=== PATIENT | female | born 1980 | race Caucasian/White ===

== ENCOUNTER 2016-09-08 21:13 | Inpatient (IN) | payer BC ==
--- NOTE | 2016-09-08 22:03 | ED ---
Psych HPI - General Source: patient, RN notes reviewed Mode of arrival: ambulatory <Keiko Hua - Last Filed: 09/09/16 02:16> <Navid Hernandes - Last Filed: 10/03/16 09:08> - General Chief Complaint: Psychiatric Symptoms Stated Complaint: mental health Time Seen by Provider: 09/08/16 21:33 - History of Present Illness Initial Comments: Patient is a 36-year-old female since emergency room for psychiatric evaluation. Patient states been having depression for the past few months. Patient states the depression has been increasing. Patient states been having thoughts of wanting to hurt herself or end her life but denies actually going through with it. Patient states that she has 2 kids and her and she cares too much about them to enter life, but cannot get thoughts on wanting to harm her self out of her head. Patient states she used to be on depression medication but is not taking anything in years. Patient states that she is to follow up with the counselor/psychiatrist back in 2009. Patient states she smokes marijuana occasionally. Patient denies any other illicit drug use. Patient states she smokes about half pack per day. Patient denies alcohol use. Patient denies chest pain, shortness of breath, headache, dizziness, nausea, vomiting, abdominal pain, fevers, chills. Patient denies homicidal ideations. Patient denies visual or auditory hallucinations. (Keiko Hua) - Related Data Home Medications Medication Instructions Recorded Confirmed Biotin 5 mg PO BID 09/08/16 09/09/16 Cyanocobalamin [Vitamin B-12 1,000 mcg SQ QMONTH 09/08/16 09/09/16 Injection] HYDROcodone/APAP 7.5-325MG [[place] 1 tab PO Q4H PRN 09/08/16 09/09/16 7.5-325] Ondansetron Odt [Zofran ODT] 4 mg PO Q6H PRN 09/08/16 09/09/16 Pantoprazole [Protonix] 40 mg PO BID 09/08/16 09/09/16 Ranitidine HCl [Zantac] 150 mg PO BID 09/08/16 09/09/16 Previous Rx's Medication Instructions Recorded ARIPiprazole [Abilify] 5 mg PO Q24H #30 tab 09/19/16 Docusate [Colace] 100 mg PO BID PRN #60 cap 09/19/16 Escitalopram [Lexapro] 20 mg PO 0700 #30 tab 09/19/16 Gabapentin [Neurontin] 400 mg PO TID #45 cap 09/19/16 Nicotine 21Mg/24Hr Patch [Habitrol] 1 patch TRANSDERM DAILY #12 patch 09/19/16 clonazePAM [KlonoPIN] 0.5 mg PO BID PRN #20 tab 09/19/16 traZODone HCL 150 mg PO HS #30 tablet 09/19/16 Allergies Allergy/AdvReac Type Severity Reaction Status Date / Time Iodinated Contrast Media - Allergy Anaphylaxis Verified 09/09/16 02:14 Oral and Penicillins Allergy Anaphylaxis Verified 09/09/16 02:14 Review of Systems ROS Other: All systems not noted in ROS Statement are negative. <Keiko Hua - Last Filed: 09/09/16 02:16> ROS Other: All systems not noted in ROS Statement are negative. <Navid Hernandes - Last Filed: 10/03/16 09:08> ROS Statement: Those systems with pertinent positive or pertinent negative responses have been documented in the HPI. Past Medical History Past Medical History: No Reported History History of Any Multi-Drug Resistant Organisms: None Reported Past Surgical History: Bariatric Surgery, Tubal Ligation Additional Past Surgical History / Comment(s): breast reduction Past Psychological History: Depression Smoking Status: Former smoker Past Alcohol Use History: None Reported Past Drug Use History: Marijuana <Keiko Hua - Last Filed: 09/09/16 02:16> General Exam Limitations: no limitations General appearance: alert, in no apparent distress Head exam: Present: atraumatic, normocephalic, normal inspection Eye exam: Present: normal appearance ENT exam: Present: normal exam Neck exam: Present: normal inspection Respiratory exam: Present: normal lung sounds bilaterally. Absent: respiratory distress Cardiovascular Exam: Present: regular rate, normal rhythm, normal heart sounds GI/Abdominal exam: Present: soft, normal bowel sounds. Absent: distended, tenderness, guarding, rebound, rigid Extremities exam: Present: normal inspection Back exam: Present: normal inspection Neurological exam: Present: alert, oriented X3, CN II-XII intact, normal gait Psychiatric exam: Present: normal affect, normal mood Skin exam: Present: warm, dry, intact, normal color. Absent: rash <Keiko Hua - Last Filed: 09/09/16 02:16> <Navid Hernandes - Last Filed: 10/03/16 09:08> - General Exam Comments Initial Comments: Sitting in exam room in no acute distress. (Keiko Hua) Medical Decision Making <Keiko Hua - Last Filed: 09/09/16 02:16> - Lab Data Result diagrams: 09/09/16 09:40 09/09/16 09:40 <Navid Hernandes - Last Filed: 10/03/16 09:08> - Medical Decision Making Patient is a 36-year-old female since emergency room for psych evaluation. Patient is medically cleared to be evaluated by psych. Patient evaluated by psych and will be admitted. (Keiko Hua) I saw this patient in conjunction with the physician program support assistant. I performed independent history and physical exam. Agree with case management. (Navid Hernandes) - Lab Data Lab Results 09/08/16 Range/Units 21:30 Urine Opiates Screen Not Detected (NotDetected) Ur Oxycodone Screen Not Detected (NotDetected) Urine Methadone Screen Not Detected (NotDetected) Ur Propoxyphene Screen Not Detected (NotDetected) Ur Barbiturates Screen Not Detected (NotDetected) U Tricyclic Antidepress Not Detected (NotDetected) Ur Phencyclidine Scrn Not Detected (NotDetected) Ur Amphetamines Screen Not Detected (NotDetected) U Methamphetamines Scrn Not Detected (NotDetected) U Benzodiazepines Scrn Detected H (NotDetected) Urine Cocaine Screen Not Detected (NotDetected) U Marijuana (THC) Screen Detected H (NotDetected) Disposition Decision Date: 09/09/16 <Keiko Hua - Last Filed: 09/09/16 02:16> <Navid Hernandes - Last Filed: 10/03/16 09:08> Clinical Impression: Depression Disposition: ADMITTED IP TO THIS HOSP Condition: Stable
[2016-09-09] MEDS ORDERED: MAG HYDROX/AL HYDROX/SIMETH 30 ML CUP PO PRN (03:40)
[2016-09-09] MEDS ORDERED: ZIPRASIDONE 20 MG VIAL IM PRN (03:40)
[2016-09-09] MEDS: ACETAMINOPHEN TAB 325 MG TAB PO PRN (07:14)
[2016-09-09] MEDS: LORazepam 1 MG TAB PO PRN ×3 (07:14→22:49)
[2016-09-09] MEDS: NICOTINE 14MG/24HR PATCH TRANSDERM SCH (09:15)
[2016-09-09 10:08] LABS: Anisocytosis Moderate; Basophils # (A) 0.1 k/uL (0-0.2); Basophils % (A) 1 %; CH 26.3; CHCM 31.1; Eosinophils # (A) 0.2 k/uL (0-0.7); Eosinophils % (A) 3 %; HCT 39.9 % (34.0-46.0); HGB 12.2 gm/dL (11.4-16.0); Hypochromasia Moderate; Luc # (Auto) 0.14; Luc % (Auto) 2; Lymphocytes # (A) 2.3 k/uL (1.0-4.8); Lymphocytes % (A) 30 %; MCH 25.9 pg (25.0-35.0); MCHC 30.6 g/dL (31.0-37.0); MCV 84.7 fL (80.0-100.0); Mean Platelet Volume 7.4; Monocytes # (A) 0.3 k/uL (0-1.0); Monocytes % (A) 4 %; Neutrophils # (A) 4.7 k/uL (1.3-7.7); Neutrophils % (A) 60 %; RBC 4.72 m/uL (3.80-5.40); RDW 20.2 % (11.5-15.5); WBC 7.8 k/uL (3.8-10.6); WBC (Perox) 8.33
[2016-09-09 10:36] LABS: ALT 29 U/L (9-52); AST 24 U/L (14-36); Alkaline Phosphatase 48 U/L (38-126); Anion Gap 14 mmol/L; Blood Urea Nitrogen 12 mg/dL (7-17); Calcium 9.8 mg/dL (8.4-10.2); Carbon Dioxide 27 mmol/L (22-30); Chloride 105 mmol/L (98-107); Glucose 89 mg/dL (74-99); Non-African American GFR(MDRD) >60 (>60 ml/min/1.73 sqM); Potassium 4.3 mmol/L (3.5-5.1); Sodium 146 mmol/L (137-145); Total Bilirubin 0.7 mg/dL (0.2-1.3); Total Protein 7.7 g/dL (6.3-8.2)
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
[2016-09-09] MEDS: FAMOTIDINE 20 MG TAB PO SCH ×2 (11:41→21:40)
[2016-09-09] MEDS: PANTOPRAZOLE 40 MG TABLET PO SCH ×2 (11:41→16:51)
[2016-09-09] MEDS: ESCITALOPRAM 10 MG TAB PO SCH (11:41)
[2016-09-09] MEDS ORDERED: ONDANSETRON ODT 4 MG TAB PO PRN (15:01)
--- NOTE | 2016-09-09 15:12 | P.CONS ---
History of Present Illness - Reason for Consult Consult date: 09/09/16 Medical management Requesting physician: Guicho Deng - Chief Complaint Depression - History of Present Illness This is a 36-year-old female with a known past medical history of depression, vitamin B-12 deficiency and stomach ulcer. Patient presents to the emergency room with complaints of depression and thoughts of wanting to hurt herself. But she denies any suicide attempt. Plus she has 2 kids at home that she cares much about and does not want to harm herself for their sake. Patient denies any homicidal ideation. She denies any chest pain, shortness of breath, nausea or vomiting. Denies any bowel movement changes or urinary symptoms. Denies any fevers chills or sweats. Been consulted for medical management. Review of Systems Please refer to HPI otherwise unremarkable Past Medical History Past Medical History: No Reported History Additional Past Medical History / Comment(s): Asthma, gastric ulcer, heart murmur History of Any Multi-Drug Resistant Organisms: None Reported Past Surgical History: Bariatric Surgery, Tubal Ligation Additional Past Surgical History / Comment(s): breast reduction Past Psychological History: Depression Smoking Status: Current every day smoker Past Alcohol Use History: None Reported Past Drug Use History: Marijuana Medications and Allergies Home Medications Medication Instructions Recorded Confirmed Type Biotin 5 mg PO BID 09/08/16 09/09/16 History Cyanocobalamin [Vitamin B-12 1,000 mcg SQ QMONTH 09/08/16 09/09/16 History Injection] HYDROcodone/APAP 7.5-325MG [[place] 1 tab PO Q4H PRN 09/08/16 09/09/16 History 7.5-325] LORazepam [Ativan] 1 mg PO DAILY PRN 09/08/16 09/09/16 History Ondansetron Odt [Zofran Odt] 4 mg PO Q6H PRN 09/08/16 09/09/16 History Pantoprazole [Protonix] 40 mg PO BID 09/08/16 09/09/16 History Ranitidine HCl [Zantac] 150 mg PO BID 09/08/16 09/09/16 History Zolpidem Tartrate [Ambien] 5 mg PO HS 09/08/16 09/09/16 History Allergies Allergy/AdvReac Type Severity Reaction Status Date / Time Iodinated Contrast Media - Allergy Anaphylaxis Verified 09/09/16 02:14 Oral and Penicillins Allergy Anaphylaxis Verified 09/09/16 02:14 Physical Exam Vitals: Vital Signs Temp Pulse Resp BP Pulse Ox 09/09/16 01:47 98.3 F 70 16 114/73 97 Intake and Output 09/09/16 09/09/16 09/09/16 06:59 14:59 22:59 Other: Weight 51.398 kg Head normocephalic Neck supple Lungs crackles at bases Heart regular rate and rhythm S1-S2, murmur 2/6 systolic border Abdomen is soft nontender nondistended positive bowel sounds no hepatosplenomegaly Extremities no edema Neuro alert and orientated to 3 Results CBC & Chem 7: 09/09/16 09:40 09/09/16 09:40 Labs: Abnormal Lab Results - Last 24 Hours (Table) 09/09/16 09/09/16 Range/Units 09:40 09:40 MCHC 30.6 L (31.0-37.0) g/dL RDW 20.2 H (11.5-15.5) % Sodium 146 H (137-145) mmol/L Assessment and Plan Plan: 1. Depression: Patient is been admitted to the psychiatric unit. Psychiatry's following his added Lexapro 10 mg daily 2. Generalized anxiety disorder 3. Gastric ulcer: Resume Zantac and Protonix. 4. History of asthma: Stable no evidence of exacerbation 5. Nicotine dependence: Continue nicotine patch Thank you for this consultation. We will follow along as needed. Time with Patient: Greater than 30 (Greater than 50% of the total time spent in counseling and coordination of care.I performed an examination of the patient and discussed their management with the physician Healthcare Administrator. I have reviewed the Physician Healthcare Administrator's notes and agree with the documented findings and plan of care)
[2016-09-09] MEDS: HYDROcodone/APAP 7.5-325MG 1 EACH TAB PO PRN ×2 (15:16→20:26)
[2016-09-09] MEDS ORDERED: NON-FORMULARY DRUG (Ranitidine Hcl [Zantac] 150 MG) PO SCH (21:00)
[2016-09-09] MEDS ORDERED: NON-FORMULARY DRUG (Biotin [Biotin] 5 MG) PO SCH (21:00)
[2016-09-10] MEDS: ESCITALOPRAM 10 MG TAB PO SCH (07:57)
[2016-09-10] MEDS: PANTOPRAZOLE 40 MG TABLET PO SCH ×2 (07:57→18:09)
[2016-09-10] MEDS: FAMOTIDINE 20 MG TAB PO SCH (07:57)
[2016-09-10] MEDS: NICOTINE 14MG/24HR PATCH TRANSDERM SCH (07:59)
[2016-09-10] MEDS: HYDROcodone/APAP 7.5-325MG 1 EACH TAB PO PRN ×4 (08:00→20:39)
[2016-09-10] MEDS: LORazepam 1 MG TAB PO PRN (08:01)
--- NOTE | 2016-09-10 14:26 | P.PN ---
Progress Note - Text SUBJECTIVE: I reviewed the medical record, interviewed the patient She complained of continued feelings of depression, fatigue, hopelessness and helplessness.She endorses poor sleep ,nightmares ,high anxiety ,passive suicidal ideation ,she reports that her depression getting worse since her gastric bypass due to complication ,reports chronic pain since surgery "NORCO IS NOT HELPING ENOUGH",patient has been requesting PRN Ativan three times a day ,despite this she is still having anxiety and crying episodes OBJECTIVE: She presented as a casually dressed female ,tearful during interview . She reports, GI upset,and increased anxiety. She maintained eye contact and attended to interview. had a sad facial expression. She showed psychomotor retardation but no abnormal involuntary movements. Her speech was spontaneous ,circumstatial but easy to redirect. Her affect was depressed She is somatic preoccupied She denied homicidal ideation. She expressed depressive cognitions including hopelessness, helplessness and worthlessness. She ruminated about her multiple psychosocial problems. She denies psychotic features ,insight is fair ASSESSMENT: She is experiencing depression , anxiety and PTSD symptoms , PLAN: Continue Lexapro ,add Trazodone for sleep ,change Ativan to Klonopin , monitor her mood and suicidal ideation ,encourage groups participation
[2016-09-10] MEDS: clonazePAM 1 MG TAB PO PRN (15:00)
[2016-09-10] MEDS ORDERED: traZODone HCL 100 MG TAB PO SCH (21:00)
[2016-09-11] MEDS: clonazePAM 1 MG TAB PO PRN ×3 (00:42→23:01)
[2016-09-11] MEDS: PANTOPRAZOLE 40 MG TABLET PO SCH ×2 (08:28→17:14)
[2016-09-11] MEDS: NICOTINE 14MG/24HR PATCH TRANSDERM SCH (08:28)
[2016-09-11] MEDS: ESCITALOPRAM 10 MG TAB PO SCH (08:28)
[2016-09-11] MEDS: HYDROcodone/APAP 7.5-325MG 1 EACH TAB PO PRN ×4 (08:30→21:23)
--- NOTE | 2016-09-11 14:08 | P.PN ---
Progress Note - Text SUBJECTIVE: I reviewed the medical record, interviewed the patient She complained of continued feelings of depression, fatigue, hopelessness and helplessness.She slept better with Trazodone but up after 2 hours and requested PRN Klonopin , ,she reports that her depression getting worse since her gastric bypass due to complication ,reports chronic pain since surgery and has been on opium medications since then Patient had family meeting with at 11 AM and she does feel that it was positive ,was concerned about her 11 years old daughter who DX with [employer] and patient asked if daughter can visit OBJECTIVE: She presented as a casually dressed female ,not tearful as yesterday. She maintained eye contact and attended to interview. had a sad facial expression. She showed psychomotor retardation but no abnormal involuntary movements. Her speech was spontaneous and linear Her affect was depressed She is somatic preoccupied She denied suicidal and homicidal ideation. She expressed depressive cognitions including hopelessness, helplessness and worthlessness. She ruminated about her multiple psychosocial problems. She denies psychotic features ,insight is fair , PLAN: Increase Trazodone to 150 mg for sleep ,continue rest of medications regime ,daughter can visit today at 4 PM ,encourage groups participation
[2016-09-12] MEDS: traZODone HCL 50 MG TAB PO SCH ×2 (00:04→23:18)
[2016-09-12] MEDS: NICOTINE 21MG/24HR PATCH TRANSDERM SCH (09:17)
[2016-09-12] MEDS: ESCITALOPRAM 10 MG TAB PO SCH (09:18)
[2016-09-12] MEDS: PANTOPRAZOLE 40 MG TABLET PO SCH ×2 (09:18→16:34)
[2016-09-12] MEDS: clonazePAM 1 MG TAB PO PRN ×3 (09:18→21:56)
[2016-09-12] MEDS: HYDROcodone/APAP 7.5-325MG 1 EACH TAB PO PRN ×4 (09:18→21:03)
--- NOTE | 2016-09-12 09:39 | P.PN ---
Progress Note - Text Interval history: The patient is found in the hallway she follows me to an interview room. She reports that she continues to feel depressed she is having episodes of tearfulness causing her to leave group at times. Her Ativan was changed to Klonopin 1 mg 3 times daily she is using that throughout the day and she feels that does calm her. We discussed try to utilize some cognitive strategies to address her symptoms as well. She spoke at length regarding her home circumstances. 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 We reviewed her medications her questions were answered. Mental status exam: The patient is a shorter statured thin female. She has visible tattoos on her upper extremities her hair is purple. Eye contact is appropriate speech is fluent spontaneous nonpressured. Thought process is circumstantial at times there is no tangential thinking loose associations or flight of ideas. She continues to have suicidal thoughts that are very uncomfortable and frightening to her. No auditory or visual hallucinations no specific delusions. She demonstrates no verbal or physical aggressiveness. She maintains a constricted to bland affect. Insight and judgment limited. No homicidal ideation. She remains oriented to person place and date. Plan: The patient will continue on her current medications she is encouraged to continue participating in group. Suggestions were offered for cognitive reframing. We will continue to monitor for safety. Vital signs reviewed. She requires continued psychiatric hospitalization because of suicidal thoughts.
[2016-09-12] MEDS: NICOTINE 14MG/24HR PATCH TRANSDERM SCH (10:09)
[2016-09-13] MEDS: ESCITALOPRAM 10 MG TAB PO SCH (06:08)
[2016-09-13] MEDS: PANTOPRAZOLE 40 MG TABLET PO SCH ×2 (06:08→16:07)
[2016-09-13] MEDS: clonazePAM 1 MG TAB PO PRN ×3 (06:15→19:27)
[2016-09-13] MEDS: HYDROcodone/APAP 7.5-325MG 1 EACH TAB PO PRN ×5 (06:15→23:03)
[2016-09-13] MEDS: MAGNESIUM HYDROXIDE 2,400 MG/10 ML CUP PO PRN (06:22)
[2016-09-13] MEDS: NICOTINE 21MG/24HR PATCH TRANSDERM SCH (09:02)
--- NOTE | 2016-09-13 09:38 | P.PN ---
Progress Note - Text Interval history: The patient is found in her room she follows me to an interview room. She reports that her mood is distraught she feels sad she feels hopeless. She reports yesterday having crying episodes. She states she continues to have suicidal thoughts with consideration of plans. She has tried to attend groups and socializes on the unit. We talked about augmentation strategies including Abilify. She initially stated she had been on that medication today states that she was wrong and she was thinking of Lamictal. We discussed the potential benefits of adding Abilify. Nursing informs me that she is experiencing symptoms of constipation and would usually take Colace to alleviate it. Mental status exam: The patient is alert she seated calmly eye contact is appropriate she endorses a depressed mood with hopelessness thinking and suicidal thoughts. She maintains a bland or blunted affect. Speech is spontaneous fluent nonpressured. Thought process is circumstantial at times no tangential thinking loose associations or flight of ideas. She is endorsing no auditory or visual hallucinations no evidence of psychosis. She demonstrates no verbal or physical aggressiveness. She remains oriented to person place and date. Plan: The patient will continue on the Lexapro 10 mg daily we will augment with Abilify 2 mg daily. She finds the trazodone helpful for sleep. Vital signs reviewed. She is encouraged to fully participate in the milieu. She requires continued hospitalization for ongoing suicidal thoughts and hopelessness thinking.
[2016-09-13] MEDS: DOCUSATE 100 MG CAP PO PRN ×2 (09:52→21:23)
[2016-09-13] MEDS: ARIPiprazole 2 MG TAB PO SCH (09:52)
[2016-09-13] MEDS: ACETAMINOPHEN TAB 325 MG TAB PO PRN (19:56)
[2016-09-13] MEDS: traZODone HCL 50 MG TAB PO SCH (22:54)
[2016-09-14] MEDS: PANTOPRAZOLE 40 MG TABLET PO SCH ×2 (06:40→18:00)
[2016-09-14] MEDS: ESCITALOPRAM 10 MG TAB PO SCH (06:40)
[2016-09-14] MEDS: HYDROcodone/APAP 7.5-325MG 1 EACH TAB PO PRN ×4 (07:20→23:06)
[2016-09-14] MEDS: clonazePAM 1 MG TAB PO PRN ×3 (07:26→22:06)
[2016-09-14] MEDS: ARIPiprazole 2 MG TAB PO SCH (08:47)
[2016-09-14] MEDS: NICOTINE 21MG/24HR PATCH TRANSDERM SCH (08:47)
--- NOTE | 2016-09-14 09:18 | P.PN ---
Progress Note - Text Interval history: The patient's is found in the dining room she follows me to an interview room. She reports that she continues to struggle with episodes where she feels overwhelmed and resorts to having suicidal thoughts. She continues to report episodes where she will have to go to her room and she will be tearful for an extended period. She asked that the Klonopin be increased but we discussed that is not in her best interest. We reviewed coping skills that she is using suggestions for cognitive reframing were offered. She does feel that the Abilify may be providing some benefit. Mental status exam: The patient is a thin female she has purple hair she has visible tattoos on her upper extremities. Eye contact is appropriate she reports her mood is depressed and anxious she reports hopelessness thinking with continued suicidal thoughts. She states that she has thoughts that she wished the suicide attempt when she was 14 years old was successful. She maintains a constricted affect. Speech is spontaneous fluent there is an increased content of speech but it is not pressured. She does not appear hypomanic or manic. There is no report or evidence of psychosis. She remains oriented to person place and date. Insight and judgment limited. Plan: The patient will continue on her current medications she is encouraged to continue developing coping skills. Vital signs are reviewed. She requires continued psychiatric hospitalization.
[2016-09-14] MEDS: DOCUSATE 100 MG CAP PO PRN ×2 (09:31→22:06)
[2016-09-14] MEDS: ACETAMINOPHEN TAB 325 MG TAB PO PRN ×2 (10:20→20:27)
[2016-09-14] MEDS: traZODone HCL 50 MG TAB PO SCH (23:07)
[2016-09-15] MEDS: PANTOPRAZOLE 40 MG TABLET PO SCH ×2 (06:40→16:39)
[2016-09-15] MEDS: ESCITALOPRAM 10 MG TAB PO SCH (06:40)
[2016-09-15] MEDS ORDERED: ARIPiprazole 2 MG TAB PO SCH (07:00)
[2016-09-15] MEDS: clonazePAM 1 MG TAB PO PRN ×2 (08:27→16:39)
[2016-09-15] MEDS: NICOTINE 21MG/24HR PATCH TRANSDERM SCH (08:27)
[2016-09-15] MEDS: HYDROcodone/APAP 7.5-325MG 1 EACH TAB PO PRN ×2 (08:28→16:39)
[2016-09-15] MEDS: DOCUSATE 100 MG CAP PO PRN ×2 (12:42→22:21)
--- NOTE | 2016-09-15 13:56 | P.PN ---
Progress Note - Text SUBJECTIVE: I reviewed the medical record, interviewed Ms. Covington and discussed her treatment and treatment plan with team meeting. She was admitted to the psychiatric unit on 09/09/2015 with the diagnoses of major depressive disorder recurrent severe without psychosis, generalized anxiety disorder and post manic stress disorder. Dr. Deng has been treating her with a combination of clonazepam 1 mg by mouth 3 times a day when necessary for anxiety, Lexapro 10 mg daily, Desyrel 150 mg at bedtime and Abilify 2 mg daily. She complained of continued feelings depression. She talked for a considerable period of time about her past experiences including the difficulty she encountered as a child, the suicide of her stepfather and her relationship with her mother and sister. She alleged that she has felt depressed since she was a child. She felt a period of improvement depression just before she developed a bleeding gastric ulcer required hospitalization, hydration and blood transfusions. She alleged that since that hospitalization she has been severely depressed. She also talked about chronic anxiety requiring treatment with high doses of benzodiazepines and chronic pain also requiring high doses of opiate pain medicines. She is distressed that we are limiting her dose of benzodiazepine and opiate pain medicines. She specifically inquired why her dose of Narco had been decreased from every 4 hours to every 8 hours yesterday. She described passive thoughts of suicide where she wishes that she were if she were to continues to "suffer" from depression, pain and anxiety. She denied plan or intent. OBJECTIVE: She presented as a casually groomed short and thin 36-year-old female with her hair dyed a purple hue. She maintained eye contact and attended to the interview. She had no prominent physical abnormalities. She had a depressed facial expression. She was alert and oriented to person, place and time. She showed slight psychomotor retardation but no abnormal movements. Her speech was spontaneous with normal rate, rhythm and volume. She had no articulation difficulties. Her affect was depressed. She complained of subjective subjective anxiety but did not appear anxious, restless. She described wishes but denied intent or plan. She denied homicidal ideation. She expressed depressive cognitions such as hopelessness, helplessness and worthlessness. She ruminated about her feelings of depression and anxiety, her chronic pain, her experiences as a child and her belief that her mother preferred her sister over her. She didn't express phobias, ideas reference or paranoid ideation. Her thinking was concrete but her associations were coherent and logical. She denied hallucinations and did not appear to be responding to internal stimuli. ASSESSMENT: She presented as a chronically depressed middle-aged woman who is preoccupied with anxiety symptoms and chronic pain complaints. Overall she is moderately mentally ill and showed a moderate response to treatment. She has passive suicidal ideation but no active intent or plan. PLAN: Continue Lexapro 10 mg by mouth daily (Dr. Deng started the Lexapro on ), increase Abilify to 5 mg daily, continue current dose of clonazepam ( 1 mg by mouth 3 times a day). Discussed alternatives to increasing the dosing frequency of Narco 7.5-325. Consider transfer to a partial hospital program. Encouraged continued participation in therapeutic groups and activities. Evaluate clinical status response to treatment daily basis.
[2016-09-15] MEDS: MAGNESIUM HYDROXIDE 2,400 MG/10 ML CUP PO PRN (18:44)
[2016-09-15] MEDS ORDERED: PNEUMOCOCCAL VACC-PNEUMOVAX 23 25 MCG/0.5 ML VIAL IM ONE (18:52)
[2016-09-15] MEDS: traZODone HCL 50 MG TAB PO SCH (22:25)
[2016-09-16] MEDS: HYDROcodone/APAP 7.5-325MG 1 EACH TAB PO PRN ×3 (01:01→17:29)
[2016-09-16] MEDS: clonazePAM 1 MG TAB PO PRN ×3 (01:01→21:05)
[2016-09-16] MEDS: ESCITALOPRAM 10 MG TAB PO SCH (06:02)
[2016-09-16] MEDS: ARIPiprazole 5 MG TAB PO SCH (06:02)
[2016-09-16] MEDS: PANTOPRAZOLE 40 MG TABLET PO SCH ×2 (06:03→17:26)
[2016-09-16] MEDS: NICOTINE 21MG/24HR PATCH TRANSDERM SCH ×2 (08:16→08:17)
--- NOTE | 2016-09-16 13:37 | P.PN ---
Progress Note - Text SUBJECTIVE: I reviewed the medical record, interviewed Ms. Covington and discussed her treatment and and treatment plan during team meeting. She complains of continued feelings depression and alleged that she has not improved since admission. We talked about her reason for declined or recommendation for partial hospitalization. She could not adequately explain herself and alleged that she does not want to go to [facility]. When we talked about discharge she became increasingly distraught. She began to cry and alleged that if she were to go home she would become preoccupied by suicide implying but not directly stating that she would attempt suicide by overdose of medications. I explain the reason for not increasing her dose of Narco. She complained of continued as "severe" pain. We discussed options and she agreed to a trial of gabapentin. OBJECTIVE: She presented as a thin, frail-appearing, short woman who did not make direct eye contact. She attended to the interview. She had a distressed facial expression. She showed psychomotor retardation but no abnormal movements. Her gait was slow but steady. Her speech was spontaneous with decreased rate and rhythm. Her affect was depressed and labile. She describes suicidal ideation and wishes. She expressed depressive cognitions including hopelessness, helplessness and worthlessness. She ruminated on her chronic pain, chronic depression and her inability to care for herself and her family. She did not express ideas reference or paranoid ideation. Her thinking was concrete but her associations were coherent. She denied hallucinations and did not appear to be responding to internal stimuli. ASSESSMENT: She complains of continued feelings depression, suicidal ideation and pain. She is distressed that I will not increased dose of either clonazepam or Narco. Overall she appears moderately mentally ill with little improvement since admission. PLAN: Continue inpatient hospitalization due to continued suicidal ideation. Continue aripiprazole 5 mg daily and escitalopram 10 mg daily. Begin gabapentin 300 mg and titrated according to clinical effect and side effect. Continue clonazepam 1 mg by mouth 3 times a day and Narco's 7.5-500 tablet every 8 hours when necessary for pain. Encourage participation in therapeutic groups and activities. Evaluate clinical status response to treatment on a daily basis.
[2016-09-16] MEDS: GABAPENTIN 300 MG CAP PO SCH (21:01)
[2016-09-16] MEDS: traZODone HCL 50 MG TAB PO SCH (21:59)
[2016-09-17] MEDS: HYDROcodone/APAP 7.5-325MG 1 EACH TAB PO PRN ×3 (01:50→17:23)
[2016-09-17] MEDS: ESCITALOPRAM 10 MG TAB PO SCH (06:51)
[2016-09-17] MEDS: PANTOPRAZOLE 40 MG TABLET PO SCH ×2 (06:51→18:40)
[2016-09-17] MEDS: ARIPiprazole 5 MG TAB PO SCH (06:51)
[2016-09-17] MEDS: clonazePAM 1 MG TAB PO PRN ×2 (09:24→21:02)
[2016-09-17] MEDS: NICOTINE 21MG/24HR PATCH TRANSDERM SCH (09:27)
[2016-09-17] MEDS ORDERED: CYANOCOBALAMIN 1,000 MCG/ML 1 ML VIAL IM ONE (14:29)
[2016-09-17] MEDS: ACETAMINOPHEN TAB 325 MG TAB PO PRN (15:01)
--- NOTE | 2016-09-17 16:53 | P.PN ---
Progress Note - Text SUBJECTIVE: I reviewed the medical record and interviewed Ms. Covington. She was acutely distressed earlier this morning when talking a telephone. I inquired about conversation . She obtained her mother's telephone number from her brother. She called and spoke to her mother for the first time in 2 years. Her intention was to repair their relationship and tell her mother that that she forgives. mother became angry and refused to take responsibility for her past behaviors. She also spoke with her . They apparently have ongoing difficulties about her friends and acquaintances. She is distressed because every time she has a male friend he becomes jealous and reminds her of her past infidelity. She complained of continued depression and thoughts of suicide. She apologized for her lack of emotional control yesterday when we talking about alternatives to inpatient hospitalization. She remains opposed to partial hospital because. She'll alleges that [facility] has a bad reputation and she will not receive the emotional support she required if she is to return home. The latter relates to issues in her relationship with her . She completed the [place] Depression Inventory her total score was 47 consistent with extremely severe depression. Her response to the suicide question was "I would kill myself if I had the chance." She denied side effects to the initial dose of gabapentin and believes that her pain in her lower back has lessened "somewhat". OBJECTIVE: She presented as a slightly disheveled appearing thin and pale 36- year-old female who looked and behaved much younger than her stated age. At time she spoke with an almost adolescent voice. She maintained eye contact and attended to interview. She had a labile facial expression. She showed psychomotor retardation but no abnormal movements. Her speech was spontaneous with variable rate, volume and rhythm. Her affect was depressed but reactive. She described continued suicidal ideation and wishes. She denied specific intent or plan however. She denied homicidal ideation. She expressed depressive cognitions including hopelessness, helplessness and worthlessness. She ruminated about her relationship with her and mother , her lack of emotional support at home and the need for friendships outside of her home. She did not express ideas reference or paranoid ideation. She denied hallucinations and didn't appear to be responding to internal stimuli. Her thinking was abstract. Associations were coherent and logical. ASSESSMENT: She describes severe symptoms of depression was continued suicidal ideation. She is severely mentally ill showed a moderate response to treatment so far. PLAN: Increase Lexapro to 20 mg daily, continue Abilify 5 mg daily, continue gabapentin 3 mg at bedtime and titrated according to clinical response and side effects. Continue narco 7.5-500 every 8 when necessary for pain and clonazepam 1 mg 3 times a day when necessary for anxiety. Encourage participation in therapeutic groups and activities. Evaluate clinical status response to treatment daily basis. She will need referral for outpatient individual psychotherapy and may benefit from referral for DBT due to difficulty with emotional control.
[2016-09-17] MEDS: GABAPENTIN 300 MG CAP PO SCH (21:00)
[2016-09-17] MEDS: traZODone HCL 50 MG TAB PO SCH (22:40)
[2016-09-18] MEDS: ESCITALOPRAM 20 MG TAB PO SCH (05:52)
[2016-09-18] MEDS: ARIPiprazole 5 MG TAB PO SCH (05:52)
[2016-09-18] MEDS: PANTOPRAZOLE 40 MG TABLET PO SCH ×2 (05:52→17:08)
[2016-09-18] MEDS: HYDROcodone/APAP 7.5-325MG 1 EACH TAB PO PRN ×3 (06:02→20:50)
[2016-09-18] MEDS: clonazePAM 1 MG TAB PO PRN ×2 (07:59→15:22)
[2016-09-18] MEDS: NICOTINE 21MG/24HR PATCH TRANSDERM SCH (08:46)
[2016-09-18] MEDS: ACETAMINOPHEN TAB 325 MG TAB PO PRN (10:26)
[2016-09-18] MEDS: GABAPENTIN 300 MG CAP PO SCH ×2 (15:22→20:50)
--- NOTE | 2016-09-18 15:49 | P.PN ---
Progress Note - Text SUBJECTIVE: I reviewed the medical record and interviewed Ms. Covington. She plays of continued feelings depression, helplessness, hopelessness and worthlessness. She is angry that her did not visit yesterday and his concerns that he may not visit today. She denied side effects to the initial dose of gabapentin and believes that her pain in her lower back has lessened "somewhat".he complained of continued pain partial relief with the current dose of narco. She became acutely distressed on the telephone as she was talking to her . OBJECTIVE: She presented as a casually dressed thin and pale 36-year-old female who looked and behaved much younger than her stated age. At times she spoke with an almost adolescent voice. She maintained eye contact and attended to interview. She had a depressed facial expression. She showed psychomotor retardation but no abnormal movements. Her speech was spontaneous with variable rate, volume and rhythm. Her affect was depressed but reactive. She described continued suicidal ideation and wishes. She denied intent or plan however. She denied homicidal ideation. She expressed depressive cognitions including hopelessness, helplessness and worthlessness. She did not express ideas reference or paranoid ideation. She denied hallucinations and didn't appear to be responding to internal stimuli. Her thinking was abstract. Associations were coherent and logical. ASSESSMENT: She continues to complain of depression and continued suicidal ideation. I suspect that her presentation is in part related to marital difficulties. She is severely mentally ill showed a moderate response to treatment so far. PLAN: Continue Lexapro to 20 mg daily, continue Abilify 5 mg daily, increase gabapentin 300 mg a 3 times a day and titrated according to clinical response and side effects. Continue narco 7.5-500 every 8 when necessary for pain and clonazepam 1 mg 3 times a day when necessary for anxiety. Encourage participation in therapeutic groups and activities. Evaluate clinical status response to treatment daily basis. She will need a referral for outpatient individual psychotherapy and would benefit DBT due to difficulty with emotional control.
[2016-09-18] MEDS: DOCUSATE 100 MG CAP PO PRN (16:01)
[2016-09-18] MEDS: traZODone HCL 50 MG TAB PO SCH (23:18)
[2016-09-19 00:24] VITALS: TEMP 98.2
[2016-09-19] MEDS: MAGNESIUM HYDROXIDE 2,400 MG/10 ML CUP PO PRN ×2 (00:24→11:11)
[2016-09-19] MEDS: clonazePAM 1 MG TAB PO PRN (00:39)
[2016-09-19] MEDS: PANTOPRAZOLE 40 MG TABLET PO SCH (06:57)
[2016-09-19] MEDS: ESCITALOPRAM 20 MG TAB PO SCH (06:57)
[2016-09-19] MEDS: ARIPiprazole 5 MG TAB PO SCH (06:57)
[2016-09-19] MEDS: GABAPENTIN 300 MG CAP PO SCH (07:58)
[2016-09-19] MEDS: HYDROcodone/APAP 7.5-325MG 1 EACH TAB PO PRN (07:58)
[2016-09-19] MEDS: NICOTINE 21MG/24HR PATCH TRANSDERM SCH (07:58)
[2016-09-19 08:05] VITALS: BP 120/73; PULSE 86; RESP 18
[2016-09-19] MEDS ORDERED: clonazePAM 0.5 MG TAB PO PRN (09:55)
--- NOTE | 2016-09-19 10:10 | P.DS ---
Providers Date of admission: 09/09/16 00:44 Expected date of discharge: 09/19/16 Attending physician: Guicho Deng Consults: 09/09/16 03:40 Consult Physician Routine Consulting Provider: Hai Saenz Consult Reason/Comments: MEDICAL MANAGEMENT Do you want consulting provider notified?: Yes, Notify in am Primary care physician: Patti Lang - Discharge Diagnosis(es) (1) Major depressive disorder, recurrent severe without psychotic features Current Visit: Yes Status: Acute Priority: High (2) Generalized anxiety disorder Current Visit: Yes Status: Acute Priority: High (3) Posttraumatic stress disorder Current Visit: Yes Status: Acute Priority: Medium Hospital Course: Brief summary of admission note: This patient is a 36-year-old female who was admitted to the mental health unit through the emergency room for suicidal ideation. The patient presented with worsening symptoms of depression including frequent tearfulness, poor energy, poor initiative for activities, declining work function. She also described symptoms of generalized anxiety. This occurs in the context of her having a chronic diagnosis of PTSD. For full details please refer to my psychiatric evaluation dated 09/09/2016. Summary of hospital course: The patient was admitted to the mental health unit voluntarily. We reviewed her presenting symptoms and medication options. We initiated Lexapro 10 mg daily and this was titrated to 20 mg daily during the course of the hospitalization. We decided to augment with Abilify for severe refractory symptoms of depression and that medication was titrated to 5 mg daily. She was initially on Ativan as needed this was changed to Klonopin hoping that the increased duration of action would be more beneficial for the generalized anxiety disorder symptoms. She did utilize trazodone at bedtime for sleep. Dr. Hunt provided coverage in my absence and also initiated Neurontin. The patient's demonstrated progressive improvement of symptoms while on the mental health unit she notes significant improvement over the last several days. She did undergo a routine medical consultation. She is reporting no acute suicidal ideation intent or plan. She demonstrates future oriented thinking. She states that she had a breakthrough with her mother in that her mother apologized for many of the things that happened during her childhood. Mental status exam: The patient is a thin female she is dressed in her own clothing. Her hair is purple. She has several expose tattoos on her upper extremities. Eye contact is appropriate. Speech is spontaneous fluent nonpressured. She is verbose but easily directable. She describes a mood that is "better" her affect is brighter and she demonstrates appropriate smiling. She demonstrates no tearfulness. She denies having any acute suicidal ideation intent or plan. She denies having any homicidal ideation intent or plan. There is no report of auditory or visual hallucinations or specific delusions. There is no evidence of psychosis. There is no psychomotor agitation or slowing. No involuntary body movements observed. Insight and judgment improving. She remains alert and oriented to person place and date. She demonstrates no verbal or physical aggressiveness. Impressions 1. Major depressive disorder recurrent severe without psychosis, generalized anxiety disorder, posttraumatic stress disorder, rule out cannabis use disorder 2. Asthma, gastric ulcer, arthritis, history of gastric bypass 3. Psychosocial dysfunction due to worsening symptoms of depression Plan: The patient will be discharged from the mental health unit to return home today. Social work will arrange for outpatient mental health services. The patient will continue on Lexapro 20 mg daily, Abilify 5 mg daily, trazodone 150 mg at bedtime, Neurontin 400 mg 3 times daily, Klonopin we'll be available 0.5 mg up to daily as needed.. She will follow up with a primary care physician as needed. She is encouraged to abstain from any use of alcohol or cannabis. She does not wish to pursue any inpatient treatment for cannabis use. There is no imminent safety risk the patient is appropriate for transition to outpatient services. She is instructed to return to the hospital with any acute safety concerns. Patient Condition at Discharge: Stable Plan - Discharge Summary New Discharge Prescriptions: ARIPiprazole [Abilify] 5 mg PO Q24H #30 tab Docusate [Colace] 100 mg PO BID PRN #60 cap PRN Reason: constipation Escitalopram [Lexapro] 20 mg PO 0700 #30 tab Gabapentin [Neurontin] 400 mg PO TID #45 cap Nicotine 21Mg/24Hr Patch [Habitrol] 1 patch TRANSDERM DAILY #12 patch clonazePAM [KlonoPIN] 0.5 mg PO BID PRN #20 tab PRN Reason: Anxiety traZODone HCL 150 mg PO HS #30 tablet Discharge Medication List Biotin 5 mg PO BID 09/08/16 [History] Cyanocobalamin [Vitamin B-12 Injection] 1,000 mcg SQ QMONTH 09/08/16 [History] HYDROcodone/APAP 7.5-325MG [[place] 7.5-325] 1 tab PO Q4H PRN 09/08/16 [History] Ondansetron Odt [Zofran ODT] 4 mg PO Q6H PRN 09/08/16 [History] Pantoprazole [Protonix] 40 mg PO BID 09/08/16 [History] Ranitidine HCl [Zantac] 150 mg PO BID 09/08/16 [History] ARIPiprazole [Abilify] 5 mg PO Q24H #30 tab 09/19/16 [Rx] Docusate [Colace] 100 mg PO BID PRN #60 cap 09/19/16 [Rx] Escitalopram [Lexapro] 20 mg PO 0700 #30 tab 09/19/16 [Rx] Gabapentin [Neurontin] 400 mg PO TID #45 cap 09/19/16 [Rx] Nicotine 21Mg/24Hr Patch [Habitrol] 1 patch TRANSDERM DAILY #12 patch 09/19/16 [ Rx] clonazePAM [KlonoPIN] 0.5 mg PO BID PRN #20 tab 09/19/16 [Rx] traZODone HCL 150 mg PO HS #30 tablet 09/19/16 [Rx] Follow up Appointment(s)/Referral(s): Patti Lang MD [Primary Care Provider] - 1 Week
[2016-09-19] MEDS ORDERED: GABAPENTIN 400 MG CAP PO SCH (16:00)
== END 2016-09-19 14:10 | disposition home or self-care (01) | DRG 885 ==
LOC: EC 21:13 → 3MHU 09-09 00:44
PROVIDERS: ADMIT Psychiatry & Neurology Psychiatry; ATTEND Psychiatry & Neurology Psychiatry
DX: F33.2 Major depressive disorder, recurrent severe without psychotic features (principal); K25.4 Chronic or unspecified gastric ulcer with hemorrhage; R45.851 Suicidal ideations; F41.1 Generalized anxiety disorder; F17.210 Nicotine dependence, cigarettes, uncomplicated; F12.90 Cannabis use, unspecified, uncomplicated; F43.10 Post-traumatic stress disorder, unspecified; G89.29 Other chronic pain; J45.909 Unspecified asthma, uncomplicated; M19.90 Unspecified osteoarthritis, unspecified site; E53.8 Deficiency of other specified B group vitamins; R01.1 Cardiac murmur, unspecified; Z98.84 Bariatric surgery status; F51.5 Nightmare disorder; G47.9 Sleep disorder, unspecified; Z91.5 Personal history of self-harm; Z88.0 Allergy status to penicillin; Z91.041 Radiographic dye allergy status; Z79.899 Other long term (current) drug therapy
CPT/HCPCS: 80053; 80306; 82075; 84443; 85025; 90732; 99285

== ENCOUNTER 2016-10-03 22:00 | Inpatient (IN) | payer BC ==
[2016-10-03] MEDS ORDERED: SODIUM CHLORIDE 0.9% 1,000 ML IV ONE (23:17)
[2016-10-03] MEDS ORDERED: METOCLOPRAMIDE 5 MG/ML 2 ML VIAL IVP STA (23:17)
[2016-10-03] MEDS ORDERED: diphenhydrAMINE 50 MG/ML 1 ML VIAL IVP STA (23:17)
--- NOTE | 2016-10-03 23:56 | CT ---
EXAMINATION TYPE: CT brain wo con DATE OF EXAM: 10/03/2016 11:49 PM COMPARISON: NONE HISTORY: Dizziness CT DLP: mGycm Automated exposure control for dose reduction was used. FINDINGS: Ventricles and sulci appear normal. There is no mass effect nor midline shift. There is no sign of in tracranial hemorrhage. The calvarium is intact. IMPRESSION: Normal unenhanced head CT scan.
[2016-10-04 00:19] LABS: Anisocytosis Moderate; Basophils # (A) 0.1 k/uL (0-0.2); Basophils % (A) 1 %; CH 27.7; CHCM 31.2; Eosinophils # (A) 0.3 k/uL (0-0.7); Eosinophils % (A) 4 %; HCT 35.6 % (34.0-46.0); HDW 2.84; HGB 11.3 gm/dL (11.4-16.0); Hypochromasia Moderate; Luc # (Auto) 0.16; Luc % (Auto) 2; Lymphocytes # (A) 2.5 k/uL (1.0-4.8); Lymphocytes % (A) 35 %; MCH 28.2 pg (25.0-35.0); MCHC 31.8 g/dL (31.0-37.0); MCV 88.7 fL (80.0-100.0); Mean Platelet Volume 6.8; Monocytes # (A) 0.4 k/uL (0-1.0); Monocytes % (A) 6 %; Neutrophils # (A) 3.7 k/uL (1.3-7.7); Neutrophils % (A) 52 %; RBC 4.01 m/uL (3.80-5.40); RDW 21.2 % (11.5-15.5); WBC 7.1 k/uL (3.8-10.6); WBC (Perox) 7.54
[2016-10-04 00:20] LABS: ALT 38 U/L (9-52); AST 35 U/L (14-36); Alkaline Phosphatase 48 U/L (38-126); Anion Gap 5 mmol/L; Blood Urea Nitrogen 13 mg/dL (7-17); Calcium 8.7 mg/dL (8.4-10.2); Carbon Dioxide 29 mmol/L (22-30); Chloride 106 mmol/L (98-107); Glucose 66 mg/dL (74-99); Non-African American GFR(MDRD) >60 (>60 ml/min/1.73 sqM); Potassium 4.4 mmol/L (3.5-5.1); Sodium 140 mmol/L (137-145); Total Bilirubin 0.3 mg/dL (0.2-1.3); Total Protein 5.8 g/dL (6.3-8.2)
[2016-10-04 04:51] LABS: Glucose,Whole Blood 78 mg/dL (75-99)
[2016-10-04] MEDS ORDERED: ACETAMINOPHEN TAB 325 MG TAB PO PRN (05:33)
[2016-10-04] MEDS ORDERED: MAGNESIUM HYDROXIDE 2,400 MG/10 ML CUP PO PRN (05:33)
[2016-10-04] MEDS ORDERED: MAG HYDROX/AL HYDROX/SIMETH 30 ML CUP PO PRN (05:33)
[2016-10-04] MEDS ORDERED: DOCUSATE 100 MG CAP PO PRN (07:15)
[2016-10-04] MEDS: ESCITALOPRAM 20 MG TAB PO SCH (08:33)
[2016-10-04] MEDS ORDERED: NICOTINE 14MG/24HR PATCH TRANSDERM SCH (09:00)
[2016-10-04] MEDS ORDERED: GABAPENTIN 400 MG CAP PO SCH (09:00)
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
[2016-10-04] MEDS: FAMOTIDINE 20 MG TAB PO SCH ×2 (09:56→20:48)
[2016-10-04] MEDS: NICOTINE 21MG/24HR PATCH TRANSDERM SCH (10:33)
--- NOTE | 2016-10-04 13:44 | P.CONS ---
History of Present Illness - Reason for Consult Consult date: 10/04/16 Medical management Requesting physician: Guicho Deng - Chief Complaint Suicidal ideation - History of Present Illness This is a 36-year-old female with past medical history noted below significant for major depressive disorder who presented to the emergency room with worsening depression and suicidal ideation. Patient is currently admitted to the psych unit for further evaluation. She appears calm and cooperative. She said that she is feeling better since her admission to the hospital. She denies any suicidal thoughts at this time. She said that yesterday she had many thoughts about ending her life but did not have a particular plan. She denies having any weapons at home. She was recently hospitalized in the psych unit for similar issues. She denies any illicit drug use. She said that she use [place] at home for chronic low back pain that is prescribed by her primary care physician. Lab work in the emergency room was unremarkable. Review of Systems Review of system: 14 points review of systems were obtained and were negative except to what were mentioned in the HPI. Past Medical History Past Medical History: No Reported History Additional Past Medical History / Comment(s): Asthma, gastric ulcer, heart murmur History of Any Multi-Drug Resistant Organisms: None Reported Past Surgical History: Bariatric Surgery, Tubal Ligation Additional Past Surgical History / Comment(s): breast reduction Past Psychological History: Depression Smoking Status: Current every day smoker Past Alcohol Use History: None Reported Past Drug Use History: Marijuana Medications and Allergies Home Medications Medication Instructions Recorded Confirmed Type Biotin 5 mg PO BID 09/08/16 10/03/16 History Cyanocobalamin [Vitamin B-12 1,000 mcg SQ QMONTH 09/08/16 10/03/16 History Injection] HYDROcodone/APAP 7.5-325MG [[place] 1 tab PO Q4H PRN 09/08/16 10/03/16 History 7.5-325] Ondansetron Odt [Zofran ODT] 4 mg PO Q6H PRN 09/08/16 10/03/16 History Pantoprazole [Protonix] 40 mg PO BID 09/08/16 10/03/16 History Ranitidine HCl [Zantac] 150 mg PO BID 09/08/16 10/03/16 History ARIPiprazole [Abilify] 5 mg PO HS 10/03/16 10/03/16 History Escitalopram [Lexapro] 20 mg PO DAILY 10/03/16 10/03/16 History Allergies Allergy/AdvReac Type Severity Reaction Status Date / Time Iodinated Contrast Media - Allergy Anaphylaxis Verified 10/03/16 23:31 Oral and Penicillins Allergy Anaphylaxis Verified 10/03/16 23:31 Physical Exam Vitals: Vital Signs Temp Pulse Pulse Resp BP BP Pulse Ox 10/04/16 05:44 99.3 F 71 16 89/62 10/04/16 05:17 98.7 F 61 16 101/52 93 L Intake and Output 10/03/16 10/04/16 10/04/16 22:59 06:59 14:59 Other: Weight 58.423 kg General: The patient is awake and alert, in no distress, and does not appear acutely ill. Eye: extra-ocular movements are intact; there is normal conjunctiva bilaterally. . Neck: The neck is supple, there is no tenderness or JVD. Cardiovascular: Normal S1-S2, no S3-S4, no murmurs. Respiratory: Lungs clear to auscultation bilaterally with no wheezes rhonchi or rales. Gastrointestinal: Abdomen is soft, nontender, nondistended, with no organomegaly. . Musculoskeletal: Normal ROM, no tenderness, There is no pedal edema. Neurological: There are no obvious motor or sensory deficits. Speech is normal. Skin: Skin is warm and dry and no rashes or lesions are noted. Results CBC & Chem 7: 10/03/16 23:20 10/03/16 23:20 Assessment and Plan Plan: 1. Depression: Patient is been admitted to the psychiatric unit. Psychiatry's following and adjusting her regimen 2. Generalized anxiety disorder 3. History of gastric ulcer: Currently maintained on Pepcid twice daily. May resume Protonix 40 mg once daily when discharged home 4. History of mild intermittent asthma: Stable no evidence of exacerbation 5. Nicotine dependence: Continue nicotine patch 6. Chronic low back pain/degenerative joint disease: Maintained on [place] as needed Today, I reviewed her medication list and lab work results. Continue current regimen. Thank you very much for the consultation. I will continue to follow up on the patient closely.
[2016-10-04] MEDS: HYDROcodone/APAP 7.5-325MG 1 EACH TAB PO PRN ×2 (13:50→21:28)
[2016-10-04] MEDS: GABAPENTIN 300 MG CAP PO SCH ×2 (16:13→21:27)
[2016-10-04] MEDS: PANTOPRAZOLE 40 MG TABLET PO SCH (16:13)
[2016-10-04] MEDS ORDERED: traZODone HCL 50 MG TAB PO SCH (21:00)
[2016-10-04] MEDS ORDERED: ARIPiprazole 5 MG TAB PO SCH (21:00)
[2016-10-05 06:21] VITALS: TEMP 98.1
[2016-10-05] MEDS: PANTOPRAZOLE 40 MG TABLET PO SCH (08:40)
[2016-10-05] MEDS: ESCITALOPRAM 20 MG TAB PO SCH (08:41)
[2016-10-05] MEDS: GABAPENTIN 300 MG CAP PO SCH (08:41)
[2016-10-05] MEDS: FAMOTIDINE 20 MG TAB PO SCH (08:41)
[2016-10-05] MEDS: NICOTINE 21MG/24HR PATCH TRANSDERM SCH (08:41)
[2016-10-05] MEDS: HYDROcodone/APAP 7.5-325MG 1 EACH TAB PO PRN (08:42)
[2016-10-05 08:45] VITALS: BP 114/66; PULSE 83; RESP 18
--- NOTE | 2016-10-05 09:28 | P.DS ---
Providers Date of admission: 10/04/16 05:09 Expected date of discharge: 10/05/16 Attending physician: Guicho Deng Consults: 10/04/16 05:33 Consult Physician Routine Consulting Provider: Hai Saenz Consult Reason/Comments: H and P with medical follow up Do you want consulting provider notified?: Yes, Notify in am Primary care physician: Patti Lang - Discharge Diagnosis(es) (1) Major depressive disorder, recurrent Current Visit: Yes Status: Acute (2) Generalized anxiety disorder Current Visit: Yes Status: Acute (3) Posttraumatic stress disorder Current Visit: Yes Status: Acute (4) Cannabis use disorder, mild, abuse Current Visit: Yes Status: Acute Hospital Course: This patient is a 36-year-old female who re-presented to the mental health unit through the emergency room reporting suicidal ideation. It turns out she was concerned about a possible medication side effect and she felt that he could not wait until she saw her outpatient psychiatrist in 2 weeks. She reported feeling dizzy and having blurred vision especially in the morning after taking her medication. She feels that her anxiety was worsened she felt overwhelmed and hopeless. She stated that she felt that her than when she was here last time and just needed the medications reviewed again. For full details please refer to my psychiatric evaluation dated 10/04/2016. Summary of hospital course: The patient was admitted to the mental health unit voluntarily. We reviewed her presenting symptoms and medications. We move the Abilify dose to bedtime and reduce the Neurontin to 300 mg 3 times daily. Today she states that was effective she is not experiencing any blurred vision or dizziness and feels more confident that those changes will help. We did not utilize Klonopin during this admission we discussed instituting BuSpar to prevent anxiety symptoms. We discussed the risks of serotonin symptoms adding it to Lexapro and Abilify. We discussed that she is on several psychotropic medications but she may be able to reduce some of these and the outpatient setting. At this point we are simply trying to address current symptoms for her to feel clinically stable. She demonstrated no agitated behavior. She demonstrated a willingness to participate in groups. She states her suicidal thoughts have completely resolved. She has an appointment scheduled with her therapist tomorrow and will see her new outpatient psychiatrist in approximately 2 weeks. Mental status exam: The patient is alert she seated calmly she has purple here she has several visible tattoos. Eye contact is good speech is fluent spontaneous she is verbose but not pressured. She is directable in the session. She reports her mood is better she reports no hopelessness thinking and no suicidal ideation intent or plan. She reports no homicidal ideation intent or plan. There is no report of auditory or visual hallucinations she is reporting no specific delusions there is no objective evidence of psychosis. She does not appear to be hypomanic or manic. Insight and judgment have improved. She remains oriented to person place and date. Affect is appropriately expressive she is able to demonstrate a range of expression including smiling. No abnormal involuntary movements observed. Impressions 1. Major depressive disorder recurrent, generalized anxiety disorder, posttraumatic stress disorder, cannabis use disorder 2. Asthma, gastric ulcer, arthritic pain, history of gastric bypass 3. Psychosocial dysfunction due to mood and anxiety symptoms Plan: The patient will be discharged back home from the mental health unit today. She has an appointment scheduled with [facility] with her therapist Brenna tomorrow and is scheduled to see Dr. Joshua stone within 2 weeks. She will continue on Lexapro 20 mg daily, Abilify 5 mg at bedtime, Neurontin 300 mg 3 times daily, trazodone 150 mg at bedtime and we will initiate BuSpar 5 mg twice daily for generalized anxiety disorder symptoms. Again we discussed serotonin side effects and she is instructed to stop the BuSpar she suspects any of those symptoms. There is no imminent safety risk she is appropriate for transition back to outpatient mental health services. She is encouraged to discontinue use of marijuana she does not wish to participate in any inpatient chemical dependency treatment for that substance use. This can be addressed further with her outpatient counseling. She is instructed to return to the hospital with any acute safety concerns. Patient Condition at Discharge: Stable Plan - Discharge Summary New Discharge Prescriptions: ARIPiprazole [Abilify] 5 mg PO HS #30 tab Escitalopram [Lexapro] 20 mg PO DAILY #30 tab Gabapentin [Neurontin] 300 mg PO TID #45 cap Nicotine 21Mg/24Hr Patch [Habitrol] 1 patch TRANSDERM DAILY #14 patch busPIRone HCL 5 mg PO BID #60 tab traZODone HCL 150 mg PO HS #30 tablet Discharge Medication List Biotin 5 mg PO BID 09/08/16 [History] Cyanocobalamin [Vitamin B-12 Injection] 1,000 mcg SQ QMONTH 09/08/16 [History] HYDROcodone/APAP 7.5-325MG [[place] 7.5-325] 1 tab PO Q4H PRN 09/08/16 [History] Ondansetron Odt [Zofran ODT] 4 mg PO Q6H PRN 09/08/16 [History] Pantoprazole [Protonix] 40 mg PO BID 09/08/16 [History] Ranitidine HCl [Zantac] 150 mg PO BID 09/08/16 [History] Docusate [Colace] 100 mg PO BID PRN #60 cap 09/19/16 [Rx] ARIPiprazole [Abilify] 5 mg PO HS #30 tab 10/05/16 [Rx] Escitalopram [Lexapro] 20 mg PO DAILY #30 tab 10/05/16 [Rx] Gabapentin [Neurontin] 300 mg PO TID #45 cap 10/05/16 [Rx] Nicotine 21Mg/24Hr Patch [Habitrol] 1 patch TRANSDERM DAILY #14 patch 10/05/16 [ Rx] busPIRone HCL 5 mg PO BID #60 tab 10/05/16 [Rx] traZODone HCL 150 mg PO HS #30 tablet 10/05/16 [Rx] Follow up Appointment(s)/Referral(s): Patti Lang MD [Primary Care Provider] - 1 Week
== END 2016-10-05 14:25 | disposition home or self-care (01) | DRG 885 ==
LOC: EC 22:00 → 3MHU 10-04 05:09
PROVIDERS: ADMIT Psychiatry & Neurology Psychiatry; ATTEND Psychiatry & Neurology Psychiatry
DX: F33.9 Major depressive disorder, recurrent, unspecified (principal); R45.851 Suicidal ideations; I95.9 Hypotension, unspecified; R00.1 Bradycardia, unspecified; F41.1 Generalized anxiety disorder; F12.10 Cannabis abuse, uncomplicated; F43.10 Post-traumatic stress disorder, unspecified; J45.909 Unspecified asthma, uncomplicated; Z87.11 Personal history of peptic ulcer disease; Z79.899 Other long term (current) drug therapy; Z81.8 Family history of other mental and behavioral disorders; Z91.5 Personal history of self-harm; Z98.84 Bariatric surgery status; Z62.810 Personal history of physical and sexual abuse in childhood; Z88.0 Allergy status to penicillin; Z88.8 Allergy status to other drugs, medicaments and biological substances
CPT/HCPCS: 36415; 70450; 80053; 80306; 81025; 82075; 84443; 85025; 96361; 96374; 96375; 99285

== ENCOUNTER 2016-11-03 18:22 | Inpatient (IN) | payer BC ==
--- NOTE | 2016-11-03 19:33 | ED ---
General Adult HPI - General Source: patient, RN notes reviewed Mode of arrival: ambulatory Limitations: no limitations <Nacho Cavazos - Last Filed: 11/03/16 19:46> <Jose Ayala - Last Filed: 11/04/16 01:22> - General Chief complaint: Psychiatric Symptoms Stated complaint: suicidal Time Seen by Provider: 11/03/16 19:30 - History of Present Illness Initial comments: Patient 36-year-old female who presents emergency room today with a chief complaint of suicidal ideation. She states she's had thoughts of taking her medications at overdosing. Patient does admit that she uses Ativan at home. She states she did take some Ativan earlier today. She states she just a few pills. Patient denies any other complaints or symptoms at this time. She states she is here because she wants help. Patient denies any recent fever, chills, shortness of breath, chest pain, back pain, abdominal pain, nausea or vomiting, numbness or tingling, dysuria or hematuria, constipation or diarrhea, headaches or visual changes, or any other complaints. (Nacho Cavazos) - Related Data Home Medications Medication Instructions Recorded Confirmed Biotin 5 mg PO BID 09/08/16 11/03/16 Cyanocobalamin [Vitamin B-12 1,000 mcg SQ QMONTH 09/08/16 11/03/16 Injection] HYDROcodone/APAP 7.5-325MG [[place] 1 tab PO Q4H PRN 09/08/16 11/03/16 7.5-325] Ondansetron Odt [Zofran ODT] 4 mg PO Q6H PRN 09/08/16 11/03/16 Pantoprazole [Protonix] 40 mg PO BID 09/08/16 11/03/16 Ranitidine HCl [Zantac] 150 mg PO BID 09/08/16 11/03/16 ARIPiprazole [Abilify] 2 mg PO DAILY 11/03/16 11/03/16 Previous Rx's Medication Instructions Recorded Docusate [Colace] 100 mg PO BID PRN #60 cap 09/19/16 ARIPiprazole [Abilify] 5 mg PO HS #30 tab 10/05/16 Escitalopram [Lexapro] 20 mg PO DAILY #30 tab 10/05/16 Gabapentin [Neurontin] 300 mg PO TID #45 cap 10/05/16 busPIRone HCL 5 mg PO BID #60 tab 10/05/16 traZODone HCL 150 mg PO HS #30 tablet 10/05/16 Allergies Allergy/AdvReac Type Severity Reaction Status Date / Time Iodinated Contrast Media - Allergy Anaphylaxis Verified 11/03/16 18:51 Oral and Penicillins Allergy Anaphylaxis Verified 11/03/16 18:51 Review of Systems ROS Other: All systems not noted in ROS Statement are negative. <Nacho Cavazos - Last Filed: 11/03/16 19:46> ROS Other: All systems not noted in ROS Statement are negative. <Jose Ayala - Last Filed: 11/04/16 01:22> ROS Statement: Those systems with pertinent positive or pertinent negative responses have been documented in the HPI. Past Medical History Past Medical History: Asthma, GERD/Reflux, Musculoskeletal Disorder Additional Past Medical History / Comment(s): Pt. reports she has a history of a heart murmur. Patient also relays she has a duodenal ulcer. History of Any Multi-Drug Resistant Organisms: None Reported Past Surgical History: Bariatric Surgery, Tubal Ligation Additional Past Surgical History / Comment(s): breast reduction, gastric bypass. Past Anesthesia/Blood Transfusion Reactions: No Reported Reaction Past Psychological History: Depression Smoking Status: Current every day smoker Past Alcohol Use History: None Reported Past Drug Use History: Marijuana Additional Drug Use History / Comment(s): Pt. admits to daily marijuana use. <Nacho Cavazos - Last Filed: 11/03/16 19:46> General Exam Limitations: no limitations <Nacho Cavazos - Last Filed: 11/03/16 19:46> <Jose Ayala - Last Filed: 11/04/16 01:22> - General Exam Comments Initial Comments: General: The patient is awake and alert, in no distress. Patient drowsy but arousable to voice. Eye: Pupils are equal, round and reactive to light, extra-ocular movements are intact. No nystagmus. There is normal conjunctiva bilaterally. No signs of icterus. Ears, nose, mouth and throat: There are moist mucous membranes and no oral lesions. Neck: The neck is supple, there is no tenderness or JVD. Cardiovascular: There is a regular rate and rhythm. No murmur, rub or gallop is appreciated. Respiratory: Lungs are clear to auscultation, respirations are non-labored, breath sounds are equal. No wheezes, stridor, rales, or rhonchi. Gastrointestinal: Soft, non-distended, non-tender abdomen without masses or organomegaly noted. There is no rebound or guarding present. No CVA tenderness. Bowel sounds are unremarkable. Musculoskeletal: Normal ROM, no tenderness. Strength 5/5. Sensation intact. Pulses equal bilaterally 2+. Neurological: A&O x 3. CN II-XII intact, There are no obvious motor or sensory deficits. Coordination appears grossly intact. Speech is normal. Skin: Skin is warm and dry and no rashes or lesions are noted. Psychiatric: Cooperative, appropriate mood & affect, normal judgment. (Nacho Cavazos) Course <Nacho Cavazos - Last Filed: 11/03/16 19:46> <Jose Ayala - Last Filed: 11/04/16 01:22> Vital Signs 11/03/16 18:25 Temperature 98.4 F Pulse Rate 79 Respiratory 18 Rate Blood Pressure 112/74 O2 Sat by Pulse 97 Oximetry - Reevaluation(s) Reevaluation #1: 11/03/16 19:46 Patient labs currently pending. Case discussed signed out to attending physician Dr. Ayala (Nacho Cavazos) Medical Decision Making <Nacho Cavazos - Last Filed: 11/03/16 19:46> - Lab Data Result diagrams: 11/03/16 19:55 11/03/16 19:55 <Jose Ayala - Last Filed: 11/04/16 01:22> - Medical Decision Making The patient was evaluated by the psychiatric service. Will be admitted for inpatient treatment. She's been resting comfortably since initial evaluation. I do agree with the assessment and plan. I did do a [id number] evaluation. ( Jose Ayala) - Lab Data Lab Results 11/03/16 11/03/16 Range/Units 19:55 19:55 WBC 10.1 (3.8-10.6) k/uL RBC 4.24 (3.80-5.40) m/uL Hgb 12.9 (11.4-16.0) gm/dL Hct 37.9 (34.0-46.0) % MCV 89.4 (80.0-100.0) fL MCH 30.4 (25.0-35.0) pg MCHC 34.0 (31.0-37.0) g/dL RDW 21.3 H (11.5-15.5) % Plt Count 285 (150-450) k/uL Neutrophils % 58 % Lymphocytes % 31 % Monocytes % 6 % Eosinophils % 3 % Basophils % 1 % Neutrophils # 5.8 (1.3-7.7) k/uL Lymphocytes # 3.1 (1.0-4.8) k/uL Monocytes # 0.6 (0-1.0) k/uL Eosinophils # 0.3 (0-0.7) k/uL Basophils # 0.1 (0-0.2) k/uL Anisocytosis Moderate Microcytosis Slight Sodium 142 (137-145) mmol/L Potassium 3.6 (3.5-5.1) mmol/L Chloride 110 H (98-107) mmol/L Carbon Dioxide 24 (22-30) mmol/L Anion Gap 8 mmol/L BUN 10 (7-17) mg/dL Creatinine 0.49 L (0.52-1.04) mg/dL Est GFR (MDRD) Af Amer >60 (>60 ml/min/1.73 sqM) Est GFR (MDRD) Non-Af >60 (>60 ml/min/1.73 sqM) Glucose 80 (74-99) mg/dL Calcium 9.0 (8.4-10.2) mg/dL Salicylates <1.0 mg/dL Acetaminophen <10.0 ug/mL Disposition <Nacho Cavazos - Last Filed: 11/03/16 19:46> <Jose Ayala - Last Filed: 11/04/16 01:22> Clinical Impression: Depression, Suicidal ideation Disposition: TRANSFER TO PSYCH HOSP/UNIT Condition: Stable
[2016-11-03 20:09] LABS: Anisocytosis Moderate; Basophils # (A) 0.1 k/uL (0-0.2); Basophils % (A) 1 %; CH 30.2; CHCM 33.8; Eosinophils # (A) 0.3 k/uL (0-0.7); Eosinophils % (A) 3 %; HCT 37.9 % (34.0-46.0); HDW 2.89; HGB 12.9 gm/dL (11.4-16.0); Luc % (Auto) 2; Lymphocytes # (A) 3.1 k/uL (1.0-4.8); Lymphocytes % (A) 31 %; MCH 30.4 pg (25.0-35.0); MCV 89.4 fL (80.0-100.0); Mean Platelet Volume 6.7; Microcytosis Slight; Monocytes # (A) 0.6 k/uL (0-1.0); Monocytes % (A) 6 %; Neutrophils # (A) 5.8 k/uL (1.3-7.7); Neutrophils % (A) 58 %; RBC 4.24 m/uL (3.80-5.40); RDW 21.3 % (11.5-15.5); WBC 10.1 k/uL (3.8-10.6); WBC (Perox) 10.37
[2016-11-03 20:24] LABS: Acetaminophen <10.0 ug/mL; Anion Gap 8 mmol/L; Blood Urea Nitrogen 10 mg/dL (7-17); Carbon Dioxide 24 mmol/L (22-30); Chloride 110 mmol/L (98-107); Glucose 80 mg/dL (74-99); Non-African American GFR(MDRD) >60 (>60 ml/min/1.73 sqM); Potassium 3.6 mmol/L (3.5-5.1); Salicylate <1.0 mg/dL; Sodium 142 mmol/L (137-145)
[2016-11-04] MEDS ORDERED: ZIPRASIDONE 20 MG VIAL IM PRN (03:37)
[2016-11-04] MEDS ORDERED: LORazepam 1 MG TAB PO PRN (03:37)
[2016-11-04] MEDS ORDERED: MAG HYDROX/AL HYDROX/SIMETH 30 ML CUP PO PRN (03:37)
[2016-11-04] MEDS ORDERED: MAGNESIUM HYDROXIDE 2,400 MG/10 ML CUP PO PRN (03:37)
[2016-11-04] MEDS ORDERED: ACETAMINOPHEN TAB 325 MG TAB PO PRN (03:37)
[2016-11-04] MEDS ORDERED: busPIRone HCl 5 MG TAB PO SCH (09:00)
[2016-11-04] MEDS ORDERED: ESCITALOPRAM 20 MG TAB PO SCH (09:00)
[2016-11-04] MEDS ORDERED: NON-FORMULARY DRUG (Biotin [Biotin] 5 MG) PO SCH (09:00)
[2016-11-04] MEDS ORDERED: NICOTINE 14MG/24HR PATCH TRANSDERM SCH (09:00)
[2016-11-04] MEDS: PANTOPRAZOLE 40 MG TABLET PO SCH ×2 (09:31→17:25)
[2016-11-04] MEDS: GABAPENTIN 400 MG CAP PO SCH ×3 (09:32→20:46)
[2016-11-04] MEDS: HYDROcodone/APAP 7.5-325MG 1 EACH TAB PO PRN ×4 (09:33→22:27)
[2016-11-04 09:59] LABS: Anisocytosis Moderate; Basophils # (A) 0.1 k/uL (0-0.2); Basophils % (A) 1 %; CH 30.1; CHCM 32.7; Eosinophils # (A) 0.2 k/uL (0-0.7); Eosinophils % (A) 2 %; HCT 44.4 % (34.0-46.0); HDW 2.78; HGB 14.4 gm/dL (11.4-16.0); Luc # (Auto) 0.14; Luc % (Auto) 2; Lymphocytes # (A) 2.5 k/uL (1.0-4.8); Lymphocytes % (A) 30 %; MCH 29.8 pg (25.0-35.0); MCHC 32.4 g/dL (31.0-37.0); MCV 92.1 fL (80.0-100.0); Mean Platelet Volume 6.6; Monocytes # (A) 0.4 k/uL (0-1.0); Monocytes % (A) 5 %; Neutrophils # (A) 5.2 k/uL (1.3-7.7); Neutrophils % (A) 61 %; RBC 4.82 m/uL (3.80-5.40); RDW 21.2 % (11.5-15.5); WBC 8.5 k/uL (3.8-10.6); WBC (Perox) 8.44
[2016-11-04 10:26] LABS: ALT 45 U/L (9-52); AST 29 U/L (14-36); Alkaline Phosphatase 43 U/L (38-126); Anion Gap 10 mmol/L; Blood Urea Nitrogen 10 mg/dL (7-17); Calcium 9.9 mg/dL (8.4-10.2); Carbon Dioxide 25 mmol/L (22-30); Chloride 107 mmol/L (98-107); Glucose 106 mg/dL (74-99); Non-African American GFR(MDRD) >60 (>60 ml/min/1.73 sqM); Potassium 4.4 mmol/L (3.5-5.1); Sodium 142 mmol/L (137-145); Total Bilirubin 0.7 mg/dL (0.2-1.3); Total Protein 7.4 g/dL (6.3-8.2)
[2016-11-04] MEDS ORDERED: ESCITALOPRAM 20 MG TAB PO STA (14:55)
[2016-11-04] MEDS ORDERED: ALBUTEROL INHALER 60 PUFF/8 GM INHALER INHALATION PRN (15:18)
--- NOTE | 2016-11-04 15:26 | P.CONS ---
History of Present Illness - Reason for Consult Consult date: 11/04/16 Medical management Requesting physician: Herminio Duncan - Chief Complaint Depression - History of Present Illness This is a 36-year-old female, patient of Dr. Soliz. She has a known past medical history of depression, anxiety, intermittent asthma, chronic back pain and nicotine dependence. Patient presents to the emergency room with severe depression and suicidal ideation. Per ER report she had thought of overdosing on medication. She has Ativan at home. And she took a few pills of Ativan prior to coming in. Patient was evaluated by psychiatry. She was admitted to the inpatient psychiatric unit. Psychiatry has restarted psychiatric meds for patient. Patient is complaining of a runny nose for the last couple a days. She usually takes Benadryl for the symptoms. We will add Claritin and Flonase to help with her symptoms. She also misses some postnasal drip. She denies any headaches and earache or sore throat. Denies any cough. Denies any chest pain or shortness of breath. Denies any fevers chills or sweats. Denies any nausea or vomiting. Denies any bowel movement changes or urinary symptoms. She is requesting Nicorette gum instead of the nicotine patch. Review of Systems Please refer to HPI otherwise unremarkable Past Medical History Past Medical History: Asthma, GERD/Reflux, Musculoskeletal Disorder Additional Past Medical History / Comment(s): Pt. reports she has a history of a heart murmur. Patient also relays she has a duodenal ulcer. History of Any Multi-Drug Resistant Organisms: None Reported Past Surgical History: Bariatric Surgery, Tubal Ligation Additional Past Surgical History / Comment(s): breast reduction, gastric bypass. Past Anesthesia/Blood Transfusion Reactions: No Reported Reaction Past Psychological History: Depression Smoking Status: Current every day smoker Past Alcohol Use History: None Reported Past Drug Use History: Marijuana Additional Drug Use History / Comment(s): Pt. admits to daily marijuana use. Medications and Allergies Home Medications Medication Instructions Recorded Confirmed Type Biotin 5 mg PO BID 09/08/16 11/03/16 History Cyanocobalamin [Vitamin B-12 1,000 mcg SQ QMONTH 09/08/16 11/03/16 History Injection] HYDROcodone/APAP 7.5-325MG [[place] 1 tab PO Q4H PRN 09/08/16 11/03/16 History 7.5-325] Ondansetron Odt [Zofran ODT] 4 mg PO Q6H PRN 09/08/16 11/03/16 History Pantoprazole [Protonix] 40 mg PO BID 09/08/16 11/03/16 History Ranitidine HCl [Zantac] 150 mg PO BID 09/08/16 11/03/16 History ARIPiprazole [Abilify] 2 mg PO DAILY 11/03/16 11/03/16 History Allergies Allergy/AdvReac Type Severity Reaction Status Date / Time Iodinated Contrast Media - Allergy Anaphylaxis Verified 11/03/16 18:51 Oral and Penicillins Allergy Anaphylaxis Verified 11/03/16 18:51 Physical Exam Vitals: Vital Signs Temp Pulse Pulse Resp BP BP Pulse Ox 11/04/16 04:45 98.2 F 74 16 116/70 11/04/16 01:54 74 16 103/58 97 Head normocephalic Neck supple Lungs clear to auscultation bilaterally no wheezing or crackles Heart regular rate and rhythm S1-S2, no rub or gallop Abdomen is soft nontender nondistended positive bowel sounds no hepatosplenomegaly Extremities no edema Neuro alert and orientated to 3 Results CBC & Chem 7: 11/04/16 09:19 11/04/16 09:19 Labs: Abnormal Lab Results - Last 24 Hours (Table) 11/04/16 11/04/16 11/04/16 Range/Units 01:34 09:19 09:19 RDW 21.2 H (11.5-15.5) % Glucose 106 H (74-99) mg/dL Urine Opiates Screen Detected H (NotDetected) U Methamphetamines Scrn Detected H (NotDetected) U Benzodiazepines Scrn Detected H (NotDetected) U Marijuana (THC) Screen Detected H (NotDetected) Assessment and Plan Plan: 1. Depression: Patient has been admitted to the psychiatric unit. Psychiatry is following and continue with their medication recommendations. TSH level within normal range 2. Generalized anxiety disorder 3. History of gastric ulcer continue her Protonix 4. History of gastric bypass 5. History of mild intermittent asthma: No evidence of exacerbation. We'll resume her albuterol inhaler as needed 6. Nicotine dependence: We'll discontinue nicotine patch and add Nicorette gum per patient's request 7. Chronic lower back pain and degenerative joint disease: Stable. Continue Tylenol as needed 8. Seasonal ALLERGY symptoms with rhinorrhea and postnasal drip: Start Claritin and Flonase. 9. Drug screen positive for opiates methamphetamines benzodiazepine and marijuana Thank you for this consultation. We will follow along as needed. Time with Patient: Greater than 30 (Greater than 50% of the total time spent in counseling and coordination of care.I performed an examination of the patient and discussed their management with the physician Sales Operations. I have reviewed the Physician Sales Operations's notes and agree with the documented findings and plan of care)
[2016-11-04] MEDS: ARIPiprazole 10 MG TAB PO SCH ×2 (15:32→20:46)
[2016-11-04] MEDS: LORATADINE 10 MG TAB PO SCH (15:36)
[2016-11-04] MEDS: FLUTICASONE 50MCG/SPRAY NASAL 16GM EA NOSTRIL SCH (15:36)
[2016-11-04] MEDS: NICOTINE POLACRILEX 2 MG GUM BUCCAL PRN ×2 (18:56→20:48)
[2016-11-04] MEDS ORDERED: ARIPiprazole 5 MG TAB PO SCH (21:00)
[2016-11-04] MEDS: OLANZapine 5 MG TAB PO PRN (21:29)
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
[2016-11-04] MEDS: traZODone HCL 50 MG TAB PO SCH (23:46)
[2016-11-05] MEDS: PANTOPRAZOLE 40 MG TABLET PO SCH ×2 (08:47→16:30)
[2016-11-05] MEDS: ARIPiprazole 10 MG TAB PO SCH ×2 (08:47→21:13)
[2016-11-05] MEDS: FLUTICASONE 50MCG/SPRAY NASAL 16GM EA NOSTRIL SCH (08:48)
[2016-11-05] MEDS: LORATADINE 10 MG TAB PO SCH (08:48)
[2016-11-05] MEDS: HYDROcodone/APAP 7.5-325MG 1 EACH TAB PO PRN ×3 (08:48→18:52)
[2016-11-05] MEDS: GABAPENTIN 400 MG CAP PO SCH ×3 (08:48→21:13)
[2016-11-05] MEDS: NICOTINE POLACRILEX 2 MG GUM BUCCAL PRN ×4 (08:48→21:14)
[2016-11-05] MEDS ORDERED: ESCITALOPRAM 20 MG TAB PO SCH (09:00)
[2016-11-05] MEDS: OLANZapine 5 MG TAB PO PRN ×2 (09:24→21:15)
[2016-11-05 15:02] VITALS: BMI 20.3
--- NOTE | 2016-11-05 21:48 | PN ---
DATE OF SERVICE: 11/05/2016 CHIEF COMPLAINT: The patient was readmitted after 2 recent psychiatric hospitalizations at this facility. She presented with suicidal thinking with thoughts of overdosing on medications. She has had increasing problems with depression over the last 2 years. She does not believe that her two recent psychiatric hospitalizations provided much benefit for her. INTERVAL HISTORY: Patient has been doing fair. She had a quiet evening last night. She did take one p.r.n. Zyprexa later in the day and took another earlier today. She slept fair last night. She says overall she thinks she has been doing better. She feels as Zyprexa has been helpful in that it seems to slow her thoughts down and calm her better than Ativan and other medications. She feels her mood is a little improved. She has not had any problem with the increase in her medications, namely the Abilify and Lexapro. She attends groups. She comes out in the day area. She interacts with others. She has not had change in her general health. She tolerates psychotropic medications. MENTAL STATUS: Patient gave good eye contact. Psychomotor activity was a little slow. Speech was somewhat monotone. She answered questions with direct responses. Her thoughts were clear. She was spontaneous and interactive. Her affect was somewhat blunted, though improved from yesterday. Her mood was quiet. She did appear to be significantly distressed. ASSESSMENT: I will continue the current diagnosis and treatment plan. We will continue to engage the patient in individual and group therapeutic activities. I will continue psychotropic medications the same. A Lexapro level was drawn though it is a send out and will take some days to get the results back. The aim of getting a Lexapro level was just to have one assessment related to medication absorption, which is a problem the patient has been concerned with. We will continue to focus on stabilization and discharge planning.
[2016-11-05] MEDS: traZODone HCL 50 MG TAB PO SCH (22:52)
[2016-11-05] MEDS: DOCUSATE 100 MG CAP PO PRN (22:52)
[2016-11-06] MEDS: ESCITALOPRAM 20 MG TAB PO SCH (07:17)
[2016-11-06] MEDS: GABAPENTIN 400 MG CAP PO SCH ×3 (07:17→21:21)
[2016-11-06] MEDS: ARIPiprazole 10 MG TAB PO SCH ×2 (07:17→21:21)
[2016-11-06] MEDS: LORATADINE 10 MG TAB PO SCH (07:18)
[2016-11-06] MEDS: FLUTICASONE 50MCG/SPRAY NASAL 16GM EA NOSTRIL SCH (08:37)
[2016-11-06] MEDS: PANTOPRAZOLE 40 MG TABLET PO SCH ×2 (08:37→17:11)
[2016-11-06] MEDS: NICOTINE POLACRILEX 2 MG GUM BUCCAL PRN ×4 (08:39→21:23)
[2016-11-06] MEDS: HYDROcodone/APAP 7.5-325MG 1 EACH TAB PO PRN ×4 (08:39→21:23)
[2016-11-06] MEDS: OLANZapine 5 MG TAB PO PRN ×2 (10:41→21:25)
[2016-11-06 17:33] LABS: Appearance,Urine Clear (Clear); Bilirubin,Urine Negative (Negative); Glucose,Urine (UA) Negative (Negative); Ketones,Urine Negative (Negative); Leukocyte Esterase,Urine Negative (Negative); Nitrite,Urine Negative (Negative); Protein,Urine Negative (Negative); Specific Gravity,Urine 1.007 (1.001-1.035); UA Billing (MACRO vs. MICRO) CHEM; Urobilinogen,Urine <2.0 mg/dL (<2.0)
[2016-11-06] MEDS: traZODone HCL 50 MG TAB PO SCH (22:02)
--- NOTE | 2016-11-06 22:58 | PN ---
DATE OF SERVICE: 11/06/2016 CHIEF COMPLAINT: The patient was admitted after 2 recent psychiatric hospitalizations at this facility. She presented with suicidal thinking with thoughts of overdosing on medications. She has had increasing problems with depression over the last 2 years. She does not believe that her 2 recent hospitalizations provided much benefit for her. INTERVAL HISTORY: Patient has been doing fairly well. She had a quiet evening last night. She slept 7 hours. She has been up and about. She attends groups. She is appropriate. She comes out in the day area. She will interact some with others. She is a little reserved in her manner. She says today that her mood is much improved and she is ready to go home. She feels that when she takes her Zyprexa as a p.r.n., that it seems to help a quiet a lot of her anxiety. She had a number of questions about medications and followup. She says that she has a better outlook. She saw her outpatient therapist today on the unit, she will be continuing with the therapist, who she sees weekly and has seen her only for the last month. She does have an appointment with Dr. Lewis later in November, though she says there a plan to try to move up the appointment. She also wondered about if she was to stay on Abilify, could she be switched to a long-acting injectable for easier management of her medications. She has not had change in her general health. She tolerates her psychotropic medications. MENTAL STATUS: Patient gave good eye contact. Psychomotor activity was normal. Her thoughts were clear. She was spontaneous and interactive. Her affect was a little constricted, though not significantly so. Her mood seemed even. She did not appear to be distressed. ASSESSMENT: I will continue the current diagnosis and treatment plan. I will continue psychotropic medications the same. Patient has been taking the Zyprexa regularly. I will switched her from p.r.n. to regular dosing of 5 mg twice a day. She will continue Abilify 10 mg twice a day and Lexapro 40 mg a day. I had an extensive discussion with the patient regarding medication options, that she may choose to review with Dr. Lewis. Given that she had previously been on Abilify, it was reasonable to continue working with that medication. The dose has been significantly increased compared to the 7.5 mg dose she was on. It is noted that she has felt some anxiety relief with the addition of Zyprexa. She will need to talk to Dr. Lewis as to whether she would continue with Abilify and look to taper off of Zyprexa or vice versa. I did talk about the option of long-acting injectable for Abilify. Patient appears to be making progress. I would look to discharge patient early in the week.
[2016-11-07 06:24] VITALS: RESP 15; TEMP 98.6
[2016-11-07] MEDS: OLANZapine 5 MG TAB PO PRN (06:59)
[2016-11-07] MEDS: HYDROcodone/APAP 7.5-325MG 1 EACH TAB PO PRN ×2 (06:59→11:20)
[2016-11-07] MEDS: ARIPiprazole 10 MG TAB PO SCH (06:59)
[2016-11-07] MEDS: ESCITALOPRAM 20 MG TAB PO SCH (06:59)
[2016-11-07] MEDS: LORATADINE 10 MG TAB PO SCH (06:59)
[2016-11-07] MEDS: GABAPENTIN 400 MG CAP PO SCH (06:59)
[2016-11-07] MEDS: NICOTINE POLACRILEX 2 MG GUM BUCCAL PRN ×2 (07:02→11:21)
[2016-11-07 07:03] VITALS: BP 143/68; PULSE 86
[2016-11-07] MEDS: FLUTICASONE 50MCG/SPRAY NASAL 16GM EA NOSTRIL SCH (09:10)
[2016-11-07] MEDS: PANTOPRAZOLE 40 MG TABLET PO SCH (09:11)
[2016-11-07] MEDS: DOCUSATE 100 MG CAP PO PRN (09:12)
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
[2016-11-14 14:46] LABS: Mis test requested (Blood) Lexapro Level
== END 2016-11-07 13:51 | disposition home or self-care (01) | DRG 885 ==
LOC: EC 18:22 → 3MHU 11-04 01:22
PROVIDERS: ADMIT Psychiatry & Neurology Psychiatry; ATTEND Psychiatry & Neurology Psychiatry
DX: F33.8 Other recurrent depressive disorders (principal); R45.851 Suicidal ideations; F41.0 Panic disorder [episodic paroxysmal anxiety]; F17.200 Nicotine dependence, unspecified, uncomplicated; F43.10 Post-traumatic stress disorder, unspecified; J45.20 Mild intermittent asthma, uncomplicated; K21.9 Gastro-esophageal reflux disease without esophagitis; Z91.5 Personal history of self-harm; Z79.899 Other long term (current) drug therapy; Z87.11 Personal history of peptic ulcer disease; Z91.410 Personal history of adult physical and sexual abuse; Z98.84 Bariatric surgery status
CPT/HCPCS: 36415; 80048; 80053; 80306; 80332; 80361; 81003; 81025; 82075; 83520; 84443; 85025

== ENCOUNTER → 2017-04-15 | Outpatient (CLI) | payer BC ==
[2017-04-15 12:39] LABS: Blood Urea Nitrogen 13 mg/dL (7-17); Lithium 0.6 mmol/L; Non-African American GFR(MDRD) >60 (>60 ml/min/1.73 sqM)
== END | disposition home or self-care (01) ==
LOC: LABWHC1 10:55
PROVIDERS: ATTEND Psychiatry & Neurology Psychiatry
DX: F33.2 Major depressive disorder, recurrent severe without psychotic features (principal)
CPT/HCPCS: 36415; 80178; 82565; 84439; 84443; 84520

== ENCOUNTER 2018-01-24 10:50 | Day surgery (SDC) | payer BC ==
[2018-01-19 11:31] VITALS: BMI 23.0
[~2018-01-24 10:50] MED LIST: LACTATED RINGERS 1,000 ML IV SCH
[2018-01-24 11:19] VITALS: TEMP 98.2
[2018-01-24] MEDS ORDERED: LIDOCAINE 1% 20 ML VIAL (10MG/ML) FOR IV START INTRADERMA ONE (11:26)
[2018-01-24] MEDS ORDERED: LACTATED RINGERS 1,000 ML IV ONE ×2 (11:50→12:09)
[2018-01-24] MEDS ORDERED: LIDOCAINE 1% INJ 10MG/ML (20 ML MDV) ONE (11:56)
[2018-01-24] MEDS ORDERED: PROPOFOL 10 MG/ML 20 ML VIAL IV ONE (11:56)
--- NOTE | 2018-01-24 12:02 | P.GSHP ---
History of Present Illness H&P Date: 01/24/18 Chief Complaint: Peptic ulcer disease Some 37-year-old female history of peptic ulcer disease. Patient presents today for EGD. She's had epigastric pain. Past Medical History Past Medical History: Asthma, GERD/Reflux, Musculoskeletal Disorder, Thyroid Disorder Additional Past Medical History / Comment(s): Pt. reports she has a history of a heart murmur. duodenal ulcer, n/v, abdominal pain, hx hypothyroidism History of Any Multi-Drug Resistant Organisms: None Reported Past Surgical History: Bariatric Surgery, Tubal Ligation Additional Past Surgical History / Comment(s): breast reduction, gastric bypass. Past Anesthesia/Blood Transfusion Reactions: No Reported Reaction Smoking Status: Current every day smoker - Past Family History Daughter(s) Family Medical History: Blood Disorder Medications and Allergies Home Medications Medication Instructions Recorded Confirmed Type Cyanocobalamin [Vitamin B-12 1,000 mcg SQ QMONTH 09/08/16 01/24/18 History Injection] Ondansetron Odt [Zofran ODT] 4 mg PO Q6H PRN 09/08/16 01/24/18 History Pantoprazole [Protonix] 40 mg PO BID 09/08/16 01/24/18 History Ranitidine HCl [Zantac] 150 mg PO BID 09/08/16 01/24/18 History Docusate [Colace] 100 mg PO BID PRN #60 cap 09/19/16 01/24/18 Rx [place] Carbonate 300 mg PO BID 03/10/17 01/24/18 History clonazePAM [KlonoPIN] 0.5 mg PO TID 03/10/17 01/24/18 History Albuterol Inhaler [Ventolin Hfa 1 - 2 puff INHALATION RT-Q6H PRN 01/19/18 History Inhaler] Albuterol Nebulized (Conc) 2.5 mg INHALATION DAILY PRN 01/19/18 01/24/18 History [Ventolin Nebulized (Conc)] DULoxetine HCL [Cymbalta] 30 mg PO DAILY 01/19/18 01/24/18 History Sucralfate [Carafate] 1 gm PO QID 01/19/18 01/24/18 History traZODone HCL [Desyrel] 150 mg PO HS 01/19/18 01/24/18 History Allergies Allergy/AdvReac Type Severity Reaction Status Date / Time Iodinated Contrast- Oral and Allergy Anaphylaxis Verified 01/24/18 11:12 IV Dye [Iodinated Contrast Media - Oral and] Penicillins Allergy Anaphylaxis Verified 01/24/18 11:12 Surgical - Exam Vital Signs Temp Resp BP Pulse Ox 98.2 F 16 94/55 98 01/24/18 11:17 01/24/18 11:17 01/24/18 11:17 01/24/18 11:17 - General well developed, no distress - Eyes PERRL - ENT normal pinna - Neck no masses - Respiratory normal expansion - Cardiovascular Rhythm: regular - Abdomen Abdomen: soft, non tender Assessment and Plan Assessment: History of peptic ulcer disease. We'll perform EGD.
--- NOTE | 2018-01-24 12:07 | P.OP ---
Date of Procedure: 01/24/18 Preoperative Diagnosis: Peptic ulcer disease Postoperative Diagnosis: Marginal ulcer at gastroenterostomy Procedure(s) Performed: EGD Anesthesia: MAC Surgeon: Lexx Doyle Pathology: other (Marginal ulcer of gastrojejunostomy) Condition: stable Disposition: PACU Description of Procedure: The patient's placed on the endoscopy table in the lateral position. She received IV sedation. The gastroscope was placed oropharynx passed in the esophagus and into the stomach. The patient a previous gastric bypass. The gastrojejunostomy was visualized. The scope was then placed in the jejunum and there is no obstruction of the duodenum. Scope was brought back and at the level of the gastrojejunostomy of the jejunal side there is evidence of a ulcer. This was biopsied. The possible gastric pouch appeared quite large. The GE junction was at 40 cm. There is some mild esophagitis. Scope was withdrawn for patient.
[2018-01-24 12:38] VITALS: BP 98/50; PULSE 59; RESP 18
== END 2018-01-24 12:50 | disposition home or self-care (01) ==
LOC: ORWHC2ENDO 10:50
PROVIDERS: ATTEND Surgery
DX: K27.9 Peptic ulcer, site unspecified, unspecified as acute or chronic, without hemorrhage or perforation (principal); Z98.84 Bariatric surgery status; K21.0 Gastro-esophageal reflux disease with esophagitis; F17.210 Nicotine dependence, cigarettes, uncomplicated; F32.9 Major depressive disorder, single episode, unspecified; Z79.899 Other long term (current) drug therapy; Z88.0 Allergy status to penicillin; Z91.048 Other nonmedicinal substance allergy status
CPT/HCPCS: 81025; 88305; 43239; J2001; J2704

== ENCOUNTER → 2018-04-13 | Outpatient (CLI) | payer BC ==
[2018-04-13 13:31] LABS: Blood Urea Nitrogen 9 mg/dL (7-17); Lithium 0.3 mmol/L
[2018-04-13 13:44] LABS: T4, Free (Free Thyroxine) 0.76 ng/dL (0.78-2.19)
== END ==
LOC: LABWHC1 11:33
PROVIDERS: ATTEND Psychiatry & Neurology Psychiatry
DX: F33.2 Major depressive disorder, recurrent severe without psychotic features (principal)
CPT/HCPCS: 36415; 80178; 82565; 84439; 84443; 84520

== ENCOUNTER → 2018-08-27 | Outpatient (CLI) | payer OTHER ==
[2018-08-27 17:23] LABS: Lithium 0.6 mmol/L (1.0-1.2)
== END | disposition home or self-care (01) ==
LOC: LABWHC1 09:55
PROVIDERS: ATTEND Psychiatry & Neurology Psychiatry
DX: F33.2 Major depressive disorder, recurrent severe without psychotic features (principal)
CPT/HCPCS: 36415; 80178; 82565; 84439; 84443; 84520

== ENCOUNTER 2018-12-31 22:00 | Emergency (ER) | payer OTHER ==
[2018-12-31] MEDS ORDERED: SODIUM CHLORIDE 0.9% 1,000 ML IV ONE (22:46)
--- NOTE | 2018-12-31 22:52 | ED ---
Overdose HPI - General Source: EMS Mode of arrival: EMS Limitations: no limitations - History of Present Illness MD Complaint: accidental overdose -: hour(s) Intent: want to go to sleep How Overdose Was Discovered: family/friend present at time Treatments Prior to Arrival: IV fluids <AdanrikkiNavid - Last Filed: 12/31/18 22:48> <Jose Ayala - Last Filed: 01/01/19 08:22> - General Chief Complaint: Psychiatric Symptoms Stated Complaint: ETOH Time Seen by Provider: 12/31/18 22:10 - History of Present Illness Initial Comments: This patient is a 38-year-old woman who presents to be evaluated for accidental overdose of Klonopin. The patient states she had been feeling stressed and she had wanted to calm down so she ended up taking extra doses of her Klonopin tonight. The patient became concerned because she had been drinking alcohol then became way to somnolent. The patient denies any suicidal intent, stating she was just feeling very stressed. This was in contrast to the patient's reported triage statements in which she had denied taking extra doses of her med icines and stated that she was feeling some suicidal thoughts. (Navid Hernandes) - Related Data Home Medications Medication Instructions Recorded Confirmed [place] Carbonate 300 mg PO BID 03/10/17 12/31/18 Venlafaxine HCl [Effexor XR] 75 mg PO DAILY 12/31/18 12/31/18 clonazePAM [KlonoPIN] 0.5 mg PO BID 12/31/18 12/31/18 Allergies Allergy/AdvReac Type Severity Reaction Status Date / Time Iodinated Contrast- Oral and Allergy Anaphylaxis Verified 12/31/18 22:27 IV Dye [Iodinated Contrast Media - Oral and] Penicillins Allergy Anaphylaxis Verified 12/31/18 22:27 Review of Systems ROS Other: All systems not noted in ROS Statement are negative. Constitutional: Denies: weakness Eyes: Denies: vision change Respiratory: Denies: cough, dyspnea Cardiovascular: Denies: chest pain, syncope Gastrointestinal: Reports: abdominal pain (Chronic). Denies: vomiting Skin: Denies: rash Neurological: Denies: headache, weakness, numbness Psychiatric: Reports: anxiety, depression. Denies: auditory hallucinations, visual hallucinations, homicidal thoughts <Navid Hernandes - Last Filed: 12/31/18 22:48> ROS Other: All systems not noted in ROS Statement are negative. <Jose Ayala - Last Filed: 01/01/19 08:22> ROS Statement: Those systems with pertinent positive or pertinent negative responses have been documented in the HPI. Past Medical History Past Medical History: Asthma, GERD/Reflux, Musculoskeletal Disorder, Thyroid Dis order Additional Past Medical History / Comment(s): Pt. reports she has a history of a heart murmur. duodenal ulcer, n/v, abdominal pain, hx hypothyroidism History of Any Multi-Drug Resistant Organisms: None Reported Past Surgical History: Bariatric Surgery, Tubal Ligation Additional Past Surgical History / Comment(s): breast reduction, gastric bypass. Past Anesthesia/Blood Transfusion Reactions: No Reported Reaction Past Psychological History: Depression Smoking Status: Current every day smoker Past Alcohol Use History: Abuse, Daily, Heavy Past Drug Use History: Marijuana - Past Family History Daughter(s) Family Medical History: Blood Disorder <Navid Hernandes - Last Filed: 12/31/18 22:48> General Exam Limitations: no limitations General appearance: alert, appears intoxicated Head exam: Present: atraumatic, normocephalic Eye exam: Present: normal appearance, PERRL, EOMI, nystagmus. Absent: scleral icterus, conjunctival injection Respiratory exam: Present: normal lung sounds bilaterally. Absent: respiratory distress, wheezes, rales, rhonchi, stridor Cardiovascular Exam: Present: regular rate, normal rhythm, normal heart sounds. Absent: systolic murmur, diastolic murmur, rubs, gallop GI/Abdominal exam: Present: soft. Absent: distended, tenderness, guarding, rebound, rigid, mass Extremities exam: Present: normal inspection, normal capillary refill. Absent: pedal edema, calf tenderness Neurological exam: Present: alert Psychiatric exam: Present: depressed. Absent: agitated, anxious, flat affect, manic, homicidal ideation, suicidal ideation Skin exam: Present: warm, dry, intact, normal color. Absent: rash <Navid Hernandes - Last Filed: 12/31/18 22:48> Course Vital Signs 12/31/18 01/01/19 01/01/19 22:04 04:34 07:30 Temperature 98.2 F 98.6 F Pulse Rate 74 69 84 Respiratory 16 18 18 Rate Blood Pressure 106/73 110/62 102/60 O2 Sat by Pulse 100 96 97 Oximetry Medical Decision Making - Lab Data Result diagrams: 12/31/18 23:16 12/31/18 23:16 <Jose Ayala - Last Filed: 01/01/19 08:22> - Medical Decision Making The patient was evaluated by the EPS service and found not to be wrist herself or anyone else he'll be discharged home with her family. She currently is not a risk to herself or anyone else. (Jose Ayala) - Lab Data Lab Results 12/31/18 12/31/18 Range/Units 23:16 23:16 WBC 11.3 H (3.8-10.6) k/uL RBC 4.51 (3.80-5.40) m/uL Hgb 13.0 (11.4-16.0) gm/dL Hct 40.8 (34.0-46.0) % MCV 90.5 (80.0-100.0) fL MCH 28.8 (25.0-35.0) pg MCHC 31.8 (31.0-37.0) g/dL RDW 15.1 (11.5-15.5) % Plt Count 389 (150-450) k/uL Neutrophils % 58 % Lymphocytes % 31 % Monocytes % 5 % Eosinophils % 4 % Basophils % 1 % Neutrophils # 6.5 (1.3-7.7) k/uL Lymphocytes # 3.5 (1.0-4.8) k/uL Monocytes # 0.5 (0-1.0) k/uL Eosinophils # 0.4 (0-0.7) k/uL Basophils # 0.1 (0-0.2) k/uL Sodium 144 (137-145) mmol/L Potassium 3.8 (3.5-5.1) mmol/L Chloride 112 H (98-107) mmol/L Carbon Dioxide 21 L (22-30) mmol/L Anion Gap 11 mmol/L BUN 8 (7-17) mg/dL Creatinine 0.66 (0.52-1.04) mg/dL Est GFR (CKD-EPI)AfAm >90 (>60 ml/min/1.73 sqM) Est GFR (CKD-EPI)NonAf >90 (>60 ml/min/1.73 sqM) Glucose 85 (74-99) mg/dL Calcium 9.1 (8.4-10.2) mg/dL Total Bilirubin 0.4 (0.2-1.3) mg/dL AST 21 (14-36) U/L ALT 13 (9-52) U/L Alkaline Phosphatase 46 (38-126) U/L Total Protein 7.5 (6.3-8.2) g/dL Albumin 4.7 (3.5-5.0) g/dL [place] <0.2 mmol/L Serum Alcohol 217 H* mg/dL Disposition <Navid Hernandes - Last Filed: 12/31/18 22:48> Is patient prescribed a controlled substance at d/c from ED?: No <Jose Ayala - Last Filed: 01/01/19 08:22> Clinical Impression: Acute anxiety, Anxiety Disposition: HOME SELF-CARE Condition: Good Instructions (If sedation given, give patient instructions): Anxiety (ED), Alcohol Intoxication (ED) Referrals: Patti Lang MD [Primary Care Provider] - 1-2 days
[2018-12-31 23:25] LABS: Basophils # (A) 0.1 k/uL (0-0.2); Basophils % (A) 1 %; Eosinophils # (A) 0.4 k/uL (0-0.7); Eosinophils % (A) 4 %; HCT 40.8 % (34.0-46.0); Lymphocytes # (A) 3.5 k/uL (1.0-4.8); Lymphocytes % (A) 31 %; MCH 28.8 pg (25.0-35.0); MCHC 31.8 g/dL (31.0-37.0); MCV 90.5 fL (80.0-100.0); Mean Platelet Volume 6.8; Monocytes # (A) 0.5 k/uL (0-1.0); Monocytes % (A) 5 %; Neutrophils # (A) 6.5 k/uL (1.3-7.7); Neutrophils % (A) 58 %; Platelet Count 389 k/uL (150-450); RBC 4.51 m/uL (3.80-5.40); RDW 15.1 % (11.5-15.5); WBC 11.3 k/uL (3.8-10.6)
[2018-12-31 23:36] LABS: ALT 13 U/L (9-52); AST 21 U/L (14-36); African American GFR (CKD) >90 (>60 ml/min/1.73 sqM); Albumin 4.7 g/dL (3.5-5.0); Alkaline Phosphatase 46 U/L (38-126); Anion Gap 11 mmol/L; Blood Urea Nitrogen 8 mg/dL (7-17); Calcium 9.1 mg/dL (8.4-10.2); Carbon Dioxide 21 mmol/L (22-30); Chloride 112 mmol/L (98-107); Glucose 85 mg/dL (74-99); Lithium <0.2 mmol/L; Potassium 3.8 mmol/L (3.5-5.1); Sodium 144 mmol/L (137-145); Total Bilirubin 0.4 mg/dL (0.2-1.3); Total Protein 7.5 g/dL (6.3-8.2)
[2018-12-31 23:40] LABS: Alcohol 217 mg/dL
[2019-01-01 06:33] VITALS: RESP 18
[2019-01-01 08:43] VITALS: BP 108/62; PULSE 78; TEMP 98.3
== END 2019-01-01 08:43 | disposition home or self-care (01) ==
LOC: EC 22:00
DX: F41.9 Anxiety disorder, unspecified (principal); F32.9 Major depressive disorder, single episode, unspecified; F17.200 Nicotine dependence, unspecified, uncomplicated; Z79.899 Other long term (current) drug therapy; Z88.0 Allergy status to penicillin; Z91.041 Radiographic dye allergy status
CPT/HCPCS: 36415; 80053; 80178; 80320; 82075; 85025; 96360; 96361; 99285

== ENCOUNTER 2019-05-29 14:57 | Emergency (ER) | payer OTHER ==
[2019-05-29 15:16] VITALS: BP 101/66; PULSE 55; RESP 18; TEMP 97.8
[2019-05-29] MEDS ORDERED: IOPAMIDOL CONTRAST (ORAL USE) VIAL PO PRN (15:51)
[2019-05-29] MEDS ORDERED: MORPHINE SULFATE 4 MG/ML SYRINGE IV STA (15:51)
[2019-05-29] MEDS ORDERED: ONDANSETRON 4 MG/2 ML VIAL IVP STA (15:51)
[2019-05-29] MEDS ORDERED: PANTOPRAZOLE 40 MG/10 ML VIAL IVP STA (15:51)
[2019-05-29] MEDS ORDERED: SODIUM CHLORIDE 0.9% 1,000 ML IV STA ×2 (15:51)
[2019-05-29] MEDS ORDERED: diphenhydrAMINE 50 MG/ML 1 ML VIAL IVP STA (15:52)
[2019-05-29] MEDS ORDERED: FAMOTIDINE 20 MG/2 ML VIAL IV STA (15:53)
[2019-05-29] MEDS ORDERED: methylPREDNISolone SOD SUCCI 125 MG/2 ML VIAL IV STA (15:53)
--- NOTE | 2019-05-29 16:13 | ED ---
Abdominal Pain HPI - General Source: patient, RN notes reviewed, old records reviewed Mode of arrival: wheelchair Limitations: no limitations <Mahi Hayden - Last Filed: 05/29/19 17:32> <Jose Gu - Last Filed: 05/29/19 18:34> - General Chief Complaint: Abdominal Pain Stated Complaint: Abd Pain Time Seen by Provider: 05/29/19 15:25 - History of Present Illness Initial Comments: Patient is a 38-year-old female, with a history of gastric bypass surgery, she presents today with 1 week of left-sided abdominal pain with radiation towards her back. Patient reports that she has had no nausea or vomiting or changes in stools. She reports that she had history of a bleeding ulcer in the past. She states that her pain feels different than her previous ulcer pain or previous pancreatitis. Patient states that she has had no torey bloody urine, and denies black or tarry or bloody stools. She denies any fever at this time. reports that she's had this pain for the past week and has tried multiple changes in her diet to help. She does report that her symptoms seem to start initially with taking any medication, Pristiq however she symptoms discontinue the medication but continues to have this abdominal pain. (Mahi Hayden) - Related Data Home Medications Medication Instructions Recorded Confirmed [place] Carbonate 300 mg PO BID 03/10/17 12/31/18 Venlafaxine HCl [Effexor XR] 75 mg PO DAILY 12/31/18 12/31/18 clonazePAM [KlonoPIN] 0.5 mg PO BID 12/31/18 12/31/18 Previous Rx's Medication Instructions Recorded HYDROcodone/APAP 5-325MG [[place] 1 tab PO Q6HR PRN #12 tab 05/29/19 5-325] Allergies Allergy/AdvReac Type Severity Reaction Status Date / Time Iodinated Contrast Media Allergy Anaphylaxis Verified 05/29/19 15:16 [Iodinated Contrast Media - Oral and] Penicillins Allergy Anaphylaxis Verified 05/29/19 15:16 Review of Systems ROS Other: All systems not noted in ROS Statement are negative. <Mahi Hayden - Last Filed: 05/29/19 17:32> ROS Other: All systems not noted in ROS Statement are negative. <Jose Gu - Last Filed: 05/29/19 18:34> ROS Statement: Those systems with pertinent positive or pertinent negative responses have been documented in the HPI. Past Medical History Past Medical History: Asthma, GERD/Reflux, Musculoskeletal Disorder, Thyroid Disorder Additional Past Medical History / Comment(s): Pt. reports she has a history of a heart murmur. duodenal ulcer, n/v, abdominal pain, hx hypothyroidism History of Any Multi-Drug Resistant Organisms: None Reported Past Surgical History: Bariatric Surgery, Tubal Ligation Additional Past Surgical History / Comment(s): breast reduction, gastric bypass. Past Anesthesia/Blood Transfusion Reactions: No Reported Reaction Past Psychological History: Depression Smoking Status: Current every day smoker Past Alcohol Use History: None Reported Past Drug Use History: Marijuana - Past Family History Daughter(s) Family Medical History: Blood Disorder <Mahi Hayden - Last Filed: 05/29/19 17:32> General Exam Limitations: no limitations General appearance: alert, in no apparent distress Head exam: Present: atraumatic, normocephalic, normal inspection Eye exam: Present: normal appearance ENT exam: Present: normal exam, mucous membranes moist Neck exam: Present: normal inspection. Absent: tenderness, meningismus, lymphad enopathy Respiratory exam: Present: normal lung sounds bilaterally. Absent: respiratory distress, wheezes, rales, rhonchi, stridor Cardiovascular Exam: Present: regular rate, normal rhythm, normal heart sounds. Absent: systolic murmur, diastolic murmur, rubs, gallop, clicks GI/Abdominal exam: Present: soft, tenderness (Left upper quadrant pain tenderness, lower abdominal tenderness), normal bowel sounds. Absent: disten ded, guarding, rebound, rigid Extremities exam: Present: normal inspection, full ROM, normal capillary refill. Absent: tenderness, pedal edema, joint swelling, calf tenderness Back exam: Present: normal inspection Neurological exam: Present: alert, oriented X3, CN II-XII intact Psychiatric exam: Present: normal affect, normal mood Skin exam: Present: warm, dry, intact, normal color. Absent: rash <Mahi Hayden - Last Filed: 05/29/19 17:32> - General Exam Comments Initial Comments: 38-year-old female. Alert and oriented 3. She appears in moderate discomfort. (Mahi Hayden) Course Vital Signs 05/29/19 15:14 Temperature 97.8 F Pulse Rate 55 L Respiratory 18 Rate Blood Pressure 101/66 O2 Sat by Pulse 99 Oximetry Medical Decision Making - Lab Data Result diagrams: 05/29/19 16:15 05/29/19 16:15 - Radiology Data Radiology results: report reviewed <Mahi Hayden - Last Filed: 05/29/19 17:32> - Lab Data Result diagrams: 05/29/19 16:15 05/29/19 16:15 <Jose Gu - Last Filed: 05/29/19 18:34> - Medical Decision Making 38-year-old female presents today with 1 week of left-sided abdominal pain with radiation towards her back. She is given IV fluids pain medicine lab workup reviewed. Patient continues to complain of 10 out of 10 pain upon reevaluation after dose of pain medication. Patient has had history of gastric sleeve surgery and this [place] [facility] [place] At this time patient's labwork was reviewed relatively stable. Normal white blood cell. Normal hemoglobin. Liver and pancreas enzymes are normal. Due to persistent pain I discussed them do some further imaging today she's a computed tomography scan. She does have a history of ALLERGY to IV contrast. Patient was given a CT head and pelvis with oral contrast with Ray Prep. Patient's case was discussed with Dr. Gu who will take the patient's care by 5:30 p.m. (Mahi Hayden) Patient with approximately 1 week of abdominal pain predominantly left-sided. She's had decreased appetite per she has had intermittent abdominal pain since her bariatric surgery in 2011. Patient denies fever or chills. Denies right upper quadrant abdominal pain. She is currently on her menstrual cycle but states this pain is abnormal for her normal crampy menstrual cycle pain. Patient's receives full laboratory evaluation and computed tomography scan of the abdomen. CT negative for any acute intra-abdominal processes. There is some irregularity his stomach consistent with previous bariatric surgery. Laboratory studies include a CBC and CMP are unremarkable. Patient offered observation versus home with return parameters. She prefers to be discharged. She will be prescribed several [place] tablets and will return with any worsening or changing symptoms. (Jose Gu) - Lab Data Lab Results 05/29/19 05/29/19 05/29/19 Range/Units 16:15 16:15 16:15 WBC 8.8 (3.8-10.6) k/uL RBC 4.24 (3.80-5.40) m/uL Hgb 12.3 (11.4-16.0) gm/dL Hct 37.8 (34.0-46.0) % MCV 89.1 (80.0-100.0) fL MCH 29.1 (25.0-35.0) pg MCHC 32.6 (31.0-37.0) g/dL RDW 14.4 (11.5-15.5) % Plt Count 335 (150-450) k/uL Neutrophils % 50 % Lymphocytes % 37 % Monocytes % 5 % Eosinophils % 5 % Basophils % 1 % Neutrophils # 4.4 (1.3-7.7) k/uL Lymphocytes # 3.3 (1.0-4.8) k/uL Monocytes # 0.4 (0-1.0) k/uL Eosinophils # 0.4 (0-0.7) k/uL Basophils # 0.1 (0-0.2) k/uL PT (9.0-12.0) sec INR (<1.2) APTT (22.0-30.0) sec Sodium 141 (137-145) mmol/L Potassium 4.3 (3.5-5.1) mmol/L Chloride 108 H (98-107) mmol/L Carbon Dioxide 25 (22-30) mmol/L Anion Gap 8 mmol/L BUN 13 (7-17) mg/dL Creatinine 0.62 (0.52-1.04) mg/dL Est GFR (CKD-EPI)AfAm >90 (>60 ml/min/1.73 sqM) Est GFR (CKD-EPI)NonAf >90 (>60 ml/min/1.73 sqM) Glucose 77 (74-99) mg/dL Plasma Lactic Acid Todd 0.8 (0.7-2.0) mmol/L Calcium 9.6 (8.4-10.2) mg/dL Total Bilirubin 0.4 (0.2-1.3) mg/dL AST 29 (14-36) U/L ALT 27 (9-52) U/L Alkaline Phosphatase 47 (38-126) U/L Total Protein 7.1 (6.3-8.2) g/dL Albumin 4.2 (3.5-5.0) g/dL Amylase 96 (30-110) U/L Lipase 118 (23-300) U/L Urine Color Urine Appearance (Clear) Urine pH (5.0-8.0) Ur Specific [place] (1.001-1.035) Urine Protein (Negative) Urine Glucose (UA) (Negative) Urine Ketones (Negative) Urine Blood (Negative) Urine Nitrite (Negative) Urine Bilirubin (Negative) Urine Urobilinogen (<2.0) mg/dL Ur Leukocyte Esterase (Negative) Urine RBC (0-5) /hpf Ur Squamous Epith Cells (0-4) /hpf Urine Mucus (None) /hpf 05/29/19 05/29/19 Range/Units 16:15 16:15 WBC (3.8-10.6) k/uL RBC (3.80-5.40) m/uL Hgb (11.4-16.0) gm/dL Hct (34.0-46.0) % MCV (80.0-100.0) fL MCH (25.0-35.0) pg MCHC (31.0-37.0) g/dL RDW (11.5-15.5) % Plt Count (150-450) k/uL Neutrophils % % Lymphocytes % % Monocytes % % Eosinophils % % Basophils % % Neutrophils # (1.3-7.7) k/uL Lymphocytes # (1.0-4.8) k/uL Monocytes # (0-1.0) k/uL Eosinophils # (0-0.7) k/uL Basophils # (0-0.2) k/uL PT 13.1 H (9.0-12.0) sec INR 1.3 H (<1.2) APTT 22.9 (22.0-30.0) sec Sodium (137-145) mmol/L Potassium (3.5-5.1) mmol/L Chloride (98-107) mmol/L Carbon Dioxide (22-30) mmol/L Anion Gap mmol/L BUN (7-17) mg/dL Creatinine (0.52-1.04) mg/dL Est GFR (CKD-EPI)AfAm (>60 ml/min/1.73 sqM) Est GFR (CKD-EPI)NonAf (>60 ml/min/1.73 sqM) Glucose (74-99) mg/dL Plasma Lactic Acid Todd (0.7-2.0) mmol/L Calcium (8.4-10.2) mg/dL Total Bilirubin (0.2-1.3) mg/dL AST (14-36) U/L ALT (9-52) U/L Alkaline Phosphatase (38-126) U/L Total Protein (6.3-8.2) g/dL Albumin (3.5-5.0) g/dL Amylase (30-110) U/L Lipase (23-300) U/L Urine Color Yellow Urine Appearance Clear (Clear) Urine pH 6.5 (5.0-8.0) Ur Specific [place] 1.012 (1.001-1.035) Urine Protein Negative (Negative) Urine Glucose (UA) Negative (Negative) Urine Ketones Negative (Negative) Urine Blood Trace H (Negative) Urine Nitrite Negative (Negative) Urine Bilirubin Negative (Negative) Urine Urobilinogen <2.0 (<2.0) mg/dL Ur Leukocyte Esterase Negative (Negative) Urine RBC 4 (0-5) /hpf Ur Squamous Epith Cells 1 (0-4) /hpf Urine Mucus Rare H (None) /hpf - Radiology Data KUB shows normal bowel gas pattern. No intestinal obstruction or pneumoperitoneum. Fecal pattern is normal. No evidence of mass. Clips over the left upper quadrant. No pass pathologic calcifications over the kidneys. (Mahi Hayden) Disposition <Mahi Hayden - Last Filed: 05/29/19 17:32> Is patient prescribed a controlled substance at d/c from ED?: No Time of Disposition: 18:34 <Jose Gu - Last Filed: 05/29/19 18:34> Clinical Impression: Abdominal pain Disposition: HOME SELF-CARE Condition: Fair Instructions (If sedation given, give patient instructions): Abdominal Pain (ED) Prescriptions: HYDROcodone/APAP 5-325MG [[place] 5-325] 1 tab PO Q6HR PRN #12 tab PRN Reason: Pain Referrals: Patti Lang MD [Primary Care Provider] - 1-2 days
[2019-05-29 16:29] LABS: Basophils # (A) 0.1 k/uL (0-0.2); Basophils % (A) 1 %; Eosinophils # (A) 0.4 k/uL (0-0.7); Eosinophils % (A) 5 %; HCT 37.8 % (34.0-46.0); HGB 12.3 gm/dL (11.4-16.0); Lymphocytes # (A) 3.3 k/uL (1.0-4.8); Lymphocytes % (A) 37 %; MCH 29.1 pg (25.0-35.0); MCHC 32.6 g/dL (31.0-37.0); MCV 89.1 fL (80.0-100.0); Mean Platelet Volume 6.8; Monocytes # (A) 0.4 k/uL (0-1.0); Monocytes % (A) 5 %; Neutrophils # (A) 4.4 k/uL (1.3-7.7); Neutrophils % (A) 50 %; Platelet Count 335 k/uL (150-450); RBC 4.24 m/uL (3.80-5.40); RDW 14.4 % (11.5-15.5); WBC 8.8 k/uL (3.8-10.6)
[2019-05-29 16:30] LABS: Appearance,Urine Clear (Clear); Bilirubin,Urine Negative (Negative); Blood,Urine Trace (Negative); Color,Urine Yellow; Glucose,Urine (UA) Negative (Negative); Ketones,Urine Negative (Negative); Leukocyte Esterase,Urine Negative (Negative); Mucus,Urine Rare /hpf; Nitrite,Urine Negative (Negative); PH, Urine 6.5 (5.0-8.0); Protein,Urine Negative (Negative); RBC,Urine 4 /hpf (0-5); Specific Gravity,Urine 1.012 (1.001-1.035); Squamous Epithelial Cell,Urine 1 /hpf (0-4); Urobilinogen,Urine <2.0 mg/dL (<2.0)
[2019-05-29 16:33] LABS: INR 1.3 (<1.2); Partial Thromboplastin Time 22.9 sec (22.0-30.0); Prothrombin Time 13.1 sec (9.0-12.0)
[2019-05-29 16:51] LABS: ALT 27 U/L (9-52); AST 29 U/L (14-36); African American GFR (CKD) >90 (>60 ml/min/1.73 sqM); Albumin 4.2 g/dL (3.5-5.0); Alkaline Phosphatase 47 U/L (38-126); Amylase 96 U/L (30-110); Anion Gap 8 mmol/L; Blood Urea Nitrogen 13 mg/dL (7-17); Calcium 9.6 mg/dL (8.4-10.2); Carbon Dioxide 25 mmol/L (22-30); Chloride 108 mmol/L (98-107); Glucose 77 mg/dL (74-99); Potassium 4.3 mmol/L (3.5-5.1); Sodium 141 mmol/L (137-145); Total Bilirubin 0.4 mg/dL (0.2-1.3); Total Protein 7.1 g/dL (6.3-8.2)
--- NOTE | 2019-05-29 17:04 | XR ---
EXAMINATION TYPE: XR KUB DATE OF EXAM: 05/29/2019 COMPARISON: 02/05/2013 HISTORY: Right-sided pain TECHNIQUE: Single view FINDINGS: Bowel gas pattern is normal. There is no sign of intestinal obstruction or pneumoperitoneum . Fecal pattern is normal. There is no evidence of a mass. There are clips over the left upper quadra nt. I see no pathologic calcifications over the kidneys. IMPRESSION: Nonacute abdomen.
[2019-05-29] MEDS ORDERED: BARIUM SULFATE 450 ML ORAL.SUSP BOTTLE PO PRN (17:25)
[2019-05-29] MEDS ORDERED: MORPHINE SULFATE 4 MG/ML SYRINGE IVP STA (17:26)
--- NOTE | 2019-05-29 18:21 | CT ---
EXAMINATION TYPE: CT abdomen pelvis wo con DATE OF EXAM: 05/29/2019 COMPARISON: 02/05/2013 HISTORY: epigastric pain CT DLP: 405.6 mGycm Automated exposure control for dose reduction was used. TECHNIQUE: Helical acquisition of images was performed from the lung bases through the pelvis. FINDINGS: There is minimal subsegmental atelectasis at the posterior lung bases. There is no pleural effusion. Heart size is normal. Liver spleen pancreas gallbladder appear normal. Bile ducts are not dilated. There is no adrenal mass . There is minimal left adrenal calcification. There is no hydronephrosis. Kidneys have normal size. There is no retroperitoneal adenopathy. Bladder distends smoothly. Uterus is anteverted. There is no free fluid in the pelvis. There is no inguinal hernia. There is no mesenteric edema. There are multip le intestinal surgical clips in the left abdomen. There is distortion of the stomach consistent with bariatric surgery. There is no mesenteric edema. There is no ascites or free air. There is no sign of a bowel obstructio n. Lumbar spine is intact. Bony pelvis is intact. There is tiny amount of free fluid in the cul-de-sa c. Appendix is not definitely seen. There is no sign of thickened appendix. IMPRESSION: PREVIOUS BARIATRIC SURGERY. NO SIGN OF ACUTE ABDOMEN AND PELVIS. TINY AMOUNT OF FREE FLUID IN THE CUL -DE-SAC THAT COULD BE PHYSIOLOGIC. FLUID SIGNIFICANTLY DECREASED COMPARED TO OLD EXAM.
== END 2019-05-29 18:46 | disposition home or self-care (01) ==
LOC: EC 14:57
DX: R10.9 Unspecified abdominal pain (principal); R63.8 Other symptoms and signs concerning food and fluid intake; M54.9 Dorsalgia, unspecified; F32.9 Major depressive disorder, single episode, unspecified; F17.200 Nicotine dependence, unspecified, uncomplicated; Z88.0 Allergy status to penicillin; Z91.041 Radiographic dye allergy status; Z79.899 Other long term (current) drug therapy; Z98.84 Bariatric surgery status; Z87.19 Personal history of other diseases of the digestive system; Z53.8 Procedure and treatment not carried out for other reasons
CPT/HCPCS: 36415; 80053; 82150; 83605; 83690; 85025; 85610; 85730; 81001; 74018; 74176; 99285; 96374; 96375 ×2; 96376; 96361 ×3; J2270; J2405; C9113

== ENCOUNTER 2021-01-17 10:49 | Inpatient (IN) | payer OTHER ==
[2021-01-17] MEDS ORDERED: SODIUM CHLORIDE 0.9% 1,000 ML IV STA (11:37)
[2021-01-17] MEDS ORDERED: HYDROmorphone 1 MG/ML 1 ML SYRINGE IVP STA (11:51)
[2021-01-17] MEDS ORDERED: BARIUM SULFATE 450 ML ORAL.SUSP BOTTLE PO PRN (11:52)
--- NOTE | 2021-01-17 11:59 | ED ---
Abdominal Pain HPI - General Chief Complaint: Abdominal Pain Stated Complaint: Victorino Pain, Vomiting Time Seen by Provider: 01/17/21 11:17 Source: patient, EMS, RN notes reviewed Mode of arrival: EMS Limitations: no limitations - History of Present Illness Initial Comments: This a 40-year-old female presents emergency Department chief complaint abdominal pain. Patient states pain is nonoperative is unbearable today. Patient states it's in her upper abdomen and is spreading throughout. Patient denies any fevers chills states that she's been dry heaving. Patient had prior bariatric surgery. Patient states 2012 by nonlocal physician. Patient states that she's had some loose stools no dysuria no hematuria no chest pain or shortness breath no headache or dizziness. MD Complaint: abdominal pain - Related Data Home Medications Medication Instructions Recorded Confirmed [place] Carbonate 300 mg PO BID 03/10/17 12/31/18 Venlafaxine HCl [Effexor XR] 75 mg PO DAILY 12/31/18 12/31/18 clonazePAM [KlonoPIN] 0.5 mg PO BID 12/31/18 12/31/18 Previous Rx's Medication Instructions Recorded HYDROcodone/APAP 5-325MG [[place] 1 tab PO Q6HR PRN #12 tab 05/29/19 5-325] Allergies Allergy/AdvReac Type Severity Reaction Status Date / Time Iodinated Contrast Media Allergy Anaphylaxis Verified 01/17/21 11:08 [Iodinated Contrast Media - Oral and] Penicillins Allergy Anaphylaxis Verified 01/17/21 11:08 Review of Systems ROS Statement: Those systems with pertinent positive or pertinent negative responses have been documented in the HPI. ROS Other: All systems not noted in ROS Statement are negative. Past Medical History Past Medical History: Asthma, GERD/Reflux, Musculoskeletal Disorder, Thyroid Disorder Additional Past Medical History / Comment(s): Pt. reports she has a history of a heart murmur. duodenal ulcer, n/v, abdominal pain, hx hypothyroidism History of Any Multi-Drug Resistant Organisms: None Reported Past Surgical History: Bariatric Surgery, Tubal Ligation Additional Past Surgical History / Comment(s): breast reduction, gastric bypass. Past Anesthesia/Blood Transfusion Reactions: No Reported Reaction Past Psychological History: Depression Smoking Status: Current every day smoker Past Alcohol Use History: None Reported Past Drug Use History: Marijuana - Past Family History Daughter(s) Family Medical History: Blood Disorder General Exam Limitations: no limitations General appearance: alert, in no apparent distress Head exam: Present: atraumatic, normocephalic, normal inspection Eye exam: Present: normal appearance, PERRL, EOMI. Absent: scleral icterus, conjunctival injection, periorbital swelling Respiratory exam: Present: normal lung sounds bilaterally. Absent: respiratory distress, wheezes, rales, rhonchi, stridor Cardiovascular Exam: Present: normal rhythm, tachycardia, normal heart sounds. Absent: systolic murmur, diastolic murmur, rubs, gallop, clicks GI/Abdominal exam: Present: soft, tenderness (Moderate diffuse), normal bowel sounds. Absent: distended, guarding, rebound, rigid Back exam: Absent: CVA tenderness (R), CVA tenderness (L) Neurological exam: Present: alert Course Vital Signs 01/17/21 11:04 Temperature 97.6 F Pulse Rate 118 H Respiratory 18 Rate Blood Pressure 145/102 O2 Sat by Pulse 99 Oximetry Medical Decision Making - Medical Decision Making 40-year-old presented for abdominal pain. Labs, CT her coronary CT shows evidence of acute pancreatitis, possibility of underlying abdominal hernia. [place] less likely. Patient's lab reveal evidence of acute changes with a lipase of 3819, amylase 307 patient does have a lactic acid 2.6 was given fluid bolus, started on maintenance fluids. Patient has have moderate leukocytosis. Ultrasound will be ordered to rule out gallbladder, biliary cause for pancreatitis. Patient states that she has not drank in 3 days with states that she's not a daily drinker. Patient will be admitted to - Lab Data Result diagrams: 01/17/21 11:50 01/17/21 11:50 Lab Results 01/17/21 01/17/21 01/17/21 Range/Units 11:50 11:50 11:50 WBC 17.2 H (3.8-10.6) k/uL RBC 4.71 (3.80-5.40) m/uL Hgb 11.7 (11.4-16.0) gm/dL Hct 35.1 (34.0-46.0) % MCV 74.6 L (80.0-100.0) fL MCH 25.0 (25.0-35.0) pg MCHC 33.5 (31.0-37.0) g/dL RDW 17.1 H (11.5-15.5) % Plt Count 453 H (150-450) k/uL MPV 6.6 Neutrophils % 80 % Lymphocytes % 11 % Monocytes % 6 % Eosinophils % 2 % Basophils % 1 % Neutrophils # 13.7 H (1.3-7.7) k/uL Lymphocytes # 1.9 (1.0-4.8) k/uL Monocytes # 1.1 H (0-1.0) k/uL Eosinophils # 0.3 (0-0.7) k/uL Basophils # 0.1 (0-0.2) k/uL Hypochromasia Slight Anisocytosis Slight Microcytosis Moderate Sodium 137 (137-145) mmol/L Potassium 3.7 (3.5-5.1) mmol/L Chloride 105 (98-107) mmol/L Carbon Dioxide 20 L (22-30) mmol/L Anion Gap 12 mmol/L BUN 12 (7-17) mg/dL Creatinine 0.60 (0.52-1.04) mg/dL Est GFR (CKD-EPI)AfAm >90 (>60 ml/min/1.73 sqM) Est GFR (CKD-EPI)NonAf >90 (>60 ml/min/1.73 sqM) Glucose 137 H (74-99) mg/dL Plasma Lactic Acid Tdod 2.6 H* (0.7-2.0) mmol/L Calcium 9.5 (8.4-10.2) mg/dL Total Bilirubin 0.6 (0.2-1.3) mg/dL AST 87 H (14-36) U/L ALT 48 H (4-34) U/L Alkaline Phosphatase 82 (38-126) U/L Total Protein 6.9 (6.3-8.2) g/dL Albumin 4.1 (3.5-5.0) g/dL Amylase 307 H* (30-110) U/L Lipase 3819 H (23-300) U/L Disposition Clinical Impression: Acute pancreatitis, Abdominal pain, Nausea & vomiting Disposition: ADMITTED IP TO THIS [facility] Condition: Fair Referrals: Patti Lang MD [Primary Care Provider] - 1-2 days
[2021-01-17 12:04] LABS: Anisocytosis Slight; Basophils # (A) 0.1 k/uL (0-0.2); Basophils % (A) 1 %; Eosinophils # (A) 0.3 k/uL (0-0.7); Eosinophils % (A) 2 %; HCT 35.1 % (34.0-46.0); HGB 11.7 gm/dL (11.4-16.0); Hypochromasia Slight; Lymphocytes # (A) 1.9 k/uL (1.0-4.8); Lymphocytes % (A) 11 %; MCHC 33.5 g/dL (31.0-37.0); MCV 74.6 fL (80.0-100.0); Mean Platelet Volume 6.6; Microcytosis Moderate; Monocytes # (A) 1.1 k/uL (0-1.0); Monocytes % (A) 6 %; Neutrophils # (A) 13.7 k/uL (1.3-7.7); Neutrophils % (A) 80 %; Platelet Count 453 k/uL (150-450); RBC 4.71 m/uL (3.80-5.40); RDW 17.1 % (11.5-15.5); WBC 17.2 k/uL (3.8-10.6)
[2021-01-17 12:13] LABS: African American GFR (CKD) >90 (>60 ml/min/1.73 sqM); Albumin 4.1 g/dL (3.5-5.0); Anion Gap 12 mmol/L; Blood Urea Nitrogen 12 mg/dL (7-17); Calcium 9.5 mg/dL (8.4-10.2); Carbon Dioxide 20 mmol/L (22-30); Chloride 105 mmol/L (98-107); Glucose 137 mg/dL (74-99); Non-African American GFR(CKD) >90 (>60 ml/min/1.73 sqM); Potassium 3.7 mmol/L (3.5-5.1); Sodium 137 mmol/L (137-145); Total Bilirubin 0.6 mg/dL (0.2-1.3); Total Protein 6.9 g/dL (6.3-8.2)
[2021-01-17 12:14] LABS: ALT 48 U/L (4-34); AST 87 U/L (14-36); Alkaline Phosphatase 82 U/L (38-126)
[2021-01-17 12:19] LABS: Amylase 307 U/L (30-110)
[2021-01-17 12:22] LABS: Lipase 3819 U/L (23-300)
[2021-01-17] MEDS ORDERED: SODIUM CHLORIDE 0.9% 1,000 ML IV ONE (12:25)
[2021-01-17] MEDS: SODIUM CHLORIDE 0.9% 1,000 ML IV SCH ×2 (12:39→21:10)
--- NOTE | 2021-01-17 12:46 | CT ---
EXAMINATION TYPE: CT abdomen pelvis wo con DATE OF EXAM: 01/17/2021 COMPARISON: 05/29/2019 HISTORY: 40-year-old female Abd pain CT DLP: 361.9 mGycm. Automated exposure control for dose reduction was used. TECHNIQUE: Contiguous axial scanning of the abdomen and pelvis without IV contrast. Coronal and sagit juan reconstructions performed. FINDINGS: Heart normal size of pericardial effusion. Lung bases clear without pleural effusion. Status post Daniele-en-Y gastric bypass. Small bowel dilatation at 3.3 cm at the lower anastomosis proba bautista postsurgical. The lower anastomosis is slightly more medial in location at the midline mid abdome n and there is some swirling noted in this region, axial image 45. Liver mildly enlarged 18.5 cm. Some focal fat along the anterior falciform ligament. Gallbladder distended to the upper limits of normal. Some adjacent inflammatory edema suspected to be arising from the pancreas. There is poor definition to the head and proximal body of the pancreas wi th some inflammatory edema extending into the right hepatorenal recess and fat stranding tracking nghia n the mesentery to the mid abdomen. Right adrenal gland, kidneys, and spleen appear within normal limits. Mild thickening and some associ ated calcification left adrenal gland without discrete nodularity is unchanged from 2019. No other dilated small bowel or free air. Normal appendix. No significant stool wording. Bladder not distended. Uterus anteverted. Both ovaries are visualized. Trace cul-de-sac free fluid ma y be secondary to the above pancreatic inflammation. Bones: No osseous destructive process. Moderate degenerative disc disease L2-L3 and L5-S1. IMPRESSION: 1. Acute pancreatitis involving the head and distal body. Moderate surrounding inflammatory edema an d fat stranding tracking down into the mid abdominal mesentery. Trace cul-de-sac free fluid may be ph ysiologic or could be from this inflammation. Note limited noncontrast assessment for the vasculature . No obvious well-defined pancreatic fluid collection at this time. 2. Status post Daniele-en-Y gastric bypass. The lower anastomosis has shifted now located in the mid ab domen and there is some swirling noted. Attention on follow-up to exclude developing internal hernia. A short segment of mildly dilated small bowel measuring 3.3 cm is also located near the anastomosis and may be postsurgical. Again, attention on follow-up.
[2021-01-17] MEDS ORDERED: KETOROLAC 15 MG/ML 1 ML VIAL IVP STA (13:18)
[2021-01-17] MEDS ORDERED: HYDROmorphone 0.5 MG/0.5 ML SYRINGE IVP PRN (13:41)
[2021-01-17] MEDS ORDERED: ONDANSETRON 4 MG/2 ML VIAL IVP PRN (13:41)
[2021-01-17] MEDS ORDERED: NALOXONE 0.4 MG/ML 1 ML VIAL IV PRN ×2 (13:41→14:18)
[2021-01-17] MEDS ORDERED: ACETAMINOPHEN TAB 325 MG TAB PO PRN (14:18)
[2021-01-17] MEDS: HYDROmorphone 1 MG/ML 1 ML SYRINGE IVP PRN ×3 (14:41→21:42)
--- NOTE | 2021-01-17 14:42 | US ---
EXAMINATION TYPE: US gallbladder DATE OF EXAM: 01/17/2021 COMPARISON: CT 01/17/2021 CLINICAL HISTORY: pain, pancreatitis. Difficult exam as patient is in pain. EXAM MEASUREMENTS: Liver Length: 18.0 cm Gallbladder Wall: 0.2 cm CBD: 0.5 cm Right Kidney: 11.9 x 3.7 x 4.6 cm Pancreas: Obscured by bowel gas, duct visualized measuring 0.4 cm Liver: Measuring upper limits of normal. Gallbladder: Appears hydropic. No stones or sludge visualized. Evidence for sonographic Singer's sign: Patient was in pain no matter where I touched her CBD: wnl Right Kidney: No hydronephrosis or masses seen IMPRESSION: No gallstones or dilated ducts. No focal liver defect.
--- NOTE | 2021-01-17 14:50 | P.HPIM ---
<Petey Reeves - Last Filed: 01/17/21 14:31> History of Present Illness H&P Date: 01/17/21 History of Presenting Illness: Patient is a 40-year-old female with a past medical history of gastric bypass surgery in 2012, GERD, and gastric ulcers. Patient presented to the emergency d [facility] with a chief complaint of abdominal pain. In the ED patient had a full workup resulting in admission under our services with consultation to general surgery for continued medical management. Labs reviewed WBC count elevated at 17.2 with left shift with neutrophils of 13.7 and monocytes of 1.1. Lactate elevated at 2.6. Mild elevation of liver enzymes also with AST of 87 and a ALT of 48. Amylase 307 and lipase of 3819. CT abdomen and pelvis showing acute pancreatitis involving the head and distal body of the pancreas with moderate surrounding inflammatory edema and fat stranding tracking down into the mid abdominal mesentery. Also reporting enlarged gallbladder and status post ga stric bypass in 2011, the lower anastomosis shifted and now located in the mid abdomen accompanied by noted swirling difficult to exclude a developing internal hernia. Patient was seen and fully evaluated at the bedside and reports she initially started developing some abdominal discomfort about a week ago in which she said was generalized abdominal pain that waxed and waned and then just went away. She states that this pain returned last night and became significantly severe and has been accompanied by nausea, dry heaves, chills, and diaphoresis. Patient states this pain is 10 out of 10 and described as sharp and constant. Patient states pain radiates to her right shoulder and into her back. She denies any recently known fevers, headache, lightheadedness, dizziness, chest pain or palpitations, shortness of breath, or experiencing any changes or difficulties with urinary or bowel function. patient denies having a history of pancreatitis but does report being told that one of her pancreatic enzymes were slightly elevated when she had a bleeding gastric ulcer. Patient reports alc ohol use 2-3 times per week and only drinking 2-3 drinks each day. Review of systems: Pertinent positives and negatives as discussed in HPI, a complete review of systems was performed and all other systems are negative. Physical exam: General: non toxic, no distress, appears at stated age Derm: warm, dry Head: atraumatic, normocephalic, symmetric Eyes: EOMI, no lid lag, anicteric sclera Mouth: no lip lesion, mucus membranes dry. Missing teeth. Cardiovascular: S1-S2 normal with regular rate and rhythm. No murmurs, gallops, or rubs noted. Posterior tibial pulses palpated bilaterally. Cap refill less than 2 seconds. Lungs: Respirations even, regular, and unlabored on room air. Lungs clear to auscultation bilaterally with no wheezes, rhonchi, or rales noted. No accessory muscle usage. Abdominal: soft and nondistended. Diffuse tenderness upon palpation worse in bilateral upper quadrants and epigastric region. No guarding, no appreciable organomegaly Ext: no gross muscle atrophy, no edema, no contractures Neuro: GCS 15. Speech clear. CN II-XI grossly intact, no focal neuro deficits Psych: Alert, oriented, appropriate affect Assessment and Plan of Care: Abdominal pain likely secondary to acute pancreatitis -CT abdomen and pelvis showing acute pancreatitis involving the head and distal body of the pancreas with moderate surrounding inflammatory edema and fat stranding tracking down into the mid abdominal mesentery. Also reporting enlarged gallbladder and status post gastric bypass in 2011, the lower anastomosis shifted and now located in the mid abdomen accompanied by noted swirling difficult to exclude a developing internal hernia. - Labs reviewed WBC count elevated at 17.2 with left shift with neutrophils of 13.7 and monocytes of 1.1. Lactate elevated at 2.6. Mild elevation of liver enzymes also with AST of 87 and a ALT of 48. Amylase 307 and lipase of 3819. -Gallbladder ultrasound to be completed -Consult placed to general surgery to rule out cholecystitis as well as review CT findings of possible developing internal hernia. -Nothing by mouth -Aggressive fluid hydration -Symptomatic care and pain management with Zofran for nausea and Dilaudid for pain. -Continue close monitoring with repeat a.m. labs. Lactic acidosis -Lactate 2.6 -Patient received fluid bolus and we will continue with aggressive IV hydration. -Repeat lactate and continued close monitoring. GERD -GI prophylaxis with Protonix 40 mg daily. The patient is admitted with an anticipated greater than 2 midnight stay for evaluation of abdominal pain and findings of acute pancreatitis. CODE STATUS: Full code DVT prophylaxis: Lovenox Discussed with: patient and RN Anticipated discharge date: clinical course to determine Anticipated discharge place: home A total of 45 minutes was spent on the care of this complex patient more than 50% of the time was spent in counseling and care coordination. Past Medical History Past Medical History: Asthma, GERD/Reflux, Musculoskeletal Disorder, Thyroid Disorder Additional Past Medical History / Comment(s): Pt. reports she has a history of a heart murmur. duodenal ulcer, n/v, abdominal pain, hx hypothyroidism History of Any Multi-Drug Resistant Organisms: None Reported Past Surgical History: Bariatric Surgery, Tubal Ligation Additional Past Surgical History / Comment(s): breast reduction, gastric bypass. Past Anesthesia/Blood Transfusion Reactions: No Reported Reaction Past Psychological History: Depression Smoking Status: Current every day smoker Past Alcohol Use History: None Reported Past Drug Use History: Marijuana - Past Family History Daughter(s) Family Medical History: Blood Disorder Medications and Allergies Home Medications Medication Instructions Recorded Confirmed Type Protonix(Unknown Dose) 40 mg PO BID 01/17/21 01/17/21 History Allergies Allergy/AdvReac Type Severity Reaction Status Date / Time Penicillins Allergy Anaphylaxis Verified 01/17/21 13:52 Iodinated Contrast Media AdvReac seizure Verified 01/17/21 13:52 [Iodinated Contrast Media - Oral and] Physical Exam Vitals: Vital Signs Temp Pulse Resp BP Pulse Ox 01/17/21 14:15 69 18 155/81 98 01/17/21 11:04 97.6 F 118 H 18 145/102 99 Intake and Output 01/16/21 01/17/21 01/17/21 22:59 06:59 14:59 Other: Weight 56.699 kg Results CBC & Chem 7: 01/17/21 11:50 01/17/21 11:50 Labs: Abnormal Lab Results - Last 24 Hours (Table) 01/17/21 01/17/21 01/17/21 Range/Units 11:50 11:50 11:50 WBC 17.2 H (3.8-10.6) k/uL MCV 74.6 L (80.0-100.0) fL RDW 17.1 H (11.5-15.5) % Plt Count 453 H (150-450) k/uL Neutrophils # 13.7 H (1.3-7.7) k/uL Monocytes # 1.1 H (0-1.0) k/uL Carbon Dioxide 20 L (22-30) mmol/L Glucose 137 H (74-99) mg/dL Plasma Lactic Acid Todd 2.6 H* (0.7-2.0) mmol/L AST 87 H (14-36) U/L ALT 48 H (4-34) U/L Amylase 307 H* (30-110) U/L Lipase 3819 H (23-300) U/L <ElIva Donal - Last Filed: 01/17/21 16:48> Physical Exam Osteopathic Statement: *. No significant issues noted on an osteopathic structural exam other than those noted in the History and Physical/Consult. Vitals: Vital Signs Temp Pulse Pulse Resp BP BP Pulse Ox 01/17/21 16:25 98.2 F 76 16 138/88 98 01/17/21 14:15 69 18 155/81 98 01/17/21 11:04 97.6 F 118 H 18 145/102 99 Intake and Output 01/17/21 01/17/21 01/17/21 06:59 14:59 22:59 Other: Weight 56.699 kg 56.699 kg Results CBC & Chem 7: 01/17/21 11:50 01/17/21 11:50 Labs: Abnormal Lab Results - Last 24 Hours (Table) 01/17/21 01/17/21 01/17/21 Range/Units 11:50 11:50 11:50 WBC 17.2 H (3.8-10.6) k/uL MCV 74.6 L (80.0-100.0) fL RDW 17.1 H (11.5-15.5) % Plt Count 453 H (150-450) k/uL Neutrophils # 13.7 H (1.3-7.7) k/uL Monocytes # 1.1 H (0-1.0) k/uL Carbon Dioxide 20 L (22-30) mmol/L Glucose 137 H (74-99) mg/dL Plasma Lactic Acid Todd 2.6 H* (0.7-2.0) mmol/L AST 87 H (14-36) U/L ALT 48 H (4-34) U/L Amylase 307 H* (30-110) U/L Lipase 3819 H (23-300) U/L Assessment and Plan Assessment: Patient seen and examined independently. Patient was also seen by Petey Reeves NP and case was discussed. I am in agreement with subjective, physical exam, assessment and plan as written above and amended below. Patient reports that last week she was having intermittent right upper quadrant pain. She cooled her symptoms but that it was her gallbladder, it then resolved spontaneously but restarted in the last couple of days. She believes she has had pancreatitis in the past years ago. General: Ill appearing, mild distress, grimacing, diaphoretic, appears at stated age Derm: warm, dry, multiple tattoos Head: atraumatic, normocephalic, symmetric Eyes: EOMI, no lid lag, anicteric sclera Mouth: no lip lesion, mucus membranes moist Cardiovascular: S1S2 tachycardic, no murmur, positive posterior tibial pulse bilateral, Lungs: CTA bilateral, no rhonchi, no rales , no accessory muscle use Abdominal: soft, tender to palpation diffusely, no guarding, no appreciable organomegaly
[2021-01-17] MEDS: ONDANSETRON 4 MG/2 ML VIAL IVP PRN (19:38)
[2021-01-17] MEDS: NICOTINE 21MG/24HR PATCH TRANSDERM SCH (19:38)
[2021-01-17] MEDS: PANTOPRAZOLE 40 MG/10 ML VIAL IV SCH (21:10)
[2021-01-17] MEDS ORDERED: diphenhydrAMINE 50 MG CAP PO STA (21:41)
[2021-01-18] MEDS: HYDROmorphone 1 MG/ML 1 ML SYRINGE IVP PRN ×7 (00:44→23:36)
[2021-01-18] MEDS: ONDANSETRON 4 MG/2 ML VIAL IVP PRN ×4 (01:13→23:36)
[2021-01-18] MEDS: SODIUM CHLORIDE 0.9% 1,000 ML IV SCH ×3 (04:09→18:50)
[2021-01-18 06:07] LABS: Anisocytosis Slight; Basophils # (A) 0.1 k/uL (0-0.2); Basophils % (A) 1 %; Eosinophils # (A) 0.4 k/uL (0-0.7); Eosinophils % (A) 4 %; HCT 30.9 % (34.0-46.0); Hypochromasia Slight; Lymphocytes # (A) 1.3 k/uL (1.0-4.8); Lymphocytes % (A) 13 %; MCH 24.7 pg (25.0-35.0); MCHC 31.9 g/dL (31.0-37.0); MCV 77.3 fL (80.0-100.0); Mean Platelet Volume 6.8; Microcytosis Slight; Monocytes # (A) 0.4 k/uL (0-1.0); Monocytes % (A) 4 %; Neutrophils # (A) 8.2 k/uL (1.3-7.7); Neutrophils % (A) 78 %; Platelet Count 316 k/uL (150-450); RDW 17.1 % (11.5-15.5); WBC 10.5 k/uL (3.8-10.6)
[2021-01-18 06:10] LABS: HGB 9.9 gm/dL (11.4-16.0)
[2021-01-18] MEDS: ENOXAPARIN 40 MG/0.4 ML SYRINGE SQ SCH (07:24)
[2021-01-18] MEDS: PANTOPRAZOLE 40 MG/10 ML VIAL IV SCH ×2 (07:24→20:00)
[2021-01-18] MEDS: NICOTINE 21MG/24HR PATCH TRANSDERM SCH (07:25)
[2021-01-18 08:41] LABS: Appearance,Urine Clear (Clear); Bilirubin,Urine Negative (Negative); Blood,Urine Moderate (Negative); Color,Urine Yellow; Glucose,Urine (UA) Negative (Negative); Hyaline Casts,Urine 1 /lpf (0-2); Ketones,Urine 1+ (Negative); Leukocyte Esterase,Urine Negative (Negative); Mucus,Urine Few /hpf; Nitrite,Urine Negative (Negative); PH, Urine 5.5 (5.0-8.0); Protein,Urine Negative (Negative); RBC,Urine 4 /hpf (0-5); Specific Gravity,Urine 1.016 (1.001-1.035); Squamous Epithelial Cell,Urine 3 /hpf (0-4); Urobilinogen,Urine <2.0 mg/dL (<2.0); WBC,Urine 1 /hpf (0-5)
[2021-01-18] MEDS ORDERED: PANTOPRAZOLE 40 MG/10 ML VIAL IV SCH (09:00)
[2021-01-18 09:58] LABS: African American GFR (CKD) 130.3 (60.0-200.0); Albumin 3.6 g/dL (3.80-4.90); Albumin/Globulin Ratio 1.71 (1.60-3.17); Anion Gap 8.7 mmol/L (4.00-12.00); BUN/Creat Ratio 13.33 Ratio (12.00-20.00); Calcium 7.9 mg/dL (8.7-10.3); Carbon Dioxide 20.3 mmol/L (21.6-31.8); Globulin 2.1 g/dL (1.6-3.3); Non-African American GFR(CKD) 112.4 (60.0-200.0); Potassium 3.2 mmol/L (3.5-5.5); Total Protein 5.7 g/dL (6.2-8.2)
[2021-01-18] MEDS ORDERED: PROCHLORPERAZINE INJ 10 MG/2 ML VIAL IVP PRN (10:09)
[2021-01-18] MEDS ORDERED: POTASSIUM CHLORIDE ER 20 MEQ TAB.ER PO STA (10:10)
--- NOTE | 2021-01-18 12:37 | P.GSCN ---
History of Present Illness Consult date: 01/18/21 Reason for Consult: Abdominal pain, pancreatitis History of present illness: This a 40-year-old female who has complaints of severe abdominal pain. She is workup through the emergency room found evidence of hepatitis. Patient had a previous history of Daniele-en-Y gastric bypass performed [address] Kowalski. She had a revision of her jejunostomy after this. Patient states that she's had previous history of ulcers. She states her pain is mainly in her epigastric area rates to her back she denies any nausea or vomiting Past Medical History Past Medical History: Asthma, GERD/Reflux, Musculoskeletal Disorder, Thyroid Disorder Additional Past Medical History / Comment(s): Pt. reports she has a history of a heart murmur. duodenal ulcer, n/v, abdominal pain, hx hypothyroidism History of Any Multi-Drug Resistant Organisms: None Reported Past Surgical History: Bariatric Surgery, Tubal Ligation Additional Past Surgical History / Comment(s): breast reduction, gastric bypass. Past Anesthesia/Blood Transfusion Reactions: No Reported Reaction Past Psychological History: Anxiety, Depression Additional Psychological History / Comment(s): major depressive disorder Smoking Status: Current every day smoker Past Alcohol Use History: None Reported Additional Past Alcohol Use History / Comment(s): smoker for 24 years 1 ppd Past Drug Use History: Marijuana Additional Drug Use History / Comment(s): Pt. admits to daily marijuana use. - Past Family History Daughter(s) Family Medical History: Blood Disorder Medications and Allergies Home Medications Medication Instructions Recorded Confirmed Type Pantoprazole [Protonix] 40 mg PO BID 01/18/21 01/18/21 History Allergies Allergy/AdvReac Type Severity Reaction Status Date / Time Penicillins Allergy Anaphylaxis Verified 01/17/21 13:52 Iodinated Contrast Media AdvReac seizure Verified 01/17/21 13:52 [Iodinated Contrast Media - Oral and] Surgical - Exam Vital Signs Temp Pulse Resp BP Pulse Ox 97.6 F 118 H 18 145/102 99 01/17/21 11:04 01/17/21 11:04 01/17/21 11:04 01/17/21 11:04 01/17/21 11:04 - General well developed, well nourished, no distress - Eyes PERRL - ENT normal pinna - Neck no masses - Respiratory normal expansion - Cardiovascular Rhythm: regular - Abdomen Mild diffuse tenderness. There is no rebound or guarding Abdomen: soft Results - Labs 01/18/21 05:10 01/18/21 05:10 Abnormal Lab Results - Last 24 Hours (Table) 12/19/20 01/17/21 01/18/21 Range/Units 08:25 16:30 05:10 Hgb 9.9 L D (11.4-16.0) gm/dL Hct 30.9 L (34.0-46.0) % MCV 77.3 L (80.0-100.0) fL MCH 24.7 L (25.0-35.0) pg RDW 17.1 H (11.5-15.5) % Neutrophils # 8.2 H (1.3-7.7) k/uL Potassium (3.5-5.5) mmol/L Chloride (96-109) mmol/L Carbon Dioxide (21.6-31.8) mmol/L BUN (9.0-27.0) mg/dL Glucose (70-110) mg/dL Plasma Lactic Acid Todd 0.5 L (0.7-2.0) mmol/L Calcium (8.7-10.3) mg/dL AST (13-35) U/L Total Protein (6.2-8.2) g/dL Albumin (3.80-4.90) g/dL Urine Ketones 1+ H (Negative) Urine Blood Moderate H (Negative) Urine Mucus Few H (None) /hpf 01/18/21 Range/Units 05:10 Hgb (11.4-16.0) gm/dL Hct (34.0-46.0) % MCV (80.0-100.0) fL MCH (25.0-35.0) pg RDW (11.5-15.5) % Neutrophils # (1.3-7.7) k/uL Potassium 3.2 L (3.5-5.5) mmol/L Chloride 110 H (96-109) mmol/L Carbon Dioxide 20.3 L (21.6-31.8) mmol/L BUN 8.0 L (9.0-27.0) mg/dL Glucose 139 H (70-110) mg/dL Plasma Lactic Acid Todd (0.7-2.0) mmol/L Calcium 7.9 L (8.7-10.3) mg/dL AST 40 H (13-35) U/L Total Protein 5.7 L (6.2-8.2) g/dL Albumin 3.60 L (3.80-4.90) g/dL Urine Ketones (Negative) Urine Blood (Negative) Urine Mucus (None) /hpf Diabetes panel 01/18/21 Range/Units 05:10 Sodium 139 (135-145) mmol/L Potassium 3.2 L (3.5-5.5) mmol/L Chloride 110 H (96-109) mmol/L Carbon Dioxide 20.3 L (21.6-31.8) mmol/L BUN 8.0 L (9.0-27.0) mg/dL Creatinine 0.6 (0.6-1.5) mg/dL Glucose 139 H (70-110) mg/dL Calcium 7.9 L (8.7-10.3) mg/dL AST 40 H (13-35) U/L ALT 35 (8-44) U/L Alkaline Phosphatase 65 (41-126) U/L Total Protein 5.7 L (6.2-8.2) g/dL Albumin 3.60 L (3.80-4.90) g/dL Calcium panel 01/18/21 Range/Units 05:10 Calcium 7.9 L (8.7-10.3) mg/dL Albumin 3.60 L (3.80-4.90) g/dL Pituitary panel 01/18/21 Range/Units 05:10 Sodium 139 (135-145) mmol/L Potassium 3.2 L (3.5-5.5) mmol/L Chloride 110 H (96-109) mmol/L Carbon Dioxide 20.3 L (21.6-31.8) mmol/L BUN 8.0 L (9.0-27.0) mg/dL Creatinine 0.6 (0.6-1.5) mg/dL Glucose 139 H (70-110) mg/dL Calcium 7.9 L (8.7-10.3) mg/dL Adrenal panel 01/18/21 Range/Units 05:10 Sodium 139 (135-145) mmol/L Potassium 3.2 L (3.5-5.5) mmol/L Chloride 110 H (96-109) mmol/L Carbon Dioxide 20.3 L (21.6-31.8) mmol/L BUN 8.0 L (9.0-27.0) mg/dL Creatinine 0.6 (0.6-1.5) mg/dL Glucose 139 H (70-110) mg/dL Calcium 7.9 L (8.7-10.3) mg/dL Total Bilirubin 1.0 (0.3-1.2) mg/dL AST 40 H (13-35) U/L ALT 35 (8-44) U/L Alkaline Phosphatase 65 (41-126) U/L Total Protein 5.7 L (6.2-8.2) g/dL Albumin 3.60 L (3.80-4.90) g/dL - Imaging CT scan - chest: report reviewed (Pancreatitis without evidence of cholelithiasis.) Assessment and Plan Assessment: Carin Sosa. Patient will receive fluid resuscitation and observation.
--- NOTE | 2021-01-18 13:01 | P.PN ---
Subjective Progress Note Date: 01/18/21 Hospital course: Patient is a 40-year-old female with a past medical history of gastric bypass surgery in 2012, GERD, and gastric ulcers. Patient presented to the emergency department with a chief complaint of abdominal pain. In the ED patient had a full workup completed. Labs reviewed WBC count elevated at 17.2 with left shift with neutrophils of 13.7 and monocytes of 1.1. Lactate elevated at 2.6. Mild elevation of liver enzymes also with AST of 87 and a ALT of 48. Amylase 307 and lipase of 3819. CT abdomen and pelvis showing acute pancreatitis involving the head and distal body of the pancreas with moderate surrounding inflammatory edema and fat stranding tracking down into the mid abdominal mesentery. Also reporting enlarged gallbladder and status post gastric bypass in 2011, the lower anastomosis shifted and now located in the mid abdomen accompanied by noted swirling difficult to exclude a developing internal hernia. Patient was seen and fully evaluated at the bedside and reports she initially started developing some abdominal discomfort about a week ago in which she said was generalized abdominal pain that waxed and waned and then just went away. She stated that this pain returned last night and became significantly severe and had been accompanied by nausea, dry heaves, chills, and diaphoresis. Patient stated this pain is 10 out of 10 and described as sharp and constant. Patient states pain radiates to her right shoulder and into her back. She denied any recently known fevers, headache, lightheadedness, dizziness, chest pain or palpitations, shortness of breath, or experiencing any changes or difficulties with urinary or bowel function. patient denies having a history of pancreatitis but does report being told that one of her pancreatic enzymes were slightly elevated when she had a bleeding gastric ulcer. Patient reported alcohol use drinking 2-3 alcoholic beverages 2-3 times per week. Patient was admitted under our services with consult to Gen. surgery. Gallbladder ultrasound completed negative for acute cholecystitis. Physical exam: Patient was seen and fully evaluated at the bedside this morning. She reports persistent nausea despite use of antiemetic Zofran, additional antiemetic with Compazine ordered at this time. Patient reports persistent pain mainly in epigastric region. We will continue with maintaining nothing by mouth status and providing aggressive fluid hydration with Dilaudid for pain and Zofran and/or Compazine as needed for nausea. Leukocytosis improving from previous of ABC count of 17.2 down to 10.5 this morning. Awaiting results of repeat lipase. General: non toxic, no distress, appears at stated age Derm: warm, dry Head: atraumatic, normocephalic, symmetric Eyes: EOMI, no lid lag, anicteric sclera Mouth: no lip lesion, mucus membranes dry. Missing teeth. Cardiovascular: S1-S2 normal with regular rate and rhythm. No murmurs, gallops, or rubs noted. Posterior tibial pulses palpated bilaterally. Cap refill less than 2 seconds. Lungs: Respirations even, regular, and unlabored on room air. Lungs clear to auscultation bilaterally with no wheezes, rhonchi, or rales noted. No accessory muscle usage. Abdominal: soft and nondistended. Diffuse tenderness upon palpation worse in bilateral upper quadrants and epigastric region. No guarding, no appreciable organomegaly Ext: no gross muscle atrophy, no edema, no contractures Neuro: GCS 15. Speech clear. CN II-XI grossly intact, no focal neuro deficits Psych: Alert, oriented, appropriate affect Assessment and Plan of Care: Abdominal pain secondary to Acute Pancreatitis -CT abdomen and pelvis showing acute pancreatitis involving the head and distal body of the pancreas with moderate surrounding inflammatory edema and fat stranding tracking down into the mid abdominal mesentery. Also reporting enlarged gallbladder and status post gastric bypass in 2011, the lower anastomo sis shifted and now located in the mid abdomen accompanied by noted swirling difficult to exclude a developing internal hernia. - Labs reviewed WBC count elevated at 17.2 with left shift with neutrophils of 13.7 and monocytes of 1.1. Lactate elevated at 2.6. Mild elevation of liver enzymes also with AST of 87 and a ALT of 48. Amylase 307 and lipase of 3819. -Gallbladder ultrasound negative for acute cholecystitis. -Consult placed to general surgery for further evaluation of CT findings reveali ng possible developing internal hernia. -Nothing by mouth -Continue aggressive fluid hydration -Symptomatic care and pain management with Zofran for nausea and Dilaudid for pain. Patient reports nausea was not controlled with use of Zofran, additional antiemetic Compazine added at this time. -Continue close monitoring with repeat a.m. labs. Lactic acidosis, resolved GERD -GI prophylaxis with Protonix 40 mg daily. CODE STATUS: Full code DVT prophylaxis: Lovenox Discussed with: patient and RN Anticipated discharge date: clinical course to determine Anticipated discharge place: home A total of 45 minutes was spent on the care of this complex patient more than 50% of the time was spent in counseling and care coordination. Objective - Vital Signs Vital signs: Vital Signs Temp 98.7 F 01/18/21 04:13 Pulse 70 01/18/21 04:13 Resp 18 01/18/21 04:13 BP 125/72 01/18/21 04:13 Pulse Ox 99 01/18/21 04:13 Intake & Output 01/17/21 01/18/21 01/18/21 18:59 06:59 18:59 Intake Total 260 1040 Balance 260 1040 Weight 56.699 kg Intake: Intake, IV Titration 260 1040 Amount Sodium Chloride 0.9% 1, 260 1040 000 ml @ 130 mls/hr IV . [id number] [facility] Rx#:[id number] Other: Voiding Method Toilet # Voids 2 - Labs CBC & Chem 7: 01/18/21 05:10 01/18/21 05:10 Labs: Abnormal Lab Results - Last 24 Hours (Table) 12/19/20 01/17/21 01/17/21 Range/Units 08:25 11:50 11:50 WBC 17.2 H (3.8-10.6) k/uL Hgb (11.4-16.0) gm/dL Hct (34.0-46.0) % MCV 74.6 L (80.0-100.0) fL MCH (25.0-35.0) pg RDW 17.1 H (11.5-15.5) % Plt Count 453 H (150-450) k/uL Neutrophils # 13.7 H (1.3-7.7) k/uL Monocytes # 1.1 H (0-1.0) k/uL Potassium (3.5-5.5) mmol/L Chloride (96-109) mmol/L Carbon Dioxide 20 L (22-30) mmol/L BUN (9.0-27.0) mg/dL Glucose 137 H (74-99) mg/dL Plasma Lactic Acid Todd (0.7-2.0) mmol/L Calcium (8.7-10.3) mg/dL AST 87 H (14-36) U/L ALT 48 H (4-34) U/L Total Protein (6.2-8.2) g/dL Albumin (3.80-4.90) g/dL Amylase 307 H* (30-110) U/L Lipase 3819 H (23-300) U/L Urine Ketones 1+ H (Negative) Urine Blood Moderate H (Negative) Urine Mucus Few H (None) /hpf 01/17/21 01/17/21 01/18/21 Range/Units 11:50 16:30 05:10 WBC (3.8-10.6) k/uL Hgb 9.9 L D (11.4-16.0) gm/dL Hct 30.9 L (34.0-46.0) % MCV 77.3 L (80.0-100.0) fL MCH 24.7 L (25.0-35.0) pg RDW 17.1 H (11.5-15.5) % Plt Count (150-450) k/uL Neutrophils # 8.2 H (1.3-7.7) k/uL Monocytes # (0-1.0) k/uL Potassium (3.5-5.5) mmol/L Chloride (96-109) mmol/L Carbon Dioxide (22-30) mmol/L BUN (9.0-27.0) mg/dL Glucose (74-99) mg/dL Plasma Lactic Acid Todd 2.6 H* 0.5 L (0.7-2.0) mmol/L Calcium (8.7-10.3) mg/dL AST (14-36) U/L ALT (4-34) U/L Total Protein (6.2-8.2) g/dL Albumin (3.80-4.90) g/dL Amylase (30-110) U/L Lipase (23-300) U/L Urine Ketones (Negative) Urine Blood (Negative) Urine Mucus (None) /hpf 01/18/21 Range/Units 05:10 WBC (3.8-10.6) k/uL Hgb (11.4-16.0) gm/dL Hct (34.0-46.0) % MCV (80.0-100.0) fL MCH (25.0-35.0) pg RDW (11.5-15.5) % Plt Count (150-450) k/uL Neutrophils # (1.3-7.7) k/uL Monocytes # (0-1.0) k/uL Potassium 3.2 L (3.5-5.5) mmol/L Chloride 110 H (96-109) mmol/L Carbon Dioxide 20.3 L (22-30) mmol/L BUN 8.0 L (9.0-27.0) mg/dL Glucose 139 H (74-99) mg/dL Plasma Lactic Acid Todd (0.7-2.0) mmol/L Calcium 7.9 L (8.7-10.3) mg/dL AST 40 H (14-36) U/L ALT (4-34) U/L Total Protein 5.7 L (6.2-8.2) g/dL Albumin 3.60 L (3.80-4.90) g/dL Amylase (30-110) U/L Lipase (23-300) U/L Urine Ketones (Negative) Urine Blood (Negative) Urine Mucus (None) /hpf
[2021-01-19] MEDS: HYDROmorphone 1 MG/ML 1 ML SYRINGE IVP PRN ×7 (03:08→23:41)
[2021-01-19] MEDS: SODIUM CHLORIDE 0.9% 1,000 ML IV SCH ×3 (03:08→19:09)
[2021-01-19 04:50] LABS: Anisocytosis Slight; HCT 30.2 % (34.0-46.0); HGB 9.8 gm/dL (11.4-16.0); Hypochromasia Moderate; MCHC 32.4 g/dL (31.0-37.0); MCV 77.2 fL (80.0-100.0); Mean Platelet Volume 6.8; Microcytosis Slight; Platelet Count 339 k/uL (150-450); RBC 3.91 m/uL (3.80-5.40); RDW 17.1 % (11.5-15.5); WBC 10.8 k/uL (3.8-10.6)
[2021-01-19] MEDS: ONDANSETRON 4 MG/2 ML VIAL IVP PRN ×2 (06:08→19:09)
[2021-01-19] MEDS: PANTOPRAZOLE 40 MG/10 ML VIAL IV SCH ×2 (08:32→19:56)
[2021-01-19] MEDS: NICOTINE 21MG/24HR PATCH TRANSDERM SCH (08:32)
[2021-01-19] MEDS: ENOXAPARIN 40 MG/0.4 ML SYRINGE SQ SCH (08:33)
[2021-01-19 09:44] LABS: ALT 29 U/L (8-44); AST 28 U/L (13-35); African American GFR (CKD) 138.4 (60.0-200.0); Albumin/Globulin Ratio 1.59 (1.60-3.17); Alkaline Phosphatase 68 U/L (41-126); Blood Urea Nitrogen <5.0 mg/dL (9.0-27.0); Carbon Dioxide 21.3 mmol/L (21.6-31.8); Chloride 107 mmol/L (96-109); Globulin 2.2 g/dL (1.6-3.3); Glucose 62 mg/dL (70-110); Lipase 177 U/L (14-63); Non-African American GFR(CKD) 119.4 (60.0-200.0); Potassium 3.8 mmol/L (3.5-5.5); Sodium 137 mmol/L (135-145); Total Bilirubin 0.6 mg/dL (0.2-1.2); Total Protein 5.7 g/dL (6.2-8.2)
--- NOTE | 2021-01-19 11:07 | P.PN ---
Subjective Progress Note Date: 01/19/21 Hospital course: Patient is a 40-year-old female with a past medical history of gastric bypass surgery in 2012, GERD, and gastric ulcers. Patient presented to the emergency department with a chief complaint of abdominal pain. In the ED patient had a full workup completed. Labs reviewed WBC count elevated at 17.2 with left shift with neutrophils of 13.7 and monocytes of 1.1. Lactate elevated at 2.6. Mild elevation of liver enzymes also with AST of 87 and a ALT of 48. Amylase 307 [place] lipase of [address]19. CT abdomen and pelvis showing acute pancreatitis involving the head and distal body of the pancreas with moderate surrounding inflammatory edema and fat stranding tracking down into the mid abdominal mesentery. Also reporting enlarged gallbladder and status post gastric bypass in 2011, the lower anastomosis shifted and now located in the mid abdomen accompanied by noted swirling difficult to exclude a developing internal hernia. Patient was seen and fully evaluated at the bedside and reports she initially started developing some abdominal discomfort about a week ago in which she said was generalized abdominal pain that waxed and waned and then just went away. She stated that this pain returned last night and became significantly severe and had been accompanied by nausea, dry heaves, chills, and diaphoresis. Patient stated this pain is 10 out of 10 and described as sharp and constant. Patient states pain radiates to her right shoulder and into her back. She denied any recently known fevers, headache, lightheadedness, dizziness, chest pain or palpitations, shortness of breath, or experiencing any changes or difficulties with urinary or bowel function. patient denies having a history of pancreatitis but does report being told that one of her pancreatic enzymes were slightly elevated when she had a bleeding gastric ulcer. Patient reported alcohol use drinking 2-3 alcoholic beverages 2-3 times per week. Patient was admitted under our services with consult to Gen. surgery. Gallbladder ultrasound completed negative for acute cholecystitis. Physical exam: Patient was seen and fully evaluated at the bedside this morning. She reports nausea has subsided since Compazine was added on to antiemetic regimen. She continues to have mild discomfort to left upper quadrant and midepigastric region. Lipase significantly decreasing from 3819 upon admission and now down to 177. We will start patient on clear liquid diet at this time and monitor if and how she tolerates. Patient denies any other complaints at this time including headache, lightheadedness, dizziness, chest pain, palpitations, or shortness of breath. General: non toxic, no distress, appears at stated age Derm: warm, dry Head: atraumatic, normocephalic, symmetric Eyes: EOMI, no lid lag, anicteric sclera Mouth: no lip lesion, mucus membranes dry. Missing teeth. Cardiovascular: S1-S2 normal with regular rate and rhythm. No murmurs, gallops, or rubs noted. Posterior tibial pulses palpated bilaterally. Cap refill less than 2 seconds. Lungs: Respirations even, regular, and unlabored on room air. Lungs clear to auscultation bilaterally with no wheezes, rhonchi, or rales noted. No accessory muscle usage. Abdominal: soft and nondistended. Tenderness upon palpation to left upper quadrant and midepigastric region.. No guarding, no appreciable organomegaly Ext: no gross muscle atrophy, no edema, no contractures Neuro: GCS 15. Speech clear. CN II-XI grossly intact, no focal neuro deficits Psych: Alert, oriented, appropriate affect Assessment and Plan of Care: Acute Pancreatitis -CT abdomen and pelvis showing acute pancreatitis involving the head and distal body of the pancreas with moderate surrounding inflammatory edema and fat stranding tracking down into the mid abdominal mesentery. Also reporting enlarged gallbladder and status post gastric bypass in 2011, the lower anastomosis shifted and now located in the mid abdomen accompanied by noted swirling difficult to exclude a developing internal hernia. -Lipase significantly decreasing from 3819 upon admission and now down to 177. -Consult placed to general surgery for further evaluation of CT findings revealing possible developing internal hernia. -We will start patient on clear liquid diet at this time and monitor if and how she tolerates. -Symptomatic care and pain management with Zofran and/or Compazine for nausea and Dilaudid for pain. Lactic acidosis, resolved Elevated liver enzymes, resolved GERD -GI prophylaxis with Protonix 40 mg daily. CODE STATUS: Full code DVT prophylaxis: Lovenox Discussed with: patient and RN Anticipated discharge date: clinical course to determine, possibly tomorrow pending how patient tolerates advancement of diet. Anticipated discharge place: home A total of 45 minutes was spent on the care of this complex patient more than 50% of the time was spent in counseling and care coordination. Objective - Vital Signs Vital signs: Vital Signs Temp 98.4 F 01/19/21 04:57 Pulse 73 01/19/21 08:45 Resp 16 01/19/21 08:45 BP 124/73 01/19/21 04:57 Pulse Ox 97 01/19/21 04:57 Intake & Output 01/18/21 01/19/21 01/19/21 18:59 06:59 18:59 Intake Total 360 1200 Balance 360 1200 Intake: Intake, IV Titration 1200 Amount Sodium Chloride 0.9% 1, 1200 000 ml @ 130 mls/hr IV . Q7H42M [facility] Rx#:[id number] Oral 360 Other: Voiding Method Toilet Toilet Toilet # Voids 1 2 - Labs CBC & Chem 7: 01/19/21 04:19 01/19/21 04:19 Labs: Abnormal Lab Results - Last 24 Hours (Table) 01/18/21 01/19/21 01/19/21 Range/Units 05:10 04:19 04:19 WBC 10.8 H (3.8-10.6) k/uL Hgb 9.8 L (11.4-16.0) gm/dL Hct 30.2 L (34.0-46.0) % MCV 77.2 L (80.0-100.0) fL RDW 17.1 H (11.5-15.5) % Carbon Dioxide 21.3 L (21.6-31.8) mmol/L BUN <5.0 L (9.0-27.0) mg/dL Creatinine 0.5 L (0.6-1.5) mg/dL Glucose 62 L (70-110) mg/dL Calcium 8.0 L (8.7-10.3) mg/dL Total Protein 5.7 L (6.2-8.2) g/dL Albumin 3.50 L (3.80-4.90) g/dL Albumin/Globulin Ratio 1.59 L (1.60-3.17) g/dL Lipase 643 H 177 H (14-63) U/L
--- NOTE | 2021-01-19 13:14 | P.PN ---
Subjective Progress Note Date: 01/19/21 CHIEF COMPLAINT: Pancreatitis HISTORY OF PRESENT ILLNESS: Surgical service following regards to patient's severe abdominal pain and pancreatitis. Patient is still complaining of epigastric abdominal pain as well as left-sided abdominal pain at prior incision site from her Daniele-en-Y surgery. Her Daniele-en-Y surgery [place] [address] Kowalski. She also had revision of a jejunostomy and has history of ulcers. She has been having nausea. Also reports bowel movement. Afebrile. WBC 10.8 hemoglobin 9.8 potassium 3.8 lipase 177 LFTs normalized Ultrasound of the abdomen shows no gallstones or dilated ducts. No focal liver defect. PHYSICAL EXAM: VITAL SIGNS: Reviewed. GENERAL: Well-developed in no acute distress. HEENT: No sclera icterus. Extraocular movements grossly intact. Moist buccal mucosa. Head is atraumatic, normocephalic. ABDOMEN: Soft. Nondistended. Tenderness with palpation of the epigastric area and left side of the abdomen at old incision site. Old incision site is healed and clean, dry and intact. NEUROLOGIC: Alert and oriented. Cranial nerves II through XII grossly intact. ASSESSMENT: 1. Acute pancreatitis 2. Possible internal hernia PLAN: -Recommend patient to be transferred down to [place] where patient has had her prior surgeries Physician Benzene Still Utility Operator note has been reviewed by physician. Signing provider agrees with the documented findings, assessment, and plan of care. Objective - Vital Signs Vital signs: Vital Signs Temp 98.1 F 01/19/21 12:24 Pulse 65 01/19/21 12:24 Resp 17 01/19/21 12:24 BP 117/73 01/19/21 12:24 Pulse Ox 97 01/19/21 12:24 Intake & Output 01/18/21 01/19/21 01/19/21 18:59 06:59 18:59 Intake Total 360 1200 Balance 360 1200 Intake: Intake, IV Titration 1200 Amount Sodium Chloride 0.9% 1, 1200 000 ml @ 130 mls/hr IV . Q7H42M [facility] Rx#:[id number] Oral 360 Other: Voiding Method Toilet Toilet Toilet # Voids 1 2 - Labs CBC & Chem 7: 01/19/21 04:19 01/19/21 04:19 Labs: Abnormal Lab Results - Last 24 Hours (Table) 01/18/21 01/19/21 01/19/21 Range/Units 05:10 04:19 04:19 WBC 10.8 H (3.8-10.6) k/uL Hgb 9.8 L (11.4-16.0) gm/dL Hct 30.2 L (34.0-46.0) % MCV 77.2 L (80.0-100.0) fL RDW 17.1 H (11.5-15.5) % Carbon Dioxide 21.3 L (21.6-31.8) mmol/L BUN <5.0 L (9.0-27.0) mg/dL Creatinine 0.5 L (0.6-1.5) mg/dL Glucose 62 L (70-110) mg/dL Calcium 8.0 L (8.7-10.3) mg/dL Total Protein 5.7 L (6.2-8.2) g/dL Albumin 3.50 L (3.80-4.90) g/dL Albumin/Globulin Ratio 1.59 L (1.60-3.17) g/dL Lipase 643 H 177 H (14-63) U/L
[2021-01-20] MEDS: HYDROmorphone 1 MG/ML 1 ML SYRINGE IVP PRN ×3 (03:08→09:07)
[2021-01-20] MEDS: SODIUM CHLORIDE 0.9% 1,000 ML IV SCH ×2 (03:09→09:17)
[2021-01-20 05:54] VITALS: PULSE 72; RESP 18
[2021-01-20] MEDS: ONDANSETRON 4 MG/2 ML VIAL IVP PRN (05:54)
[2021-01-20] MEDS: ENOXAPARIN 40 MG/0.4 ML SYRINGE SQ SCH (08:59)
[2021-01-20] MEDS: NICOTINE 21MG/24HR PATCH TRANSDERM SCH (09:00)
[2021-01-20] MEDS: PANTOPRAZOLE 40 MG/10 ML VIAL IV SCH (09:00)
[2021-01-20] MEDS ORDERED: HYDROcodone/APAP 5-325MG 1 EACH TAB PO PRN (12:35)
--- NOTE | 2021-01-20 13:39 | P.PN ---
Subjective Progress Note Date: 01/20/21 CHIEF COMPLAINT: Pancreatitis HISTORY OF PRESENT ILLNESS: Surgical service following regards to patient's severe abdominal pain and pancreatitis. Patient reports that her pain is better than when she presented to the hospital. She still has some mild discomfort in the epigastric area and some pain in the left abdomen at her prior incision site from her Daniele-en-Y. She did tolerate a clear liquid diet. She is asking for her diet to be advanced. She is receiving full liquids for lunch. Afebrile. WBC 10.8 hemoglobin 9.8 lipase down to 177 Ultrasound of the abdomen shows no gallstones or dilated ducts. No focal liver defect. PHYSICAL EXAM: VITAL SIGNS: Reviewed. GENERAL: Well-developed in no acute distress. HEENT: No sclera icterus. Extraocular movements grossly intact. Moist buccal mucosa. Head is atraumatic, normocephalic. ABDOMEN: Soft. Nondistended. Tenderness with palpation of the epigastric area and left side of the abdomen at old incision site. Old incision site is healed and clean, dry and intact. NEUROLOGIC: Alert and oriented. Cranial nerves II through XII grossly intact. ASSESSMENT: 1. Acute pancreatitis improving 2. Possible internal hernia 3. Abdominal pain PLAN: -Advance diet to full liquid diet -If patient is tolerating diet, she can be discharged from surgical standpoint -We'll have patient follow-up with Dr. Doyle in the office Physician Loom Stop Checker note has been reviewed by physician. Signing provider agrees with the documented findings, assessment, and plan of care. Objective - Vital Signs Vital signs: Vital Signs Temp 98.1 F 01/20/21 05:00 Pulse 72 01/20/21 05:00 Resp 18 01/20/21 05:00 BP 128/78 01/20/21 05:00 Pulse Ox 97 01/20/21 05:00 Intake & Output 01/19/21 01/20/21 01/20/21 18:59 06:59 18:59 Intake Total 1860 1500 Balance 1860 1500 Intake: Intake, IV Titration 1200 Amount Sodium Chloride 0.9% 1, 1200 000 ml @ 130 mls/hr IV . Q7H42M [facility] Rx#:[id number] Oral 1860 300 Other: Voiding Method Toilet Toilet Toilet # Voids 3 3 - Labs CBC & Chem 7: 01/19/21 04:19 01/19/21 04:19
[2021-01-20 13:53] VITALS: BP 127/83; TEMP 98.7
--- NOTE | 2021-01-20 13:59 | P.DS ---
Providers Date of admission: 01/17/21 13:36 Expected date of discharge: 01/20/21 Attending physician: Iva Gallegos DO Consults: 01/17/21 14:20 Consult Physician Routine Consulting Provider: Lexx Doyle Consult Reason/Comments: rule out cholecystitis and possible developing internal hernia Do you want consulting provider notified?: Yes Primary care physician: [facility] Course: Acute Pancreatitis S/P Daniele-en-Y Gastric Bypass c/b possible internal hernia Hx of Gastric Ulcers GERD without esophagitis Patient is a 40-year-old female with a past medical history of gastric bypass surgery in 2011, GERD, and gastric ulcers. Patient presented to the emergency department with a chief complaint of abdominal pain. In the ED patient had a full workup completed. Labs reviewed WBC count elevated at 17.2 with left shift with neutrophils of 13.7 and monocytes of 1.1. Lactate elevated at 2.6. Mild elevation of liver enzymes also with AST of 87 and a ALT of 48. Amylase 307 and lipase [place] [address]19. CT abdomen and pelvis showing acute pancreatitis involving the head and distal body of the pancreas with moderate surrounding inflammatory edema and fat stranding tracking down into the mid abdominal mesentery. Also reporting enlarged gallbladder and status post gastric bypass in 2011, the lower anastomosis shifted and now located in the mid abdomen accompanied by noted swirling difficult to exclude a developing internal hernia. Patient was admitted under our services with consult to Gen. surgery for possible internal hernia. Gallbladder ultrasound completed negative for acute cholecystitis. Patient did improve with conservative therapy for pancreatitis, and by day of discharge was tolerating PO and oral pain medications. She expressed desire to have follow up with local surgeon for ongoing surveillance of possible internal hernia, and was provided follow up with Dr. Doyle. She was discharged home with instructions to slowly advance diet, and utilize PO pain meds as needed. I spent 45 minutes coordinating this complex discharge. Assessment: Gen: awake, alert HEENT: normocephalic, atraumatic, good hearing acuity, moist mucous membranes Resp: good air exchange, breathing comfortably with no accessory muscle use CVS: good distal perfusion x 4, GI: ttp in LLQ, epigastrum; soft, ND : no SPT, no CVAT, stroud catheter not present MSK: no pitting edema, no clubbing Neuro: non-focal, moving all extremities Psych: cooperative, euthymic mood Patient Condition at Discharge: Good Plan - Discharge Summary Discharge Rx Participant: Yes New Discharge Prescriptions: New Acetaminophen Tab [Tylenol] 650 mg PO Q6HR PRN tab PRN Reason: Mild Pain Or Fever > 100.5 HYDROcodone/APAP 5-325MG [[place] 5-325] 1 tab PO Q4HR PRN 3 Days #18 tab PRN Reason: Pain Continue Pantoprazole [Protonix] 40 mg PO BID Discharge Medication List Pantoprazole [Protonix] 40 mg PO BID 01/18/21 [History] Acetaminophen Tab [Tylenol] 650 mg PO Q6HR PRN tab 01/20/21 [Rx] HYDROcodone/APAP 5-325MG [[place] 5-325] 1 tab PO Q4HR PRN 3 Days #18 tab 01/20/21 [Rx] Follow up Appointment(s)/Referral(s): Patti Lang MD [Primary Care Provider] - 1-2 days (Patient prefers to make own follow-up appt. ) Lexx Doyle MD [STAFF PHYSICIAN] - 1 Week (Patient prefers to make own appt. ) Patient Instructions/Handouts: Hydrocodone/Acetaminophen (By mouth), Pancreatitis (DC), Pain Management (DC), Full Liquid Diet (DC) Activity/Diet/Wound Care/Special Instructions: Activity as tolerated. Full liquid diet, increase as tolerated. Discharge Disposition: HOME SELF-CARE
== END 2021-01-20 14:10 | disposition home or self-care (01) | DRG 440 ==
LOC: EC 10:49 → 5NMEDONC 13:36
PROVIDERS: ADMIT Internal Medicine; ATTEND Internal Medicine
DX: K85.90 Acute pancreatitis without necrosis or infection, unspecified (principal); E03.9 Hypothyroidism, unspecified; F17.200 Nicotine dependence, unspecified, uncomplicated; F32.9 Major depressive disorder, single episode, unspecified; J45.909 Unspecified asthma, uncomplicated; K21.9 Gastro-esophageal reflux disease without esophagitis; K75.9 Inflammatory liver disease, unspecified; K82.8 Other specified diseases of gallbladder; Z79.899 Other long term (current) drug therapy; Z87.11 Personal history of peptic ulcer disease; Z98.84 Bariatric surgery status; F12.90 Cannabis use, unspecified, uncomplicated; F41.9 Anxiety disorder, unspecified
CPT/HCPCS: 36415; 74176; 76705; 80053; 81001; 82150; 83605; 83690; 85025; 85027; 96361; 96374; 96375; 99285

== ENCOUNTER 2021-02-08 17:14 | Inpatient (IN) | payer OTHER ==
[2021-02-08] MEDS ORDERED: HYDROmorphone 0.5 MG/0.5 ML SYRINGE IVP STA (17:48)
[2021-02-08] MEDS ORDERED: FAMOTIDINE 20 MG/2 ML VIAL IV STA (17:53)
[2021-02-08] MEDS ORDERED: ONDANSETRON 4 MG/2 ML VIAL IVP STA ×2 (17:53→22:01)
--- NOTE | 2021-02-08 17:59 | ED ---
Abdominal Pain HPI - General Source: patient, EMS, RN notes reviewed Mode of arrival: EMS Limitations: no limitations - History of Present Illness MD Complaint: abdominal pain -: days(s) (1) Location: diffuse Radiation: none Severity scale (1-10): 10 Quality: cramping, sharp Consistency: constant Improves With: nothing Worsens With: vomiting Context: other (History of pancreatitis) Associated Symptoms: diarrhea <Maximilian Cardenas - Last Filed: 02/08/21 19:34> <Katia Ram P - Last Filed: 02/08/21 20:25> - General Chief Complaint: Abdominal Pain Stated Complaint: Pancreatitis - History of Present Illness Initial Comments: 40-year-old white female, alert and oriented 4, presents to the emergency room with complaints of multiple episodes of vomiting today. Patient states that she has a history of pancreatitis and was hospitalized on January 17. She states that her cat in her arms yesterday and she had some alcohol which exacerbated her condition. Patient denies any fevers. She is at this time just dry heaving. She states she is having yellow diarrhea that just started upon arrival here to the emergency room. Patient denies any chest pain. States that this is all diffuse abdominal pain only to her symptoms of pancreatitis in the past. (Maximilian Cardenas) - Related Data Home Medications Medication Instructions Recorded Confirmed Pantoprazole [Protonix] 40 mg PO BID 01/18/21 01/18/21 Previous Rx's Medication Instructions Recorded Acetaminophen Tab [Tylenol] 650 mg PO Q6HR PRN tab 01/20/21 HYDROcodone/APAP 5-325MG [[place] 1 tab PO Q4HR PRN 3 Days #18 tab 01/20/21 5-325] Allergies Allergy/AdvReac Type Severity Reaction Status Date / Time Penicillins Allergy Anaphylaxis Verified 01/17/21 13:52 Iodinated Contrast Media AdvReac seizure Verified 01/17/21 13:52 [Iodinated Contrast Media - Oral and] Review of Systems ROS Other: All systems not noted in ROS Statement are negative. <Maximilian Cardenas - Last Filed: 02/08/21 19:34> ROS Other: All systems not noted in ROS Statement are negative. <Katia Ram P - Last Filed: 02/08/21 20:25> ROS Statement: Those systems with pertinent positive or pertinent negative responses have been documented in the HPI. Past Medical History Past Medical History: Asthma, GERD/Reflux, Musculoskeletal Disorder, Thyroid Disorder Additional Past Medical History / Comment(s): Pt. reports she has a history of a heart murmur. duodenal ulcer, n/v, abdominal pain, hx hypothyroidism History of Any Multi-Drug Resistant Organisms: None Reported Past Surgical History: Bariatric Surgery, Tubal Ligation Additional Past Surgical History / Comment(s): breast reduction, gastric bypass. Past Anesthesia/Blood Transfusion Reactions: No Reported Reaction Past Psychological History: Anxiety, Depression Additional Psychological History / Comment(s): major depressive disorder Smoking Status: Current every day smoker Past Alcohol Use History: None Reported Additional Past Alcohol Use History / Comment(s): smoker for 24 years 1 ppd Past Drug Use History: Marijuana Additional Drug Use History / Comment(s): Pt. admits to daily marijuana use. - Past Family History Daughter(s) Family Medical History: Blood Disorder <Speedy deleoni - Last Filed: 02/08/21 19:34> General Exam Limitations: no limitations General appearance: alert, in no apparent distress Head exam: Present: atraumatic, normocephalic, normal inspection Eye exam: Present: normal appearance, PERRL, EOMI. Absent: scleral icterus, conjunctival injection, periorbital swelling ENT exam: Present: normal exam, normal oropharynx, mucous membranes moist Neck exam: Present: normal inspection, full ROM. Absent: tenderness, meningismus, lymphadenopathy, thyromegaly Respiratory exam: Present: normal lung sounds bilaterally. Absent: respiratory distress, wheezes, rales, rhonchi, stridor, chest wall tenderness, accessory muscle use, decreased breath sounds, prolonged expiratory Cardiovascular Exam: Present: regular rate, normal rhythm, normal heart sounds. Absent: systolic murmur, diastolic murmur, rubs, gallop, clicks GI/Abdominal exam: Present: soft, tenderness (Right upper and left upper quadrant). Absent: rigid, mass, pulsatile mass Extremities exam: Present: normal inspection, full ROM, normal capillary refill. Absent: tenderness, pedal edema, joint swelling, calf tenderness Back exam: Present: full ROM. Absent: tenderness, CVA tenderness (R), CVA tenderness (L), muscle spasm, paraspinal tenderness, vertebral tenderness Neurological exam: Present: alert, oriented X3, CN II-XII intact, normal gait Psychiatric exam: Present: normal affect, normal mood Skin exam: Present: warm, dry, intact, normal color. Absent: rash, cyanosis, diaphoretic, erythema, petechiae, pallor, mottled <Maximilian Cardenas - Last Filed: 02/08/21 19:34> Course Vital Signs 02/08/21 17:20 Temperature 98.1 F Pulse Rate 97 Respiratory 24 Rate Blood Pressure 141/93 O2 Sat by Pulse 99 Oximetry Medical Decision Making - Lab Data Result diagrams: 02/08/21 18:02 02/08/21 18:02 <Maximilian Cardenas - Last Filed: 02/08/21 19:34> - Lab Data Result diagrams: 02/08/21 18:02 02/08/21 18:02 <Katia Ram - Last Filed: 02/08/21 20:25> - Medical Decision Making CBC comes 14.4 with a neutrophil count of 10.6. Lipase is 3098, amylase is 216, lactic acid is 5.2, AST 128 PLT 75 this is consistent with pancreatitis. Pat ient was given 2 L of normal saline. (Maximilian Cardenas) care was signed out to me by Pelon Cardenas NP patient with likely recurrent pancreatitis based on labs, computed tomography scan was pending. Computed tomography scan confirms an uncomplicated pancreatitis possible colitis this could be reactive. Patient care was discussed with Dr. Ram from some physician group who accepts the admission for alcoholic pancreatitis. (Katia Ram) - Lab Data Lab Results 02/08/21 02/08/21 02/08/21 Range/Units 18:02 18:02 18:02 WBC 14.4 H (3.8-10.6) k/uL RBC 4.93 (3.80-5.40) m/uL Hgb 12.3 (11.4-16.0) gm/dL Hct 39.0 (34.0-46.0) % MCV 79.2 L (80.0-100.0) fL MCH 24.9 L (25.0-35.0) pg MCHC 31.4 (31.0-37.0) g/dL RDW 18.2 H (11.5-15.5) % Plt Count 460 H (150-450) k/uL MPV 7.3 Neutrophils % 74 % Lymphocytes % 18 % Monocytes % 7 % Eosinophils % 1 % Basophils % 1 % Neutrophils # 10.6 H (1.3-7.7) k/uL Lymphocytes # 2.5 (1.0-4.8) k/uL Monocytes # 1.0 (0-1.0) k/uL Eosinophils # 0.1 (0-0.7) k/uL Basophils # 0.1 (0-0.2) k/uL Anisocytosis Slight Microcytosis Slight Sodium 139 (137-145) mmol/L Potassium 3.8 (3.5-5.1) mmol/L Chloride 105 (98-107) mmol/L Carbon Dioxide 17 L (22-30) mmol/L Anion Gap 17 mmol/L BUN 12 (7-17) mg/dL Creatinine 0.67 (0.52-1.04) mg/dL Est GFR (CKD-EPI)AfAm >90 (>60 ml/min/1.73 sqM) Est GFR (CKD-EPI)NonAf >90 (>60 ml/min/1.73 sqM) Glucose 147 H (74-99) mg/dL Plasma Lactic Acid Todd 5.2 H* (0.7-2.0) mmol/L Calcium 9.3 (8.4-10.2) mg/dL Total Bilirubin 0.9 (0.2-1.3) mg/dL AST 128 H (14-36) U/L ALT 75 H (4-34) U/L Alkaline Phosphatase 95 (38-126) U/L Total Protein 7.1 (6.3-8.2) g/dL Albumin 4.2 (3.5-5.0) g/dL Amylase 216 H (30-110) U/L Lipase 3098 H (23-300) U/L Disposition <Maximilian Cardenas - Last Filed: 02/08/21 19:34> <Katia Ram - Last Filed: 02/08/21 20:25> Clinical Impression: Acute pancreatitis Disposition: ADMITTED IP TO THIS [facility] Condition: Fair Referrals: Patti Lang MD [Primary Care Provider] - 1-2 days
[2021-02-08] MEDS: SODIUM CHLORIDE 0.9% 1,000 ML IV STA ×2 (18:00→18:48)
[2021-02-08 18:13] LABS: Anisocytosis Slight; Basophils # (A) 0.1 k/uL (0-0.2); Basophils % (A) 1 %; Eosinophils # (A) 0.1 k/uL (0-0.7); Eosinophils % (A) 1 %; HGB 12.3 gm/dL (11.4-16.0); Lymphocytes # (A) 2.5 k/uL (1.0-4.8); Lymphocytes % (A) 18 %; MCH 24.9 pg (25.0-35.0); MCHC 31.4 g/dL (31.0-37.0); MCV 79.2 fL (80.0-100.0); Mean Platelet Volume 7.3; Microcytosis Slight; Monocytes % (A) 7 %; Neutrophils # (A) 10.6 k/uL (1.3-7.7); Neutrophils % (A) 74 %; Platelet Count 460 k/uL (150-450); RBC 4.93 m/uL (3.80-5.40); RDW 18.2 % (11.5-15.5); WBC 14.4 k/uL (3.8-10.6)
[2021-02-08 18:24] LABS: AST 128 U/L (14-36); African American GFR (CKD) >90 (>60 ml/min/1.73 sqM); Albumin 4.2 g/dL (3.5-5.0); Alkaline Phosphatase 95 U/L (38-126); Amylase 216 U/L (30-110); Anion Gap 17 mmol/L; Blood Urea Nitrogen 12 mg/dL (7-17); Calcium 9.3 mg/dL (8.4-10.2); Carbon Dioxide 17 mmol/L (22-30); Chloride 105 mmol/L (98-107); Glucose 147 mg/dL (74-99); Non-African American GFR(CKD) >90 (>60 ml/min/1.73 sqM); Potassium 3.8 mmol/L (3.5-5.1); Sodium 139 mmol/L (137-145); Total Bilirubin 0.9 mg/dL (0.2-1.3); Total Protein 7.1 g/dL (6.3-8.2)
[2021-02-08 18:31] LABS: ALT 75 U/L (4-34)
[2021-02-08 18:33] LABS: Lipase 3098 U/L (23-300)
[2021-02-08] MEDS ORDERED: SODIUM CHLORIDE 0.9% 1,000 ML IV ONE (18:33)
[2021-02-08] MEDS ORDERED: diphenhydrAMINE 50 MG/ML 1 ML VIAL IVP STA (18:36)
[2021-02-08] MEDS ORDERED: HYDROmorphone 1 MG/ML 1 ML SYRINGE IVP STA (18:36)
[2021-02-08] MEDS ORDERED: methylPREDNISolone SOD SUCCI 125 MG/2 ML VIAL IV STA (18:40)
--- NOTE | 2021-02-08 19:40 | CT ---
EXAMINATION TYPE: CT abdomen pelvis w con DATE OF EXAM: 02/08/2021 COMPARISON: 01/17/2021 HISTORY: Abdominal pain, N/V. Hx pancreatitis. CT DLP: 579.2 mGycm Automated exposure control for dose reduction was used. CONTRAST: Performed with IV Contrast, patient injected with 100 mL of Isovue 300. Images obtained from the diaphragm to the floor the pelvis with IV contrast. Lung bases are clear. There is no pleural effusion. Heart size is normal. There is no pericardial eff usion. Liver and spleen are intact. The bile ducts are not dilated. Gallbladder is large and measures 3.5 cm in diameter. The bile ducts are not dilated. I see no evidence of a pancreatic mass. There is some m ild retroperitoneal fat stranding. This is seen posterior to the pancreas. There is minimal fat stran ding in the right anterior pararenal space. There are multiple gastric surgical clips. There is no adrenal mass. There are multiple surgical clips on the stomach. Kidneys show satisfactory contrast opacification. There is no hydronephrosis. There is normal excretion on the delayed images. There is no retroperitoneal adenopathy. Bladder distends smoothly. There is no inguinal hernia. Ther e is no free fluid in the pelvis. Uterus is anteverted. There is no evidence of a pelvic mass. There is no small bowel mesenteric edema. There is no ascites or free air. There is no bowel obstruct ion. There is some mild large bowel wall thickening involving the descending colon and rectosigmoid c olon. The appendix appears normal. The lumbar vertebra have normal alignment. There is vacuum disc at L5-S1 and also at L2-3. The bony p shaila is intact. The hip joints are intact. There is no hip dysplasia. IMPRESSION: There is some retroperitoneal edema around the posterior pancreas consistent with pancreatitis that i s improved compared to recent exam. Mildly dilated gallbladder unchanged. No dilated ducts. There is some wall thickening involving the descending colon and rectosigmoid colon suggestive of montse e nonspecific colitis.
[2021-02-08] MEDS ORDERED: NALOXONE 0.4 MG/ML 1 ML VIAL IV PRN (20:23)
[2021-02-08 20:42] LABS: Appearance,Urine Clear (Clear); Bilirubin,Urine Negative (Negative); Blood,Urine Negative (Negative); Color,Urine Light Yellow; Glucose,Urine (UA) Negative (Negative); Ketones,Urine Negative (Negative); Leukocyte Esterase,Urine Negative (Negative); Nitrite,Urine Negative (Negative); Protein,Urine Negative (Negative); Specific Gravity,Urine 1.035 (1.001-1.035); Urobilinogen,Urine <2.0 mg/dL (<2.0)
[2021-02-08] MEDS ORDERED: MORPHINE SULFATE 4 MG/ML SYRINGE IVP STA (22:00)
[2021-02-08 22:11] LABS: INR 1.3 (<1.2); Prothrombin Time 13.1 sec (9.0-12.0)
--- NOTE | 2021-02-09 | P.HPIM ---
History of Present Illness H&P Date: 02/08/21 The patient is a 40-year-old female with a PMH of gastric bypass 2012, gastric ulcers, and history of pancreatitis with recent admission on 01/17 who presented to the emergency room with complaints of abdominal pain, nausea, and vomiting. Patient reports that she had been trying to stay sober and has only been drinking once or twice a month. She reports that her cat last night which prompted her to drink 3 mixed drinks at around 11 PM. The patient reports that she went to sleep and then woke up at around 6 AM with severe epigastric abdominal pain. The patient reports that the pain was initially 5 out of 10, aching in nature, and radiating throughout the abdomen with associated nausea, with no clear alleviating or exacerbating features. The patient attempted to stay home and avoid any solid foods and drink more liquids but notes that the pain gradually increased. She reports that the pain had worsened to 9 out of 10 at the time she activated EMS. She reports having 2-3 episodes of vomiting shortly before EMS arrival. The patient reports that this feels very similar nature to her previous episode of pancreatitis. At time of interview, the patient reports that her pain had improved to a 3 out of 10. She denied fever, chills, chest pain, shortness of breath. Also denied headache, weakness, numbness, tingling, or diarrhea. In the emergency room, CT abdomen and pelvis with contrast revealed findings consistent with pancreatitis along with a mildly dilated gallbladder with no dilated ducts. There was also findings suggestive of nonspecific colitis. Telemetry evaluation was remarkable for lipase of 3098, AST 128, ALT 75, lactic acid 5.2, glucose 147, CO2 17, platelet count 460, and WBC count 14.4. Patient was given IV fluids, antiemetics, and pain control and was admitted to the hospital for further management. Review of systems: Pertinent positives and negatives as discussed in HPI, a complete review of systems was performed and all other systems are negative. Physical examination: General: non toxic, no distress, appears at stated age, normal weight Derm: no unusual rashes/lesions no unusual ecchymoses, warm, dry Head: atraumatic, normocephalic, symmetric Eyes: EOMI, no lid lag, anicteric sclera, pupils equal round reactive to light ENT: Nose and ears atraumatic, no thrush, no pharyngeal erythema Neck: No thyromegaly, no cervical lymphadenopathy, trachea midline, supple Mouth: no lip lesion, mucus membranes moist Cardiovascular: S1S2 reg, no murmur, positive posterior tibial pulse bilateral, no edema, capillary refill less than 2 seconds Lungs: CTA bilateral, no rhonchi, no rales , no accessory muscle use Abdominal: soft, mild diffuse tenderness, no guarding, no appreciable organomegaly Ext: no gross muscle atrophy, muscle strength 5 out of 5 in all 4 extremities grossly, no contractures, Neuro: CN II-XI grossly intact, light touch intact all 4 extremities, finger to nose within normal limits, Psych: Alert, oriented, appropriate affect Assessment/plan Alcoholic pancreatitis -Nothing by mouth for now -Continue IV fluids -Pain control -Antiemetics -Monitor lipase levels Leukocytosis -Likely reactive -Monitor for now Lactic acidosis -Monitor to resolution Chronic conditions: GERD, history of gastric ulcer -Continue with Protonix home med DVT prophylaxis -Heparin subq The patient is admitted with an anticipated greater than 2 midnight stay for evaluation of alcoholic pancreatitis CODE STATUS: Full Code Discussed with: Patient Anticipated discharge date: 2-[address]: Home Past Medical History Past Medical History: Asthma, GERD/Reflux, Musculoskeletal Disorder, Thyroid Disorder Additional Past Medical History / Comment(s): Pt. reports she has a history of a heart murmur. duodenal ulcer, n/v, abdominal pain, hx hypothyroidism History of Any Multi-Drug Resistant Organisms: None Reported Past Surgical History: Bariatric Surgery, Tubal Ligation Additional Past Surgical History / Comment(s): breast reduction, gastric bypass. Past Anesthesia/Blood Transfusion Reactions: No Reported Reaction Past Psychological History: Anxiety, Depression Additional Psychological History / Comment(s): major depressive disorder Smoking Status: Current every day smoker Past Alcohol Use History: None Reported Additional Past Alcohol Use History / Comment(s): smoker for 24 years 1 ppd Past Drug Use History: Marijuana Additional Drug Use History / Comment(s): Pt. admits to daily marijuana use. - Past Family History Daughter(s) Family Medical History: Blood Disorder Medications and Allergies Home Medications Medication Instructions Recorded Confirmed Type Pantoprazole [Protonix] 40 mg PO BID 01/18/21 02/08/21 History Allergies Allergy/AdvReac Type Severity Reaction Status Date / Time Penicillins Allergy Anaphylaxis Verified 02/08/21 20:34 Iodinated Contrast Media AdvReac seizure Verified 02/08/21 20:34 [Iodinated Contrast Media - Oral and] Physical Exam Vitals: Vital Signs Temp Pulse Resp BP Pulse Ox 02/08/21 21:00 68 18 147/87 99 02/08/21 17:20 98.1 F 97 24 141/93 99 Intake and Output 02/08/21 02/08/21 02/08/21 06:59 14:59 22:59 Other: Weight 63.503 kg Results CBC & Chem 7: 02/08/21 18:02 02/08/21 18:02 Labs: Abnormal Lab Results - Last 24 Hours (Table) 02/08/21 02/08/21 02/08/21 Range/Units 18:02 18:02 18:02 WBC 14.4 H (3.8-10.6) k/uL MCV 79.2 L (80.0-100.0) fL MCH 24.9 L (25.0-35.0) pg RDW 18.2 H (11.5-15.5) % Plt Count 460 H (150-450) k/uL Neutrophils # 10.6 H (1.3-7.7) k/uL PT (9.0-12.0) sec INR (<1.2) Carbon Dioxide 17 L (22-30) mmol/L Glucose 147 H (74-99) mg/dL Plasma Lactic Acid Todd 5.2 H* (0.7-2.0) mmol/L AST 128 H (14-36) U/L ALT 75 H (4-34) U/L Amylase 216 H (30-110) U/L Lipase 3098 H (23-300) U/L 02/08/21 Range/Units 21:40 WBC (3.8-10.6) k/uL MCV (80.0-100.0) fL MCH (25.0-35.0) pg RDW (11.5-15.5) % Plt Count (150-450) k/uL Neutrophils # (1.3-7.7) k/uL PT 13.1 H (9.0-12.0) sec INR 1.3 H (<1.2) Carbon Dioxide (22-30) mmol/L Glucose (74-99) mg/dL Plasma Lactic Acid Todd (0.7-2.0) mmol/L AST (14-36) U/L ALT (4-34) U/L Amylase (30-110) U/L Lipase (23-300) U/L
[2021-02-09] MEDS: MORPHINE SULFATE 4 MG/ML SYRINGE IVP PRN ×3 (01:08→15:40)
[2021-02-09] MEDS ORDERED: HYDROmorphone 1 MG/ML 1 ML SYRINGE IVP STA (02:09)
[2021-02-09] MEDS ORDERED: diphenhydrAMINE 50 MG/ML 1 ML VIAL IVP STA (02:09)
[2021-02-09] MEDS ORDERED: PANTOPRAZOLE 40 MG/10 ML VIAL IVP STA (02:09)
[2021-02-09] MEDS ORDERED: LORazepam 2 MG/ML INJ IV PRN (02:09)
[2021-02-09] MEDS: HEPARIN SODIUM,PORCINE/PF 5,000 UNIT/0.5 ML SYRINGE SQ SCH ×3 (02:20→08:56)
[2021-02-09] MEDS: ONDANSETRON 4 MG/2 ML VIAL IVP PRN ×2 (04:59→19:46)
[2021-02-09 05:30] LABS: Anisocytosis Slight; HCT 35.3 % (34.0-46.0); HGB 10.8 gm/dL (11.4-16.0); Hypochromasia Slight; MCH 24.9 pg (25.0-35.0); MCHC 30.6 g/dL (31.0-37.0); MCV 81.6 fL (80.0-100.0); Mean Platelet Volume 7.4; Platelet Count 308 k/uL (150-450); RBC 4.33 m/uL (3.80-5.40); RDW 18.5 % (11.5-15.5); WBC 8.8 k/uL (3.8-10.6)
[2021-02-09] MEDS: HYDROmorphone 1 MG/ML 1 ML SYRINGE IVP PRN ×4 (06:14→21:18)
--- NOTE | 2021-02-09 08:37 | P.PN ---
Subjective Progress Note Date: 02/09/21 Hospital course: Patient is a 40-year-old female with a past medical history of gastric bypass in 2012, gastric ulcers, recurrent pancreatitis, and alcohol use/abuse. She presented to the emergency department with a chief complaint of abdominal pain, nausea, and vomiting. Patient was found to have a lipase of [address] evidence showing retroperitoneal edema around the posterior pancreas consistent with pancreatitis. Initial lactic acid 5.2, fluid bolus administered with repeat lactate of 1.0. Bicytopenia with elevated AST of 128 and ALT of 75. Patient was admitted under our services for continued medical management. Physical exam: Patient seen and fully evaluated at the bedside. She reports persistent nausea despite administration of Zofran and additional anti-emetic Compazine added at this time. Patient reports currently pain is controlled but she remains tender upon palpation and reports that this pain wraps around into her left flank. Patient denies any episodes of vomiting states nausea with dry heaving only. Patient denies having any headache, lightheadedness, dizziness, chest pain, palpitations, or shortness of breath. Vital signs reviewed and stable. General: Nontoxic, no distress and appears stated age. Derm: Skin warm and dry, normal coloration for ethnicity. Head: Atraumatic, normocephalic and symmetric. Eyes: EOMs intact, no lid lag, and anicteric sclera Mouth: no lip lesions, mucus membranes moist Cardiovascular: regular rate and rhythm with normal S1S2, no murmur, positive posterior tibial pulses bilaterally, and cap refill < 2 seconds. Lungs: Respirations even, regular, and unlabored on room air. Lungs CTA bilaterally, no rhonchi, no rales, no wheezing, and no accessory muscle usage. Abdominal: soft abdomen with tenderness upon palpation to left upper and epigastric region, patient reports pain wraps around into the left flank. Ext: ROM intact. No gross muscle atrophy, no edema, no contractures Neuro: Speech clear, face symmetrical and CN II-XII grossly intact with no noted focal neuro deficits Psych: Alert and oriented to person, place, time, and situation. Appropriate and pleasant affect. Assessment and Plan of Care: Acute alcoholic pancreatitis -Lipase 3098 -CT abdomen and pelvis revealing retroperitoneal edema around the posterior pancreas consistent with pancreatitis. -Continued hydration with IV fluids -NPO -Symptomatic care and pain management -Continue close monitoring with repeat labs. Lactic acidosis, resolved after fluid resuscitation Leukocytosis, resolved Nicotine dependence -Continued encouragement and education on the importance of smoking cessation and the risks of continued use. -Nicotine patch GERD with history of gastric ulcer -Continue daily home medication regimen with Protonix twice a day. CODE STATUS: Full Code DVT prophylaxis: Heparin Discussed with: Patient and RN Anticipated discharge date: Clinical course to determine Anticipated discharge place: Home A total of 45 minutes was spent on the care of this complex patient more than 50% of the time was spent in counseling and care coordination. Objective - Vital Signs Vital signs: Vital Signs Temp 98.8 F 02/09/21 08:00 Pulse 84 02/09/21 08:00 Resp 19 02/09/21 08:00 BP 137/95 02/09/21 08:00 Pulse Ox 98 02/09/21 08:00 Intake & Output 02/08/21 02/09/21 02/09/21 18:59 06:59 18:59 Weight 63.503 kg - Labs CBC & Chem 7: 02/09/21 04:37 02/09/21 04:37 Labs: Abnormal Lab Results - Last 24 Hours (Table) 02/08/21 02/08/21 02/08/21 Range/Units 18:02 18:02 18:02 WBC 14.4 H (3.8-10.6) k/uL Hgb (11.4-16.0) gm/dL MCV 79.2 L (80.0-100.0) fL MCH 24.9 L (25.0-35.0) pg MCHC (31.0-37.0) g/dL RDW 18.2 H (11.5-15.5) % Plt Count 460 H (150-450) k/uL Neutrophils # 10.6 H (1.3-7.7) k/uL PT (9.0-12.0) sec INR (<1.2) Carbon Dioxide 17 L (22-30) mmol/L Glucose 147 H (74-99) mg/dL Plasma Lactic Acid Todd 5.2 H* (0.7-2.0) mmol/L AST 128 H (14-36) U/L ALT 75 H (4-34) U/L Amylase 216 H (30-110) U/L Lipase 3098 H (23-300) U/L 02/08/21 02/09/21 Range/Units 21:40 04:37 WBC (3.8-10.6) k/uL Hgb 10.8 L (11.4-16.0) gm/dL MCV (80.0-100.0) fL MCH 24.9 L (25.0-35.0) pg MCHC 30.6 L (31.0-37.0) g/dL RDW 18.5 H (11.5-15.5) % Plt Count (150-450) k/uL Neutrophils # (1.3-7.7) k/uL PT 13.1 H (9.0-12.0) sec INR 1.3 H (<1.2) Carbon Dioxide (22-30) mmol/L Glucose (74-99) mg/dL Plasma Lactic Acid Todd (0.7-2.0) mmol/L AST (14-36) U/L ALT (4-34) U/L Amylase (30-110) U/L Lipase (23-300) U/L
[2021-02-09] MEDS ORDERED: PROCHLORPERAZINE INJ 10 MG/2 ML VIAL IVP PRN (08:41)
[2021-02-09] MEDS: SODIUM CHLORIDE 0.9% 1,000 ML IV SCH ×3 (08:47→21:26)
[2021-02-09] MEDS: PANTOPRAZOLE 40 MG/10 ML VIAL IVP SCH (08:56)
[2021-02-09 11:50] LABS: African American GFR (CKD) 123.9 (60.0-200.0); Albumin 3.9 g/dL (3.80-4.90); Albumin/Globulin Ratio 1.34 (1.60-3.17); Anion Gap 12.7 mmol/L (4.00-12.00); BUN/Creat Ratio 11.43 Ratio (12.00-20.00); Calcium 8.3 mg/dL (8.7-10.3); Carbon Dioxide 21.3 mmol/L (21.6-31.8); Globulin 2.9 g/dL (1.6-3.3); Non-African American GFR(CKD) 106.9 (60.0-200.0); Potassium 3.7 mmol/L (3.5-5.5); Total Bilirubin 1.1 mg/dL (0.2-1.2); Total Protein 6.8 g/dL (6.2-8.2)
[2021-02-09] MEDS: NICOTINE 21MG/24HR PATCH TRANSDERM SCH (12:34)
[2021-02-09] MEDS: diphenhydrAMINE 50 MG/ML 1 ML VIAL IVP PRN (21:17)
[2021-02-10] MEDS: NICOTINE 21MG/24HR PATCH TRANSDERM SCH (07:06)
[2021-02-10] MEDS: HYDROmorphone 1 MG/ML 1 ML SYRINGE IVP PRN ×5 (07:06→23:19)
[2021-02-10] MEDS: PANTOPRAZOLE 40 MG/10 ML VIAL IVP SCH (07:06)
[2021-02-10] MEDS: HEPARIN SODIUM,PORCINE/PF 5,000 UNIT/0.5 ML SYRINGE SQ SCH ×4 (08:17→23:30)
[2021-02-10] MEDS: SODIUM CHLORIDE 0.9% 1,000 ML IV SCH ×4 (08:17→22:16)
--- NOTE | 2021-02-10 13:41 | P.PN ---
Subjective Progress Note Date: 02/10/21 Still has pain, but reports improvement in appetite. Would like to trial CLD today. Objective - Vital Signs Vital signs: Vital Signs Temp 98.8 F 02/10/21 11:35 Pulse 80 02/10/21 11:35 Resp 18 02/10/21 11:35 BP 126/89 02/10/21 11:35 Pulse Ox 95 02/10/21 11:35 Intake & Output 02/09/21 02/10/21 02/10/21 18:59 06:59 18:59 Weight 63.503 kg Other: Voiding Method Toilet Toilet # Voids 3 2 2 - Exam Gen: awake, alert HEENT: normocephalic, atraumatic, good hearing acuity, moist mucous membranes Resp: good air exchange, breathing comfortably with no accessory muscle use CVS: good distal perfusion x 4, GI: diffuse ttp, worse in RUQ : no SPT, no CVAT, stroud catheter not present MSK: no pitting edema, no clubbing Neuro: non-focal, moving all extremities Psych: cooperative, euthymic mood - Labs CBC & Chem 7: 02/09/21 04:37 02/09/21 04:37 Labs: Microbiology - Last 24 Hours (Table) 02/08/21 21:40 Blood Culture - Preliminary Blood No Growth after 24 hours 02/08/21 21:40 Blood Culture - Preliminary Blood No Growth after 24 hours Assessment and Plan Assessment: Acute alcoholic pancreatitis -Lipase 3098 --> 439 -CT abdomen and pelvis revealing retroperitoneal edema around the posterior pancreas consistent with pancreatitis. -Continued hydration with IV fluids -NPO --> CLD -Symptomatic care and pain management -Continue close monitoring with repeat labs. Nicotine dependence -Continued encouragement and education on the importance of smoking cessation and the risks of continued use. -Nicotine patch GERD with history of gastric ulcer -Continue daily home medication regimen with Protonix twice a day. CODE STATUS: Full Code DVT prophylaxis: Heparin Discussed with: Patient and RN Anticipated discharge date: Clinical course to determine Anticipated discharge place: Home
[2021-02-10] MEDS: diphenhydrAMINE 50 MG/ML 1 ML VIAL IVP PRN (20:11)
[2021-02-10 21:14] VITALS: PULSE 77
[2021-02-11] MEDS: HYDROmorphone 1 MG/ML 1 ML SYRINGE IVP PRN ×2 (03:40→08:29)
[2021-02-11] MEDS: diphenhydrAMINE 50 MG/ML 1 ML VIAL IVP PRN (03:43)
[2021-02-11 03:47] VITALS: BP 115/75; RESP 18; TEMP 98.2
[2021-02-11] MEDS: SODIUM CHLORIDE 0.9% 1,000 ML IV SCH (04:42)
[2021-02-11] MEDS: HEPARIN SODIUM,PORCINE/PF 5,000 UNIT/0.5 ML SYRINGE SQ SCH (08:29)
[2021-02-11] MEDS: PANTOPRAZOLE 40 MG/10 ML VIAL IVP SCH (08:29)
[2021-02-11] MEDS: NICOTINE 21MG/24HR PATCH TRANSDERM SCH (08:29)
--- NOTE | 2021-02-11 14:06 | P.DS ---
Providers Date of admission: 02/08/21 20:24 Expected date of discharge: 02/11/21 Attending physician: Pedro Hearn MD [facility] Hospital Course: Patient is a 40-year-old female with a past medical history of gastric bypass in 2011, gastric ulcers, recurrent pancreatitis, and alcohol use/abuse. She presented to the emergency department with a chief complaint of abdominal pain, nausea, and vomiting. Patient was found to have a lipase of [address] evidence showing retroperitoneal edema around the posterior pancreas consistent with pancreatitis. Initial lactic acid 5.2, fluid bolus administered with repeat lactate of 1.0. Bicytopenia with elevated AST of 128 and ALT of 75. Patient was admitted under our services for continued medical management. Acute alcoholic pancreatitis Patient was admitted for pancreatitis with a lipase of 3098, which improved to 439 with conservative management including NPO bowel rest, IVF, nausea/pain control. CT A/P did confirm retroperitoneal edema c/w pancreatitis. She was advanced through her diet slowly to FLD after tolerating CLD for 24 hours, and tolerated a FLD well. Discharged with instructions to f/u with PCP. Also prescribed 3 days of norco for pain control with instructions to sign pain contract with PCP if further narcotics are needed in the future. Nicotine dependence -Continued encouragement and education on the importance of smoking cessation and the risks of continued use. GERD with history of gastric ulcer -Continued home medication regimen with Protonix twice a day. I spent 33 minutes preparing this complex discharge. Assessment: Gen: awake, alert HEENT: normocephalic, atraumatic, good hearing acuity, moist mucous membranes Resp: good air exchange, breathing comfortably with no accessory muscle use CVS: good distal perfusion x 4, GI: diffuse ttp, worse in RUQ : no SPT, no CVAT, stroud catheter not present MSK: no pitting edema, no clubbing Neuro: non-focal, moving all extremities Psych: cooperative, euthymic mood Patient Condition at Discharge: Good Plan - Discharge Summary New Discharge Prescriptions: New HYDROcodone/APAP 5-325MG [Bear 5-325] 1 tab PO Q4HR PRN 3 Days #18 tab PRN Reason: Pain Continue Pantoprazole [Protonix] 40 mg PO BID #60 tab Discharge Medication List HYDROcodone/APAP 5-325MG [Bear 5-325] 1 tab PO Q4HR PRN 3 Days #18 tab 02/11/21 [Rx] Pantoprazole [Protonix] 40 mg PO BID #60 tab 02/11/21 [Rx] Follow up Appointment(s)/Referral(s): Patti Lang MD [Primary Care Provider] - 1-2 days (Patient will need to schedule appointment. Office is closed for lunch at this time.) Patient Instructions/Handouts: How to Stop Smoking (DC), Pancreatitis (IP) Discharge Disposition: HOME SELF-CARE
== END 2021-02-11 13:59 | disposition home or self-care (01) | DRG 439 ==
LOC: EC 17:14 → 5NMEDONC 20:24
PROVIDERS: ADMIT Internal Medicine; ATTEND Internal Medicine
DX: K85.20 Alcohol induced acute pancreatitis without necrosis or infection (principal); E87.2 Acidosis; F10.10 Alcohol abuse, uncomplicated; K21.9 Gastro-esophageal reflux disease without esophagitis; F17.210 Nicotine dependence, cigarettes, uncomplicated; Z79.899 Other long term (current) drug therapy; Z88.0 Allergy status to penicillin; Z91.041 Radiographic dye allergy status; Z87.11 Personal history of peptic ulcer disease; Z98.84 Bariatric surgery status; Z71.6 Tobacco abuse counseling
CPT/HCPCS: 36415; 74177; 80053; 81003; 81025; 82150; 83605; 83690; 85025; 85027; 85610; 87040; 96361; 96374; 96375; 96376; 99285

== ENCOUNTER 2021-05-10 18:46 | Inpatient (IN) | payer SELFPAY ==
[2021-05-10] MEDS ORDERED: diphenhydrAMINE 50 MG/ML 1 ML VIAL IVP STA (19:58)
[2021-05-10] MEDS ORDERED: METOCLOPRAMIDE 5 MG/ML 2 ML VIAL IVP STA (19:58)
[2021-05-10] MEDS ORDERED: FAMOTIDINE 20 MG/2 ML VIAL IV STA (19:58)
[2021-05-10] MEDS ORDERED: HYDROmorphone 1 MG/ML 1 ML SYRINGE IVP STA ×2 (19:58→22:21)
[2021-05-10] MEDS ORDERED: IOPAMIDOL CONTRAST (ORAL USE) VIAL PO PRN (19:59)
[2021-05-10] MEDS ORDERED: methylPREDNISolone SOD SUCCI 125 MG/2 ML VIAL IV STA (19:59)
--- NOTE | 2021-05-10 20:02 | ED ---
General Adult HPI - General Chief complaint: Abdominal Pain Stated complaint: Abdominal pain Time Seen by Provider: 05/10/21 19:51 Source: patient, family, RN notes reviewed Mode of arrival: wheelchair Limitations: no limitations - History of Present Illness Initial comments: Patient is a pleasant 40-year-old female presenting to the emergency Department with complaints of abdominal discomfort. Onset of symptoms was last night. Patient has had multiple episodes of nausea vomiting with dry heaves. Patient has epigastric discomfort. Patient does have history of similar symptoms previously associated with colitis or pancreatitis. A muñoz does occasionally drink alcohol, last was a couple days ago. No fevers. No constipation or diarrhea. - Related Data Previous Rx's Medication Instructions Recorded HYDROcodone/APAP 5-325MG [Bon[place] 1 tab PO Q4HR PRN 3 Days #18 tab 02/11/21 5-325] Pantoprazole [Protonix] 40 mg PO BID #60 tab 02/11/21 Allergies Allergy/AdvReac Type Severity Reaction Status Date / Time Penicillins Allergy Anaphylaxis Verified 05/10/21 18:47 Iodinated Contrast Media AdvReac seizure Verified 05/10/21 18:47 [Iodinated Contrast Media - Oral and] Review of Systems ROS Statement: Those systems with pertinent positive or pertinent negative responses have been documented in the HPI. ROS Other: All systems not noted in ROS Statement are negative. Constitutional: Denies: fever Eyes: Denies: eye pain ENT: Denies: ear pain Respiratory: Denies: cough Cardiovascular: Denies: chest pain Endocrine: Denies: fatigue Gastrointestinal: Reports: as per HPI, abdominal pain, nausea, vomiting Genitourinary: Denies: dysuria Musculoskeletal: Denies: back pain Skin: Denies: rash Neurological: Denies: weakness Past Medical History Past Medical History: Asthma, GERD/Reflux, Thyroid Disorder Additional Past Medical History / Comment(s): Pt. reports she has a history of a heart murmur. duodenal ulcer, n/v, abdominal pain, hx hypothyroidism History of Any Multi-Drug Resistant Organisms: None Reported Past Surgical History: Bariatric Surgery, Tubal Ligation Additional Past Surgical History / Comment(s): breast reduction, gastric bypass. Past Anesthesia/Blood Transfusion Reactions: No Reported Reaction Past Psychological History: Anxiety, Depression Smoking Status: Current every day smoker Past Alcohol Use History: None Reported Past Drug Use History: Marijuana - Past Family History Daughter(s) Family Medical History: Blood Disorder General Exam Limitations: no limitations General appearance: alert, in no apparent distress Head exam: Present: normocephalic Eye exam: Present: normal appearance Neck exam: Present: normal inspection Respiratory exam: Present: normal lung sounds bilaterally Cardiovascular Exam: Present: regular rate, normal rhythm Expanded Peripheral pulses: 2+: Posterior Tibialis (R), Posterior Tibialis (L) GI/Abdominal exam: Present: soft, tenderness (Moderate tenderness epigastrium), normal bowel sounds. Absent: distended, guarding, rebound, rigid, pulsatile mass Extremities exam: Present: normal inspection Neurological exam: Present: alert Psychiatric exam: Present: anxious Skin exam: Present: normal color Course Vital Signs 05/10/21 18:48 Temperature 96.9 F L Pulse Rate 108 H Respiratory 18 Rate Blood Pressure 140/98 O2 Sat by Pulse 99 Oximetry Medical Decision Making - Medical Decision Making Patient reevaluated and updated. Discomfort is starting to improved following second dose of medication and antiemetic. Case discussed with Dr. Wilson, who will admit for hospital call however would like case discussed with surgery. Case was also discussed with Dr. Doyle including CT results and he will consult. - Lab Data Result diagrams: 05/10/21 20:14 05/10/21 20:14 Lab Results 05/10/21 05/10/21 05/10/21 Range/Units 20:14 20:14 20:14 WBC 18.6 H (3.8-10.6) k/uL RBC 4.51 (3.80-5.40) m/uL Hgb 11.4 (11.4-16.0) gm/dL Hct 35.2 (34.0-46.0) % MCV 78.0 L (80.0-100.0) fL MCH 25.2 (25.0-35.0) pg MCHC 32.3 (31.0-37.0) g/dL RDW 19.3 H (11.5-15.5) % Plt Count 424 (150-450) k/uL MPV 7.3 Neutrophils % 89 % Lymphocytes % 6 % Monocytes % 4 % Eosinophils % 1 % Basophils % 0 % Neutrophils # 16.5 H (1.3-7.7) k/uL Lymphocytes # 1.1 (1.0-4.8) k/uL Monocytes # 0.7 (0-1.0) k/uL Eosinophils # 0.1 (0-0.7) k/uL Basophils # 0.1 (0-0.2) k/uL Anisocytosis Slight Microcytosis Slight PT (9.0-12.0) sec INR (<1.2) APTT (22.0-30.0) sec Sodium 138 (137-145) mmol/L Potassium 3.7 (3.5-5.1) mmol/L Chloride 104 (98-107) mmol/L Carbon Dioxide 22 (22-30) mmol/L Anion Gap 12 mmol/L BUN 13 (7-17) mg/dL Creatinine 0.50 L (0.52-1.04) mg/dL Est GFR (CKD-EPI)AfAm >90 (>60 ml/min/1.73 sqM) Est GFR (CKD-EPI)NonAf >90 (>60 ml/min/1.73 sqM) Glucose 144 H (74-99) mg/dL Calcium 9.1 (8.4-10.2) mg/dL Total Bilirubin 1.2 (0.2-1.3) mg/dL AST 57 H (14-36) U/L ALT 33 (4-34) U/L Alkaline Phosphatase 82 (38-126) U/L Total Protein 7.2 (6.3-8.2) g/dL Albumin 4.3 (3.5-5.0) g/dL Amylase 835 H* (30-110) U/L Urine Color Yellow Urine Appearance Clear (Clear) Urine pH 6.5 (5.0-8.0) Ur Specific [place] >1.050 H (1.001-1.035) Urine Protein Trace H (Negative) Urine Glucose (UA) Negative (Negative) Urine Ketones 1+ H (Negative) Urine Blood Trace H (Negative) Urine Nitrite Negative (Negative) Urine Bilirubin Negative (Negative) Urine Urobilinogen <2.0 (<2.0) mg/dL Ur Leukocyte Esterase Negative (Negative) Urine RBC 13 H (0-5) /hpf Urine WBC 4 (0-5) /hpf Ur Squamous Epith Cells 3 (0-4) /hpf Urine Mucus Rare H (None) /hpf //21 Range/Units 20:14 WBC (3.8-10.6) k/uL RBC (3.80-5.40) m/uL Hgb (11.4-16.0) gm/dL Hct (34.0-46.0) % MCV (80.0-100.0) fL MCH (25.0-35.0) pg MCHC (31.0-37.0) g/dL RDW (11.5-15.5) % Plt Count (150-450) k/uL MPV Neutrophils % % Lymphocytes % % Monocytes % % Eosinophils % % Basophils % % Neutrophils # (1.3-7.7) k/uL Lymphocytes # (1.0-4.8) k/uL Monocytes # (0-1.0) k/uL Eosinophils # (0-0.7) k/uL Basophils # (0-0.2) k/uL Anisocytosis Microcytosis PT 13.5 H (9.0-12.0) sec INR 1.3 H (<1.2) APTT 20.3 L (22.0-30.0) sec Sodium (137-145) mmol/L Potassium (3.5-5.1) mmol/L Chloride (98-107) mmol/L Carbon Dioxide (22-30) mmol/L Anion Gap mmol/L BUN (7-17) mg/dL Creatinine (0.52-1.04) mg/dL Est GFR (CKD-EPI)AfAm (>60 ml/min/1.73 sqM) Est GFR (CKD-EPI)NonAf (>60 ml/min/1.73 sqM) Glucose (74-99) mg/dL Calcium (8.4-10.2) mg/dL Total Bilirubin (0.2-1.3) mg/dL AST (14-36) U/L ALT (4-34) U/L Alkaline Phosphatase (38-126) U/L Total Protein (6.3-8.2) g/dL Albumin (3.5-5.0) g/dL Amylase (30-110) U/L Urine Color Urine Appearance (Clear) Urine pH (5.0-8.0) Ur Specific [place] (1.001-1.035) Urine Protein (Negative) Urine Glucose (UA) (Negative) Urine Ketones (Negative) Urine Blood (Negative) Urine Nitrite (Negative) Urine Bilirubin (Negative) Urine Urobilinogen (<2.0) mg/dL Ur Leukocyte Esterase (Negative) Urine RBC (0-5) /hpf Urine WBC (0-5) /hpf Ur Squamous Epith Cells (0-4) /hpf Urine Mucus (None) /hpf - Radiology Data Radiology results: report reviewed (Computed tomography scan does show some fluid in the pancreas and pararenal consistent with pancreatitis) Disposition Clinical Impression: Acute pancreatitis Disposition: ADMITTED IP TO THIS HOSP Is patient prescribed a controlled substance at d/c from ED?: No Referrals: Patti Lang MD [Primary Care Provider] - 1-2 days Decision Time: 22:46
--- NOTE | 2021-05-10 21:38 | CT ---
EXAMINATION TYPE: CT abdomen pelvis w con DATE OF EXAM: 05/10/2021 COMPARISON: 02/08/2021 HISTORY: abd pain h/o colitis and bariatric sx CT DLP: 611.1 mGycm Automated exposure control for dose reduction was used. CONTRAST: Performed with IV Contrast, patient injected with 100 mL of Isovue 300. Images obtained from the diaphragm to the floor the pelvis with IV contrast. Lung bases are clear. There is no pleural effusion. Heart size is normal. There is no pericardial eff usion. There are surgical clips from gastric bariatric surgery. Liver and spleen are intact. Gallblad chetan is intact. The bile ducts are not dilated. There is fat stranding and fluid around the pancreas. There is fluid in the left anterior pararenal space. There is no adrenal mass. Kidneys show satisfactory contrast opacification. There is no hydronephrosi s. Delayed images show normal renal excretion. Bladder distends smoothly. There is no inguinal hernia . There is small amount of fluid in the pelvis. Uterus is anteverted. There is no evidence of a pelvi c mass. There is no mesenteric edema. There is small amount of fluid in the right paracolic gutter. T here is no evidence of free air. There is no bowel obstruction. Appendix not clearly seen. No sign of thickened appendix. Lumbar vertebra have normal alignment. There is degenerative disc space narrowing at L5-S1. There is no compression fracture. The bony pelvis is intact. Hip joints are intact. IMPRESSION: There is retroperitoneal fluid around the pancreas and anterior pararenal space. This could relate to acute pancreatitis and is a change compared to old exam. There is small amount of free fluid in the right paracolic gutter which is new compared to old exam. Small amount of free fluid in the pelvis appears new compared to old exam.
[2021-05-10 21:59] LABS: Anisocytosis Slight; Basophils # (A) 0.1 k/uL (0-0.2); Basophils % (A) 0 %; Eosinophils # (A) 0.1 k/uL (0-0.7); Eosinophils % (A) 1 %; HCT 35.2 % (34.0-46.0); HGB 11.4 gm/dL (11.4-16.0); Lymphocytes # (A) 1.1 k/uL (1.0-4.8); Lymphocytes % (A) 6 %; MCH 25.2 pg (25.0-35.0); MCHC 32.3 g/dL (31.0-37.0); Mean Platelet Volume 7.3; Microcytosis Slight; Monocytes # (A) 0.7 k/uL (0-1.0); Monocytes % (A) 4 %; Neutrophils # (A) 16.5 k/uL (1.3-7.7); Neutrophils % (A) 89 %; Platelet Count 424 k/uL (150-450); RBC 4.51 m/uL (3.80-5.40); RDW 19.3 % (11.5-15.5); WBC 18.6 k/uL (3.8-10.6)
[2021-05-10 22:11] LABS: ALT 33 U/L (4-34); AST 57 U/L (14-36); African American GFR (CKD) >90 (>60 ml/min/1.73 sqM); Albumin 4.3 g/dL (3.5-5.0); Alkaline Phosphatase 82 U/L (38-126); Anion Gap 12 mmol/L; Blood Urea Nitrogen 13 mg/dL (7-17); Calcium 9.1 mg/dL (8.4-10.2); Carbon Dioxide 22 mmol/L (22-30); Chloride 104 mmol/L (98-107); Glucose 144 mg/dL (74-99); Non-African American GFR(CKD) >90 (>60 ml/min/1.73 sqM); Potassium 3.7 mmol/L (3.5-5.1); Sodium 138 mmol/L (137-145); Total Bilirubin 1.2 mg/dL (0.2-1.3); Total Protein 7.2 g/dL (6.3-8.2)
[2021-05-10 22:14] LABS: Appearance,Urine Clear (Clear); Bilirubin,Urine Negative (Negative); Blood,Urine Trace (Negative); Color,Urine Yellow; Glucose,Urine (UA) Negative (Negative); Ketones,Urine 1+ (Negative); Leukocyte Esterase,Urine Negative (Negative); Mucus,Urine Rare /hpf; Nitrite,Urine Negative (Negative); PH, Urine 6.5 (5.0-8.0); Protein,Urine Trace (Negative); RBC,Urine 13 /hpf (0-5); Specific Gravity,Urine >1.050 (1.001-1.035); Squamous Epithelial Cell,Urine 3 /hpf (0-4); Urobilinogen,Urine <2.0 mg/dL (<2.0); WBC,Urine 4 /hpf (0-5)
[2021-05-10 22:19] LABS: INR 1.3 (<1.2); Partial Thromboplastin Time 20.3 sec (22.0-30.0); Prothrombin Time 13.5 sec (9.0-12.0)
[2021-05-10] MEDS ORDERED: ONDANSETRON 4 MG/2 ML VIAL IVP STA (22:21)
[2021-05-10 22:38] LABS: Amylase 835 U/L (30-110)
[2021-05-10] MEDS ORDERED: NALOXONE 0.4 MG/ML 1 ML VIAL IV PRN (22:46)
[2021-05-10] MEDS ORDERED: HYDROmorphone 1 MG/ML 1 ML SYRINGE IVP PRN (22:46)
[2021-05-10] MEDS ORDERED: HYDROmorphone 0.5 MG/0.5 ML SYRINGE IVP PRN (22:46)
[2021-05-10 22:54] LABS: Lipase 9824 U/L (23-300)
[2021-05-10] MEDS ORDERED: SODIUM CHLORIDE 0.9% 1,000 ML IV SCH (23:00)
[2021-05-11] MEDS ORDERED: SODIUM CHLORIDE 0.9% 1,000 ML IV ONE (00:21)
[2021-05-11] MEDS ORDERED: diphenhydrAMINE 50 MG/ML 1 ML VIAL IVP PRN (01:02)
[2021-05-11] MEDS ORDERED: HYDROmorphone 0.5 MG/0.5 ML SYRINGE IVP PRN (01:08)
[2021-05-11] MEDS: HYDROmorphone 1 MG/ML 1 ML SYRINGE IVP PRN ×9 (02:53→23:58)
[2021-05-11] MEDS: LACTATED RINGERS 1,000 ML IV SCH ×3 (03:00→21:53)
--- NOTE | 2021-05-11 04:39 | P.HPIM ---
History of Present Illness H&P Date: 05/11/21 Chief Complaint: Abdominal pain 40-year-old female with recurrent pancreatitis tingling Patient presents with 24-hour history of abdominal pain worsening gradually, she denies any heavy alcohol intake denies any drug abuse. Denies any history of gallstones. She reports that pain started gradually she try to limit her by mouth intake however her pain continued to increase her last alcoholic intake was about couple days ago when she had a few cocktails however she denies drinking on daily basis. She denies any GI bleeding denies any hematemesis denies any fevers chills denies any respiratory symptoms denies any coughing shortness of breath chest pain Patient reports that this is typical of her acute pancreatitis episodes. She reports her poop has never been normal since her gastric bypass surgery years ago In the ED workup showed leukocytosis, elevated lipase and amylase. Computed tomography scan of the abdomen showed edema around the pancreas Review of Systems Pertinent positives as noted in HPI. All other systems were reviewed and are negative Past Medical History Past Medical History: Asthma, GERD/Reflux, Thyroid Disorder Additional Past Medical History / Comment(s): Pt. reports she has a history of a heart murmur. duodenal ulcer, n/v, abdominal pain, hx hypothyroidism History of Any Multi-Drug Resistant Organisms: None Reported Past Surgical History: Bariatric Surgery, Tubal Ligation Additional Past Surgical History / Comment(s): breast reduction, gastric bypass. Past Anesthesia/Blood Transfusion Reactions: No Reported Reaction Past Psychological History: Anxiety, Depression Additional Psychological History / Comment(s): major depressive disorder Smoking Status: Current every day smoker Past Alcohol Use History: None Reported Additional Past Alcohol Use History / Comment(s): smoker for 24 years 1 ppd Past Drug Use History: Marijuana Additional Drug Use History / Comment(s): Pt. admits to daily marijuana use. - Past Family History Daughter(s) Family Medical History: Blood Disorder Medications and Allergies Home Medications Medication Instructions Recorded Confirmed Type RX: Omeprazole 20 mg PO DAILY 05/10/21 05/10/21 History Allergies Allergy/AdvReac Type Severity Reaction Status Date / Time Penicillins Allergy Anaphylaxis Verified 05/10/21 23:18 Iodinated Contrast Media AdvReac seizure Verified 05/10/21 23:18 [Iodinated Contrast Media - Oral and] Physical Exam Vitals: Vital Signs Temp Pulse Pulse Resp BP BP Pulse Ox 05/11/21 02:00 98.6 F 91 18 131/96 97 05/11/21 00:00 98.3 F 78 16 149/88 96 05/10/21 22:49 98 F 74 18 132/76 97 05/10/21 18:48 96.9 F L 108 H 18 140/98 99 Intake and Output 05/10/21 05/10/21 05/11/21 14:59 22:59 06:59 Other: # Voids 1 Weight 49.895 kg 49.895 kg Constitutional: No acute distress, conversant, pleasant Eyes: Anicteric sclerae, moist conjunctiva, Pupils equal round reactive to light ENMT: NC/AT Oropharynx clear, no erythema, or exudates Neck: Supple, FROM, no masses, or JVD No carotid bruits No thyromegaly Lungs: Clear to auscultation Clear to percussion Normal respiratory effort, no accessory muscle use Cardiovascular: Heart regular in rate and rhythm, No murmurs, gallops, or rubs No peripheral edema Abdominal: Soft Epigastric tenderness to deep palpation, voluntary guarding, no rebound or rigidity Abdomen moving with respiration Normoactive bowel sounds No hepatomegaly, No splenomegaly No palpable mass No abdominal wall hernia noted Skin: Normal temperature, tone, texture, turgor No induration No subcutaneous nodules No rash, lesions No ulcers Extremities: No digital cyanosis No clubbing Pedal pulses intact and symmetrical Radial pulses intact and symmetrical No calf tenderness Psychiatric: Alert and oriented to person, place and time Appropriate affect fair judgement Neuro Muscles Strength 5/5 in all 4 extremities Sensation to light touch grossly present throughout Cranial nerves II-XII grossly intact No focal sensory deficits Lymphatics: no palpable cervical or supraclavicular , or inguinal lymph nodes Results CBC & Chem 7: 05/10/21 20:14 05/10/21 20:14 Labs: Abnormal Lab Results - Last 24 Hours (Table) 05/10/21 05/10/21 05/10/21 Range/Units 20:14 20:14 20:14 WBC 18.6 H (3.8-10.6) k/uL MCV 78.0 L (80.0-100.0) fL RDW 19.3 H (11.5-15.5) % Neutrophils # 16.5 H (1.3-7.7) k/uL PT (9.0-12.0) sec INR (<1.2) APTT (22.0-30.0) sec Creatinine 0.50 L (0.52-1.04) mg/dL Glucose 144 H (74-99) mg/dL Plasma Lactic Acid Todd (0.7-2.0) mmol/L AST 57 H (14-36) U/L Amylase 835 H* (30-110) U/L Lipase 9824 H (23-300) U/L Ur Specific [place] >1.050 H (1.001-1.035) Urine Protein Trace H (Negative) Urine Ketones 1+ H (Negative) Urine Blood Trace H (Negative) Urine RBC 13 H (0-5) /hpf Urine Mucus Rare H (None) /hpf 05/10/21 05/11/21 Range/Units 20:14 00:55 WBC (3.8-10.6) k/uL MCV (80.0-100.0) fL RDW (11.5-15.5) % Neutrophils # (1.3-7.7) k/uL PT 13.5 H (9.0-12.0) sec INR 1.3 H (<1.2) APTT 20.3 L (22.0-30.0) sec Creatinine (0.52-1.04) mg/dL Glucose (74-99) mg/dL Plasma Lactic Acid Todd 0.6 L (0.7-2.0) mmol/L AST (14-36) U/L Amylase (30-110) U/L Lipase (23-300) U/L Ur Specific [place] (1.001-1.035) Urine Protein (Negative) Urine Ketones (Negative) Urine Blood (Negative) Urine RBC (0-5) /hpf Urine Mucus (None) /hpf Thrombosis Risk Factor Assmnt - Choose All That Apply Each Factor Represents 1 point: Age 41-60 years, History of prior major surgery (<1month) Thrombosis Risk Factor Assessment Total Risk Factor Score: 2 Thrombosis Risk Factor Assessment Level: Low Risk Assessment and Plan Assessment: acute recurrent pancreatitis with history of gastric bypass (Daniele-en-Y surgery ) IVF hydration with lactated ringer s/p 2 L normal saline bolus pain control with diluadid NPO symptomatic control of N/V denies history of gall stones denies any alcohol abuse , she had no more than 3 cocktails about couple days ago , denies any daily alcohol intake , patient counseled to totally abstain from alcohol in the future follow up lipase , Ca, CBC, renal function CT abd showed edema around the pancrease no antibiotics for now history of PUD PPI DVT PPX heaprin sc tid full code anticipated length of stay > 2 midnights anticipated discharge home
[2021-05-11] MEDS: ONDANSETRON 4 MG/2 ML VIAL IVP PRN ×3 (05:28→21:57)
[2021-05-11 07:01] LABS: Anisocytosis Slight; Basophils % (A) 0 %; Eosinophils % (A) 0 %; HCT 31.8 % (34.0-46.0); Hypochromasia Slight; Lymphocytes # (A) 0.6 k/uL (1.0-4.8); Lymphocytes % (A) 3 %; MCH 24.3 pg (25.0-35.0); MCV 80.9 fL (80.0-100.0); Microcytosis Slight; Monocytes # (A) 0.6 k/uL (0-1.0); Monocytes % (A) 3 %; Neutrophils # (A) 15.9 k/uL (1.3-7.7); Neutrophils % (A) 93 %; Platelet Count 315 k/uL (150-450); RBC 3.93 m/uL (3.80-5.40); RDW 19.1 % (11.5-15.5); WBC 17.2 k/uL (3.8-10.6)
[2021-05-11 07:03] LABS: HGB 9.5 gm/dL (11.4-16.0)
[2021-05-11 07:17] LABS: ALT 27 U/L (4-34); AST 43 U/L (14-36); African American GFR (CKD) >90 (>60 ml/min/1.73 sqM); Albumin 3.6 g/dL (3.5-5.0); Alkaline Phosphatase 61 U/L (38-126); Anion Gap 8 mmol/L; Blood Urea Nitrogen 10 mg/dL (7-17); Calcium 8.2 mg/dL (8.4-10.2); Carbon Dioxide 22 mmol/L (22-30); Chloride 107 mmol/L (98-107); Glucose 139 mg/dL (74-99); Non-African American GFR(CKD) >90 (>60 ml/min/1.73 sqM); Potassium 4.2 mmol/L (3.5-5.1); Sodium 137 mmol/L (137-145); Total Bilirubin 1.1 mg/dL (0.2-1.3); Total Protein 6.4 g/dL (6.3-8.2)
[2021-05-11 08:08] LABS: Lipase 5110 U/L (23-300)
[2021-05-11] MEDS: PANTOPRAZOLE 40 MG/10 ML VIAL IV SCH (08:22)
--- NOTE | 2021-05-11 09:22 | US ---
EXAMINATION TYPE: US gallbladder DATE OF EXAM: 05/11/2021 COMPARISON: US dated 01/17/[address] dated 05/10/20212020 CLINICAL HISTORY: Cholelithiasis. RUQ pain Exam done portable EXAM MEASUREMENTS: Liver Length: 17.2 cm Gallbladder Wall: 0.2 cm CBD: 0.5 cm Right Kidney: 11.2 x 3.9 x 5.4 cm Pancreas: dilated duct seen measuring 0.4cm Liver: measures in upper limits of normal Gallbladder: wnl Evidence for sonographic Singer's sign: no CBD: Upper limit of normal Right Kidney: wnl IMPRESSION: Pancreatic duct is dilated similar to prior exam. Limited exam.
--- NOTE | 2021-05-11 13:56 | P.GSCN ---
History of Present Illness Consult date: 05/11/21 History of present illness: CHIEF COMPLAINT: Abdominal pain HISTORY OF PRESENT ILLNESS: This is a 40-year-old female with a known history of alcoholic pancreatitis. Patient presents to the emergency room with complaints of epigastric abdominal pain that started Monday night. Patient had multiple episodes of nausea, vomiting with dry heaves. Patient reports drinking alcohol 2 days ago. At that time she drank 2-3 drinks. She is currently nothing by mouth and receiving IV fluids. Surgical services consult for pancreatitis. Patient seen and examined with Dr. craig PAST MEDICAL HISTORY: Alcoholic pancreatitis, Asthma, GERD/Reflux, Thyroid Disorder, anxiety and depression PAST SURGICAL HISTORY: Gastric bypass, tubal ligation MEDICATIONS: See list. ALLERGIES: See list. SOCIAL HISTORY: No illicit drug use. REVIEW OF SYSTEMS: CONSTITUTIONAL: Denies fever or chills. HEENT: Denies blurred vision, vision changes, or eye pain. Denies hemoptysis CARDIOVASCULAR: Denies chest pain or pressure. RESPIRATORY: No shortness of breath. GASTROINTESTINAL: See HPI for pertinent findings HEMATOLOGIC: Denies bleeding disorders. GENITOURINARY: Denies any blood in urine or increased urinary frequency. SKIN: Denies pruitis. Denies rash. PHYSICAL EXAM: VITAL SIGNS: Reviewed GENERAL: Well-developed in no acute distress. HEENT: No sclera icterus. Extraocular movements grossly intact. Moist buccal mucosa. Head is atraumatic, normocephalic. No nasal drainage. ABDOMEN: Soft. Nondistended. Epigastric tenderness NEUROLOGIC: Alert and oriented. Cranial nerves II through XII grossly intact. LABORATORY DATA: WBC has come down from 18.6-17.2 hemoglobin dropped from 11.4-9.5 platelets 3:15 INR 1.3 Sodium 137 potassium 4.2 BUN 10 creatinine 0.43 Lactic acid 0.6 Lipase 9824 down to 5110 AST 43 Amylase 835 IMAGING: Computed tomography scan abdomen and pelvis showing retroperitoneal fluid around the pancreas and anterior pararenal space. This could relate to acute pancreatitis and is a change compared to old exam. There is a small amount of free fluid in the right paracolic gutter which is new compared to old exam. Small amount of free fluid in the pelvis appears new compared to old exam Abdominal ultrasound pancreatic duct is dilated similar to prior exam. Gallbladder within normal range. ASSESSMENT: 1. Acute pancreatitis likely alcohol-related PLAN: -Continue supportive care. -No surgical intervention planned -Keep patient nothing by mouth -Continue IV fluids -Continue pain medication and antiemetics as needed -Repeat amylase lipase in a.m. Thank you for this consultation Physician Chicken Hanger note has been reviewed by physician. Signing provider agrees with the documented findings, assessment, and plan of care. Past Medical History Past Medical History: Asthma, GERD/Reflux, Thyroid Disorder Additional Past Medical History / Comment(s): Pt. reports she has a history of a heart murmur. duodenal ulcer, n/v, abdominal pain, hx hypothyroidism History of Any Multi-Drug Resistant Organisms: None Reported Past Surgical History: Bariatric Surgery, Tubal Ligation Additional Past Surgical History / Comment(s): breast reduction, gastric bypass. Past Anesthesia/Blood Transfusion Reactions: No Reported Reaction Past Psychological History: Anxiety, Depression Additional Psychological History / Comment(s): major depressive disorder Smoking Status: Current every day smoker Past Alcohol Use History: None Reported Additional Past Alcohol Use History / Comment(s): smoker for 24 years 1 ppd Past Drug Use History: Marijuana Additional Drug Use History / Comment(s): Pt. admits to daily marijuana use. - Past Family History Daughter(s) Family Medical History: Blood Disorder Medications and Allergies Home Medications Medication Instructions Recorded Confirmed Type Omeprazole 20 mg PO DAILY 05/10/21 05/10/21 History Allergies Allergy/AdvReac Type Severity Reaction Status Date / Time Penicillins Allergy Anaphylaxis Verified 05/10/21 23:18 Iodinated Contrast Media AdvReac seizure Verified 05/10/21 23:18 [Iodinated Contrast Media - Oral and] Surgical - Exam Vital Signs Temp Pulse Resp BP Pulse Ox 96.9 F L 108 H 18 140/98 99 05/10/21 18:48 05/10/21 18:48 05/10/21 18:48 05/10/21 18:48 05/10/21 18:48 Results - Labs 05/11/21 06:00 05/11/21 06:00 Abnormal Lab Results - Last 24 Hours (Table) 05/10/21 05/10/21 05/10/21 Range/Units 20:14 20:14 20:14 WBC 18.6 H (3.8-10.6) k/uL Hgb (11.4-16.0) gm/dL Hct (34.0-46.0) % MCV 78.0 L (80.0-100.0) fL MCH (25.0-35.0) pg MCHC (31.0-37.0) g/dL RDW 19.3 H (11.5-15.5) % Neutrophils # 16.5 H (1.3-7.7) k/uL Lymphocytes # (1.0-4.8) k/uL PT (9.0-12.0) sec INR (<1.2) APTT (22.0-30.0) sec Creatinine 0.50 L (0.52-1.04) mg/dL Glucose 144 H (74-99) mg/dL Plasma Lactic Acid Todd (0.7-2.0) mmol/L Calcium (8.4-10.2) mg/dL AST 57 H (14-36) U/L Amylase 835 H* (30-110) U/L Lipase 9824 H (23-300) U/L Ur Specific [place] >1.050 H (1.001-1.035) Urine Protein Trace H (Negative) Urine Ketones 1+ H (Negative) Urine Blood Trace H (Negative) Urine RBC 13 H (0-5) /hpf Urine Mucus Rare H (None) /hpf 05/10/21 05/11/21 05/11/21 Range/Units 20:14 00:55 06:00 WBC 17.2 H (3.8-10.6) k/uL Hgb 9.5 L D (11.4-16.0) gm/dL Hct 31.8 L (34.0-46.0) % MCV (80.0-100.0) fL MCH 24.3 L (25.0-35.0) pg MCHC 30.0 L (31.0-37.0) g/dL RDW 19.1 H (11.5-15.5) % Neutrophils # 15.9 H (1.3-7.7) k/uL Lymphocytes # 0.6 L (1.0-4.8) k/uL PT 13.5 H (9.0-12.0) sec INR 1.3 H (<1.2) APTT 20.3 L (22.0-30.0) sec Creatinine (0.52-1.04) mg/dL Glucose (74-99) mg/dL Plasma Lactic Acid Todd 0.6 L (0.7-2.0) mmol/L Calcium (8.4-10.2) mg/dL AST (14-36) U/L Amylase (30-110) U/L Lipase (23-300) U/L Ur Specific [place] (1.001-1.035) Urine Protein (Negative) Urine Ketones (Negative) Urine Blood (Negative) Urine RBC (0-5) /hpf Urine Mucus (None) /hpf 05/11/21 Range/Units 06:00 WBC (3.8-10.6) k/uL Hgb (11.4-16.0) gm/dL Hct (34.0-46.0) % MCV (80.0-100.0) fL MCH (25.0-35.0) pg MCHC (31.0-37.0) g/dL RDW (11.5-15.5) % Neutrophils # (1.3-7.7) k/uL Lymphocytes # (1.0-4.8) k/uL PT (9.0-12.0) sec INR (<1.2) APTT (22.0-30.0) sec Creatinine 0.43 L (0.52-1.04) mg/dL Glucose 139 H (74-99) mg/dL Plasma Lactic Acid Todd (0.7-2.0) mmol/L Calcium 8.2 L (8.4-10.2) mg/dL AST 43 H (14-36) U/L Amylase (30-110) U/L Lipase 5110 H (23-300) U/L Ur Specific [place] (1.001-1.035) Urine Protein (Negative) Urine Ketones (Negative) Urine Blood (Negative) Urine RBC (0-5) /hpf Urine Mucus (None) /hpf Diabetes panel 05/10/21 05/11/21 Range/Units 20:14 06:00 Sodium 138 137 (137-145) mmol/L Potassium 3.7 4.2 (3.5-5.1) mmol/L Chloride 104 107 (98-107) mmol/L Carbon Dioxide 22 22 (22-30) mmol/L BUN 13 10 (7-17) mg/dL Creatinine 0.50 L 0.43 L (0.52-1.04) mg/dL Glucose 144 H 139 H (74-99) mg/dL Calcium 9.1 8.2 L (8.4-10.2) mg/dL AST 57 H 43 H (14-36) U/L ALT 33 27 (4-34) U/L Alkaline Phosphatase 82 61 (38-126) U/L Total Protein 7.2 6.4 (6.3-8.2) g/dL Albumin 4.3 3.6 (3.5-5.0) g/dL Calcium panel 05/10/21 05/11/21 Range/Units 20:14 06:00 Calcium 9.1 8.2 L (8.4-10.2) mg/dL Albumin 4.3 3.6 (3.5-5.0) g/dL Pituitary panel 05/10/21 05/11/21 Range/Units 20:14 06:00 Sodium 138 137 (137-145) mmol/L Potassium 3.7 4.2 (3.5-5.1) mmol/L Chloride 104 107 (98-107) mmol/L Carbon Dioxide 22 22 (22-30) mmol/L BUN 13 10 (7-17) mg/dL Creatinine 0.50 L 0.43 L (0.52-1.04) mg/dL Glucose 144 H 139 H (74-99) mg/dL Calcium 9.1 8.2 L (8.4-10.2) mg/dL Adrenal panel 05/10/21 05/11/21 Range/Units 20:14 06:00 Sodium 138 137 (137-145) mmol/L Potassium 3.7 4.2 (3.5-5.1) mmol/L Chloride 104 107 (98-107) mmol/L Carbon Dioxide 22 22 (22-30) mmol/L BUN 13 10 (7-17) mg/dL Creatinine 0.50 L 0.43 L (0.52-1.04) mg/dL Glucose 144 H 139 H (74-99) mg/dL Calcium 9.1 8.2 L (8.4-10.2) mg/dL Total Bilirubin 1.2 1.1 (0.2-1.3) mg/dL AST 57 H 43 H (14-36) U/L ALT 33 27 (4-34) U/L Alkaline Phosphatase 82 61 (38-126) U/L Total Protein 7.2 6.4 (6.3-8.2) g/dL Albumin 4.3 3.6 (3.5-5.0) g/dL
[2021-05-11] MEDS ORDERED: KETOROLAC 15 MG/ML 1 ML VIAL IVP STA (18:01)
[2021-05-11] MEDS: DICLOFENAC SODIUM GEL 100 GM TUBE TOPICAL SCH ×2 (18:28→21:58)
[2021-05-11] MEDS: NICOTINE 21MG/24HR PATCH TRANSDERM SCH (18:29)
[2021-05-11] MEDS ORDERED: ZOLPIDEM 10 MG TAB PO STA (21:12)
[2021-05-11] MEDS ORDERED: ZOLPIDEM 5 MG TAB PO ONE (22:00)
[2021-05-12] MEDS: HYDROmorphone 1 MG/ML 1 ML SYRINGE IVP PRN ×7 (02:45→23:28)
[2021-05-12] MEDS: DICLOFENAC SODIUM GEL 100 GM TUBE TOPICAL SCH ×4 (08:02→21:08)
[2021-05-12] MEDS: NICOTINE 21MG/24HR PATCH TRANSDERM SCH (08:03)
[2021-05-12] MEDS: ONDANSETRON 4 MG/2 ML VIAL IVP PRN ×2 (08:03→22:31)
[2021-05-12] MEDS: PANTOPRAZOLE 40 MG/10 ML VIAL IV SCH (08:03)
[2021-05-12 08:09] LABS: Anisocytosis Slight; HCT 31.4 % (34.0-46.0); HGB 9.4 gm/dL (11.4-16.0); Hypochromasia Moderate; MCH 24.7 pg (25.0-35.0); MCHC 30.1 g/dL (31.0-37.0); MCV 82.1 fL (80.0-100.0); Mean Platelet Volume 7.9; Microcytosis Slight; Platelet Count 263 k/uL (150-450); RBC 3.82 m/uL (3.80-5.40); RDW 19.2 % (11.5-15.5); WBC 15.4 k/uL (3.8-10.6)
[2021-05-12 08:25] LABS: ALT 18 U/L (4-34); AST 28 U/L (14-36); African American GFR (CKD) >90 (>60 ml/min/1.73 sqM); Alkaline Phosphatase 56 U/L (38-126); Anion Gap 7 mmol/L; Blood Urea Nitrogen 9 mg/dL (7-17); Calcium 8.1 mg/dL (8.4-10.2); Carbon Dioxide 24 mmol/L (22-30); Chloride 104 mmol/L (98-107); Glucose 89 mg/dL (74-99); Magnesium 1.7 mg/dL (1.6-2.3); Non-African American GFR(CKD) >90 (>60 ml/min/1.73 sqM); Potassium 3.5 mmol/L (3.5-5.1); Sodium 135 mmol/L (137-145); Total Bilirubin 0.7 mg/dL (0.2-1.3); Total Protein 5.7 g/dL (6.3-8.2)
[2021-05-12 08:30] LABS: Amylase 416 U/L (30-110)
[2021-05-12 08:53] LABS: Lipase 1950 U/L (23-300)
[2021-05-12] MEDS: LACTATED RINGERS 1,000 ML IV SCH ×2 (10:30→15:07)
--- NOTE | 2021-05-12 11:05 | P.PN ---
Subjective Progress Note Date: 05/12/21 CHIEF COMPLAINT: Pancreatitis HISTORY OF PRESENT ILLNESS: Patient reports some improvement in her epigastric abdominal pain. She is hungry. She is still requiring the IV Dilaudid. She feels that she can space that out longer in between. She has been eating ice chips and this has not increased her pain. She denies any nausea or vomiting. She does feel a little bloated and complains of gas pains. Gallbladder ultrasound shows pancreatic duct is dilated similar to prior exam. Limited exam. No evidence of gallstones. Afebrile. WBC is trended down from 17.2-15.4 hemoglobin is 9.4 platelets 263 sodium 135 potassium 3.5 BUN 9 creatinine 0.40 amylase 835 down to 416 lipase 5110 down to 1950 AST normalized. Patient is complaining of headache PHYSICAL EXAM: VITAL SIGNS: Reviewed. GENERAL: Well-developed in no acute distress. HEENT: No sclera icterus. Extraocular movements grossly intact. Moist buccal mucosa. Head is atraumatic, normocephalic. ABDOMEN: Soft. Mildly distended. Minimal tenderness epigastric area. Minimal tenderness with palpation of lower abdomen NEUROLOGIC: Alert and oriented. Cranial nerves II through XII grossly intact. ASSESSMENT: 1. Acute pancreatitis likely alcohol-related. No evidence of gallstones on ultrasound PLAN: -Start clear liquid diet -Decrease the IV Dilaudid every 3 hours as needed -Add simethicone gas drops -Encourage patient to ambulate -Repeat lipase in a.m. -Continue IV fluids Physician Product Support Sales Representative note has been reviewed by physician. Signing provider agrees with the documented findings, assessment, and plan of care. Objective - Vital Signs Vital signs: Vital Signs Temp 99.5 F 05/12/21 07:00 Pulse 100 05/12/21 07:00 Resp 18 05/12/21 07:00 BP 149/89 05/12/21 07:00 Pulse Ox 95 05/12/21 07:00 Intake & Output 05/11/21 05/12/21 05/12/21 18:59 06:59 18:59 Intake Total 800 Balance 800 Intake: Intake, IV Titration 800 Amount Lactated Ringers 1,000 ml 800 @ 100 mls/hr IV .Q10H SHIRA Rx#:[id number] Oral 0 Other: # Voids 3 3 - Labs CBC & Chem 7: 05/12/21 07:54 05/12/21 07:54 Labs: Abnormal Lab Results - Last 24 Hours (Table) 05/12/21 05/12/21 Range/Units 07:54 07:54 WBC 15.4 H (3.8-10.6) k/uL Hgb 9.4 L (11.4-16.0) gm/dL Hct 31.4 L (34.0-46.0) % MCH 24.7 L (25.0-35.0) pg MCHC 30.1 L (31.0-37.0) g/dL RDW 19.2 H (11.5-15.5) % Sodium 135 L (137-145) mmol/L Creatinine 0.40 L (0.52-1.04) mg/dL Calcium 8.1 L (8.4-10.2) mg/dL Total Protein 5.7 L (6.3-8.2) g/dL Albumin 3.0 L (3.5-5.0) g/dL Amylase 416 H* (30-110) U/L Lipase 1950 H (23-300) U/L
[2021-05-12] MEDS: SODIUM CHLORIDE 0.9% 1,000 ML IV SCH ×2 (12:35→17:40)
[2021-05-12] MEDS: SIMETHICONE 40 MG/0.6 ML DROPS 2,000 MG/30 ML BOTTLE PO SCH ×3 (14:02→21:07)
--- NOTE | 2021-05-12 14:54 | P.PN ---
Subjective Progress Note Date: 05/12/21 The patient is a 40-year-old female with a PMH of gastric bypass Daniele-en-Y, recurrent episodes of pancreatitis, mild intermittent asthma, hypothyroidism, and GERD who presented to the emergency room for abdominal pain. The patient reports that although she has quit using alcohol since her bariatric surgery, that she recently had a few drinks which she believes precipitated her current episode. She reported epigastric discomfort with nausea and vomiting. In the emergency room, she was noted to have a lipase of 9824 and was admitted for pancreatitis. She was started on IV fluids and kept nothing by mouth with pain control. She was seen at the bedside on 05/12. She reported significant improvement in her abdominal pain, currently rated at a 4 out of 10. Her diet was advanced to clear liquid which has thus far been tolerated well. She denied fever, chills, chest pain, shortness of breath. General: Non-toxic, in no acute distress, appears stated age, normal weight HEENT: NC/AT, anicteric sclerae, moist conjunctiva, no lid-lag, PERRLA Cardiovascular: S1/S2 wnl, no murmurs, rubs, or gallops Lungs: Clear to auscultation, normal respiratory effort, no accessory muscle use Abdominal: Soft, moderate epigastric tenderness, non-distended, no guarding, rebound, or rigidity Skin: Warm, dry Extremities: No edema or contractures Psychiatric: Alert and oriented to person, place and time, appropriate affect Neuro: CN II-XII grossly intact, Strength 5/5 in all 4 extremities, Speech intact, Sensation to light touch grossly intact throughout Assessment/plan Acute pancreatitis, recurrent with history of gastric bypass (Daniele-en-Y) -Continue with IV fluids -Pain control -Diet advanced to clear liquids -Continue to monitor lipase levels Chronic GERD -Continue home Prilosec dose DVT prophylaxis -Heparin subq Discussed with: Patient Anticipated discharge date: in am Anticipated discharge place: Home Objective - Vital Signs Vital signs: Vital Signs Temp 99.5 F 05/12/21 07:00 Pulse 100 05/12/21 07:00 Resp 18 05/12/21 07:00 BP 149/89 05/12/21 07:00 Pulse Ox 95 05/12/21 07:00 Intake & Output 05/11/21 05/12/21 05/12/21 18:59 06:59 18:59 Intake Total 800 125 Balance 800 125 Intake: Intake, IV Titration 800 125 Amount Lactated Ringers 1,000 ml 800 @ 100 mls/hr IV .Q10H SHIRA Rx#:[id number] Sodium Chloride 0.9% 1, 125 000 ml @ 125 mls/hr IV . Q8H SHIRA Rx#:[id number] Oral 0 Other: # Voids 3 3 - Labs CBC & Chem 7: 05/12/21 07:54 05/12/21 07:54 Labs: Abnormal Lab Results - Last 24 Hours (Table) 05/12/21 05/12/21 Range/Units 07:54 07:54 WBC 15.4 H (3.8-10.6) k/uL Hgb 9.4 L (11.4-16.0) gm/dL Hct 31.4 L (34.0-46.0) % MCH 24.7 L (25.0-35.0) pg MCHC 30.1 L (31.0-37.0) g/dL RDW 19.2 H (11.5-15.5) % Sodium 135 L (137-145) mmol/L Creatinine 0.40 L (0.52-1.04) mg/dL Calcium 8.1 L (8.4-10.2) mg/dL Total Protein 5.7 L (6.3-8.2) g/dL Albumin 3.0 L (3.5-5.0) g/dL Amylase 416 H* (30-110) U/L Lipase 1950 H (23-300) U/L
[2021-05-12] MEDS: HEPARIN SODIUM,PORCINE/PF 5,000 UNIT/0.5 ML SYRINGE SQ SCH ×2 (15:30→22:58)
[2021-05-12] MEDS ORDERED: ZOLPIDEM 10 MG TAB PO PRN (19:55)
[2021-05-12] MEDS ORDERED: KETOROLAC 15 MG/ML 1 ML VIAL IVP STA (19:56)
[2021-05-12] MEDS: MELATONIN 3 MG TABLET PO SCH (21:07)
[2021-05-13] MEDS: SODIUM CHLORIDE 0.9% 1,000 ML IV SCH ×3 (02:27→21:39)
[2021-05-13] MEDS: HYDROmorphone 1 MG/ML 1 ML SYRINGE IVP PRN ×5 (02:43→23:46)
[2021-05-13] MEDS: LACTATED RINGERS 1,000 ML IV SCH ×2 (03:45→12:46)
[2021-05-13 08:25] LABS: Anisocytosis Slight; Basophils % (A) 0 %; Eosinophils # (A) 0.4 k/uL (0-0.7); Eosinophils % (A) 3 %; HCT 31.1 % (34.0-46.0); HGB 9.5 gm/dL (11.4-16.0); Hypochromasia Moderate; Lymphocytes # (A) 1.1 k/uL (1.0-4.8); Lymphocytes % (A) 8 %; MCHC 30.4 g/dL (31.0-37.0); MCV 82.2 fL (80.0-100.0); Mean Platelet Volume 7.3; Microcytosis Slight; Monocytes # (A) 0.8 k/uL (0-1.0); Monocytes % (A) 6 %; Neutrophils # (A) 11.1 k/uL (1.3-7.7); Neutrophils % (A) 82 %; Platelet Count 282 k/uL (150-450); RBC 3.78 m/uL (3.80-5.40); RDW 19.7 % (11.5-15.5); WBC 13.6 k/uL (3.8-10.6)
[2021-05-13] MEDS: PANTOPRAZOLE 40 MG/10 ML VIAL IV SCH (08:54)
[2021-05-13] MEDS: ONDANSETRON 4 MG/2 ML VIAL IVP PRN ×2 (08:54→20:10)
[2021-05-13] MEDS: HEPARIN SODIUM,PORCINE/PF 5,000 UNIT/0.5 ML SYRINGE SQ SCH ×3 (08:55→23:24)
[2021-05-13] MEDS: NICOTINE 21MG/24HR PATCH TRANSDERM SCH (08:55)
[2021-05-13] MEDS: SIMETHICONE 40 MG/0.6 ML DROPS 2,000 MG/30 ML BOTTLE PO SCH ×4 (08:56→21:35)
[2021-05-13] MEDS: DICLOFENAC SODIUM GEL 100 GM TUBE TOPICAL SCH ×4 (10:05→20:10)
[2021-05-13] MEDS: ACETAMINOPHEN TAB 325 MG TAB PO PRN ×2 (12:45→20:09)
[2021-05-13 14:07] LABS: Appearance,Urine Clear (Clear); Bilirubin,Urine Negative (Negative); Blood,Urine Small (Negative); Color,Urine Yellow; Glucose,Urine (UA) Negative (Negative); Ketones,Urine Negative (Negative); Leukocyte Esterase,Urine Negative (Negative); Mucus,Urine Rare /hpf; Nitrite,Urine Negative (Negative); PH, Urine 6.5 (5.0-8.0); Protein,Urine Negative (Negative); RBC,Urine 3 /hpf (0-5); Specific Gravity,Urine 1.005 (1.001-1.035); WBC,Urine 1 /hpf (0-5)
--- NOTE | 2021-05-13 15:24 | P.PN ---
Subjective Progress Note Date: 05/13/21 CHIEF COMPLAINT: Pancreatitis HISTORY OF PRESENT ILLNESS: Patient reports improvement in her epigastric a bdominal pain. She is now complaining more of left flank pain. She reports that her urine is dark. Denies any burning with urination. Denies any hematuria. She is tolerating the clear liquid diet. Lipase has normalized. Afebrile. WBC is down from 15.4-13.6 hemoglobin 9.5 lipase 247 PHYSICAL EXAM: VITAL SIGNS: Reviewed. GENERAL: Well-developed in no acute distress. HEENT: No sclera icterus. Extraocular movements grossly intact. Moist buccal mucosa. Head is atraumatic, normocephalic. ABDOMEN: Soft. Nondistended. Tenderness with palpation of the left flank NEUROLOGIC: Alert and oriented. Cranial nerves II through XII grossly intact. ASSESSMENT: 1. Acute pancreatitis likely alcohol-related. No evidence of gallstones on ultrasound PLAN: -Advance diet to full liquids -Check urinalysis due to left flank pain -Further management of left flank pain per medical service -Encourage patient to ambulate Physician Compressed Gas Equipment Mechanic note has been reviewed by physician. Signing provider agrees with the documented findings, assessment, and plan of care. Objective - Vital Signs Vital signs: Vital Signs Temp 98.7 F 05/13/21 14:45 Pulse 82 05/13/21 14:45 Resp 16 05/13/21 14:45 BP 112/72 05/13/21 14:45 Pulse Ox 98 05/13/21 14:45 Intake & Output 05/12/21 05/13/21 05/13/21 18:59 06:59 18:59 Intake Total 125 Balance 125 Intake: Intake, IV Titration 125 Amount Sodium Chloride 0.9% 1, 125 000 ml @ 125 mls/hr IV . Q8H [facility] Rx#:[id number] Other: # Voids 2 2 - Labs CBC & Chem 7: 05/13/21 07:38 05/12/21 07:54 Labs: Abnormal Lab Results - Last 24 Hours (Table) 05/13/21 05/13/21 Range/Units 07:38 13:34 WBC 13.6 H (3.8-10.6) k/uL RBC 3.78 L (3.80-5.40) m/uL Hgb 9.5 L (11.4-16.0) gm/dL Hct 31.1 L (34.0-46.0) % MCHC 30.4 L (31.0-37.0) g/dL RDW 19.7 H (11.5-15.5) % Neutrophils # 11.1 H (1.3-7.7) k/uL Urine Blood Small H (Negative) Urine Mucus Rare H (None) /hpf
[2021-05-13] MEDS: HYDROmorphone 0.5 MG/0.5 ML SYRINGE IVP PRN ×2 (15:28→20:09)
--- NOTE | 2021-05-13 16:11 | XR ---
EXAMINATION TYPE: XR chest 1V portable DATE OF EXAM: 05/13/2021 COMPARISON: NONE HISTORY: Fever, pancreatitis TECHNIQUE: Single frontal view of the chest is obtained. FINDINGS: There is no focal air space opacity, pleural effusion, or pneumothorax seen. Some minimal subsegmental basilar atelectatic changes are suspected on the right The cardiac silhouette size is w ithin normal limits. The osseous structures are intact. IMPRESSION: Suspect some minimal basilar atelectatic change, consider follow-up PA and lateral chest x-ray as indicated
--- NOTE | 2021-05-13 18:55 | P.PN ---
Subjective Progress Note Date: 05/13/21 (delayed charting patient seen at 1400) Principal diagnosis: abdominal pain The patient is a 40-year-old female with Daniele-en-Y gastric bypass, recurrent episodes of pancreatitis, mild intermittent asthma, hypothyroidism, and GERD who presented to the emergency room for abdominal pain. In the ER she underwent an extensive evaluation. She was found have an elevated lipase of 9824. She underwent a CT abdomen and pelvis which demonstrated retroperitoneal fluid aroun d the pancreas and in the anterior pararenal space related to acute pancreatitis as well as free fluid in the right paracolic gutter. She was initially made nothing by mouth, started on pain management, IV fluids. Surgery was consulted. Gallbladder ultrasound was ordered which showed normal gallbladder wall and negative Singer's sign. She started to spike fevers on 05/12. Urinalysis and chest x-ray were unremarkable. Patient seen and examined at bedside. She states that her abdominal pain as well as right flank pain is getting better, however she is still having significant left leg pain that is unchanged or worsen since admission. She reports that she had this same pain when she had an infected renal cyst in the past. She also reports that she tolerated her full liquid diet. General: non toxic, no distress, appears at stated age Derm: warm, dry Head: atraumatic, normocephalic, symmetric Eyes: EOMI, no lid lag, anicteric sclera Mouth: no lip lesion, mucus membranes moist Cardiovascular: S1S2 reg, no murmur, positive posterior tibial pulse bilateral, Lungs: CTA bilateral, no rhonchi, no rales , no accessory muscle use Abdominal: soft, nontender to palpation, no guarding, no appreciable organomegaly Ext: no gross muscle atrophy, no edema, no contractures Neuro: CN II-XI grossly intact, no focal neuro deficits Psych: Alert, oriented, appropriate affect Pancreatitis -Continue a full liquid diet -Surgery recreations appreciated -IV fluids -Pain control Pyrexia -Undetermined etiology likely related to pancreatitis -Check COVID, RSV, influenza A and B -Check chest x-ray which was reviewed and was without significant pneumonia. -Continue to monitor GERD -PPI DVT prophylaxis: Patient does not want injections, she has been up and walking Discussed with: Patient Anticipated discharge date: in am Anticipated discharge place: Home Objective - Vital Signs Vital signs: Vital Signs Temp 98.7 F 05/13/21 14:45 Pulse 82 05/13/21 14:45 Resp 16 05/13/21 14:45 BP 112/72 05/13/21 14:45 Pulse Ox 98 05/13/21 14:45 Intake & Output 05/12/21 05/13/21 05/13/21 18:59 06:59 18:59 Intake Total 125 Balance 125 Intake: Intake, IV Titration 125 Amount Sodium Chloride 0.9% 1, 125 000 ml @ 125 mls/hr IV . Q8H [facility] Rx#:[id number] Other: # Voids 2 2 - Labs CBC & Chem 7: 05/13/21 07:38 05/12/21 07:54 Labs: Abnormal Lab Results - Last 24 Hours (Table) 05/13/21 05/13/21 Range/Units 07:38 13:34 WBC 13.6 H (3.8-10.6) k/uL RBC 3.78 L (3.80-5.40) m/uL Hgb 9.5 L (11.4-16.0) gm/dL Hct 31.1 L (34.0-46.0) % MCHC 30.4 L (31.0-37.0) g/dL RDW 19.7 H (11.5-15.5) % Neutrophils # 11.1 H (1.3-7.7) k/uL Urine Blood Small H (Negative) Urine Mucus Rare H (None) /hpf
[2021-05-13] MEDS: MELATONIN 3 MG TABLET PO SCH (21:35)
[2021-05-14] MEDS: HYDROmorphone 1 MG/ML 1 ML SYRINGE IVP PRN ×7 (02:26→20:50)
[2021-05-14] MEDS: SODIUM CHLORIDE 0.9% 1,000 ML IV SCH ×3 (02:29→16:51)
[2021-05-14] MEDS: NICOTINE 21MG/24HR PATCH TRANSDERM SCH (07:52)
[2021-05-14] MEDS: PANTOPRAZOLE 40 MG TABLET PO SCH (07:52)
[2021-05-14] MEDS: HEPARIN SODIUM,PORCINE/PF 5,000 UNIT/0.5 ML SYRINGE SQ SCH ×2 (07:53→16:47)
[2021-05-14] MEDS: DICLOFENAC SODIUM GEL 100 GM TUBE TOPICAL SCH ×4 (07:53→22:14)
[2021-05-14] MEDS: SIMETHICONE 40 MG/0.6 ML DROPS 2,000 MG/30 ML BOTTLE PO SCH ×4 (07:56→22:13)
--- NOTE | 2021-05-14 09:19 | US ---
EXAMINATION TYPE: US abdomen complete DATE OF EXAM: 05/14/2021 COMPARISON: US dated 05/11/2021, & CT 05/10/2021 CLINICAL HISTORY: pancreatitis, pancreatic cyst, left flank pain. EXAM MEASUREMENTS: Liver Length: 15.7 cm Gallbladder Wall: 0.2 cm CBD: 0.6 cm Spleen: 12.5 cm Right Kidney: 12.1 x 4.5 x 6.5 cm Left Kidney: 11.6 x 5.3 x 5.3 cm Small amount of fluid noted by left lobe of liver and spleen. Pancreas: visualized portions appear bulky and heterogeneous. Dilated pancreatic duct is not seen on today's exam. Liver: Stable Gallbladder: No stones seen, gallbladder appears hydropic Evidence for sonographic Singer's sign: No CBD: Mildly dilated Spleen: wnl Right Kidney: No hydronephrosis or masses seen Left Kidney: No hydronephrosis or masses seen Upper IVC: wnl Abd Aorta: wnl The liver is homogenous. The intrahepatic portion of the IVC and proximal abdominal aorta are within normal limits. There is no evidence of cholelithiasis. Common bile duct is borderline dilated. The spleen is unremarkable. Kidneys are symmetric and free of hydronephrosis. No renal lesions are see n. IMPRESSION: Minimal ascites. Hydropic gallbladder. Borderline dilated common bile duct, correlate for pancreatitis
[2021-05-14 09:26] LABS: Anisocytosis Moderate; HCT 24.9 % (34.0-46.0); Hypochromasia Slight; MCH 25.5 pg (25.0-35.0); MCHC 31.6 g/dL (31.0-37.0); MCV 80.6 fL (80.0-100.0); Mean Platelet Volume 7.3; Microcytosis Slight; Platelet Count 277 k/uL (150-450); RBC 3.09 m/uL (3.80-5.40); RDW 20.4 % (11.5-15.5); WBC 14.9 k/uL (3.8-10.6)
[2021-05-14 09:41] LABS: HGB 7.9 gm/dL (11.4-16.0)
[2021-05-14] MEDS ORDERED: IOPAMIDOL CONTRAST (ORAL USE) VIAL PO PRN (10:39)
[2021-05-14] MEDS: ONDANSETRON 4 MG/2 ML VIAL IVP PRN (11:13)
[2021-05-14] MEDS: BARIUM SULFATE 450 ML ORAL.SUSP BOTTLE PO PRN ×2 (11:14→14:05)
--- NOTE | 2021-05-14 12:37 | P.PN ---
Subjective Progress Note Date: 05/14/21 CHIEF COMPLAINT: Pancreatitis HISTORY OF PRESENT ILLNESS: Patient reports improvement in her epigastric a bdominal pain. Patient continues to complain of left flank pain. Case discussed with medicine service. They are ordering a computed tomography scan and pelvis. Abdominal ultrasound shows minimal ascites. Hydropic gallbladder. Borderline dilated common bile duct, correlate for pancreatitis. Afebrile. WBC is up at 14.9. Hemoglobin dropped from 9.5-7.9 lipase has normalized. Urinalysis shows small amount of blood and rare mucus. Patient seen and examined with Dr. Doyle PHYSICAL EXAM: VITAL SIGNS: Reviewed. GENERAL: Well-developed in no acute distress. HEENT: No sclera icterus. Extraocular movements grossly intact. Moist buccal mucosa. Head is atraumatic, normocephalic. ABDOMEN: Soft. Nondistended. Tenderness with palpation of the left flank NEUROLOGIC: Alert and oriented. Cranial nerves II through XII grossly intact. ASSESSMENT: 1. Acute pancreatitis likely alcohol-related. No evidence of gallstones on ultrasound PLAN: -Continue regular diet -follow-up on computed tomography scan of abdomen and pelvis. -Encourage patient to ambulate -Alcohol cessation Physician Hearing Therapy Teacher note has been reviewed by physician. Signing provider agrees with the documented findings, assessment, and plan of care. Objective - Vital Signs Vital signs: Vital Signs Temp 99.1 F 05/14/21 07:00 Pulse 100 05/14/21 07:00 Resp 18 05/14/21 07:00 BP 115/64 05/14/21 07:00 Pulse Ox 98 05/14/21 07:00 Intake & Output 05/13/21 05/14/21 05/14/21 18:59 06:59 18:59 Intake Total 1700 Balance 1700 Intake: Intake, IV Titration 1500 Amount Sodium Chloride 0.9% 1, 1500 000 ml @ 125 mls/hr IV . Q8H [facility] Rx#:[id number] Oral 200 Other: # Voids 2 3 - Labs CBC & Chem 7: 05/14/21 08:34 05/12/21 07:54 Labs: Abnormal Lab Results - Last 24 Hours (Table) 05/13/21 05/14/21 Range/Units 13:34 08:34 WBC 14.9 H (3.8-10.6) k/uL RBC 3.09 L (3.80-5.40) m/uL Hgb 7.9 L D (11.4-16.0) gm/dL Hct 24.9 L (34.0-46.0) % RDW 20.4 H (11.5-15.5) % Urine Blood Small H (Negative) Urine Mucus Rare H (None) /hpf
[2021-05-14 14:28] LABS: Anisocytosis Moderate; Basophils % (A) 0 %; Eosinophils # (A) 0.3 k/uL (0-0.7); Eosinophils % (A) 2 %; HCT 25.8 % (34.0-46.0); HGB 8.2 gm/dL (11.4-16.0); Hypochromasia Slight; Lymphocytes # (A) 1.2 k/uL (1.0-4.8); Lymphocytes % (A) 8 %; MCH 25.4 pg (25.0-35.0); MCHC 31.6 g/dL (31.0-37.0); MCV 80.3 fL (80.0-100.0); Mean Platelet Volume 7.2; Microcytosis Slight; Monocytes # (A) 1.2 k/uL (0-1.0); Monocytes % (A) 8 %; Neutrophils # (A) 11.5 k/uL (1.3-7.7); Neutrophils % (A) 80 %; Platelet Count 300 k/uL (150-450); RBC 3.21 m/uL (3.80-5.40); RDW 20.4 % (11.5-15.5); WBC 14.5 k/uL (3.8-10.6)
[2021-05-14 14:45] LABS: ALT 16 U/L (4-34); AST 33 U/L (14-36); African American GFR (CKD) >90 (>60 ml/min/1.73 sqM); Albumin 2.9 g/dL (3.5-5.0); Alkaline Phosphatase 121 U/L (38-126); Anion Gap 7 mmol/L; Blood Urea Nitrogen <2 mg/dL (7-17); Carbon Dioxide 22 mmol/L (22-30); Chloride 103 mmol/L (98-107); Glucose 94 mg/dL (74-99); Lipase 114 U/L (23-300); Non-African American GFR(CKD) >90 (>60 ml/min/1.73 sqM); Potassium 3.3 mmol/L (3.5-5.1); Sodium 132 mmol/L (137-145); Total Bilirubin 1.1 mg/dL (0.2-1.3); Total Protein 5.5 g/dL (6.3-8.2)
--- NOTE | 2021-05-14 16:27 | CT ---
EXAMINATION TYPE: CT abdomen pelvis wo con DATE OF EXAM: 05/14/2021 COMPARISON: 05/10/2021 HISTORY: 40-year-old female with abdominal pain CT DLP: 587 mGycm. Automated exposure control for dose reduction was used. TECHNIQUE: Contiguous axial scanning of the abdomen and pelvis without IV contrast. Coronal and sagit juan reconstructions performed. FINDINGS: Heart is normal size without pericardial effusion. Trace left effusion and mild dependent atelectasis now present. Tiny hiatal hernia. Postsurgical change of Daniele-en-Y gastric bypass. We note some oral contrast has passed into the excluded portion of the stomach. Periportal edema likely due to aggressive fluid hydration. No abnormal gallbladder distention. Limited assessment of the adrenal glands. Kidneys show no hydronephrosis. Spleen within normal limits . Redemonstrated poor delineation of the pancreas weight peripancreatic fat stranding centered at the b silvio of the pancreas. Fluid tracking up and down along the left retroperitoneum has increased now measuring up to 2.7 cm 9 mm, previously. Inferiorly along the paracolic gutter now measuring up to 3.4 cm thick versus 1.3 cm, previously. Focal hypodensity at the level of the pancreatic neck measuring 2.0 cm, axial image 23. Some mildly distended small bowel loops in the left side of the abdomen measuring up to 3.2 cm probab ly due to an ileus. Oral contrast progressed to the rectum. Uterus anteverted. Bladder nondistended. Both ovaries are visualized. Increasing, now moderate cul-de -sac ascites. Bones: No osseous destructive process. IMPRESSION: 1. Correlate for ongoing acute pancreatitis. There is a vague 2.0 cm hypodensity at the level of the pancreatic neck that could represent developing area of acute necrotic collection of fluid. 2. Worsening retroperitoneal inflammation and retroperitoneal fluid tracking down the left side of t he abdomen now with moderate pelvic ascites. 3. Status post Daniele-en-Y gastric bypass. However, we note a small amount of oral contrast to be loca sharon within the excluded portion of the stomach. Further clinical correlation recommended. 4. Mild generalized small bowel ileus.
[2021-05-14] MEDS: ACETAMINOPHEN TAB 325 MG TAB PO PRN (16:45)
[2021-05-14] MEDS: ENOXAPARIN 40 MG/0.4 ML SYRINGE SQ SCH (17:59)
--- NOTE | 2021-05-14 19:01 | P.PN ---
Subjective Progress Note Date: 05/14/21 (Delayed charting. Seen once at 9:30 AM and once at 3 PM) Principal diagnosis: abdominal pain The patient is a 40-year-old female with Daniele-en-Y gastric bypass, recurrent episodes of pancreatitis, mild intermittent asthma, hypothyroidism, and GERD who presented to the emergency room for abdominal pain. In the ER she underwent an extensive evaluation. She was found have an elevated lipase of 9824. She underwent a CT abdomen and pelvis which demonstrated retroperitoneal fluid around the pancreas and in the anterior pararenal space related to acute pancreatitis as well as free fluid in the right paracolic gutter. She was initially made nothing by mouth, started on pain management, IV fluids. Surgery was consulted. Gallbladder ultrasound was ordered which showed normal gallbladder wall and negative Singer's sign. She started to spike fevers on 05/12. Urinalysis and chest x-ray were unremarkable. Patient seen and examined at bedside. General: non toxic, mild distress due to pain, appears at stated age Derm: warm, dry Head: atraumatic, normocephalic, symmetric Eyes: EOMI, no lid lag, anicteric sclera Mouth: no lip lesion, mucus membranes moist Cardiovascular: S1S2 reg, no murmur, positive posterior tibial pulse bilateral, Lungs: CTA bilateral, no rhonchi, no rales , no accessory muscle use Abdominal: soft, tender to palpation diffusely, + guarding, no appreciable organomegaly Ext: no gross muscle atrophy, no edema, no contractures Neuro: CN II-XI grossly intact, no focal neuro deficits Psych: Alert, oriented, appropriate affect Pancreatitis, necrotizing with fluid collection Ascites, related to fluid resuscitation and low albumin state Inflammation in the left retroperitoneal space likely related to pancreatitis -Continue a full liquid diet -Surgery recreations appreciated -IV fluids -Pain control -We'll hold off the diet to ensure that her fluid collection is no longer increasing. Monitor fevers closely. Most likely sterile fluid collection and no indication for IV antibiotics. -Continue to monitor closely -Initial abdominal ultrasound that did not show any fluid collection on the pancreas, atrophic gallbladder, borderline dilated common bile duct -Patient then underwent repeat computed tomography scan which showed a 2 cm area of necrotizing fluid collection as well as increased fluid in the left retroperitoneal space with fluid tracking on the left side of the abdomen, mild generalized small bowel ileus Pyrexia -Undetermined etiology likely related to pancreatitis -C BAL RSV, influenza A and B-negative -Check chest x-ray which was reviewed and was without significant pneumonia. -Continue to monitor GERD -PPI DVT prophylaxis: Patient does not want injections, she has been up and walking Discussed with: Patient Anticipated discharge date: 3-[address]: Home Objective - Vital Signs Vital signs: Vital Signs Temp 98.3 F 05/14/21 18:22 Pulse 107 H 05/14/21 16:41 Resp 18 05/14/21 16:41 BP 134/85 05/14/21 13:00 Pulse Ox 95 05/14/21 16:41 Intake & Output 05/13/21 05/14/21 05/14/21 18:59 06:59 18:59 Intake Total 1700 Balance 1700 Intake: Intake, IV Titration 1500 Amount Sodium Chloride 0.9% 1, 1500 000 ml @ 125 mls/hr IV . Q8H [facility] Rx#:[id number] Oral 200 Other: # Voids 2 3 1 - Labs CBC & Chem 7: 05/14/21 14:10 05/14/21 14:10 Labs: Abnormal Lab Results - Last 24 Hours (Table) 05/14/21 05/14/21 05/14/21 Range/Units 08:34 14:10 14:10 WBC 14.9 H 14.5 H (3.8-10.6) k/uL RBC 3.09 L 3.21 L (3.80-5.40) m/uL Hgb 7.9 L D 8.2 L (11.4-16.0) gm/dL Hct 24.9 L 25.8 L (34.0-46.0) % RDW 20.4 H 20.4 H (11.5-15.5) % Neutrophils # 11.5 H (1.3-7.7) k/uL Monocytes # 1.2 H (0-1.0) k/uL Sodium 132 L (137-145) mmol/L Potassium 3.3 L (3.5-5.1) mmol/L BUN <2 L (7-17) mg/dL Creatinine 0.32 L (0.52-1.04) mg/dL Calcium 8.0 L (8.4-10.2) mg/dL Total Protein 5.5 L (6.3-8.2) g/dL Albumin 2.9 L (3.5-5.0) g/dL
[2021-05-14] MEDS: MELATONIN 3 MG TABLET PO SCH (20:51)
[2021-05-14] MEDS: HYDROcodone/APAP 7.5-325MG 1 EACH TAB PO PRN (20:52)
[2021-05-14] MEDS: LACTATED RINGERS 1,000 ML IV SCH (22:13)
[2021-05-14] MEDS ORDERED: diphenhydrAMINE 50 MG/ML 1 ML VIAL IVP PRN ×2 (22:22→22:25)
[2021-05-15] MEDS: HYDROmorphone 1 MG/ML 1 ML SYRINGE IVP PRN ×7 (00:51→21:25)
[2021-05-15] MEDS: LACTATED RINGERS 1,000 ML IV SCH ×3 (03:43→18:11)
[2021-05-15] MEDS: HYDROcodone/APAP 7.5-325MG 1 EACH TAB PO PRN ×4 (03:44→22:32)
[2021-05-15] MEDS: PANTOPRAZOLE 40 MG TABLET PO SCH (05:52)
[2021-05-15] MEDS: ONDANSETRON 4 MG/2 ML VIAL IVP PRN ×2 (07:19→15:09)
[2021-05-15] MEDS: ENOXAPARIN 40 MG/0.4 ML SYRINGE SQ SCH (08:17)
[2021-05-15] MEDS: SIMETHICONE 40 MG/0.6 ML DROPS 2,000 MG/30 ML BOTTLE PO SCH ×5 (08:17→20:31)
[2021-05-15] MEDS: NICOTINE 21MG/24HR PATCH TRANSDERM SCH (08:18)
[2021-05-15] MEDS: DICLOFENAC SODIUM GEL 100 GM TUBE TOPICAL SCH ×3 (08:18→18:11)
[2021-05-15] MEDS ORDERED: KETOROLAC 15 MG/ML 1 ML VIAL IVP STA (08:37)
--- NOTE | 2021-05-15 09:01 | P.PN ---
Subjective Progress Note Date: 05/15/21 Hospital Course: The patient is a 40-year-old female with a past medical history of Daniele-en-Y gastric bypass, recurrent episodes of pancreatitis, mild intermittent asthma, hypothyroidism, and GERD who presented to the emergency room for abdominal pain. In the ER she underwent an extensive evaluation. She was found have an elevated lipase of 9824. She underwent a CT abdomen and pelvis which demonstrated retroperitoneal fluid around the pancreas and in the anterior pararenal space related to acute pancreatitis as well as free fluid in the right paracolic gutter. She was initially made nothing by mouth, started on pain management, IV fluids. Surgery was consulted. Gallbladder ultrasound was ordered which showed normal gallbladder wall and negative Singer's sign. She started to spike fevers on 05/12. Urinalysis and chest x-ray were unremarkable. Physical Exam: Patient seen and fully evaluated at the bedside this morning. She reports worsening pain to left flank and left side. Lamb and [place]'s sign negative. Vital signs stable, patient continues to have pyrexia, likely secondary to worsening pancreatitis. Highest temp 100.1F over the past [address] abdomen and pelvis completed yesterday afternoon correlates for ongoing acute pancreatitis with day 2.0 cm hypodensity at the level of the pancreatic neck possibly representing developing area of acute necrotic fluid collection, worsening retroperitoneal inflammation, and retroperitoneal fluid tracking down the left side of the abdomen now with moderate pelvic ascites, and mild generalized small bowel ileus. Patient denies any headache, lightheadedness, dizziness, chest pain, palpitations, or shortness of breath. Patient does report pain in left flank upon taking a deep breath. Retroperitoneal tenderness. Patient denies any nausea or vomiting. General surgery following, appreciate further recommendations. Patient seen and examined at bedside. General: non toxic, mild distress due to pain, appears at stated age Derm: warm, dry. Negative [place]'s and [place]: atraumatic, normocephalic, symmetric Eyes: EOMI, no lid lag, anicteric sclera Mouth: no lip lesion, mucus membranes moist Cardiovascular: S1S2 reg, no murmur, positive posterior tibial pulse bilateral, Lungs: CTA bilateral, no rhonchi, no rales , no accessory muscle use Abdominal: soft, tender to palpation diffusely, + guarding, retroperitoneal tenderness. no appreciable organomegaly Ext: no gross muscle atrophy, no edema, no contractures Neuro: CN II-XI grossly intact, no focal neuro deficits Psych: Alert, oriented, appropriate affect Assessment and Plan of Care: Pancreatitis, necrotizing with fluid collection Ascites, related to fluid resuscitation and low albumin state Inflammation in the left retroperitoneal space likely related to pancreatitis -Continue a low fat full liquid diet -Surgery following, appreciate further recommendations. -IV fluids -Pain control -We will hold off on advancing the diet to ensure that her fluid collection is n o longer increasing. Monitor fevers closely. Most likely sterile fluid collection and no indication for IV antibiotics.. -Repeat CT abdomen and pelvis completed yesterday afternoon correlates for on going acute pancreatitis with a vague 2.0 cm hypodensity at the level of the pancreatic neck possibly representing developing area of acute necrotic collection of fluid, worsening retroperitoneal inflammation and retroperitoneal fluid tracking down the left side of the abdomen now with moderate pelvic ascites, and mild generalized small bowel ileus. -Continue to monitor closely -Initial abdominal ultrasound that did not show any fluid collection on the pancreas, atrophic gallbladder, borderline dilated common bile duct -Patient then underwent repeat computed tomography scan which showed a 2 cm area of necrotizing fluid collection as well as increased fluid in the left retroperitoneal space with fluid tracking on the left side of the abdomen, mild generalized small bowel ileus Pyrexia -Undetermined etiology likely related to acute pancreatitis, highest temp 100.1F over the past 24 hours -COVID, RSV, influenza A and B-negative -Check chest x-ray which was reviewed and was without significant pneumonia. -Continue to monitor GERD -PPI DVT prophylaxis: Lovenox ordered, Patient does not want injections, she has been up and walking Discussed with: Patient Anticipated discharge date: Clinical course to determine. Anticipated discharge place: Home Objective - Vital Signs Vital signs: Vital Signs Temp 98.8 F 05/15/21 01:46 Pulse 105 H 05/15/21 01:46 Resp 18 05/15/21 01:46 BP 133/82 05/15/21 01:46 Pulse Ox 100 05/15/21 01:46 Intake & Output 05/14/21 05/15/21 05/15/21 18:59 06:59 18:59 Intake Total 1375 Balance 1375 Intake: Intake, IV Titration 1375 Amount Lactated Ringers 1,000 ml 1000 @ 125 mls/hr IV .Q8H [facility] Rx#:[id number] Sodium Chloride 0.9% 1, 375 000 ml @ 125 mls/hr IV . Q8H [facility] Rx#:[id number] Other: Voiding Method Toilet # Voids 1 2 - Labs CBC & Chem 7: 05/14/21 14:10 05/14/21 14:10 Labs: Abnormal Lab Results - Last 24 Hours (Table) 05/14/21 05/14/21 05/14/21 Range/Units 08:34 14:10 14:10 WBC 14.9 H 14.5 H (3.8-10.6) k/uL RBC 3.09 L 3.21 L (3.80-5.40) m/uL Hgb 7.9 L D 8.2 L (11.4-16.0) gm/dL Hct 24.9 L 25.8 L (34.0-46.0) % RDW 20.4 H 20.4 H (11.5-15.5) % Neutrophils # 11.5 H (1.3-7.7) k/uL Monocytes # 1.2 H (0-1.0) k/uL Sodium 132 L (137-145) mmol/L Potassium 3.3 L (3.5-5.1) mmol/L BUN <2 L (7-17) mg/dL Creatinine 0.32 L (0.52-1.04) mg/dL Calcium 8.0 L (8.4-10.2) mg/dL Total Protein 5.5 L (6.3-8.2) g/dL Albumin 2.9 L (3.5-5.0) g/dL
--- NOTE | 2021-05-15 14:19 | P.PN ---
Subjective Progress Note Date: 05/15/21 CHIEF COMPLAINT: Pancreatitis HISTORY OF PRESENT ILLNESS: The patient is a 40-year-old female admitted due to recurrent pancreatitis. She's had multiple hospitalizations for similar. She reports her pain has improved with oral narcotics. She report no structured gastric bypass follow-up since 2012. She is laying comfortably. She was able to sleep last night. ROS: No fevers or chills. No new chest pain. No productive sputum. History of gastric bypass with history of ulcers. She smokes PHYSICAL EXAM: VITAL SIGNS: Reviewed CONSTITUTIONAL: Well developed and in no acute distress. EYES: Conjuctivae without sclera icterus. Extraocular movements grossly intact. HEAD, EARS, NOSE, THROAT: Moist buccal mucosa. Head is atraumatic, normocephalic. Hears conversational speech. No nasal drainage. NECK: No gross thyroidomegaly. No jugular venous distention. RESPIRATORY: Non-labored respirations and equal bilateral excursions. CARDIOVASCULAR: Palpable 2+ radial pulses. ABDOMEN: No peritonitis. MUSCULOSKELETAL: No gross deformity of the lower extremities noted. No clubbing. No cyanosis. SKIN: Good skin turgor. Well perfused. NEUROLOGIC: Cranial nerves II through XII grossly intact. No focal or lateralizing signs. PSYCH: Appropriate affect. Alert and oriented to person, place and time. CLINICAL LABS: Reviewed. White blood cell count elevated 14,000. Lipase normal. Creatinine 0.3 STUDIES: CT of the abdomen and pelvis without contrast reviewed with inflammation at the head and tail of the pancreas. This is my independent interpretation. Imaging severely limited without contrast ASSESSMENT: 1. Acute pancreatitis 2. Iodinated contrast ALLERGY 3. Tobacco disorder. PLAN: 1. Recommend decreased diet due to severe pancreatitis 2. With her gastric bypass, change diet to bariatric clears. 3. Tobacco cessation reviewed. Objective - Vital Signs Vital signs: Vital Signs Temp 98.6 F 05/15/21 08:12 Pulse 98 05/15/21 08:12 Resp 20 05/15/21 08:12 BP 128/81 05/15/21 08:12 Pulse Ox 98 05/15/21 08:12 Intake & Output 05/14/21 05/15/21 05/15/21 18:59 06:59 18:59 Intake Total 1375 Balance 1375 Intake: Intake, IV Titration 1375 Amount Lactated Ringers 1,000 ml 1000 @ 125 mls/hr IV .Q8H SHIRA Rx#:[id number] Sodium Chloride 0.9% 1, 375 000 ml @ 125 mls/hr IV . Q8H SHIRA Rx#:[id number] Other: Voiding Method Toilet # Voids 1 2 - Labs CBC & Chem 7: 05/14/21 14:10 05/14/21 14:10 Labs: Abnormal Lab Results - Last 24 Hours (Table) 05/14/21 05/14/21 Range/Units 14:10 14:10 WBC 14.5 H (3.8-10.6) k/uL RBC 3.21 L (3.80-5.40) m/uL Hgb 8.2 L (11.4-16.0) gm/dL Hct 25.8 L (34.0-46.0) % RDW 20.4 H (11.5-15.5) % Neutrophils # 11.5 H (1.3-7.7) k/uL Monocytes # 1.2 H (0-1.0) k/uL Sodium 132 L (137-145) mmol/L Potassium 3.3 L (3.5-5.1) mmol/L BUN <2 L (7-17) mg/dL Creatinine 0.32 L (0.52-1.04) mg/dL Calcium 8.0 L (8.4-10.2) mg/dL Total Protein 5.5 L (6.3-8.2) g/dL Albumin 2.9 L (3.5-5.0) g/dL Assessment and Plan (1) Gastric bypass status for obesity Current Visit: Yes Status: Acute Code(s): Z98.84 - BARIATRIC SURGERY STATUS SNOMED Code(s): 285006414 (2) Acute pancreatitis Current Visit: Yes Status: Acute Code(s): K85.90 - ACUTE PANCREATITIS WITHOUT NECROSIS OR INFECTION, UNSP SNOMED Code(s): 797061892
[2021-05-15] MEDS: ACETAMINOPHEN TAB 325 MG TAB PO PRN (20:30)
[2021-05-15] MEDS: MELATONIN 3 MG TABLET PO SCH (20:33)
[2021-05-15] MEDS ORDERED: diphenhydrAMINE 25 MG CAP PO STA (21:19)
[2021-05-16] MEDS: HYDROmorphone 1 MG/ML 1 ML SYRINGE IVP PRN ×8 (00:35→23:22)
[2021-05-16] MEDS: ACETAMINOPHEN TAB 325 MG TAB PO PRN (04:11)
[2021-05-16] MEDS: DICLOFENAC SODIUM GEL 100 GM TUBE TOPICAL SCH ×5 (04:12→20:45)
[2021-05-16] MEDS: ONDANSETRON 4 MG/2 ML VIAL IVP PRN (05:28)
[2021-05-16] MEDS: SIMETHICONE 40 MG/0.6 ML DROPS 2,000 MG/30 ML BOTTLE PO SCH ×4 (05:29→23:26)
[2021-05-16 06:53] LABS: Anisocytosis Moderate; HCT 24.2 % (34.0-46.0); HGB 7.5 gm/dL (11.4-16.0); Hypochromasia Moderate; MCH 25.4 pg (25.0-35.0); MCHC 30.9 g/dL (31.0-37.0); MCV 82.2 fL (80.0-100.0); Mean Platelet Volume 7.2; Microcytosis Slight; Platelet Count 308 k/uL (150-450); RBC 2.94 m/uL (3.80-5.40); RDW 20.3 % (11.5-15.5); WBC 11.7 k/uL (3.8-10.6)
[2021-05-16] MEDS: PANTOPRAZOLE 40 MG TABLET PO SCH (07:03)
[2021-05-16 07:05] LABS: ALT 15 U/L (4-34); AST 28 U/L (14-36); African American GFR (CKD) >90 (>60 ml/min/1.73 sqM); Albumin 2.6 g/dL (3.5-5.0); Alkaline Phosphatase 100 U/L (38-126); Anion Gap 8 mmol/L; Blood Urea Nitrogen <2 mg/dL (7-17); Calcium 8.4 mg/dL (8.4-10.2); Carbon Dioxide 24 mmol/L (22-30); Chloride 104 mmol/L (98-107); Glucose 83 mg/dL (74-99); Lipase 66 U/L (23-300); Magnesium 1.5 mg/dL (1.6-2.3); Non-African American GFR(CKD) >90 (>60 ml/min/1.73 sqM); Potassium 3.5 mmol/L (3.5-5.1); Sodium 136 mmol/L (137-145); Total Bilirubin 0.7 mg/dL (0.2-1.3); Total Protein 5.3 g/dL (6.3-8.2)
[2021-05-16] MEDS: LACTATED RINGERS 1,000 ML IV SCH ×3 (07:22→18:03)
[2021-05-16] MEDS: NICOTINE 21MG/24HR PATCH TRANSDERM SCH (08:25)
[2021-05-16] MEDS: ENOXAPARIN 40 MG/0.4 ML SYRINGE SQ SCH (08:25)
[2021-05-16] MEDS: HYDROcodone/APAP 7.5-325MG 1 EACH TAB PO PRN ×3 (08:25→20:41)
--- NOTE | 2021-05-16 11:21 | P.PN ---
Subjective Progress Note Date: 05/16/21 Hospital Course: The patient is a 40-year-old female with a past medical history of Daniele-en-Y gastric bypass, recurrent episodes of pancreatitis, mild intermittent asthma, hypothyroidism, and GERD who presented to the emergency room for abdominal pain. In the ER she underwent an extensive evaluation. She was found have an elevated lipase of 9824. She underwent a CT abdomen and pelvis which demonstrated retroperitoneal fluid around the pancreas and in the anterior pararenal space related to acute pancreatitis as well as free fluid in the right paracolic gutter. She was initially made nothing by mouth, started on pain management, IV fluids. Surgery was consulted. Gallbladder ultrasound was ordered which showed normal gallbladder wall and negative Singer's sign. She started to spike fevers on 05/12. Urinalysis and chest x-ray were unremarkable. CT abdomen and pelvis completed 05/14/21 correlates for ongoing acute pancreatitis with a vague 2.0 cm hypodensity at the level of the pancreatic neck possibly representing developing area of acute necrotic collection of fluid, worsening retroperitoneal inflammation and retroperitoneal fluid tracking down the left side of the abdomen now with moderate pelvic ascites, and mild generalized small bowel ileus. Physical Exam: Patient seen and fully evaluated at the bedside. She continues to report left- sided abdominal and flank pain. She states nausea is under control and denies any episodes of vomiting. After discussion with Dr. Diego yesterday regarding CT findings of ongoing acute pancreatitis and possible developing area of acute necrotic fluid collection with worsening retroperitoneal inflammation and moderate pelvic ascites, orders were placed to decrease diet back to clear liquid bariatric diet and continue to monitor with no futher recommendations at this time. Patient continues to deny any headache, lightheadedness, dizziness, c hest pain, palpitations, or shortness of breath. Morning labs reveal improving leukocytosis with WBC count of 11.7 and slightly worsening anemia with hemoglobin of 7.5. Magnesium resulting at 1.5, orders place for 3 g magnesium IVPB for replacement. Patient seen and examined at bedside. General: non toxic, mild distress due to pain, appears at stated age Derm: warm, dry. Negative Tio's and [place]: atraumatic, normocephalic, symmetric Eyes: EOMI, no lid lag, anicteric sclera Mouth: no lip lesion, mucus membranes moist Cardiovascular: S1S2 reg, no murmur, positive posterior tibial pulse bilateral, Lungs: CTA bilateral, no rhonchi, no rales , no accessory muscle use Abdominal: soft, tender to palpation diffusely, + guarding, retroperitoneal tenderness. no appreciable organomegaly Ext: no gross muscle atrophy, no edema, no contractures Neuro: CN II-XI grossly intact, no focal neuro deficits Psych: Alert, oriented, appropriate affect Assessment and Plan of Care: Pancreatitis, necrotizing with fluid collection Ascites, related to fluid resuscitation and low albumin state Inflammation in the left retroperitoneal space likely related to pancreatitis -Diet decreased to Bariatric clear liquid secondary to ongoing acute pancreatitis. -Surgery following, appreciate further recommendations. -Continue IV fluids -Pain control -Monitor fevers closely. Most likely sterile fluid collection and no indication for IV antibiotics.. -Repeat CT abdomen and pelvis completed 05/14/21 correlates for ongoing acute pancreatitis with a vague 2.0 cm hypodensity at the level of the pancreatic neck possibly representing developing area of acute necrotic collection of fluid, worsening retroperitoneal inflammation and retroperitoneal fluid tracking down the left side of the abdomen now with moderate pelvic ascites, and mild generalized small bowel ileus. -Continue to monitor closely -Initial abdominal ultrasound that did not show any fluid collection on the pancreas, atrophic gallbladder, borderline dilated common bile duct -Patient then underwent repeat computed tomography scan which showed a 2 cm area of necrotizing fluid collection as well as increased fluid in the left retroperitoneal space with fluid tracking on the left side of the abdomen, mild generalized small bowel ileus Pyrexia -Undetermined etiology likely related to acute pancreatitis, highest temp 100.4F over the past 24 hours -COVID, RSV, influenza A and B-negative -Chest x-ray negative for acute cardiopulmonary process -Continue to monitor -Symptomatic care and pain management with Tylenol when necessary for fever. -Leukocytosis improving Leukocytosis improving Acute Anemia of unclear etiology -Possibly multifactorial due to ongoing acute pancreatitis as well as diuresis due to persistent agressive IV fluid hydration. -Pt Denies any noted bleeding and no bruising noted. -Hgb 7.5, we will continue to monitor closely with repeat a.m. labs. -Telemetry monitoring. Hyomagnesemia -Magnesium resulting at 1.5, orders place for 3 g magnesium IVPB for replacement. -We will continue to monitor with repeat a.m. labs and replace abnormal electrolyte values as needed. GERD -PPI DVT prophylaxis: Lovenox ordered, Patient does not want injections, she has been up and walking Discussed with: Patient and RN Anticipated discharge date: Clinical course to determine. Anticipated discharge place: Home Objective - Vital Signs Vital signs: Vital Signs Temp 98.4 F 05/16/21 07:17 Pulse 90 05/16/21 07:17 Resp 18 05/16/21 07:17 BP 120/72 05/16/21 07:17 Pulse Ox 97 05/16/21 07:17 Intake & Output 05/15/21 05/16/21 05/16/21 18:59 06:59 18:59 Intake Total 2790 60 Balance 2790 60 Intake: Intake, IV Titration 1250 Amount Lactated Ringers 1,000 ml 1250 @ 125 mls/hr IV .Q8H SHIRA Rx#:[id number] Oral 1540 60 Other: # Voids 1 2 - Labs CBC & Chem 7: 05/16/21 06:30 05/16/21 06:30 Labs: Abnormal Lab Results - Last 24 Hours (Table) 05/16/21 05/16/21 Range/Units 06:30 06:30 WBC 11.7 H (3.8-10.6) k/uL RBC 2.94 L (3.80-5.40) m/uL Hgb 7.5 L (11.4-16.0) gm/dL Hct 24.2 L (34.0-46.0) % MCHC 30.9 L (31.0-37.0) g/dL RDW 20.3 H (11.5-15.5) % Sodium 136 L (137-145) mmol/L BUN <2 L (7-17) mg/dL Creatinine 0.35 L (0.52-1.04) mg/dL Magnesium 1.5 L (1.6-2.3) mg/dL Total Protein 5.3 L (6.3-8.2) g/dL Albumin 2.6 L (3.5-5.0) g/dL
[2021-05-16] MEDS: MAGNESIUM SULFATE-D5W PMX 1 GM in DEXTROSE/WATER 1 100ML.BAG IVPB SCH ×3 (12:02→14:14)
--- NOTE | 2021-05-16 15:18 | P.PN ---
Subjective Progress Note Date: 05/16/21 CHIEF COMPLAINT: Pancreatitis HISTORY OF PRESENT ILLNESS: The patient is a 40-year-old female admitted due to recurrent pancreatitis. She reports worsening abdominal pain now along the right upper right lower abdomen. She demonstrates new rash along the right side of her abdomen. She has complaints of her pain management. ROS: No fevers or chills. No new chest pain. No productive sputum. History of gastric bypass with history of ulcers. She smokes PHYSICAL EXAM: VITAL SIGNS: Reviewed CONSTITUTIONAL: Well developed and in no acute distress. EYES: Conjuctivae without sclera icterus. Extraocular movements grossly intact. HEAD, EARS, NOSE, THROAT: Moist buccal mucosa. Head is atraumatic, normocephalic. Hears conversational speech. No nasal drainage. NECK: No gross thyroidomegaly. No jugular venous distention. RESPIRATORY: Non-labored respirations and equal bilateral excursions. CARDIOVASCULAR: Palpable 2+ radial pulses. ABDOMEN: Minimal distention. No gross peritonitis. MUSCULOSKELETAL: No gross deformity of the lower extremities noted. No clubbing. No cyanosis. SKIN: Maculopapular rash along the right upper right lower abdomen. NEUROLOGIC: Cranial nerves II through XII grossly intact. No focal or lateralizing signs. PSYCH: Appropriate affect. Alert and oriented to person, place and time. CLINICAL LABS: Reviewed. White blood cell count elevated 14,000 down to over 11,000. ASSESSMENT: 1. Acute pancreatitis 2. Iodinated contrast ALLERGY 3. Tobacco disorder. PLAN: 1. Recommend nothing by mouth except ice chips and popsicles due to her incre ased abdominal pain. 2. Conservative management Objective - Vital Signs Vital signs: Vital Signs Temp 98.4 F 05/16/21 07:17 Pulse 90 05/16/21 07:17 Resp 18 05/16/21 07:17 BP 120/72 05/16/21 07:17 Pulse Ox 97 05/16/21 07:17 Intake & Output 05/15/21 05/16/21 05/16/21 18:59 06:59 18:59 Intake Total 2790 60 Balance 2790 60 Intake: Intake, IV Titration 1250 Amount Lactated Ringers 1,000 ml 1250 @ 125 mls/hr IV .Q8H SHIRA Rx#:[id number] Oral 1540 60 Other: # Voids 1 2 - Labs CBC & Chem 7: 05/16/21 06:30 05/16/21 06:30 Labs: Abnormal Lab Results - Last 24 Hours (Table) 05/16/21 05/16/21 Range/Units 06:30 06:30 WBC 11.7 H (3.8-10.6) k/uL RBC 2.94 L (3.80-5.40) m/uL Hgb 7.5 L (11.4-16.0) gm/dL Hct 24.2 L (34.0-46.0) % MCHC 30.9 L (31.0-37.0) g/dL RDW 20.3 H (11.5-15.5) % Sodium 136 L (137-145) mmol/L BUN <2 L (7-17) mg/dL Creatinine 0.35 L (0.52-1.04) mg/dL Magnesium 1.5 L (1.6-2.3) mg/dL Total Protein 5.3 L (6.3-8.2) g/dL Albumin 2.6 L (3.5-5.0) g/dL Assessment and Plan (1) Gastric bypass status for obesity Current Visit: Yes Status: Acute Code(s): Z98.84 - BARIATRIC SURGERY STATUS SNOMED Code(s): 859377664 (2) Acute pancreatitis Current Visit: Yes Status: Acute Code(s): K85.90 - ACUTE PANCREATITIS WITHOUT NECROSIS OR INFECTION, UNSP SNOMED Code(s): 804708249
[2021-05-16] MEDS ORDERED: diphenhydrAMINE 50 MG CAP PO STA (20:27)
[2021-05-16] MEDS: MELATONIN 3 MG TABLET PO SCH (20:45)
[2021-05-17] MEDS: HYDROmorphone 1 MG/ML 1 ML SYRINGE IVP PRN ×6 (03:01→21:21)
[2021-05-17] MEDS: LACTATED RINGERS 1,000 ML IV SCH ×3 (03:28→17:15)
[2021-05-17] MEDS: ONDANSETRON 4 MG/2 ML VIAL IVP PRN (04:09)
[2021-05-17] MEDS: HYDROcodone/APAP 7.5-325MG 1 EACH TAB PO PRN ×4 (04:10→23:03)
[2021-05-17] MEDS: PANTOPRAZOLE 40 MG TABLET PO SCH (07:46)
[2021-05-17] MEDS: DICLOFENAC SODIUM GEL 100 GM TUBE TOPICAL SCH ×4 (07:49→22:49)
[2021-05-17] MEDS: ENOXAPARIN 40 MG/0.4 ML SYRINGE SQ SCH (07:49)
[2021-05-17 09:11] LABS: African American GFR (CKD) 148.9 (60.0-200.0); Albumin 2.8 g/dL (3.8-4.9); Albumin/Globulin Ratio 1.33 (1.60-3.17); Anion Gap 15.7 mmol/L (4.00-12.00); BUN/Creat Ratio 5.75 Ratio (12.00-20.00); Blood Urea Nitrogen 2.3 mg/dL (9.0-27.0); Calcium 7.9 mg/dL (8.7-10.3); Carbon Dioxide 20.3 mmol/L (21.6-31.8); Globulin 2.1 g/dL (1.6-3.3); Magnesium 1.9 mg/dL (1.5-2.4); Non-African American GFR(CKD) 128.5 (60.0-200.0); Potassium 3.6 mmol/L (3.5-5.5); Total Bilirubin 0.5 mg/dL (0.30-1.20); Total Protein 4.9 g/dL (6.2-8.2)
[2021-05-17] MEDS: NICOTINE 21MG/24HR PATCH TRANSDERM SCH (09:50)
[2021-05-17] MEDS: SIMETHICONE 40 MG/0.6 ML DROPS 2,000 MG/30 ML BOTTLE PO SCH ×4 (09:51→22:49)
[2021-05-17 10:19] LABS: HCT 22.6 % (37.2-46.3); HGB 6.8 g/dL (12.0-15.0); MCH 23.9 pg (27.0-32.0); MCHC 30.1 g/dL (32.0-37.0); MCV 79.3 fL (80.0-97.0); Mean Platelet Volume 9.8 fL (9.5-12.2); Platelet Count 347 X 10*3/uL (140-440); RBC 2.85 X 10*6/uL (4.10-5.20); RDW 21.4 % (11.5-14.5); WBC 13.34 X 10*3/uL (4.50-10.00)
--- NOTE | 2021-05-17 13:37 | P.PN ---
Subjective Progress Note Date: 05/17/21 Principal diagnosis: pancreatitis Hospital Course: The patient is a 40-year-old female with a past medical history of Daniele-en-Y gastric bypass, recurrent episodes of pancreatitis, mild intermittent asthma, hypothyroidism, and GERD who presented to the emergency room for abdominal pain. In the ER she underwent an extensive evaluation. She was found have an elevated lipase of 9824. She underwent a CT abdomen and pelvis which demonstrated retroperitoneal fluid around the pancreas and in the anterior pararenal space related to acute pancreatitis as well as free fluid in the right paracolic gutter. She was initially made nothing by mouth, started on pain management, IV fluids. Surgery was consulted. Gallbladder ultrasound was ordered which showed normal gallbladder wall and negative Singer's sign. She started to spike fevers on 05/12. Urinalysis and chest x-ray were unremarkable. CT abdomen and pelvis completed 05/14/21 correlates for ongoing acute pancreatitis with a vague 2.0 cm hypodensity at the level of the pancreatic neck possibly representing developing area of acute necrotic collection of fluid, worsening retroperitoneal inflammation and retroperitoneal fluid tracking down the left side of the abdomen now with moderate pelvic ascites, and mild generalized small bowel ileus. 05/16 Developed rash on the truncal area, itchy, maculopapular with rare vesicles. She correlates that with the start on lovenox 2 days ago. No fevers or chills. Still with abdominal pain. Her hgb is going down but no signs of bleeding. No BMs as she has not been eating. Objective - Vital Signs Vital signs: Vital Signs Temp 98.4 F 05/17/21 07:00 Pulse 88 05/17/21 07:30 Resp 18 05/17/21 07:30 BP 106/72 05/17/21 07:00 Pulse Ox 95 05/17/21 07:00 Intake & Output 05/16/21 05/17/21 05/17/21 18:59 06:59 18:59 Intake Total 1050 500 Balance 1050 500 Intake: Intake, IV Titration 300 500 Amount Lactated Ringers 1,000 ml 500 @ 125 mls/hr IV .Q8H SHIRA Rx#:[id number] Magnesium Sulfate-D5w Pmx 300 1 gm In Dextrose/Water 1 100ml.bag @ 100 mls/hr IVPB Q1H SHIRA Rx#: [id number] Oral 750 Other: Voiding Method Toilet # Voids 2 1 - Exam Constitutional: No acute distress, conversant, pleasant Eyes:Anicteric sclerae, moist conjunctiva, no lid-lag, PERRLA, ENMT: Oropharynx clear, no erythema, exudates Neck: Supple, FROM, no masses, or JVD, No carotid bruits, No thyromegaly Lungs: Clear to auscultation, Clear to percussion, Normal respiratory effort, no accessory muscle use Cardiovascular: Heart regular in rate and rhythm, No murmurs, gallops, or rubs, No peripheral edema Abdominal: Soft, Nontender, no guarding, rebound or rigidity, Normoactive bowel sounds, No hepatomegaly, No splenomegaly, No palpable mass Skin: Rash on the truncal area. Normal temperature, tone, texture, turgor, no induration, No subcutaneous nodules, No rash, lesions, No ulcers Extremities: No digital cyanosis, No clubbing, Pedal pulses intact and symmetrical, Radial pulses intact and symmetrical, No calf tenderness Psychiatric: Alert and oriented to person, place and time, appropriate affect, intact judgement Neuro: Muscles Strength 5/5 in all 4 extremities, Sensation to light touch grossly present throughout, Cranial nerves II-XII grossly intact, no focal sensory deficits - Labs CBC & Chem 7: 05/17/21 03:12 05/17/21 03:12 Labs: Abnormal Lab Results - Last 24 Hours (Table) 05/17/21 05/17/21 Range/Units 03:12 03:12 WBC 13.34 H (4.50-10.00) X 10*3/uL RBC 2.85 L (4.10-5.20) X 10*6/uL Hgb 6.8 L* (12.0-15.0) g/dL Hct 22.6 L (37.2-46.3) % MCV 79.3 L (80.0-97.0) fL MCH 23.9 L (27.0-32.0) pg MCHC 30.1 L (32.0-37.0) g/dL RDW 21.4 H (11.5-14.5) % Carbon Dioxide 20.3 L (21.6-31.8) mmol/L Anion Gap 15.70 H (4.00-12.00) mmol/L BUN 2.3 L (9.0-27.0) mg/dL Creatinine 0.4 L (0.6-1.5) mg/dL BUN/Creatinine Ratio 5.75 L (12.00-20.00) Ratio Glucose 64 L (70-110) mg/dL Calcium 7.9 L (8.7-10.3) mg/dL Total Protein 4.9 L (6.2-8.2) g/dL Albumin 2.8 L (3.8-4.9) g/dL Albumin/Globulin Ratio 1.33 L (1.60-3.17) g/dL Assessment and Plan Plan: Pancreatitis, necrotizing with fluid collection Ascites, related to fluid resuscitation and low albumin state Inflammation in the left retroperitoneal space likely related to pancreatitis -Diet decreased to Bariatric clear liquid secondary to ongoing acute pancreatitis. -Surgery following, appreciate further recommendations. -Continue IV fluids -Pain control -Monitor fevers closely. Most likely sterile fluid collection and no indication for IV antibiotics.. -Repeat CT abdomen and pelvis completed 05/14/21 correlates for ongoing acute pancreatitis with a vague 2.0 cm hypodensity at the level of the pancreatic neck possibly representing developing area of acute necrotic collection of fluid, worsening retroperitoneal inflammation and retroperitoneal fluid tracking down the left side of the abdomen now with moderate pelvic ascites, and mild generalized small bowel ileus. -Continue to monitor closely -Initial abdominal ultrasound that did not show any fluid collection on the pancreas, atrophic gallbladder, borderline dilated common bile duct -Patient then underwent repeat computed tomography scan which showed a 2 cm area of necrotizing fluid collection as well as increased fluid in the left retroperitoneal space with fluid tracking on the left side of the abdomen, mild generalized small bowel ileus Acute on chronic normocytic anemia -No signs of bleeding, could be worsened by agressive IV fluid hydration -Will transfuse 1 unit, follow hgb in am. Skin rash: -Sec to lovenox, will hold -Benadryl prn Pyrexia -Undetermined etiology likely related to acute pancreatitis, highest temp 100.4F over the past 24 hours -COVID, RSV, influenza A and B-negative -Chest x-ray negative for acute cardiopulmonary process -Continue to monitor -Symptomatic care and pain management with Tylenol when necessary for fever. -Leukocytosis improving Leukocytosis improving Hyomagnesemia -Replaced GERD -PPI DVT prophylaxis: ambulatory, will d/c AC as she is low risk Discussed with: Patient and RN Anticipated discharge date: Clinical course to determine. Anticipated discharge place: Home
[2021-05-17] MEDS: diphenhydrAMINE 25 MG CAP PO PRN (13:55)
[2021-05-17 14:01] VITALS: BMI 19.5
--- NOTE | 2021-05-17 15:36 | P.PN ---
Subjective Progress Note Date: 05/17/21 CHIEF COMPLAINT: Pancreatitis HISTORY OF PRESENT ILLNESS: Patient has some minimal epigastric pain most of pain is located on the left flank and left abdomen. Patient does have a diffuse rash on the abdomen with blisters under the right breast and rash on the right side for back. She reports that the rash is pruritic. Denies any pain at the site of the rash. She is currently nothing by mouth. Patient did have a temp of 100.1 last night with some mild tachycardia of 106. WBC is up from 11.7 to 1 3.3 for hemoglobin is down at 6.8 platelets 347 sodium 137 potassium 3.6 BUN 2.3 and creatinine 0.4 Patient seen and examined with Dr. Doyle PHYSICAL EXAM: VITAL SIGNS: Reviewed. GENERAL: Well-developed in no acute distress. HEENT: No sclera icterus. Extraocular movements grossly intact. Moist buccal mucosa. Head is atraumatic, normocephalic. ABDOMEN: Soft. Nondistended. Tenderness with palpation of the left flank NEUROLOGIC: Alert and oriented. Cranial nerves II through XII grossly intact. ASSESSMENT: 1. Acute pancreatitis likely alcohol-related. No evidence of gallstones on u ltrasound 2. Necrotizing pancreatitis 3. Anemia PLAN: -No surgical intervention planned -Recommend consult with tertiary care center -Keep patient nothing by mouth except ice chips and popsicles -Encourage patient to ambulate -Alcohol cessation -Agree with transfusing 1 unit of blood for hemoglobin of 6.8 Physician Animal Keeper Head note has been reviewed by physician. Signing provider agrees with the documented findings, assessment, and plan of care. Objective - Vital Signs Vital signs: Vital Signs Temp 98.4 F 05/17/21 07:00 Pulse 88 05/17/21 07:30 Resp 18 05/17/21 07:30 BP 106/72 05/17/21 07:00 Pulse Ox 95 05/17/21 07:00 Intake & Output 05/16/21 05/17/21 05/17/21 18:59 06:59 18:59 Intake Total 1050 500 Balance 1050 500 Intake: Intake, IV Titration 300 500 Amount Lactated Ringers 1,000 ml 500 @ 125 mls/hr IV .Q8H SHIRA Rx#:[id number] Magnesium Sulfate-D5w Pmx 300 1 gm In Dextrose/Water 1 100ml.bag @ 100 mls/hr IVPB Q1H SHIRA Rx#: [id number] Oral 750 Other: Voiding Method Toilet # Voids 2 1 - Labs CBC & Chem 7: 05/17/21 03:12 05/17/21 03:12 Labs: Abnormal Lab Results - Last 24 Hours (Table) 05/17/21 05/17/21 Range/Units 03:12 03:12 WBC 13.34 H (4.50-10.00) X 10*3/uL RBC 2.85 L (4.10-5.20) X 10*6/uL Hgb 6.8 L* (12.0-15.0) g/dL Hct 22.6 L (37.2-46.3) % MCV 79.3 L (80.0-97.0) fL MCH 23.9 L (27.0-32.0) pg MCHC 30.1 L (32.0-37.0) g/dL RDW 21.4 H (11.5-14.5) % Carbon Dioxide 20.3 L (21.6-31.8) mmol/L Anion Gap 15.70 H (4.00-12.00) mmol/L BUN 2.3 L (9.0-27.0) mg/dL Creatinine 0.4 L (0.6-1.5) mg/dL BUN/Creatinine Ratio 5.75 L (12.00-20.00) Ratio Glucose 64 L (70-110) mg/dL Calcium 7.9 L (8.7-10.3) mg/dL Total Protein 4.9 L (6.2-8.2) g/dL Albumin 2.8 L (3.8-4.9) g/dL Albumin/Globulin Ratio 1.33 L (1.60-3.17) g/dL
[2021-05-17] MEDS ORDERED: KETOROLAC 15 MG/ML 1 ML VIAL IVP STA (21:11)
[2021-05-17] MEDS: MELATONIN 3 MG TABLET PO SCH (21:21)
[2021-05-18] MEDS: HYDROmorphone 1 MG/ML 1 ML SYRINGE IVP PRN ×6 (01:54→21:20)
[2021-05-18] MEDS: diphenhydrAMINE 25 MG CAP PO PRN ×2 (02:37→14:11)
[2021-05-18 03:25] LABS: Anisocytosis Moderate; Basophils # (A) 0.1 k/uL (0-0.2); Basophils % (A) 1 %; Eosinophils # (A) 0.3 k/uL (0-0.7); Eosinophils % (A) 3 %; HCT 31.8 % (34.0-46.0); Hypochromasia Marked; Lymphocytes # (A) 1.4 k/uL (1.0-4.8); Lymphocytes % (A) 12 %; MCH 26.3 pg (25.0-35.0); MCHC 30.5 g/dL (31.0-37.0); MCV 86.3 fL (80.0-100.0); Mean Platelet Volume 7.8; Monocytes # (A) 1.1 k/uL (0-1.0); Monocytes % (A) 9 %; Neutrophils # (A) 8.4 k/uL (1.3-7.7); Neutrophils % (A) 72 %; Platelet Count 456 k/uL (150-450); Poikilocytosis Slight; RBC 3.68 m/uL (3.80-5.40); WBC 11.7 k/uL (3.8-10.6)
[2021-05-18 03:26] LABS: HGB 9.7 gm/dL (11.4-16.0)
[2021-05-18] MEDS: LACTATED RINGERS 1,000 ML IV SCH ×3 (03:37→17:59)
[2021-05-18] MEDS: PANTOPRAZOLE 40 MG TABLET PO SCH (07:19)
[2021-05-18] MEDS: HYDROcodone/APAP 7.5-325MG 1 EACH TAB PO PRN ×3 (07:20→19:41)
[2021-05-18] MEDS: DICLOFENAC SODIUM GEL 100 GM TUBE TOPICAL SCH ×4 (08:25→21:19)
[2021-05-18] MEDS: SIMETHICONE 40 MG/0.6 ML DROPS 2,000 MG/30 ML BOTTLE PO SCH ×4 (08:27→21:22)
[2021-05-18] MEDS: HYDROmorphone 0.5 MG/0.5 ML SYRINGE IVP PRN (08:27)
[2021-05-18] MEDS: NICOTINE 21MG/24HR PATCH TRANSDERM SCH ×2 (08:27→13:16)
[2021-05-18 10:17] LABS: African American GFR (CKD) 138.4 (60.0-200.0); Anion Gap 18.1 mmol/L (4.00-12.00); Blood Urea Nitrogen 2.5 mg/dL (9.0-27.0); Calcium 8.2 mg/dL (8.7-10.3); Carbon Dioxide 13.9 mmol/L (21.6-31.8); Magnesium 1.9 mg/dL (1.5-2.4); Non-African American GFR(CKD) 119.4 (60.0-200.0); Potassium 4.2 mmol/L (3.5-5.5)
[2021-05-18 11:13] LABS: Glucose,Whole Blood 55 mg/dL (75-99)
[2021-05-18] MEDS ORDERED: DEXTROSE 50% SYRINGE 50 ML IVP STA ×2 (11:17→18:32)
[2021-05-18 11:44] LABS: Glucose,Whole Blood 183 mg/dL (75-99)
--- NOTE | 2021-05-18 14:26 | P.PN ---
Subjective Progress Note Date: 05/18/21 CHIEF COMPLAINT: Pancreatitis HISTORY OF PRESENT ILLNESS: Patient has some minimal epigastric pain most of pain is located on the left flank and left side of abdomen. Patient reports pain is slightly improved and is mostly on the left flank. She is still dealing with the rash in his been started on Benadryl by medicine service. She is nothing by mouth except for ice chips. Afebrile. Labs WBC down from 13.34-11.7 hemoglobin up from 6.8-9.7 after unit of blood Patient seen and examined with Dr. Doyle PHYSICAL EXAM: VITAL SIGNS: Reviewed. GENERAL: Well-developed in no acute distress. HEENT: No sclera icterus. Extraocular movements grossly intact. Moist buccal mucosa. Head is atraumatic, normocephalic. ABDOMEN: Soft. Nondistended. Tenderness with palpation of the left flank NEUROLOGIC: Alert and oriented. Cranial nerves II through XII grossly intact. ASSESSMENT: 1. Acute pancreatitis likely alcohol-related. No evidence of gallstones on ultrasound 2. Necrotizing pancreatitis 3. Anemia PLAN: -No surgical intervention planned -Recommend transfer to tertiary care center if patient's symptoms worsen -Continue to monitor -Keep patient nothing by mouth except ice chips and popsicles -Encourage patient to ambulate -Alcohol cessation Physician Corporate Giving Manager note has been reviewed by physician. Signing provider agrees with the documented findings, assessment, and plan of care. Objective - Vital Signs Vital signs: Vital Signs Temp 97.9 F 05/18/21 09:52 Pulse 95 05/18/21 08:05 Resp 16 05/18/21 08:05 BP 118/76 05/18/21 08:05 Pulse Ox 98 05/18/21 08:05 Intake & Output 05/17/21 05/18/21 05/18/21 18:59 06:59 18:59 Intake Total 1630 Balance 1630 Weight 49.895 kg Intake: Intake, IV Titration 1020 Amount Sodium Chloride 0.9% 1, 1020 000 ml @ 125 mls/hr IV . Q8H [facility] Rx#:[id number] Oral 300 Blood Product 310 Rc As-1 Unit 310 [id number] Other: Voiding Method Toilet Toilet # Voids 2 1 # Bowel Movements 0 - Labs CBC & Chem 7: 05/18/21 02:39 05/18/21 02:39 Labs: Abnormal Lab Results - Last 24 Hours (Table) 05/17/21 05/18/21 05/18/21 Range/Units 14:30 02:39 02:39 WBC 11.7 H (3.8-10.6) k/uL RBC 3.68 L (3.80-5.40) m/uL Hgb 9.7 L D (11.4-16.0) gm/dL Hct 31.8 L (34.0-46.0) % MCHC 30.5 L (31.0-37.0) g/dL RDW 20.0 H (11.5-15.5) % Plt Count 456 H (150-450) k/uL Neutrophils # 8.4 H (1.3-7.7) k/uL Monocytes # 1.1 H (0-1.0) k/uL Sodium 134 L (135-145) mmol/L Carbon Dioxide 13.9 L (21.6-31.8) mmol/L Anion Gap 18.10 H (4.00-12.00) mmol/L BUN 2.5 L (9.0-27.0) mg/dL Creatinine 0.5 L (0.6-1.5) mg/dL BUN/Creatinine Ratio 5.00 L (12.00-20.00) Ratio Glucose 52 L (70-110) mg/dL POC Glucose (mg/dL) (75-99) mg/dL Calcium 8.2 L (8.7-10.3) mg/dL Crossmatch See Detail 05/18/21 05/18/21 Range/Units 11:07 11:43 WBC (3.8-10.6) k/uL RBC (3.80-5.40) m/uL Hgb (11.4-16.0) gm/dL Hct (34.0-46.0) % MCHC (31.0-37.0) g/dL RDW (11.5-15.5) % Plt Count (150-450) k/uL Neutrophils # (1.3-7.7) k/uL Monocytes # (0-1.0) k/uL Sodium (135-145) mmol/L Carbon Dioxide (21.6-31.8) mmol/L Anion Gap (4.00-12.00) mmol/L BUN (9.0-27.0) mg/dL Creatinine (0.6-1.5) mg/dL BUN/Creatinine Ratio (12.00-20.00) Ratio Glucose (70-110) mg/dL POC Glucose (mg/dL) 55 L 183 H (75-99) mg/dL Calcium (8.7-10.3) mg/dL Crossmatch
--- NOTE | 2021-05-18 15:16 | P.PN ---
Subjective Progress Note Date: 05/18/21 Hospital Course: The patient is a 40-year-old female with a past medical history of Daniele-en-Y gastric bypass, recurrent episodes of pancreatitis, mild intermittent asthma, hypothyroidism, and GERD who presented to the emergency room for abdominal pain. In the ER she underwent an extensive evaluation. She was found have an elevated lipase of 9824. She underwent a CT abdomen and pelvis which demonstrated retroperitoneal fluid around the pancreas and in the anterior pararenal space related to acute pancreatitis as well as free fluid in the right paracolic gutter. She was initially made nothing by mouth, started on pain management, IV fluids. Surgery was consulted. Gallbladder ultrasound was ordered which showed normal gallbladder wall and negative Singer's sign. She started to spike fevers on 05/12. Urinalysis and chest x-ray were unremarkable. CT abdomen and pelvis completed 05/14/21 correlates for ongoing acute pancreatitis with a vague 2.0 cm hypodensity at the level of the pancreatic neck possibly representing developing area of acute necrotic collection of fluid, worsening retroperitoneal inflammation and retroperitoneal fluid tracking down the left side of the abdomen now with moderate pelvic ascites, and mild generalized small bowel ileus. Physical Exam: Patient seen and fully evaluated at the bedside. She reports slight improvement of left abdominal and flank pain and has had no further episodes of nausea or vomiting. Morning labs reveal stable hemoglobin of 9.7, mild leukocytosis with WBC count of 11.7 and mild thrombocytosis with platelet count of 456. Maculopapular Vesicular rash to abdomen, chest, and back improved. Patient had single isolated episode of hypoglycemia this morning requiring one amp of D5. Patient encouraged to eat popsicles as recommended by general surgery. We will continue with IV hydration. Patient seen and examined at bedside. General: non toxic, mild distress due to pain, appears at stated age Derm: warm, dry. Negative Tio's and Turners. Skin rash to trunk. Head: atraumatic, normocephalic, symmetric Eyes: EOMI, no lid lag, anicteric sclera Mouth: no lip lesion, mucus membranes moist Cardiovascular: S1S2 reg, no murmur, positive posterior tibial pulse bilateral, Lungs: CTA bilateral, no rhonchi, no rales , no accessory muscle use Abdominal: soft, nontender to palpation with no guarding, + left sided retroperitoneal tenderness upon palpation. No appreciable organomegaly Ext: No gross muscle atrophy, no edema, no contractures Neuro: CN II-XI grossly intact, no focal neuro deficits Psych: Alert, oriented, appropriate affect Assessment and Plan of Care: Pancreatitis, necrotizing with fluid collection Ascites, related to fluid resuscitation and low albumin state Inflammation in the left retroperitoneal space likely related to pancreatitis -Diet decreased to back to NPO -Surgery following, recommending no surgical interventions at this time and stated if patient's symptoms worsen they recommend transferring to tertiary care center such as [facility] for continued management. -Continue IV fluids -Pain control -Monitor fevers closely. Most likely sterile fluid collection and no indication for IV antibiotics.. -Repeat CT abdomen and pelvis completed 05/14/21 correlates for ongoing acute pancreatitis with a vague 2.0 cm hypodensity at the level of the pancreatic neck possibly representing developing area of acute necrotic collection of fluid, worsening retroperitoneal inflammation and retroperitoneal fluid tracking down the left side of the abdomen now with moderate pelvic ascites, and mild generalized small bowel ileus. -Continue to monitor closely -Initial abdominal ultrasound that did not show any fluid collection on the pancreas, atrophic gallbladder, borderline dilated common bile duct -Patient then underwent repeat computed tomography scan which showed a 2 cm area of necrotizing fluid collection as well as increased fluid in the left retroperitoneal space with fluid tracking on the left side of the abdomen, mild generalized small bowel ileus Acute on chronic normocytic anemia -No signs of bleeding, could be worsened by agressive IV fluid hydration -Will transfuse 1 unit, follow hgb in am. Skin rash, improved -Sec to lovenox, will hold -Benadryl prn Pyrexia -Undetermined etiology likely related to acute pancreatitis, highest temp 100.1F over the past 24 hours -COVID, RSV, influenza A and B-negative -Chest x-ray negative for acute cardiopulmonary process -Continue to monitor -Symptomatic care and pain management with Tylenol when necessary for fever. -Leukocytosis improving Leukocytosis improving Hyomagnesemia, resolved GERD -PPI Code status: Full code DVT prophylaxis: pt is ambulatory will d/c lovenox as she is low risk and place her on mechanical prophylaxis Discussed with: Patient and RN Anticipated discharge date: Clinical course to determine. Anticipated discharge place: Home. A total of 45 minutes was spent on the care of this complex patient more than 50% of the time was spent in counseling and care coordination. Objective - Vital Signs Vital signs: Vital Signs Temp 99.4 F 05/18/21 08:05 Pulse 95 05/18/21 08:05 Resp 16 05/18/21 08:05 BP 118/76 05/18/21 08:05 Pulse Ox 98 05/18/21 08:05 Intake & Output 05/17/21 05/18/21 05/18/21 18:59 06:59 18:59 Intake Total 1630 Balance 1630 Weight 49.895 kg Intake: Intake, IV Titration 1020 Amount Sodium Chloride 0.9% 1, 1020 000 ml @ 125 mls/hr IV . Q8H [facility] Rx#:[id number] Oral 300 Blood Product 310 Rc As-1 Unit 310 [id number] Other: Voiding Method Toilet # Voids 2 1 # Bowel Movements 0 - Labs CBC & Chem 7: 05/18/21 02:39 05/18/21 02:39 Labs: Abnormal Lab Results - Last 24 Hours (Table) 05/17/21 05/17/21 05/17/21 Range/Units 03:12 03:12 14:30 WBC 13.34 H (4.50-10.00) X 10*3/uL RBC 2.85 L (4.10-5.20) X 10*6/uL Hgb 6.8 L* (12.0-15.0) g/dL Hct 22.6 L (37.2-46.3) % MCV 79.3 L (80.0-97.0) fL MCH 23.9 L (27.0-32.0) pg MCHC 30.1 L (32.0-37.0) g/dL RDW 21.4 H (11.5-14.5) % Plt Count (150-450) k/uL Neutrophils # (1.3-7.7) k/uL Monocytes # (0-1.0) k/uL Carbon Dioxide 20.3 L (21.6-31.8) mmol/L Anion Gap 15.70 H (4.00-12.00) mmol/L BUN 2.3 L (9.0-27.0) mg/dL Creatinine 0.4 L (0.6-1.5) mg/dL BUN/Creatinine Ratio 5.75 L (12.00-20.00) Ratio Glucose 64 L (70-110) mg/dL Calcium 7.9 L (8.7-10.3) mg/dL Total Protein 4.9 L (6.2-8.2) g/dL Albumin 2.8 L (3.8-4.9) g/dL Albumin/Globulin Ratio 1.33 L (1.60-3.17) g/dL Crossmatch See Detail 05/18/21 Range/Units 02:39 WBC 11.7 H (4.50-10.00) X 10*3/uL RBC 3.68 L (4.10-5.20) X 10*6/uL Hgb 9.7 L D (12.0-15.0) g/dL Hct 31.8 L (37.2-46.3) % MCV (80.0-97.0) fL MCH (27.0-32.0) pg MCHC 30.5 L (32.0-37.0) g/dL RDW 20.0 H (11.5-14.5) % Plt Count 456 H (150-450) k/uL Neutrophils # 8.4 H (1.3-7.7) k/uL Monocytes # 1.1 H (0-1.0) k/uL Carbon Dioxide (21.6-31.8) mmol/L Anion Gap (4.00-12.00) mmol/L BUN (9.0-27.0) mg/dL Creatinine (0.6-1.5) mg/dL BUN/Creatinine Ratio (12.00-20.00) Ratio Glucose (70-110) mg/dL Calcium (8.7-10.3) mg/dL Total Protein (6.2-8.2) g/dL Albumin (3.8-4.9) g/dL Albumin/Globulin Ratio (1.60-3.17) g/dL Crossmatch
[2021-05-18 18:21] LABS: Glucose,Whole Blood 62 mg/dL (75-99)
[2021-05-18] MEDS: DEXTROSE 5%-0.9% NACL 1,000 ML IV SCH (18:28)
[2021-05-18 18:55] LABS: Glucose,Whole Blood 155 mg/dL (75-99)
[2021-05-18] MEDS ORDERED: KETOROLAC 15 MG/ML 1 ML VIAL IVP STA (19:46)
[2021-05-18] MEDS: MELATONIN 3 MG TABLET PO SCH (21:23)
[2021-05-19 00:03] LABS: Glucose,Whole Blood 94 mg/dL (75-99)
[2021-05-19] MEDS: HYDROmorphone 1 MG/ML 1 ML SYRINGE IVP PRN (03:32)
[2021-05-19] MEDS: LACTATED RINGERS 1,000 ML IV SCH ×2 (04:41→10:41)
[2021-05-19] MEDS: HYDROcodone/APAP 7.5-325MG 1 EACH TAB PO PRN ×4 (04:42→23:08)
[2021-05-19] MEDS: diphenhydrAMINE 25 MG CAP PO PRN (05:10)
[2021-05-19 06:45] LABS: Glucose,Whole Blood 124 mg/dL (75-99)
[2021-05-19] MEDS: NICOTINE 21MG/24HR PATCH TRANSDERM SCH ×2 (08:11→12:40)
[2021-05-19] MEDS: DICLOFENAC SODIUM GEL 100 GM TUBE TOPICAL SCH ×4 (08:11→21:24)
[2021-05-19] MEDS: HYDROmorphone 0.5 MG/0.5 ML SYRINGE IVP PRN ×4 (08:11→21:20)
[2021-05-19] MEDS: PANTOPRAZOLE 40 MG TABLET PO SCH (08:11)
[2021-05-19] MEDS: SIMETHICONE 40 MG/0.6 ML DROPS 2,000 MG/30 ML BOTTLE PO SCH ×4 (08:11→21:24)
[2021-05-19 10:08] LABS: ALT 13 U/L (4-34); AST 28 U/L (14-36); African American GFR (CKD) >90 (>60 ml/min/1.73 sqM); Albumin 2.6 g/dL (3.5-5.0); Albumin/Globulin Ratio 0.9; Alkaline Phosphatase 88 U/L (38-126); Anion Gap 7 mmol/L; Blood Urea Nitrogen <2 mg/dL (7-17); Carbon Dioxide 24 mmol/L (22-30); Chloride 105 mmol/L (98-107); Globulin 2.8 g/dL; Glucose 93 mg/dL (74-99); Lipase 76 U/L (23-300); Magnesium 1.6 mg/dL (1.6-2.3); Non-African American GFR(CKD) >90 (>60 ml/min/1.73 sqM); Potassium 3.7 mmol/L (3.5-5.1); Sodium 136 mmol/L (137-145); Total Bilirubin 0.5 mg/dL (0.2-1.3); Total Protein 5.4 g/dL (6.3-8.2)
[2021-05-19 10:27] LABS: Anisocytosis Moderate; Basophils # (A) 0.1 k/uL (0-0.2); Basophils % (A) 1 %; Eosinophils # (A) 0.4 k/uL (0-0.7); Eosinophils % (A) 4 %; HCT 30.7 % (34.0-46.0); HGB 9.8 gm/dL (11.4-16.0); Hypochromasia Slight; Lymphocytes # (A) 1.4 k/uL (1.0-4.8); Lymphocytes % (A) 14 %; MCH 26.7 pg (25.0-35.0); MCHC 31.9 g/dL (31.0-37.0); MCV 83.8 fL (80.0-100.0); Mean Platelet Volume 7.5; Microcytosis Slight; Monocytes # (A) 0.9 k/uL (0-1.0); Monocytes % (A) 8 %; Neutrophils # (A) 7.3 k/uL (1.3-7.7); Neutrophils % (A) 71 %; Platelet Count 507 k/uL (150-450); Poikilocytosis Slight; RBC 3.67 m/uL (3.80-5.40); RDW 20.5 % (11.5-15.5); WBC 10.3 k/uL (3.8-10.6)
[2021-05-19] MEDS: DEXTROSE 5%-0.9% NACL 1,000 ML IV SCH ×3 (10:39→21:01)
[2021-05-19 12:10] LABS: Glucose,Whole Blood 107 mg/dL (75-99)
[2021-05-19 12:51] LABS: Erythrocyte Sedimentation Rate 49 mm/hr (0-20)
[2021-05-19] MEDS ORDERED: diphenhydrAMINE 50 MG/ML 1 ML VIAL IVP ONE (13:32)
[2021-05-19] MEDS ORDERED: methylPREDNISolone SOD SUCCI 125 MG/2 ML VIAL IV ONE (13:32)
[2021-05-19] MEDS ORDERED: FAMOTIDINE 20 MG/2 ML VIAL IV ONE (13:32)
--- NOTE | 2021-05-19 14:20 | P.CONS ---
History of Present Illness - Reason for Consult Consult date: 05/19/21 Pancreatitis Requesting physician: Petey Reeves - Chief Complaint abdominal pain - History of Present Illness this is a 40-year-old white female who presented to the emergency department on 05/10/2021 with complaints of severe abdominal pain. Her labs were consistent with acute pancreatitis. The patient has a history of recurrent pancreatitis. First time diagnosed was in 2012 which she states she has had multiple recurrences since then at least 4-5 times. States she's had for recent admissions this past year. She states that she does not have alcohol dependence, however per the chart and primary medicine team patient does have a history of alcohol use. In 2019 she was noted to have a alcohol blood level of 217. Patient does admit that prior to this last admission she had 2-3 drinks which she states for liquor. She denies any previous gastroenterology follow-up or workup. Gastroenterology was consulted for further management of pancreatitis. The patient has a past medical history including asthma, GERD, thyroid disorder anxiety, depression, previous bariatric surgery with gastric bypass in 2011. On admission patient had evidence of leukocytosis with a WBC 18.6, lipase was 9824 amylase 835, LFTs have been normal. Repeat labs today WBC 10.3 hemoglobin 9.8 hematocrit 30.7 platelet count 507,000, total bilirubin 0.5 AST 28 ALT 13 alkaline phosphatase 88, [id number], patient's CRP is 20.0. She states that the pain is greatest in the left upper quadrant and radiating to her back and flank region. She rates her pain a 7 out of 10. States it is better than when she came in on admission. On admission she states she had had nausea and vomiting associated with the abdominal pain. She's had no further nausea or vomiting. She's been on a clear liquid diet. She has been afebrile. She denies any new medications. General surgery has been following patient. Initial CT of the abdomen and pelvisshows retroperitoneal fluid around the pancreas and anterior pararenal space. This could relate to acute pancreatitis and is a change compared to old exam. Small amount of free fluid in the right paracolic gutter which is new compared to old exam small amount of free fluid in pelvis appears new. the patient underwent a gallbladder ultrasound showing a dilated pancreatic duct measuring 0.4 cm. Common bile duct are not dilated and measuring 0.5 cm. Gallbladder within normal limits no gallstones. The patient had a repeat CT of the abdomen and pelvis on 05/14/2021which showed correlate for ongoing acute pancreatitis. There is a vague 2.0 cm hypodensity at the level of the pancreatic neck that could represent developing area of acute necrotic collection of fluid. Worsening retroperitoneal inflammation and retroperitoneal fluid tracking down the left side of the abdomen now with moderate pelvic ascites. Status post Daniele-en-Y gastric bypass. However noted is a small amount of oral contrast to be located within the excluded portion of the stomach. Further clinical correlation recommended. Mild generalized small bowel ileus. Review of Systems REVIEW OF SYSTEMS: CARDIOPULMONARY: No chest pain or shortness of breath. Gastrointestinal: left upper quadrant pain radiating to her back and flank, w hich she states is sharp, rated 7 out of 10. No nausea or vomiting. No hematemesis, coffee-ground emesis. No rectal bleeding, or melena. GENITOURINARY: No dysuria or hematuria. MUSCULOSKELETAL: Reports normal range of motion., Joint pain. SKIN: No rashes. No jaundice. ENDOCRINE: No chills, fevers. No excessive weight gain or loss. No polydipsia or polyuria. PSYCHIATRIC: Unremarkable. NEUROLOGY: No change in mental status. Denies dizziness, headache. ENT: Vision unremarkable. CONSTITUTIONAL: No recent weight loss. No fever, chills, night sweats. Past Medical History Past Medical History: Asthma, GERD/Reflux, Thyroid Disorder Additional Past Medical History / Comment(s): Pt. reports she has a history of a heart murmur. duodenal ulcer, n/v, abdominal pain, hx hypothyroidism History of Any Multi-Drug Resistant Organisms: None Reported Past Surgical History: Bariatric Surgery, Tubal Ligation Additional Past Surgical History / Comment(s): breast reduction, gastric bypass. Past Anesthesia/Blood Transfusion Reactions: No Reported Reaction Past Psychological History: Anxiety, Depression Additional Psychological History / Comment(s): major depressive disorder Smoking Status: Current every day smoker Past Alcohol Use History: None Reported Additional Past Alcohol Use History / Comment(s): smoker for 24 years 1 ppd Past Drug Use History: Marijuana Additional Drug Use History / Comment(s): Pt. admits to daily marijuana use. - Past Family History Daughter(s) Family Medical History: Blood Disorder Medications and Allergies Home Medications Medication Instructions Recorded Confirmed Type Omeprazole 20 mg PO DAILY 10/25/21 10/25/21 History Allergies Allergy/AdvReac Type Severity Reaction Status Date / Time Penicillins Allergy Anaphylaxis Verified 05/10/21 23:18 Iodinated Contrast Media AdvReac seizure Verified 05/10/21 23:18 [Iodinated Contrast Media - Oral and] Physical Exam Vitals: Vital Signs Temp Pulse Resp BP Pulse Ox 05/19/21 09:07 79 20 136/74 94 L 05/19/21 01:37 97.9 F 87 131/85 97 05/18/21 19:18 98.8 F 90 122/74 99 05/18/21 15:00 98.4 F 61 16 107/62 95 05/18/21 09:52 97.9 F Intake and Output 05/18/21 05/19/21 05/19/21 22:59 06:59 14:59 Other: Voiding Method Toilet Toilet # Voids 2 # Bowel Movements 0 General appearance: The patient is alert, oriented, appears in no acute distress. HET: Head is normocephalic and atraumatic. Conjunctiva pink. Sclera anicteric. Neck: Supple without lymphadenopathy. Trachea midline. Heart: S1 S2. Regular rate and rhythm. Lungs: Clear to auscultation. Abdomen: Soft, left upper quadrant tenderness, as well as diffuse tenderness but greatest in the left upper quadrant. Nondistended with bowel sounds. No guarding or rigidity. Skin: No rashes. No jaundice. Extremities: Normal skin color and turgor. No pedal edema. Neurological: No focal deficits. Alert and oriented x3. Results CBC & Chem 7: 05/19/21 08:45 05/19/21 08:45 Labs: Abnormal Lab Results - Last 24 Hours (Table) 05/18/21 05/18/21 05/18/21 Range/Units 02:39 11:07 11:43 Sodium 134 L (135-145) mmol/L Carbon Dioxide 13.9 L (21.6-31.8) mmol/L Anion Gap 18.10 H (4.00-12.00) mmol/L BUN 2.5 L (9.0-27.0) mg/dL Creatinine 0.5 L (0.6-1.5) mg/dL BUN/Creatinine Ratio 5.00 L (12.00-20.00) Ratio Glucose 52 L (70-110) mg/dL POC Glucose (mg/dL) 55 L 183 H (75-99) mg/dL Calcium 8.2 L (8.7-10.3) mg/dL 05/18/21 05/18/21 05/19/21 Range/Units 18:19 18:53 06:44 Sodium (135-145) mmol/L Carbon Dioxide (21.6-31.8) mmol/L Anion Gap (4.00-12.00) mmol/L BUN (9.0-27.0) mg/dL Creatinine (0.6-1.5) mg/dL BUN/Creatinine Ratio (12.00-20.00) Ratio Glucose (70-110) mg/dL POC Glucose (mg/dL) 62 L 155 H 124 H (75-99) mg/dL Calcium (8.7-10.3) mg/dL CT scan - abdomen: report reviewed US - abdomen: report reviewed Assessment and Plan (1) Acute pancreatitis Narrative/Plan: This is a 40-year-old female who presented to the emergency department on 05/10/2021 with complaints of severe abdominal pain. She was diagnosed with acute recurrent pancreatitis. states that she has had multiple recurrence s of pancreatitis first diagnosed in 2012. She's had no follow-up with gastroenterology and no further workup. Patient denies to any history of alcohol abuse however states that she did have 2-3 alcoholic drinks prior to this episode of pancreatitis. Also patient has had admissions to the hospital in the past in 2019 with blood alcohollevel of 219. On admission she had a lipase in the 9000s, evidence of leukocytosis with a WBC18.6. she underwent a CT of the abdomen and pelvis showing acute pancreatitis,she also underwent a ultrasound of the gallbladder that showed no gallstones, common bile duct within normal limits, pancreatic duct was slight dilation. Patient had a repeat CT of the abdomen and pelvis for continued abdominal pain on 05/14/2021which showed ongoing acute pancreatitis with a vague 2.0 cm hypodense density at the level of the pancreatic neck that could represent developing area of acute necrotic collection of fluid. There was worsening retroperitoneal inflammation and retroperitoneal fluid tracking down the left side of the abdomen now with moderate pelvic ascites. The patient is pain has improved some however still rating it a 7 out of 10. Greatest in the left upper quadrant radiating to her back. Denies any nausea or vomiting. Lipase is now normalized, LFTs have been normal. repeat labs today show WBC 10.3 hemoglobin 9.8 hematocrit 30.7 platelet count 507,000 ESR 49 total bilirubin 0.5 AST 28 ALT 13 alk phos 4680 8C reactive protein 20 lipase 76.at this time the etiology of pancreatitis is unclear. Will run further blood tests including triglycerides as well as autoimmune panel. Patient denies any new medications. Will also order repeat computed tomography scan of the abdomen and pelvis, if there is any increase in area of concern for necrotic fluid consider possible transfer to tertiary center. Current Visit: Yes Status: Acute Code(s): K85.90 - ACUTE PANCREATITIS WITHOUT NECROSIS OR INFECTION, UNSP SNOMED Code(s): 487996349 (2) Abdominal pain Current Visit: No Status: Acute Code(s): R10.9 - UNSPECIFIED ABDOMINAL PAIN SNOMED Code(s): 22471255 (3) Leukocytosis Narrative/Plan: Resolved Current Visit: Yes Status: Acute Code(s): D72.829 - ELEVATED WHITE BLOOD CELL COUNT, UNSPECIFIED SNOMED Code(s): 851606500 Plan: 1. Continue symptomatic and supportive care 2. Continue pain medications as ordered 3. CT abdomen and pelvis ordered 4. Repeat CBC daily 5. Antiemetics as needed 6. JENNY, IgG4, and triglycerides ordered 7. Further recommendations forthcoming Thank you for this consultation, we will continue to follow Dr. Swetha Salazar I agree with the dictator's note, documented as a scribe by Joy Atwood.
--- NOTE | 2021-05-19 14:46 | P.PN ---
Subjective Progress Note Date: 05/19/21 CHIEF COMPLAINT: Pancreatitis HISTORY OF PRESENT ILLNESS: Patient reports that her epigastric pain his pain much resolved. She is still complaining of the left flank pain. She reports that the pain is better than admission. However she continues to have the same pain over the last few days. Denies any nausea or vomiting. She is asking when she can eat. Patient seen and examined by GI service. They've ordered a computed tomography scan of the abdomen and pelvis Afebrile WBC is 10.3 hemoglobin 9.8 platelets of 507 lipase 76 Patient seen and examined with Dr. Doyle PHYSICAL EXAM: VITAL SIGNS: Reviewed. GENERAL: Well-developed in no acute distress. HEENT: No sclera icterus. Extraocular movements grossly intact. Moist buccal mucosa. Head is atraumatic, normocephalic. ABDOMEN: Soft. Nondistended. Tenderness with palpation of the left flank NEUROLOGIC: Alert and oriented. Cranial nerves II through XII grossly intact. ASSESSMENT: 1. Acute pancreatitis likely alcohol-related. No evidence of gallstones on ultrasound 2. Necrotizing pancreatitis 3. Anemia PLAN: -No surgical intervention planned -Await repeat computed tomography scan of abdomen and pelvis -Agree with GI consult. We'll await their further recommendations -Recommend transfer to tertiary care center if patient's symptoms worsen -Continue to monitor -Keep patient nothing by mouth except ice chips for now -Encourage patient to ambulate -Alcohol cessation Physician Firefighting Equipment Specialist note has been reviewed by physician. Signing provider agrees with the documented findings, assessment, and plan of care. Objective - Vital Signs Vital signs: Vital Signs Temp 98.6 F 05/19/21 14:33 Pulse 76 05/19/21 14:33 Resp 18 05/19/21 14:33 BP 131/83 05/19/21 14:33 Pulse Ox 97 05/19/21 14:33 Intake & Output 05/18/21 05/19/21 05/19/21 18:59 06:59 18:59 Intake Total 0 Balance 0 Weight 49.895 kg Intake: Oral 0 Other: Voiding Method Toilet Toilet Toilet # Voids 2 2 # Bowel Movements 0 - Labs CBC & Chem 7: 05/19/21 08:45 05/19/21 08:45 Labs: Abnormal Lab Results - Last 24 Hours (Table) 05/18/21 05/18/21 05/19/21 Range/Units 18:19 18:53 06:44 RBC (3.80-5.40) m/uL Hgb (11.4-16.0) gm/dL Hct (34.0-46.0) % RDW (11.5-15.5) % Plt Count (150-450) k/uL ESR (0-20) mm/hr Sodium (137-145) mmol/L BUN (7-17) mg/dL Creatinine (0.52-1.04) mg/dL POC Glucose (mg/dL) 62 L 155 H 124 H (75-99) mg/dL Calcium (8.4-10.2) mg/dL C-Reactive Protein (<1.0) mg/dL Total Protein (6.3-8.2) g/dL Albumin (3.5-5.0) g/dL 05/19/21 05/19/21 05/19/21 Range/Units 08:45 08:45 12:09 RBC 3.67 L (3.80-5.40) m/uL Hgb 9.8 L (11.4-16.0) gm/dL Hct 30.7 L (34.0-46.0) % RDW 20.5 H (11.5-15.5) % Plt Count 507 H (150-450) k/uL ESR 49 H (0-20) mm/hr Sodium 136 L (137-145) mmol/L BUN <2 L (7-17) mg/dL Creatinine 0.30 L (0.52-1.04) mg/dL POC Glucose (mg/dL) 107 H (75-99) mg/dL Calcium 8.0 L (8.4-10.2) mg/dL C-Reactive Protein 20.0 H (<1.0) mg/dL Total Protein 5.4 L (6.3-8.2) g/dL Albumin 2.6 L (3.5-5.0) g/dL
--- NOTE | 2021-05-19 15:33 | CDI ---
Documentation Clarification Form Date: 05/19/2021 02:52:54 PM From: Kaleigh Tyler RN CCDS Admit Date: 05/10/2021 10:47:00 PM Patient Name: Eve Covington Visit Number: [id number] Discharge Date: ATTENTION: The Clinical Documentation Specialists (CDI) and [facility] Coding Staff appreciate your assistance in clarifying documentation. Please respond to the clarification below the line at the bottom and electronically sign. The CDI & [facility] Coding staff will review the response and follow-up if needed. Please note: Queries are made part of the Legal Health Record. If you have any questions, please contact the author of this message via ITS. Dr. Iva Gallegos The Registered Dietitian assessment on 05/19 Indicates the patient has inadequate oral intake. Based on this information and the findings below, is there an additional diagnosis that is clinically appropriate for this patient? History/Risk Factors: 40-year-old female presents to the ED with abdominal pain, worsening after having cocktails. Medical History: Asthma, GERD, Bariatric surgery, Hypothyroidism. Patient admitted with pancreatitis. H&P, 05/11. Clinical Indicators: 05/19 RD Consult Assessment: Nutritional intake: Poor, NPO x 3 days. Nutrition related medications: Antiemetic proton pump inhibitor, D5%. GI complication: Epigastric pain. Current BMI: 19.5kg Weight estimated by patient 49.895kg Calculated [place] body weight 52.3kg Estimated Nutritional Needs in Kcals: [place] body weight used Nutritional needs 25-30 Kcals/kg; Energy Needs 1307 -1569 Kcals. Estimated Protein Needs: [place] body weight used Protein range 1gm/kg ; Estimated protein needs 52grams/day Related to: Pancreatitis, decreased appetite. Evidenced by: NPO x 3 days, no BM, side pain. Nutritional Goals: Increase PO intake from 50% to 75%. Treatment: Dietary Consult: see above PPN/TPN: Dietary recommends TPN if the patients diet cant be advanced. Lab monitoring: Chemistry Is there an additional diagnosis that is clinically appropriate for this patient? [ ] Mild Protein-Calorie Malnutrition [ ] Moderate Protein-Calorie Malnutrition [ X ] Severe Protein-Calorie Malnutrition [ ] Other condition, please specify [ ] Unable to Determine (Template Last Revised: September 2020) MTDD
[2021-05-19] MEDS: BARIUM SULFATE 450 ML ORAL.SUSP BOTTLE PO PRN ×2 (15:42→18:22)
--- NOTE | 2021-05-19 17:16 | P.PN ---
<Petey Reeves - Last Filed: 05/19/21 17:03> Subjective Progress Note Date: 05/19/21 Hospital Course: The patient is a 40-year-old female with a past medical history of Daniele-en-Y gastric bypass, recurrent episodes of pancreatitis, mild intermittent asthma, hypothyroidism, and GERD who presented to the emergency room for abdominal pain. In the ER she underwent an extensive evaluation. She was found have an elevated lipase of 9824. She underwent a CT abdomen and pelvis which demonstrated retroperitoneal fluid around the pancreas and in the anterior pararenal space related to acute pancreatitis as well as free fluid in the right paracolic gutter. She was initially made nothing by mouth, started on pain management, IV fluids. Surgery was consulted. Gallbladder ultrasound was ordered which showed normal gallbladder wall and negative Singer's sign. She started to spike fevers on 05/12. Urinalysis and chest x-ray were unremarkable. CT abdomen and pelvis completed 05/14/21 correlates for ongoing acute pancreatitis with a vague 2.0 cm hypodensity at the level of the pancreatic neck possibly representing developing area of acute necrotic collection of fluid, wor sening retroperitoneal inflammation and retroperitoneal fluid tracking down the left side of the abdomen now with moderate pelvic ascites, and mild generalized small bowel ileus. Physical Exam: Patient seen and fully evaluated at the bedside this morning. She reports mild improvement and left upper quadrant pain but continues to have reports of pain to left flank/left retroperitoneal region. She remains NPO with ice chips and popsicles. D5 0.9% running at 100mL's per hour for continued hydration. Consult was placed to GI and plans to repeat CT abdomen and pelvis and will provide further recommendations based upon these results. In addition GI recommending JENNY with reflex, IgG, and triglyceride levels to be obtained. Patient denies any further episodes of nausea or vomiting. Maculopapular rash continues to improve. Patient denies any further complaints including headache, lightheadedness, dizziness, chest pain, palpitations, shortness of breath, or experiencing any changes in her difficulties with urinary or bowel function. Vital signs stable and patient has remained afebrile for over 48 hours. Patient continues to be ambulatory unassisted without difficulties in her room. Awaiting further recommendations from general surgery and GI. Patient seen and examined at bedside. General: non toxic, mild distress due to pain, appears at stated age Derm: warm, dry. Negative [place]'s and [place]. Skin rash to trunk. Head: atraumatic, normocephalic, symmetric Eyes: EOMI, no lid lag, anicteric sclera Mouth: no lip lesion, mucus membranes moist Cardiovascular: S1S2 reg, no murmur, positive posterior tibial pulse bilateral, Lungs: CTA bilateral, no rhonchi, no rales , no accessory muscle use Abdominal: soft, nontender to palpation with no guarding, + left sided retroperitoneal/flank tenderness upon palpation. No appreciable organomegaly Ext: No gross muscle atrophy, no edema, no contractures Neuro: CN II-XI grossly intact, no focal neuro deficits Psych: Alert, oriented, appropriate affect Assessment and Plan of Care: Pancreatitis, necrotizing with fluid collection Ascites, related to fluid resuscitation and low albumin state Inflammation in the left retroperitoneal space likely related to pancreatitis -Diet: NPO with ice chips and popsicles -Surgery following, recommending no surgical interventions at this time and stated if patient's symptoms worsen they recommend transferring to tertiary care center such as [facility] for continued management. -GI following, recommending repeat CT, JENNY with reflex, IgG, and triglyceride levels to be obtained. -Continue IV fluids -Pain control -Monitor fevers closely. Most likely sterile fluid collection and no indication for IV antibiotics.. -Repeat CT abdomen and pelvis completed 05/14/21 correlates for ongoing acute pancreatitis with a vague 2.0 cm hypodensity at the level of the pancreatic neck possibly representing developing area of acute necrotic collection of fluid, worsening retroperitoneal inflammation and retroperitoneal fluid tracking down the left side of the abdomen now with moderate pelvic ascites, and mild generalized small bowel ileus. -Continue to monitor closely -Initial abdominal ultrasound that did not show any fluid collection on the pancreas, atrophic gallbladder, borderline dilated common bile duct -Patient then underwent repeat computed tomography scan which showed a 2 cm area of necrotizing fluid collection as well as increased fluid in the left retroperitoneal space with fluid tracking on the left side of the abdomen, mild generalized small bowel ileus Acute on chronic normocytic anemia, stable -No signs of bleeding, could be worsened by agressive IV fluid hydration -Status post transfusion of 1 unit PRBCs, hemoglobin currently stable Skin rash, improved -Sec to lovenox, Lovenox discontinued and patient was placed on mechanical SCDs for DVT prophylaxis. -Benadryl prn Pyrexia -Undetermined etiology likely related to acute pancreatitis, highest temp 100.1F over the past 24 hours -COVID, RSV, influenza A and B-negative -Chest x-ray negative for acute cardiopulmonary process -Continue to monitor -Symptomatic care and pain management with Tylenol when necessary for fever. -Leukocytosis improving Leukocytosis improving Hyomagnesemia, resolved GERD -PPI Code status: Full code DVT prophylaxis: pt is ambulatory will d/c lovenox as she is low risk and place her on mechanical prophylaxis Discussed with: Patient and RN Anticipated discharge date: Clinical course to determine. Anticipated discharge place: Home. A total of 45 minutes was spent on the care of this complex patient more than 50% of the time was spent in counseling and care coordination. Objective - Vital Signs Vital signs: Vital Signs Temp 97.9 F 05/19/21 01:37 Pulse 87 05/19/21 01:37 Resp 16 05/18/21 15:00 BP 131/85 05/19/21 01:37 Pulse Ox 97 05/19/21 01:37 Intake & Output 05/18/21 05/19/21 05/19/21 18:59 06:59 18:59 Intake Total 0 Balance 0 Intake: Oral 0 Other: Voiding Method Toilet Toilet # Voids 2 2 # Bowel Movements 0 - Labs CBC & Chem 7: 05/19/21 08:45 05/19/21 08:45 Labs: Abnormal Lab Results - Last 24 Hours (Table) 05/18/21 05/18/21 05/18/21 Range/Units 02:39 11:07 11:43 Sodium 134 L (135-145) mmol/L Carbon Dioxide 13.9 L (21.6-31.8) mmol/L Anion Gap 18.10 H (4.00-12.00) mmol/L BUN 2.5 L (9.0-27.0) mg/dL Creatinine 0.5 L (0.6-1.5) mg/dL BUN/Creatinine Ratio 5.00 L (12.00-20.00) Ratio Glucose 52 L (70-110) mg/dL POC Glucose (mg/dL) 55 L 183 H (75-99) mg/dL Calcium 8.2 L (8.7-10.3) mg/dL 05/18/21 05/18/21 05/19/21 Range/Units 18:19 18:53 06:44 Sodium (135-145) mmol/L Carbon Dioxide (21.6-31.8) mmol/L Anion Gap (4.00-12.00) mmol/L BUN (9.0-27.0) mg/dL Creatinine (0.6-1.5) mg/dL BUN/Creatinine Ratio (12.00-20.00) Ratio Glucose (70-110) mg/dL POC Glucose (mg/dL) 62 L 155 H 124 H (75-99) mg/dL Calcium (8.7-10.3) mg/dL <Iva Gallegos - Last Filed: 05/19/21 22:47> Subjective Petey Reeves NP rendered care for this patient independently, reviewed the findings and plan as documented in the note above. I did not physically speak with or examine the patient on this date. Objective - Vital Signs Vital signs: Vital Signs Temp 98.0 F 05/19/21 19:23 Pulse 97 05/19/21 19:23 Resp 16 05/19/21 19:23 BP 110/75 05/19/21 19:23 Pulse Ox 97 05/19/21 14:33 Intake & Output 05/19/21 05/19/21 05/20/21 06:59 18:59 06:59 Weight 49.895 kg Other: Voiding Method Toilet Toilet # Voids 2 4 4 # Bowel Movements 0 0 - Labs CBC & Chem 7: 05/19/21 08:45 05/19/21 08:45 Labs: Abnormal Lab Results - Last 24 Hours (Table) 05/19/21 05/19/21 05/19/21 Range/Units 06:44 08:45 08:45 RBC 3.67 L (3.80-5.40) m/uL Hgb 9.8 L (11.4-16.0) gm/dL Hct 30.7 L (34.0-46.0) % RDW 20.5 H (11.5-15.5) % Plt Count 507 H (150-450) k/uL ESR 49 H (0-20) mm/hr Sodium 136 L (137-145) mmol/L BUN <2 L (7-17) mg/dL Creatinine 0.30 L (0.52-1.04) mg/dL POC Glucose (mg/dL) 124 H (75-99) mg/dL Calcium 8.0 L (8.4-10.2) mg/dL C-Reactive Protein 20.0 H (<1.0) mg/dL Total Protein 5.4 L (6.3-8.2) g/dL Albumin 2.6 L (3.5-5.0) g/dL 05/19/21 05/19/21 05/19/21 Range/Units 12:09 18:26 21:15 RBC (3.80-5.40) m/uL Hgb (11.4-16.0) gm/dL Hct (34.0-46.0) % RDW (11.5-15.5) % Plt Count (150-450) k/uL ESR (0-20) mm/hr Sodium (137-145) mmol/L BUN (7-17) mg/dL Creatinine (0.52-1.04) mg/dL POC Glucose (mg/dL) 107 H 141 H 151 H (75-99) mg/dL Calcium (8.4-10.2) mg/dL C-Reactive Protein (<1.0) mg/dL Total Protein (6.3-8.2) g/dL Albumin (3.5-5.0) g/dL
[2021-05-19 18:28] LABS: Glucose,Whole Blood 141 mg/dL (75-99)
[2021-05-19 21:16] LABS: Glucose,Whole Blood 151 mg/dL (75-99)
[2021-05-19] MEDS: MELATONIN 3 MG TABLET PO SCH (21:16)
--- NOTE | 2021-05-19 22:47 | CT ---
EXAMINATION TYPE: CT abdomen pelvis w con DATE OF EXAM: 05/19/2021 COMPARISON: 05/14/2021 HISTORY: abdominal pain, pancreatitis CT DLP: 758.9 mGycm Automated exposure control for dose reduction was used. CONTRAST: Performed with IV Contrast, patient injected with 100 mL of Isovue 300. Images obtained from the diaphragm to the floor the pelvis with oral and IV contrast. There is mild s ubsegmental atelectasis left lung base. There is no pleural effusion. Heart size is normal. There is no pericardial effusion. Liver and spleen are intact. There are clips from gastric bariatric surgery. There is no evidence of pancreatic mass. Gallbladder is intact. There is mild enlargement of the common bile duct. Common vignesh e duct measures up to 14 mm. No significant dilation of the intrahepatic bile ducts. There is some fl uid accumulation in the left anterior pararenal space that measures up to 2 cm in thickness. There is no adrenal mass. Kidneys show satisfactory contrast opacification. There is no hydronephrosi s. There is one similar cortical cyst anterior left kidney. There is no retroperitoneal adenopathy. B ladder distends smoothly. There is some free fluid in the pelvis. There is a small amount of fluid in the paracolic gutters. There is normal contrast opacification of the small bowel and the large bowel. There is large bowel c ontrast down to the rectum. There is no sign of a bowel obstruction. There is no evidence of free air . Appendix is filled with contrast and appears normal. The lumbar vertebra have normal alignment. There is no compression fracture. Posterior elements are i ntact. Bony pelvis is intact. Hip joints are intact. IMPRESSION: There is some retroperitoneal fluid accumulation in the left anterior pararenal space. This probably small amount of fluid around the posterior aspect of the body and head of the pancreas as well. This could be pancreatitis and not significantly different than recent exam. There is some minimal atelect asis left posterior lung base not changed compared to recent exam. There is low-density free fluid in the pelvis slightly increased in volume compared to last exam.
[2021-05-20] MEDS: HYDROmorphone 0.5 MG/0.5 ML SYRINGE IVP PRN ×7 (02:38→21:58)
[2021-05-20 02:41] LABS: Glucose,Whole Blood 173 mg/dL (75-99)
[2021-05-20] MEDS: HYDROcodone/APAP 7.5-325MG 1 EACH TAB PO PRN ×3 (07:55→20:11)
[2021-05-20] MEDS: NICOTINE 21MG/24HR PATCH TRANSDERM SCH ×2 (09:13→14:58)
[2021-05-20] MEDS: PANTOPRAZOLE 40 MG TABLET PO SCH (09:13)
[2021-05-20] MEDS: DICLOFENAC SODIUM GEL 100 GM TUBE TOPICAL SCH ×4 (09:13→20:20)
[2021-05-20] MEDS: SIMETHICONE 40 MG/0.6 ML DROPS 2,000 MG/30 ML BOTTLE PO SCH ×4 (09:13→20:12)
[2021-05-20] MEDS: DEXTROSE 5%-0.9% NACL 1,000 ML IV SCH (09:13)
[2021-05-20 11:28] LABS: Anisocytosis Moderate; HCT 33.6 % (34.0-46.0); HGB 10.4 gm/dL (11.4-16.0); Hypochromasia Slight; MCH 26.1 pg (25.0-35.0); MCV 84.4 fL (80.0-100.0); Microcytosis Slight; Platelet Count 715 k/uL (150-450); Poikilocytosis Slight; RBC 3.99 m/uL (3.80-5.40); RDW 20.7 % (11.5-15.5); WBC 15.2 k/uL (3.8-10.6)
[2021-05-20 11:31] LABS: Glucose,Whole Blood 123 mg/dL (75-99)
[2021-05-20] MEDS: diphenhydrAMINE 25 MG CAP PO PRN (11:43)
[2021-05-20] MEDS ORDERED: HYDROCORTISONE 1% CREAM 30 GM TUBE TOPICAL PRN (11:46)
--- NOTE | 2021-05-20 12:36 | P.PN ---
<TameraandrewKarin - Last Filed: 05/20/21 12:35> Subjective Progress Note Date: 05/20/21 CHIEF COMPLAINT: Pancreatitis HISTORY OF PRESENT ILLNESS: Patient reports that her abdominal pain is finally feeling better. She has less pain in her left flank. She is requiring the pain medication. But she is able to rate the pain now about a 5 out of 10. She is requesting to eat. She denies any nausea or vomiting. She had a repeat computed tomography scan abdomen and pelvis with contrast there is some retroperitoneal fluid accumulation in the left anterior pararenal space. This is probably small amount of fluid around the posterior aspect of the body and head of the pancreas as well. This could be pancreatitis and not sniffly different than recent exam. There is some minimal atelectasis left posterior lung base not changed compared to recent exam. There is low-density free fluid in the pelvis slightly increased in volume compared to last exam. Patient is being seen by GI service. Afebrile. White count from yesterday was normal at 10.3 PHYSICAL EXAM: VITAL SIGNS: Reviewed. GENERAL: Well-developed in no acute distress. HEENT: No sclera icterus. Extraocular movements grossly intact. Moist buccal mucosa. Head is atraumatic, normocephalic. ABDOMEN: Soft. Nondistended. Decreased tenderness on palpation of the left flank NEUROLOGIC: Alert and oriented. Cranial nerves II through XII grossly intact. ASSESSMENT: 1. Acute pancreatitis likely alcohol-related. No evidence of gallstones on ultrasound 2. Necrotizing pancreatitis 3. Anemia PLAN: -No surgical intervention planned -Patient's abdominal pain has shown improvement will advance diet to bariatric clear liquids -Await further recommendations per GI service -Encourage patient to ambulate -Alcohol cessation Physician Wood Dowel Machine Operator note has been reviewed by physician. Signing provider agrees with the documented findings, assessment, and plan of care. Objective - Vital Signs Vital signs: Vital Signs Temp 97.8 F 05/20/21 07:00 Pulse 65 05/20/21 07:00 Resp 16 05/20/21 07:00 BP 96/58 05/20/21 07:00 Pulse Ox 94 L 05/20/21 07:00 Intake & Output 05/19/21 05/20/21 05/20/21 18:59 06:59 18:59 Intake Total 100 Balance 100 Weight 49.895 kg Intake: Oral 100 Other: Voiding Method Toilet # Voids 4 3 # Bowel Movements 0 - Labs CBC & Chem 7: 05/19/21 08:45 05/19/21 08:45 Labs: Abnormal Lab Results - Last 24 Hours (Table) 05/19/21 05/19/21 05/19/21 Range/Units 08:45 08:45 12:09 ESR 49 H (0-20) mm/hr POC Glucose (mg/dL) 107 H (75-99) mg/dL Triglycerides 188.00 H (0.00-149.00) mg/dL 05/19/21 05/19/21 05/20/21 Range/Units 18:26 21:15 02:39 ESR (0-20) mm/hr POC Glucose (mg/dL) 141 H 151 H 173 H (75-99) mg/dL Triglycerides (0.00-149.00) mg/dL <Nacho Martinez - Last Filed: 05/20/21 17:51> Subjective As above. Patient's pain much improved today. Tolerating full liquids thus far. Agree with plans for slowly advancing diet as tolerated. Recheck labs tomorrow morning. Objective - Vital Signs Vital signs: Vital Signs Temp 98.1 F 05/20/21 14:24 Pulse 66 05/20/21 14:24 Resp 16 05/20/21 14:24 BP 96/61 05/20/21 14:24 Pulse Ox 99 05/20/21 14:24 Intake & Output 05/19/21 05/20/21 05/20/21 18:59 06:59 18:59 Intake Total 100 Balance 100 Weight 49.895 kg Intake: Oral 100 Other: Voiding Method Toilet # Voids 4 3 2 # Bowel Movements 0 - Labs CBC & Chem 7: 05/20/21 10:51 05/19/21 08:45 Labs: Abnormal Lab Results - Last 24 Hours (Table) 05/19/21 05/19/21 05/19/21 Range/Units 08:45 18:26 21:15 WBC (3.8-10.6) k/uL Hgb (11.4-16.0) gm/dL Hct (34.0-46.0) % RDW (11.5-15.5) % Plt Count (150-450) k/uL POC Glucose (mg/dL) 141 H 151 H (75-99) mg/dL Triglycerides 188.00 H (0.00-149.00) mg/dL 05/20/21 05/20/21 05/20/21 Range/Units 02:39 10:51 11:19 WBC 15.2 H (3.8-10.6) k/uL Hgb 10.4 L (11.4-16.0) gm/dL Hct 33.6 L (34.0-46.0) % RDW 20.7 H (11.5-15.5) % Plt Count 715 H (150-450) k/uL POC Glucose (mg/dL) 173 H 123 H (75-99) mg/dL Triglycerides (0.00-149.00) mg/dL 05/20/21 Range/Units 16:30 WBC (3.8-10.6) k/uL Hgb (11.4-16.0) gm/dL Hct (34.0-46.0) % RDW (11.5-15.5) % Plt Count (150-450) k/uL POC Glucose (mg/dL) 121 H (75-99) mg/dL Triglycerides (0.00-149.00) mg/dL
--- NOTE | 2021-05-20 14:20 | P.PN ---
Subjective Progress Note Date: 05/20/21 Principal diagnosis: abdominal pain, pancreatitis 40-year-old female who was admitted to the hospital with complaints of abdominal pain found to have acute pancreatitis. Patient has a history of multiple previous occasions of pancreatitis. She denies over excessive use of alcohol. There was concern and question on a 2.0 cm hypodensity that could represent developing area of acute necrotic collection of fluid. Patient had a repeat CT of the abdomen and pelvis yesterday that does not show much change. No increase in the area of the 2.0 cm hypodensity. Patient actually is stating she's feeling much better today. Abdominal pain improved significantly. She denies any fevers or chills. WBC 15.2, she's been afebrile. Triglycerides 188. JENNY and IgG4 pending Objective - Vital Signs Vital signs: Vital Signs Temp 97.8 F 05/20/21 07:00 Pulse 65 05/20/21 07:00 Resp 16 05/20/21 07:00 BP 96/58 05/20/21 07:00 Pulse Ox 94 L 05/20/21 07:00 Intake & Output 05/19/21 05/20/21 05/20/21 18:59 06:59 18:59 Intake Total 100 Balance 100 Weight 49.895 kg Intake: Oral 100 Other: Voiding Method Toilet # Voids 4 3 # Bowel Movements 0 - Exam General appearance: The patient is alert, oriented, appears in no acute distress. HET: Head is normocephalic and atraumatic. Conjunctiva pink. Sclera anicteric. Neck: Supple without lymphadenopathy. Abdomen: Soft, mild tenderness, nondistended with bowel sounds. No guarding or rigidity. Extremities: Normal skin color and turgor. No pedal edema Skin: No rashes, no jaundice Neurological: No focal deficits. Alert and oriented x3. - Labs CBC & Chem 7: 05/20/21 10:51 05/19/21 08:45 Labs: Abnormal Lab Results - Last 24 Hours (Table) 05/19/21 05/19/21 05/19/21 Range/Units 08:45 08:45 08:45 RBC 3.67 L (3.80-5.40) m/uL Hgb 9.8 L (11.4-16.0) gm/dL Hct 30.7 L (34.0-46.0) % RDW 20.5 H (11.5-15.5) % Plt Count 507 H (150-450) k/uL ESR 49 H (0-20) mm/hr Sodium 136 L (137-145) mmol/L BUN <2 L (7-17) mg/dL Creatinine 0.30 L (0.52-1.04) mg/dL POC Glucose (mg/dL) (75-99) mg/dL Calcium 8.0 L (8.4-10.2) mg/dL C-Reactive Protein 20.0 H (<1.0) mg/dL Total Protein 5.4 L (6.3-8.2) g/dL Albumin 2.6 L (3.5-5.0) g/dL Triglycerides 188.00 H (0.00-149.00) mg/dL 05/19/21 05/19/21 05/19/21 Range/Units 12:09 18:26 21:15 RBC (3.80-5.40) m/uL Hgb (11.4-16.0) gm/dL Hct (34.0-46.0) % RDW (11.5-15.5) % Plt Count (150-450) k/uL ESR (0-20) mm/hr Sodium (137-145) mmol/L BUN (7-17) mg/dL Creatinine (0.52-1.04) mg/dL POC Glucose (mg/dL) 107 H 141 H 151 H (75-99) mg/dL Calcium (8.4-10.2) mg/dL C-Reactive Protein (<1.0) mg/dL Total Protein (6.3-8.2) g/dL Albumin (3.5-5.0) g/dL Triglycerides (0.00-149.00) mg/dL 05/20/21 Range/Units 02:39 RBC (3.80-5.40) m/uL Hgb (11.4-16.0) gm/dL Hct (34.0-46.0) % RDW (11.5-15.5) % Plt Count (150-450) k/uL ESR (0-20) mm/hr Sodium (137-145) mmol/L BUN (7-17) mg/dL Creatinine (0.52-1.04) mg/dL POC Glucose (mg/dL) 173 H (75-99) mg/dL Calcium (8.4-10.2) mg/dL C-Reactive Protein (<1.0) mg/dL Total Protein (6.3-8.2) g/dL Albumin (3.5-5.0) g/dL Triglycerides (0.00-149.00) mg/dL Assessment and Plan (1) Acute pancreatitis Narrative/Plan: This is a 40-year-old female who presented to the emergency department on 05/10/2021 with complaints of severe abdominal pain. She was diagnosed with acute recurrent pancreatitis. states that she has had multiple recurrences of pancreatitis first diagnosed in 2012. She's had no follow-up with gastroenterology and no further workup. Patient denies to any history of alcohol abuse however states that she did have 2-3 alcoholic drinks prior to this episode of pancreatitis. Also patient has had admissions to the hospital in the past in 2019 with blood alcohollevel of 219. On admission she had a lipase in the 9000s, evidence of leukocytosis with a WBC18.6. she underwent a CT of the abdomen and pelvis showing acute pancreatitis,she also underwent a ultrasound of the gallbladder that showed no gallstones, common bile duct within normal limits, pancreatic duct was slight dilation. Patient had a repeat CT of the abdomen and pelvis for continued abdominal pain on 05/14/2021which showed ongoing acute pancreatitis with a vague 2.0 cm hypodense density at the level of the pancreatic neck that could represent developing area of acute necrotic col lection of fluid. There was worsening retroperitoneal inflammation and retroperitoneal fluid tracking down the left side of the abdomen now with moderate pelvic ascites. The patient is pain has improved some however still rating it a 7 out of 10. Greatest in the left upper quadrant radiating to her back. Denies any nausea or vomiting. Lipase is now normalized, LFTs have been normal. repeat labs today show WBC 10.3 hemoglobin 9.8 hematocrit 30.7 platelet count 507,000 ESR 49 total bilirubin 0.5 AST 28 ALT 13 alk phos 4680 8C reactive protein 20 lipase 76.at this time the etiology of pancreatitis is unclear. Will run further blood tests including triglycerides as well as autoimmune panel. Patient denies any new medications. Will also order repeat computed tomography scan of the abdomen and pelvis, if there is any increase in area of concern for necrotic fluid consider possible transfer to tertiary center. Repeat CT of the abdomen showing any change or increase in hypodensity. Patient's symptoms are improving. Will advance diet. Continue to monitor. Current Visit: Yes Status: Acute Code(s): K85.90 - ACUTE PANCREATITIS WITHOUT NECROSIS OR INFECTION, UNSP SNOMED Code(s): 255169738 (2) Abdominal pain Current Visit: No Status: Acute Code(s): R10.9 - UNSPECIFIED ABDOMINAL PAIN SNOMED Code(s): 33299721 (3) Leukocytosis Current Visit: Yes Status: Acute Code(s): D72.829 - ELEVATED WHITE BLOOD CELL COUNT, UNSPECIFIED SNOMED Code(s): 672890823 Plan: 1. Continue symptomatic and supportive care 2. Continue pain medications as ordered 3. CT abdomen and pelvis reviewed with radiologist, no concern for increased area of necrotic fluid 4. Repeat CBC daily 5. Antiemetics as needed 6. JENNY, IgG4, and triglycerides ordered 7. May increase to full liquid diet Thank you for this consultation, we will continue to follow Dr. Swetha Salazar I agree with the dictator's note, documented as a scribe by Joy Atwood.
[2021-05-20 16:36] LABS: Glucose,Whole Blood 121 mg/dL (75-99)
--- NOTE | 2021-05-20 17:40 | P.PN ---
<Petey Reeves - Last Filed: 05/20/21 17:14> Subjective Progress Note Date: 05/20/21 Hospital Course: The patient is a 40-year-old female with a past medical history of Daniele-en-Y gastric bypass, recurrent episodes of pancreatitis, mild intermittent asthma, hypothyroidism, and GERD who presented to the emergency room for abdominal pain. In the ER she underwent an extensive evaluation. She was found have an elevated lipase of 9824. She underwent a CT abdomen and pelvis which demonstrated retroperitoneal fluid around the pancreas and in the anterior pararenal space related to acute pancreatitis as well as free fluid in the right paracolic gutter. She was initially made nothing by mouth, started on pain management, IV fluids. Surgery was consulted. Gallbladder ultrasound was ordered which showed normal gallbladder wall and negative Singer's sign. She started to spike fevers on 05/12. Urinalysis and chest x-ray were unremarkable. CT abdomen and pelvis completed 05/14/21 correlates for ongoing acute pancreatitis with a vague 2.0 cm hypodensity at the level of the pancreatic neck possibly representing developing area of acute necrotic collection of fluid, wor sening retroperitoneal inflammation and retroperitoneal fluid tracking down the left side of the abdomen now with moderate pelvic ascites, and mild generalized small bowel ileus. CT abdomen and pelvis completed on 05/19/21 revealing some retroperitoneal fluid accumulation in the left anterior pararenal space with small amount of fluid around the posterior aspect of the body and head of the pancreas, likely representing pancreatitis., Also reports of low density free fluid in the pelvis slightly increased in volume when compared to previous exam. Physical Exam: Patient seen and fully evaluated at the bedside this morning. She reports improvement in abdominal and left flank pain, and is requesting to eat at this time. It was discussed with GI and general surgery for diet to be increased to bariatric clear liquid diet at this time and we will monitor how patient tolerates prior to advancing further. CT abdomen and pelvis revealing some retroperitoneal fluid accumulation in the left anterior pararenal space with small amount of fluid around the posterior aspect of the body and head of the pancreas, likely representing pancreatitis., Also reports of low density free fluid in the pelvis slightly increased in volume when compared to previous exam. Patient has remained afebrile for greater than 48 hours. Vital signs stable. Triglycerides were elevated at 188.00. Lipase remains at normal findings of 76. Awaiting morning labs to result at this time. Patient denies any further complaints including headache, lightheadedness, dizziness, chest pain, palpitations, shortness of breath, or experiencing any changes in her difficulties with urinary or bowel function. Vital signs stable and patient has remained afebrile for over 48 hours. We will monitor how patient tolerates bariatric clear liquid diet and appreciate further recommendations from general surgery and GI. Patient seen and examined at bedside. General: non toxic, mild distress due to pain, appears at stated age Derm: warm, dry. Negative [place]'s and [place]. Skin rash to trunk. Head: atraumatic, normocephalic, symmetric Eyes: EOMI, no lid lag, anicteric sclera Mouth: no lip lesion, mucus membranes moist Cardiovascular: S1S2 reg, no murmur, positive posterior tibial pulse bilateral, Lungs: CTA bilateral, no rhonchi, no rales , no accessory muscle use Abdominal: soft, nontender to palpation with no guarding, + left sided retroperitoneal/flank tenderness upon palpation. No appreciable organomegaly Ext: No gross muscle atrophy, no edema, no contractures Neuro: CN II-XI grossly intact, no focal neuro deficits Psych: Alert, oriented, appropriate affect Assessment and Plan of Care: Pancreatitis, necrotizing with fluid collection Ascites, related to fluid resuscitation and low albumin state Inflammation in the left retroperitoneal space likely related to pancreatitis -Diet: Advance to bariatric clear liquid diet -Surgery following, recommending no surgical interventions at this time -GI following, appreciate further recommendations -Pain control -Repeat CT abdomen and pelvis completed 05/14/21 correlates for ongoing acute pancreatitis with a vague 2.0 cm hypodensity at the level of the pancreatic neck possibly representing developing area of acute necrotic collection of fluid, worsening retroperitoneal inflammation and retroperitoneal fluid tracking down the left side of the abdomen now with moderate pelvic ascites, and mild generalized small bowel ileus. Repeat CT abdomen and pelvis completed on 05/19/21 revealing some retroperitoneal fluid accumulation in the left anterior pararenal space with small amount of fluid around the posterior aspect of the body and head of the pancreas, likely representing pancreatitis., Also reports of low density free fluid in the pelvis slightly increased in volume when compared to previous exam. -Continue to monitor closely -Initial abdominal ultrasound that did not show any fluid collection on the pancreas, atrophic gallbladder, borderline dilated common bile duct -Patient then underwent repeat computed tomography scan which showed a 2 cm area of necrotizing fluid collection as well as increased fluid in the left retroperitoneal space with fluid tracking on the left side of the abdomen, mild generalized small bowel ileus Acute on chronic normocytic anemia, stable -No signs of bleeding, possibly diuresis from agressive IV fluid hydration -Status post transfusion of 1 unit PRBCs, hemoglobin currently stable Skin rash, improved -Sec to lovenox, Lovenox discontinued and patient was placed on mechanical SCDs for DVT prophylaxis. -Benadryl prn Pyrexia, resolved patient has been afebrile for greater than 48 hours -COVID, RSV, influenza A and B-negative -Chest x-ray negative for acute cardiopulmonary process -Continue to monitor -Symptomatic care and pain management with Tylenol when necessary for fever. -Leukocytosis improving Leukocytosis improving Hyomagnesemia, replaced GERD -PPI Code status: Full code DVT prophylaxis: pt is ambulatory will d/c lovenox as she is low risk and place her on mechanical prophylaxis Discussed with: Patient and RN Anticipated discharge date: Clinical course to determine. Anticipated discharge place: Home. A total of 45 minutes was spent on the care of this complex patient more than 50% of the time was spent in counseling and care coordination. Objective - Vital Signs Vital signs: Vital Signs Temp 97.8 F 05/20/21 07:00 Pulse 65 05/20/21 07:00 Resp 16 05/20/21 07:00 BP 96/58 05/20/21 07:00 Pulse Ox 94 L 05/20/21 07:00 Intake & Output 05/19/21 05/20/21 05/20/21 18:59 06:59 18:59 Intake Total 100 Balance 100 Weight 49.895 kg Intake: Oral 100 Other: Voiding Method Toilet # Voids 4 3 # Bowel Movements 0 - Labs CBC & Chem 7: 05/20/21 10:51 05/19/21 08:45 Labs: Abnormal Lab Results - Last 24 Hours (Table) 05/19/21 05/19/21 05/19/21 Range/Units 08:45 08:45 12:09 RBC 3.67 L (3.80-5.40) m/uL Hgb 9.8 L (11.4-16.0) gm/dL Hct 30.7 L (34.0-46.0) % RDW 20.5 H (11.5-15.5) % Plt Count 507 H (150-450) k/uL ESR 49 H (0-20) mm/hr Sodium 136 L (137-145) mmol/L BUN <2 L (7-17) mg/dL Creatinine 0.30 L (0.52-1.04) mg/dL POC Glucose (mg/dL) 107 H (75-99) mg/dL Calcium 8.0 L (8.4-10.2) mg/dL C-Reactive Protein 20.0 H (<1.0) mg/dL Total Protein 5.4 L (6.3-8.2) g/dL Albumin 2.6 L (3.5-5.0) g/dL 05/19/21 05/19/21 05/20/21 Range/Units 18:26 21:15 02:39 RBC (3.80-5.40) m/uL Hgb (11.4-16.0) gm/dL Hct (34.0-46.0) % RDW (11.5-15.5) % Plt Count (150-450) k/uL ESR (0-20) mm/hr Sodium (137-145) mmol/L BUN (7-17) mg/dL Creatinine (0.52-1.04) mg/dL POC Glucose (mg/dL) 141 H 151 H 173 H (75-99) mg/dL Calcium (8.4-10.2) mg/dL C-Reactive Protein (<1.0) mg/dL Total Protein (6.3-8.2) g/dL Albumin (3.5-5.0) g/dL <Iva Gallegos - Last Filed: 05/20/21 21:58> Subjective Petey Reeves NP rendered care for this patient independently, reviewed the findings and plan as documented in the note above. I did not physically speak with or examine the patient on this date. Objective - Vital Signs Vital signs: Vital Signs Temp 98.1 F 05/20/21 20:00 Pulse 67 05/20/21 20:00 Resp 14 05/20/21 20:00 BP 105/68 05/20/21 20:00 Pulse Ox 98 05/20/21 20:00 Intake & Output 05/20/21 05/20/21 05/21/21 06:59 18:59 06:59 Intake Total 100 Balance 100 Intake: Oral 100 Other: # Voids 3 2 # Bowel Movements 0 - Labs CBC & Chem 7: 05/20/21 10:51 05/19/21 08:45 Labs: Abnormal Lab Results - Last 24 Hours (Table) 05/19/21 05/20/21 05/20/21 Range/Units 08:45 02:39 10:51 WBC 15.2 H (3.8-10.6) k/uL Hgb 10.4 L (11.4-16.0) gm/dL Hct 33.6 L (34.0-46.0) % RDW 20.7 H (11.5-15.5) % Plt Count 715 H (150-450) k/uL POC Glucose (mg/dL) 173 H (75-99) mg/dL Triglycerides 188.00 H (0.00-149.00) mg/dL 05/20/21 05/20/21 Range/Units 11:19 16:30 WBC (3.8-10.6) k/uL Hgb (11.4-16.0) gm/dL Hct (34.0-46.0) % RDW (11.5-15.5) % Plt Count (150-450) k/uL POC Glucose (mg/dL) 123 H 121 H (75-99) mg/dL Triglycerides (0.00-149.00) mg/dL
[2021-05-20] MEDS: MELATONIN 3 MG TABLET PO SCH (20:13)
[2021-05-20 21:20] VITALS: RESP 14
[2021-05-21 00:09] LABS: Glucose,Whole Blood 90 mg/dL (75-99)
[2021-05-21] MEDS: HYDROmorphone 0.5 MG/0.5 ML SYRINGE IVP PRN (01:15)
[2021-05-21 06:07] VITALS: BP 107/69; PULSE 58; TEMP 98
[2021-05-21 06:26] LABS: Glucose,Whole Blood 78 mg/dL (75-99)
[2021-05-21] MEDS: PANTOPRAZOLE 40 MG TABLET PO SCH (07:12)
[2021-05-21] MEDS: HYDROcodone/APAP 7.5-325MG 1 EACH TAB PO PRN ×2 (07:13→13:38)
[2021-05-21] MEDS: DICLOFENAC SODIUM GEL 100 GM TUBE TOPICAL SCH ×2 (07:14→12:23)
[2021-05-21] MEDS: SIMETHICONE 40 MG/0.6 ML DROPS 2,000 MG/30 ML BOTTLE PO SCH ×2 (07:14→12:04)
[2021-05-21 09:17] LABS: HCT 30.2 % (37.2-46.3); HGB 9.3 g/dL (12.0-15.0); MCH 26.8 pg (27.0-32.0); MCHC 30.8 g/dL (32.0-37.0); Mean Platelet Volume 9.6 fL (9.5-12.2); Platelet Count 621 X 10*3/uL (140-440); RBC 3.47 X 10*6/uL (4.10-5.20); WBC 9.99 X 10*3/uL (4.50-10.00)
[2021-05-21] MEDS ORDERED: HYDROmorphone 0.5 MG/0.5 ML SYRINGE IVP PRN (10:08)
--- NOTE | 2021-05-21 10:45 | P.PN ---
<TameraandrewKarin - Last Filed: 05/21/21 10:42> Subjective Progress Note Date: 05/21/21 CHIEF COMPLAINT: Pancreatitis HISTORY OF PRESENT ILLNESS: Patient's abdominal pain is continuing to improve. She is tolerating a full liquid diet. Denies any nausea or vomiting. Denies any worsening pain after eating. Her pain is still mostly on the left flank. Afebrile. White count has normalized from 15-9.9 hemoglobin dropped from 10.4- 9.3. PHYSICAL EXAM: VITAL SIGNS: Reviewed. GENERAL: Well-developed in no acute distress. HEENT: No sclera icterus. Extraocular movements grossly intact. Moist buccal mucosa. Head is atraumatic, normocephalic. ABDOMEN: Soft. Nondistended. Decreased tenderness on palpation of the left flank NEUROLOGIC: Alert and oriented. Cranial nerves II through XII grossly intact. ASSESSMENT: 1. Acute pancreatitis likely alcohol-related. No evidence of gallstones on ultrasound 2. Necrotizing pancreatitis 3. Anemia PLAN: -No surgical intervention planned -Agree with slowly advancing diet as tolerated -Encourage patient to ambulate -Alcohol cessation Physician Drug Worker note has been reviewed by physician. Signing provider agrees with the documented findings, assessment, and plan of care. Objective - Vital Signs Vital signs: Vital Signs Temp 98.0 F 05/21/21 06:06 Pulse 58 L 05/21/21 06:06 Resp 14 05/21/21 06:06 BP 107/69 05/21/21 06:06 Pulse Ox 97 05/21/21 06:06 Intake & Output 05/20/21 05/21/21 05/21/21 18:59 06:59 18:59 Other: # Voids 2 1 - Labs CBC & Chem 7: 05/21/21 05:33 05/19/21 08:45 Labs: Abnormal Lab Results - Last 24 Hours (Table) 05/20/21 05/20/21 05/20/21 Range/Units 10:51 11: 16:30 WBC 15.2 H (3.8-10.6) k/uL RBC (4.10-5.20) X 10*6/uL Hgb 10.4 L (11.4-16.0) gm/dL Hct 33.6 L (34.0-46.0) % MCH (27.0-32.0) pg MCHC (32.0-37.0) g/dL RDW 20.7 H (11.5-15.5) % Plt Count 715 H (150-450) k/uL POC Glucose (mg/dL) 123 H 121 H (75-99) mg/dL 05/21/21 Range/Units 05:33 WBC (3.8-10.6) k/uL RBC 3.47 L (4.10-5.20) X 10*6/uL Hgb 9.3 L (11.4-16.0) gm/dL Hct 30.2 L (34.0-46.0) % MCH 26.8 L (27.0-32.0) pg MCHC 30.8 L (32.0-37.0) g/dL RDW 23.0 H (11.5-15.5) % Plt Count 621 H (150-450) k/uL POC Glucose (mg/dL) (75-99) mg/dL <Nacho Martinez - Last Filed: 05/21/21 14:57> Subjective As above. Patient feels better today. Tolerating diet. November discharge. Follow-up with GI post discharge. Objective - Vital Signs Vital signs: Vital Signs Temp 98.0 F 05/21/21 06:06 Pulse 58 L 05/21/21 06:06 Resp 14 05/21/21 06:06 BP 107/69 05/21/21 06:06 Pulse Ox 97 05/21/21 06:06 Intake & Output 05/20/21 05/21/21 05/21/21 18:59 06:59 18:59 Weight 49.895 kg Other: # Voids 2 1 - Labs CBC & Chem 7: 05/21/21 05:33 05/19/21 08:45 Labs: Abnormal Lab Results - Last 24 Hours (Table) 05/20/21 05/21/21 Range/Units 16:30 05:33 RBC 3.47 L (4.10-5.20) X 10*6/uL Hgb 9.3 L (12.0-15.0) g/dL Hct 30.2 L (37.2-46.3) % MCH 26.8 L (27.0-32.0) pg MCHC 30.8 L (32.0-37.0) g/dL RDW 23.0 H (11.5-14.5) % Plt Count 621 H (140-440) X 10*3/uL POC Glucose (mg/dL) 121 H (75-99) mg/dL
[2021-05-21] MEDS: NICOTINE 21MG/24HR PATCH TRANSDERM SCH ×2 (10:52→12:04)
[2021-05-21 12:15] LABS: Glucose,Whole Blood 91 mg/dL (75-99)
--- NOTE | 2021-05-21 13:13 | P.PN ---
Subjective Progress Note Date: 05/21/21 Principal diagnosis: abdominal pain, pancreatitis 40-year-old female who was admitted to the hospital with complaints of abdominal pain found to have acute pancreatitis. Patient has a history of multiple previous occasions of pancreatitis. She denies over excessive use of alcohol. There was concern and question on a 2.0 cm hypodensity that could represent developing area of acute necrotic collection of fluid. Patient had a repeat CT of the abdomen and pelvis yesterday that does not show much change. No increase in the area of the 2.0 cm hypodensity. Patient actually is stating she's feeling much better today. Abdominal pain improved significantly. She denies any fevers or chills. WBC 9.9. She's been tolerating full liquid diet and would like to advance. Dilaudid has been discontinued as patient is pending probable discharge. Objective - Vital Signs Vital signs: Vital Signs Temp 98.0 F 05/21/21 06:06 Pulse 58 L 05/21/21 06:06 Resp 14 05/21/21 06:06 BP 107/69 05/21/21 06:06 Pulse Ox 97 05/21/21 06:06 Intake & Output 05/20/21 05/21/21 05/21/21 18:59 06:59 18:59 Other: # Voids 2 1 - Exam General appearance: The patient is alert, oriented, appears in no acute distress. HET: Head is normocephalic and atraumatic. Conjunctiva pink. Sclera anicteric. Neck: Supple without lymphadenopathy. Abdomen: Soft, mild tenderness, nondistended with bowel sounds. No guarding or rigidity. Extremities: Normal skin color and turgor. No pedal edema Skin: No rashes, no jaundice Neurological: No focal deficits. Alert and oriented x3. - Labs CBC & Chem 7: 05/21/21 05:33 05/19/21 08:45 Labs: Abnormal Lab Results - Last 24 Hours (Table) 05/20/21 05/20/21 05/20/21 Range/Units 10:51 11: 16:30 WBC 15.2 H (3.8-10.6) k/uL RBC (4.10-5.20) X 10*6/uL Hgb 10.4 L (11.4-16.0) gm/dL Hct 33.6 L (34.0-46.0) % MCH (27.0-32.0) pg MCHC (32.0-37.0) g/dL RDW 20.7 H (11.5-15.5) % Plt Count 715 H (150-450) k/uL POC Glucose (mg/dL) 123 H 121 H (75-99) mg/dL 05/21/21 Range/Units 05:33 WBC (3.8-10.6) k/uL RBC 3.47 L (4.10-5.20) X 10*6/uL Hgb 9.3 L (11.4-16.0) gm/dL Hct 30.2 L (34.0-46.0) % MCH 26.8 L (27.0-32.0) pg MCHC 30.8 L (32.0-37.0) g/dL RDW 23.0 H (11.5-15.5) % Plt Count 621 H (150-450) k/uL POC Glucose (mg/dL) (75-99) mg/dL Assessment and Plan (1) Acute pancreatitis Narrative/Plan: This is a 40-year-old female who presented to the emergency department on 05/10/2021 with complaints of severe abdominal pain. She was diagnosed with acute recurrent pancreatitis. states that she has had multiple recurrences of pancreatitis first diagnosed in 2012. She's had no follow-up with gastroenterology and no further workup. Patient denies to any history of alcohol abuse however states that she did have 2-3 alcoholic drinks prior to this episode of pancreatitis. Also patient has had admissions to the hospital in the past in 2019 with blood alcohollevel of 219. On admission she had a lipase in the 9000s, evidence of leukocytosis with a WBC18.6. she underwent a CT of the abdomen and pelvis showing acute pancreatitis,she also underwent a ultrasound of the gallbladder that showed no gallstones, common bile duct within normal limits, pancreatic duct was slight dilation. Patient had a repeat CT of the abdomen and pelvis for continued abdominal pain on 05/14/2021which showed ongoing acute pancreatitis with a vague 2.0 cm hypodense density at the level of the pancreatic neck that could represent developing area of acute necrotic collection of fluid. There was worsening retroperitoneal inflammation and retroperitoneal fluid tracking down the left side of the abdomen now with moderate pelvic ascites. The patient is pain has improved some however still rating it a 7 out of 10. Greatest in the left upper quadrant radiating to her back. Denies any nausea or vomiting. Lipase is now normalized, LFTs have been normal. repeat labs today show WBC 10.3 hemoglobin 9.8 hematocrit 30.7 platelet count 507,000 ESR 49 total bilirubin 0.5 AST 28 ALT 13 alk phos 4680 8C reactive protein 20 lipase 76.at this time the etiology of pancreatitis is unclear. Will run further blood tests including triglycerides as well as autoimmune panel. Patient denies any new medications. Will also order repeat computed tomography scan of the abdomen and pelvis, if there is any increase in area of concern for necrotic fluid consider possible transfer to tertiary center. Repeat CT of the abdomen showing any change or increase in hypodensity. Patient's symptoms are improving. Will advance diet. Continue to monitor. Current Visit: Yes Status: Acute Code(s): K85.90 - ACUTE PANCREATITIS WITHOUT NECROSIS OR INFECTION, UNSP SNOMED Code(s): 342671571 (2) Abdominal pain Current Visit: No Status: Acute Code(s): R10.9 - UNSPECIFIED ABDOMINAL PAIN SNOMED Code(s): 98811879 (3) Leukocytosis Narrative/Plan: Resolved Current Visit: Yes Status: Acute Code(s): D72.829 - ELEVATED WHITE BLOOD CELL COUNT, UNSPECIFIED SNOMED Code(s): 341708206 Plan: 1. Continue symptomatic and supportive care 2. Continue pain medications as ordered 3. Advance to low-fat diet 4. Encourage ambulation 5. If patient is able to advance diet and pain well controlled she may be cleared for discharge from gastroenterology Thank you for allowing us to participate in the care of the patient, the GI service will sign off, gastroenterology will not be available at the hospital this weekend and through next week. If further evaluation by gastroenterology is required the patient will need transfer as per the primary team's discretion. Dr. Swetha Salazar I agree with the dictator's note, documented as a scribe by Joy Atwood.
--- NOTE | 2021-05-21 16:29 | P.DS ---
<Petey Reeves - Last Filed: 05/21/21 16:22> Providers Expected date of discharge: 05/21/21 Hospital Course: Discharge Diagnosis: Pancreatitis, necrotizing with fluid collection Ascites, related to fluid resuscitation and low albumin state Inflammation in the left retroperitoneal related to recurrent pancreatitis Acute on chronic normocytic anemia, stable Skin rash, improved Pyrexia, resolved Leukocytosis, resolved Hyomagnesemia, resolved GERD Severe protein calorie malnutrition Hospital Course: The patient is a 40-year-old female with a past medical history of Daniele-en-Y gastric bypass, recurrent episodes of pancreatitis, mild intermittent asthma, hypothyroidism, and GERD who presented to the emergency room for abdominal pain. In the ER she underwent an extensive evaluation. She was found have an elevated lipase of 9824. She underwent a CT abdomen and pelvis which demonstrated retroperitoneal fluid around the pancreas and in the anterior pararenal space related to acute pancreatitis as well as free fluid in the right paracolic gutter. She was initially made nothing by mouth, started on pain management, IV fluids. Surgery was consulted. Gallbladder ultrasound was ordered which showed normal gallbladder wall and negative Singer's sign. She started to spike fevers on 05/12. Urinalysis and chest x-ray were unremarkable. CT abdomen and pelvis completed 05/14/21 correlates for ongoing acute pancreatitis with a vague 2.0 cm hypodensity at the level of the pancreatic neck possibly representing developing area of acute necrotic collection of fluid, worsening retroperitoneal inflammation and retroperitoneal fluid tracking down the left side of the abdomen now with moderate pelvic ascites, and mild generalized small bowel ileus. Patient was also found to have acute on chronic normocytic anemia requiring 1 unit transfusion of PRBCs and has since had stabilized hemoglobin. CT abdomen and pelvis completed on 05/19/21 revealing some retroperitoneal fluid accumulation in the left anterior pararenal space with small amount of fluid around the posterior aspect of the body and head of the pancreas, likely representing pancreatitis., Also reports of low density free fluid in the pelvis slightly increased in volume when compared to previous exam. Patient's diet slowly advanced to bariatric clear, bariatric full liquid, and now low fiber bariatric diet. Patient tolerating well and reports pain is controlled. She denies having any further episodes of nausea, vomiting, or any other complaints. Left upper quadrant no longer tender upon palpation and patient reports significant improvement of left retroperitoneal tenderness, denying tenderness upon palpation. Patient requesting to be discharged at this time. Patient has been cleared by general surgery and GI. Patient to follow up outpatient in office with Dr. Salazar and to follow up with her PCP as directed. Patient encouraged to refrain from alcohol use as this may lead to further episodes of recurrent pancreatitis. Physical Exam: Patient seen and fully evaluated at the bedside this morning. She reports improvement in abdominal and left retroperitoneal pain. She states this pain is controlled and has been tolerating a full liquid bariatric diet. Diet advanced to low fiber bariatric diet and patient also tolerating well with no further reports of abdominal pain, retroperitoneal pain, nausea, vomiting, or any other complaints. Patient remains afebrile. Leukocytosis resolved. Patient is stable for discharge home at this time and instructed to refrain from EtOH use and to follow up with gastroenterology as discussed. Patient seen and examined at bedside. General: non toxic, mild distress due to pain, appears at stated age Derm: warm, dry. Negative Tio's and Turners. Skin rash to trunk. Head: atraumatic, normocephalic, symmetric Eyes: EOMI, no lid lag, anicteric sclera Mouth: no lip lesion, mucus membranes moist Cardiovascular: S1S2 reg, no murmur, positive posterior tibial pulse bilateral, Lungs: CTA bilateral, no rhonchi, no rales , no accessory muscle use Abdominal: soft, nontender to palpation with no guarding, + left sided retroperitoneal/flank tenderness upon palpation. No appreciable organomegaly Ext: No gross muscle atrophy, no edema, no contractures Neuro: CN II-XI grossly intact, no focal neuro deficits Psych: Alert, oriented, appropriate affect A total of 45 minutes of time were spent preparing this complex discharge summary. Patient Condition at Discharge: Stable Plan - Discharge Summary Discharge Rx Participant: Yes New Discharge Prescriptions: New Pantoprazole [Protonix] 40 mg PO AC-BRKFST 30 Days #30 tab Hydrocortisone Cream [Hydrocortisone 1% Cream] 1 applic TOPICAL BID PRN 5 Days #1 cream PRN Reason: Skin Irritation HYDROcodone/APAP 5-325MG [[place] 5-325] 1 tab PO Q6HR PRN 3 Days #12 tab PRN Reason: Pain Continue Omeprazole 20 mg PO DAILY Discharge Medication List Omeprazole 20 mg PO DAILY 05/10/21 [History] HYDROcodone/APAP 5-325MG [[place]ym[place] 5-325] 1 tab PO Q6HR PRN 3 Days #12 tab 05/21/21 [Rx] Hydrocortisone Cream [Hydrocortisone 1% Cream] 1 applic TOPICAL BID PRN 5 Days #1 cream 05/21/21 [Rx] Pantoprazole [Protonix] 40 mg PO AC-BRKFST 30 Days #30 tab 05/21/21 [Rx] Follow up Appointment(s)/Referral(s): Libertad Salazar MD [STAFF PHYSICIAN] - 07/22/21 4:30 pm (Please call office if you have any insurance changes. Thank you.) Patti Lang MD [Primary Care Provider] - 1-2 days (Please call and make appointments.) Patient Instructions/Handouts: Pancreatitis (DC) Activity/Diet/Wound Care/Special Instructions: Activity: As tolerated. Take breaks as needed. Diet: Heart healthy and carb consistent diet. Avoid salts, or foods with hidden salts such as canned or boxed foods and frozen dinners. Extra salt makes your heart work harder and traps the fluid in your body for longer. Special Instructions: Take all of your medications as directed and remember to keep all of your doctor's appointments and follow-up as needed. Thank you for allowing us to participate in your care, it was truly a pleasure having you for our patient!!! *If patient has new prescriptions at discharge, see pillowcase cutter for indigent funds form* Discharge Disposition: HOME SELF-CARE <Iva Gallegos - Last Filed: 05/21/21 22:30> Providers Date of admission: 05/10/21 22:47 Attending physician: Bobby Anaya MD Consults: 05/10/21 22:47 Consult Physician Urgent Consulting Provider: Lexx Doyle Consult Reason/Comments: pancreatitis Do you want consulting provider notified?: Already Contacted 05/19/21 07:38 Consult Physician Routine Consulting Provider: Libertad Salazar Consult Reason/Comments: acute ongoing pancreatitis Do you want consulting provider notified?: Yes Primary care physician: Patti Lang Hospital Course: Patient seen and independently evaluated by Petey Reeves NP and case was discussed. I am in agreement with discharge diagnosis, hospital course, and physical exam as written above and amended below.
[2021-05-22] MEDS ORDERED: NICOTINE 21MG/24HR PATCH TRANSDERM SCH (09:00)
== END 2021-05-21 16:15 | disposition home or self-care (01) | DRG 438 ==
LOC: EC 18:46 → 1SOBS 22:47 → 6PED 05-14 13:28 → 4SSUR 05-16 15:52
PROVIDERS: ADMIT Internal Medicine; ATTEND Internal Medicine
PROC: 30233N1 Transfusion of Nonautologous Red Blood Cells into Peripheral Vein, Percutaneous Approach (ICD-10-PCS; principal; 2021-05-17)
DX: K85.92 Acute pancreatitis with infected necrosis, unspecified (principal); E43 Unspecified severe protein-calorie malnutrition; R18.8 Other ascites; K56.7 Ileus, unspecified; Z68.1 Body mass index [BMI] 19.9 or less, adult; K82.1 Hydrops of gallbladder; D64.9 Anemia, unspecified; E03.9 Hypothyroidism, unspecified; Z98.84 Bariatric surgery status; E88.09 Other disorders of plasma-protein metabolism, not elsewhere classified; F17.210 Nicotine dependence, cigarettes, uncomplicated; F32.9 Major depressive disorder, single episode, unspecified; R50.9 Fever, unspecified; F41.9 Anxiety disorder, unspecified; J45.20 Mild intermittent asthma, uncomplicated; K86.1 Other chronic pancreatitis; K21.9 Gastro-esophageal reflux disease without esophagitis; K83.8 Other specified diseases of biliary tract; E83.42 Hypomagnesemia; L29.9 Pruritus, unspecified; Z20.822 Contact with and (suspected) exposure to COVID-19; Z87.11 Personal history of peptic ulcer disease; Z91.041 Radiographic dye allergy status; Z88.0 Allergy status to penicillin; Z71.3 Dietary counseling and surveillance; Z83.2 Family history of diseases of the blood and blood-forming organs and certain disorders involving the immune mechanism; Z98.51 Tubal ligation status; Z98.890 Other specified postprocedural states
CPT/HCPCS: 36415; 71045; 74176; 74177; 76700; 76705; 80048; 80053; 81001; 82150; 82787; 83605; 83690; 83735; 84478; 85025; 85027; 85610; 85652; 85730; 86038; 86140; 86850; 86870; 86880; 86900; 86901; 86902; 86920; 87502; 87634; 87635; 96374; 96375; 96376; 99285

== ENCOUNTER 2022-03-25 15:24 | Inpatient (IN) | payer BC ==
[2022-03-25] MEDS ORDERED: NALOXONE 0.4 MG/ML 1 ML VIAL IVP STA (15:30)
[2022-03-25 15:32] LABS: Glucose,Whole Blood 138 mg/dL (70-110)
--- NOTE | 2022-03-25 15:40 | ED ---
General Adult HPI - General Chief complaint: Overdose Stated complaint: overdose Time Seen by Provider: 03/25/22 15:31 Source: patient, EMS Mode of arrival: EMS Limitations: altered mental status - History of Present Illness Initial comments: Dictation was produced using smsPREP dictation software. please excuse any grammatical, word or spelling errors. Chief Complaint: 41-year-old female with known history of illicit drug use presents to the emergency department for altered mental status and concerns of suicidal overdose History of Present Illness: This is a 41-year-old female she is brought in by EMS she was last seen normal at around 7 AM. Patient according to nurse received report from EMS states that patient recently threatened to overdose on her medications. Patient takes medications of citalopram, Flexeril and Keppra. Patient was discovered at approximately 2:30 PM found to be in her current clinical state. Patient is obtunded. EMS reports the patient had normal vital signs. No Narcan was attempted by EMS. Unable to obtain ROS secondary to mental status PHYSICAL EXAM: General Impression: Obtunded, sonorous HEENT: Normocephalic atraumatic, extra-ocular movements intact, pupils equal and reactive to light bilaterally, or mucous membranes Cardiovascular: Heart regular rate and rhythm Chest:no retractions, no tachypnea Abdomen: abdomen soft, non-tender, non-distended, no organomegaly Musculoskeletal: Pulses present and equal in all extremities, no peripheral edema Neurological: Unresponsive, minimal gag reflex, no purposeful movements Skin: Intact with no visualized rashes ED course: 41 y Old female presents to the emergency department for altered mental status. There is suspicion of unknown overdose of unknown medication at unknown time. Patient was given Narcan with no response. EKG shows no prolonged QT or widened QRS. EKG interpretation: Ventricular rate 116, sinus tachycardia,. 136, care is 91, QTC 409. No TN prolongation, no QTC prolongation, no ST or T-wave changes noted. Overall, this EKG is unremarkable Patient is somnolent but she is protecting her airway. Laboratory evaluation obtained. CBC within acceptable limits. Metabolic panel is unremarkable. No acidosis. Urinalysis is negative. Acetaminophen, salicylate levels are negative. Serum osmolality does not show any osmolar gap. Urine drug screen positive for TCAs, benzos and marijuana. Case was discussed briefly with poison control who recommended maintaining patient's electrolytes and monitoring pa tient with symptomatic care. arrived at the bedside states that patient took several pills of trazodone and Valium. Spoke with tank charger Dr. Salazar who did not feel patient met immediate criteria for ICU admission. He states that ICU is currently full. He did feel like patient is amenable for step down admission. A discussed with son physician Dr. Marie who is willing to accept patients care. - Related Data Home Medications Medication Instructions Recorded Confirmed Citalopram Hydrobromide 20 mg PO DAILY 03/25/22 03/25/22 [Citalopram HBr] Cyclobenzaprine [Flexeril] 5 mg PO TID PRN 03/25/22 03/25/22 levETIRAcetam [Keppra] 500 mg PO Q12HR 03/25/22 03/25/22 Previous Rx's Medication Instructions Recorded Pantoprazole [Protonix] 40 mg PO AC-BRKFST 30 Days #30 tab 05/21/21 Allergies Allergy/AdvReac Type Severity Reaction Status Date / Time Penicillins Allergy Anaphylaxis Verified 03/25/22 16:07 Iodinated Contrast Media AdvReac seizure Verified 03/25/22 15:36 [Iodinated Contrast Media - Oral and] Review of Systems ROS Statement: Those systems with pertinent positive or pertinent negative responses have been documented in the HPI. ROS Other: All systems not noted in ROS Statement are negative. Past Medical History Past Medical History: Asthma, GERD/Reflux, Thyroid Disorder Additional Past Medical History / Comment(s): Pt. reports she has a history of a heart murmur. duodenal ulcer, n/v, abdominal pain, hx hypothyroidism History of Any Multi-Drug Resistant Organisms: None Reported Past Surgical History: Bariatric Surgery, Tubal Ligation Additional Past Surgical History / Comment(s): breast reduction, gastric bypass. Past Anesthesia/Blood Transfusion Reactions: No Reported Reaction Past Psychological History: Anxiety, Depression Smoking Status: Current every day smoker Past Alcohol Use History: None Reported Past Drug Use History: Marijuana - Past Family History Daughter(s) Family Medical History: Blood Disorder General Exam Limitations: altered mental status Course Vital Signs 03/25/22 03/25/22 03/25/22 15:30 15:52 16:26 Temperature 97.6 F Pulse Rate 118 H 105 H 98 Respiratory 30 H 26 H 18 Rate Blood Pressure 118/82 118/90 100/73 O2 Sat by Pulse 95 96 100 Oximetry 03/25/22 03/25/22 16:56 18:10 Temperature Pulse Rate 96 96 Respiratory 16 18 Rate Blood Pressure 94/70 104/79 O2 Sat by Pulse 100 100 Oximetry Medical Decision Making - Lab Data Result diagrams: 03/25/22 15:39 03/25/22 15:39 Lab Results 03/25/22 03/25/22 03/25/22 Range/Units 15:31 15:39 15:39 WBC 10.8 H (3.8-10.6) k/uL RBC 4.30 (3.80-5.40) m/uL Hgb 10.6 L (11.4-16.0) gm/dL Hct 34.3 (34.0-46.0) % MCV 79.9 L (80.0-100.0) fL MCH 24.7 L (25.0-35.0) pg MCHC 31.0 (31.0-37.0) g/dL RDW 18.6 H (11.5-15.5) % Plt Count 478 H (150-450) k/uL MPV 6.8 Neutrophils % 83 % Lymphocytes % 11 % Monocytes % 4 % Eosinophils % 1 % Basophils % 0 % Neutrophils # 8.9 H (1.3-7.7) k/uL Lymphocytes # 1.2 (1.0-4.8) k/uL Monocytes # 0.4 (0-1.0) k/uL Eosinophils # 0.1 (0-0.7) k/uL Basophils # 0.0 (0-0.2) k/uL Hypochromasia Marked Anisocytosis Slight Microcytosis Slight Sample Site ABG pH (7.35-7.45) ABG pCO2 (35-45) mmHg ABG pO2 (83-108) mmHg ABG HCO3 (21-25) mmol/L ABG Total CO2 (19-24) mmol/L ABG O2 Saturation (94-97) % ABG Base Excess mmol/L ABG Hematocrit (34.0-46.0) % Caleb Test Hemoglobin (11.4-16.0) gm/dL FiO2 % Sodium (137-145) mmol/L Potassium (3.5-5.1) mmol/L Chloride (98-107) mmol/L Carbon Dioxide (22-30) mmol/L Anion Gap mmol/L BUN (7-17) mg/dL Creatinine (0.52-1.04) mg/dL Est GFR (CKD-EPI)AfAm (>60 ml/min/1.73 sqM) Est GFR (CKD-EPI)NonAf (>60 ml/min/1.73 sqM) Glucose (74-99) mg/dL POC Glucose (mg/dL) 138 H (70-110) mg/dL POC Glu Iron Setter ID Sarah Ro Osmolality (280-301) mosm/kg Plasma Lactic Acid Todd (0.7-2.0) mmol/L Calcium (8.4-10.2) mg/dL Ionized Calcium Leander (4.5-5.3) mg/dL Magnesium (1.6-2.3) mg/dL Total Bilirubin (0.2-1.3) mg/dL AST (14-36) U/L ALT (4-34) U/L Alkaline Phosphatase (38-126) U/L Ammonia (<30) umol/L Creatine Kinase (30-135) U/L Total Protein (6.3-8.2) g/dL Albumin (3.5-5.0) g/dL Urine Color Colorless Urine Appearance Clear (Clear) Urine pH 6.0 (5.0-8.0) Ur Specific Kirby 1.005 (1.001-1.035) Urine Protein Negative (Negative) Urine Glucose (UA) Negative (Negative) Urine Ketones Negative (Negative) Urine Blood Negative (Negative) Urine Nitrite Negative (Negative) Urine Bilirubin Negative (Negative) Urine Urobilinogen <2.0 (<2.0) mg/dL Ur Leukocyte Esterase Negative (Negative) Salicylates mg/dL Urine Opiates Screen Not Detected (NotDetected) Ur Oxycodone Screen Not Detected (NotDetected) Urine Methadone Screen Not Detected (NotDetected) Ur Propoxyphene Screen Not Detected (NotDetected) Acetaminophen ug/mL Ur Barbiturates Screen Not Detected (NotDetected) U Tricyclic Antidepress Detected H (NotDetected) Ur Phencyclidine Scrn Not Detected (NotDetected) Ur Amphetamines Screen Not Detected (NotDetected) U Methamphetamines Scrn Not Detected (NotDetected) U Benzodiazepines Scrn Detected H (NotDetected) Urine Cocaine Screen Not Detected (NotDetected) U Marijuana (THC) Screen Detected H (NotDetected) Serum Alcohol mg/dL 03/25/22 03/25/22 03/25/22 Range/Units 15:39 15:39 15:39 WBC (3.8-10.6) k/uL RBC (3.80-5.40) m/uL Hgb (11.4-16.0) gm/dL Hct (34.0-46.0) % MCV (80.0-100.0) fL MCH (25.0-35.0) pg MCHC (31.0-37.0) g/dL RDW (11.5-15.5) % Plt Count (150-450) k/uL MPV Neutrophils % % Lymphocytes % % Monocytes % % Eosinophils % % Basophils % % Neutrophils # (1.3-7.7) k/uL Lymphocytes # (1.0-4.8) k/uL Monocytes # (0-1.0) k/uL Eosinophils # (0-0.7) k/uL Basophils # (0-0.2) k/uL Hypochromasia Anisocytosis Microcytosis Sample Site ABG pH (7.35-7.45) ABG pCO2 (35-45) mmHg ABG pO2 (83-108) mmHg ABG HCO3 (21-25) mmol/L ABG Total CO2 (19-24) mmol/L ABG O2 Saturation (94-97) % ABG Base Excess mmol/L ABG Hematocrit (34.0-46.0) % Caleb Test Hemoglobin (11.4-16.0) gm/dL FiO2 % Sodium 141 (137-145) mmol/L Potassium 3.7 (3.5-5.1) mmol/L Chloride 107 (98-107) mmol/L Carbon Dioxide 23 (22-30) mmol/L Anion Gap 11 mmol/L BUN 8 (7-17) mg/dL Creatinine 0.76 (0.52-1.04) mg/dL Est GFR (CKD-EPI)AfAm >90 (>60 ml/min/1.73 sqM) Est GFR (CKD-EPI)NonAf >90 (>60 ml/min/1.73 sqM) Glucose 137 H (74-99) mg/dL POC Glucose (mg/dL) (70-110) mg/dL POC Glu Iron Setter ID Osmolality 294 (280-301) mosm/kg Plasma Lactic Acid Todd 1.2 (0.7-2.0) mmol/L Calcium 8.8 (8.4-10.2) mg/dL Ionized Calcium Leander 4.7 (4.5-5.3) mg/dL Magnesium 1.6 (1.6-2.3) mg/dL Total Bilirubin 0.3 (0.2-1.3) mg/dL AST 38 H (14-36) U/L ALT 135 H (4-34) U/L Alkaline Phosphatase 73 (38-126) U/L Ammonia 15 (<30) umol/L Creatine Kinase 101 (30-135) U/L Total Protein 6.6 (6.3-8.2) g/dL Albumin 4.0 (3.5-5.0) g/dL Urine Color Urine Appearance (Clear) Urine pH (5.0-8.0) Ur Specific Kirby (1.001-1.035) Urine Protein (Negative) Urine Glucose (UA) (Negative) Urine Ketones (Negative) Urine Blood (Negative) Urine Nitrite (Negative) Urine Bilirubin (Negative) Urine Urobilinogen (<2.0) mg/dL Ur Leukocyte Esterase (Negative) Salicylates <1.0 mg/dL Urine Opiates Screen (NotDetected) Ur Oxycodone Screen (NotDetected) Urine Methadone Screen (NotDetected) Ur Propoxyphene Screen (NotDetected) Acetaminophen <10.0 ug/mL Ur Barbiturates Screen (NotDetected) U Tricyclic Antidepress (NotDetected) Ur Phencyclidine Scrn (NotDetected) Ur Amphetamines Screen (NotDetected) U Methamphetamines Scrn (NotDetected) U Benzodiazepines Scrn (NotDetected) Urine Cocaine Screen (NotDetected) U Marijuana (THC) Screen (NotDetected) Serum Alcohol <10 mg/dL 03/25/22 Range/Units 18:28 WBC (3.8-10.6) k/uL RBC (3.80-5.40) m/uL Hgb (11.4-16.0) gm/dL Hct (34.0-46.0) % MCV (80.0-100.0) fL MCH (25.0-35.0) pg MCHC (31.0-37.0) g/dL RDW (11.5-15.5) % Plt Count (150-450) k/uL MPV Neutrophils % % Lymphocytes % % Monocytes % % Eosinophils % % Basophils % % Neutrophils # (1.3-7.7) k/uL Lymphocytes # (1.0-4.8) k/uL Monocytes # (0-1.0) k/uL Eosinophils # (0-0.7) k/uL Basophils # (0-0.2) k/uL Hypochromasia Anisocytosis Microcytosis Sample Site right radial ABG pH 7.42 (7.35-7.45) ABG pCO2 42 (35-45) mmHg ABG pO2 95 (83-108) mmHg ABG HCO3 27 H (21-25) mmol/L ABG Total CO2 28 H (19-24) mmol/L ABG O2 Saturation 97.7 H (94-97) % ABG Base Excess 2.3 mmol/L ABG Hematocrit 31 L (34.0-46.0) % Caleb Test Yes Hemoglobin 10.1 L (11.4-16.0) gm/dL FiO2 28 % Sodium (137-145) mmol/L Potassium (3.5-5.1) mmol/L Chloride (98-107) mmol/L Carbon Dioxide (22-30) mmol/L Anion Gap mmol/L BUN (7-17) mg/dL Creatinine (0.52-1.04) mg/dL Est GFR (CKD-EPI)AfAm (>60 ml/min/1.73 sqM) Est GFR (CKD-EPI)NonAf (>60 ml/min/1.73 sqM) Glucose (74-99) mg/dL POC Glucose (mg/dL) (70-110) mg/dL POC Glu Iron Setter ID Osmolality (280-301) mosm/kg Plasma Lactic Acid Todd (0.7-2.0) mmol/L Calcium (8.4-10.2) mg/dL Ionized Calcium Leander (4.5-5.3) mg/dL Magnesium (1.6-2.3) mg/dL Total Bilirubin (0.2-1.3) mg/dL AST (14-36) U/L ALT (4-34) U/L Alkaline Phosphatase (38-126) U/L Ammonia (<30) umol/L Creatine Kinase (30-135) U/L Total Protein (6.3-8.2) g/dL Albumin (3.5-5.0) g/dL Urine Color Urine Appearance (Clear) Urine pH (5.0-8.0) Ur Specific Kirby (1.001-1.035) Urine Protein (Negative) Urine Glucose (UA) (Negative) Urine Ketones (Negative) Urine Blood (Negative) Urine Nitrite (Negative) Urine Bilirubin (Negative) Urine Urobilinogen (<2.0) mg/dL Ur Leukocyte Esterase (Negative) Salicylates mg/dL Urine Opiates Screen (NotDetected) Ur Oxycodone Screen (NotDetected) Urine Methadone Screen (NotDetected) Ur Propoxyphene Screen (NotDetected) Acetaminophen ug/mL Ur Barbiturates Screen (NotDetected) U Tricyclic Antidepress (NotDetected) Ur Phencyclidine Scrn (NotDetected) Ur Amphetamines Screen (NotDetected) U Methamphetamines Scrn (NotDetected) U Benzodiazepines Scrn (NotDetected) Urine Cocaine Screen (NotDetected) U Marijuana (THC) Screen (NotDetected) Serum Alcohol mg/dL Critical Care Time Critical Care Time: Yes Total Critical Care Time: 33 Disposition Clinical Impression: Overdose, Suicidal behavior Disposition: ADMITTED IP TO THIS [facility] Condition: Serious Referrals: None,Stated [Primary Care Provider] - 1-2 days Decision Time: 18:49
[2022-03-25 15:57] LABS: Anisocytosis Slight; Basophils % (A) 0 %; Eosinophils # (A) 0.1 k/uL (0-0.7); Eosinophils % (A) 1 %; HCT 34.3 % (34.0-46.0); HGB 10.6 gm/dL (11.4-16.0); Hypochromasia Marked; Lymphocytes # (A) 1.2 k/uL (1.0-4.8); Lymphocytes % (A) 11 %; MCH 24.7 pg (25.0-35.0); MCV 79.9 fL (80.0-100.0); Mean Platelet Volume 6.8; Microcytosis Slight; Monocytes # (A) 0.4 k/uL (0-1.0); Monocytes % (A) 4 %; Neutrophils # (A) 8.9 k/uL (1.3-7.7); Neutrophils % (A) 83 %; Platelet Count 478 k/uL (150-450); RDW 18.6 % (11.5-15.5); WBC 10.8 k/uL (3.8-10.6)
[2022-03-25 15:58] LABS: Appearance,Urine Clear (Clear); Bilirubin,Urine Negative (Negative); Blood,Urine Negative (Negative); Color,Urine Colorless; Glucose,Urine (UA) Negative (Negative); Ketones,Urine Negative (Negative); Leukocyte Esterase,Urine Negative (Negative); Nitrite,Urine Negative (Negative); Protein,Urine Negative (Negative); Specific Gravity,Urine 1.005 (1.001-1.035); Urobilinogen,Urine <2.0 mg/dL (<2.0)
--- NOTE | 2022-03-25 16:02 | CT ---
EXAMINATION TYPE: CT brain wo con DATE OF EXAM: 03/25/2022 COMPARISON: None HISTORY: 41-year-old female confusion, AMS TECHNIQUE: Examination was done in axial plane without intravenous contrast. Coronal and sagittal r econstructions performed. CT DLP: 1146.4 mGycm Automated exposure control for dose reduction was used. FINDINGS: There is no evidence of acute intracranial hemorrhage, acute ischemic changes, mass, mass-effect, or extra-axial fluid collection. There is no effacement of cerebral sulci or basal subarachnoid cister ns. There is no hydrocephalus. There is no midline shift. Boyce-white matter distinction is preserv ed. Trace mucosal thickening ethmoid air cells. Orbits and globes are intact. Mastoid air cells are well pneumatized. IMPRESSION: No acute intracranial abnormality seen.
--- NOTE | 2022-03-25 16:06 | XR ---
EXAMINATION TYPE: XR chest 1V portable DATE OF EXAM: 03/25/2022 Comparison: 05/13/2021 Clinical History: 41-year-old female overdose Findings: Heart normal size. Mild interstitial prominence. Possible 9 mm pulmonary nodule right mid lung. No fr ank consolidation or pleural effusion. Impression: 1. Mild interstitial prominence which may represent bronchitis or asthma. Recommend short interval fo llow-up. 2. Possible 9 mm right mid lung pulmonary nodule versus superimposition shadow. Attention on follow-u p.
[2022-03-25 16:08] LABS: Lactic Acid, Venous 1.2 mmol/L (0.7-2.0)
[2022-03-25 16:13] LABS: Amphetamine Screen,Urine Not Detected (NotDetected); Barbiturate Screen,Urine Not Detected (NotDetected); Benzodiazepines Screen,Urine Detected (NotDetected); Cocaine Screen,Urine Not Detected (NotDetected); Methadone Screen, Urine Not Detected (NotDetected); Opiate Screen,Urine Not Detected (NotDetected); Oxycodone Screen, Urine Not Detected (NotDetected); Phencyclidine Screen,Urine Not Detected (NotDetected); Tricyclic Antidepressant,Urine Detected (NotDetected); Urn Cannabinoid Scrn Detected (NotDetected)
[2022-03-25 16:39] LABS: ALT 135 U/L (4-34); AST 38 U/L (14-36); Acetaminophen <10.0 ug/mL; African American GFR (CKD) >90 (>60 ml/min/1.73 sqM); Alcohol <10 mg/dL; Alkaline Phosphatase 73 U/L (38-126); Anion Gap 11 mmol/L; Blood Urea Nitrogen 8 mg/dL (7-17); Calcium 8.8 mg/dL (8.4-10.2); Carbon Dioxide 23 mmol/L (22-30); Chloride 107 mmol/L (98-107); Glucose 137 mg/dL (74-99); Magnesium 1.6 mg/dL (1.6-2.3); Non-African American GFR(CKD) >90 (>60 ml/min/1.73 sqM); Potassium 3.7 mmol/L (3.5-5.1); Salicylate <1.0 mg/dL; Sodium 141 mmol/L (137-145); Total Bilirubin 0.3 mg/dL (0.2-1.3); Total Protein 6.6 g/dL (6.3-8.2)
[2022-03-25 17:24] LABS: Ionized Calcium 4.7 mg/dL (4.5-5.3)
[2022-03-25 18:37] LABS: ABG Base Excess 2.3 mmol/L; ABG HCO3 27 mmol/L (21-25); ABG Hematocrit 31 % (34.0-46.0); ABG Oxygen Saturation 97.7 % (94-97); ABG PCO2 42 mmHg (35-45); ABG PH 7.42 (7.35-7.45); ABG PO2 95 mmHg (83-108); ABG TCO2 28 mmol/L (19-24); Allen Test Performed? Yes
[2022-03-25] MEDS ORDERED: NALOXONE 0.4 MG/ML 1 ML VIAL IV PRN (18:47)
[2022-03-25] MEDS: SODIUM CHLORIDE 0.9% 1,000 ML IV SCH (19:06)
--- NOTE | 2022-03-25 23:34 | P.HPIM ---
History of Present Illness H&P Date: 03/25/22 The patient is a 41-year-old female with a PMH of polysubstance abuse, hypothyroidism, seizure disorder, and pancreatitis who was brought into the emergency room for altered mental status. The history was obtained from the chart and from ED provider as the patient was somnolent at time of interview. The patient was brought in by EMS after she was found unresponsive. She was reportedly last seen normal at 7 AM this morning and that the patient had reportedly been threatening to overdose on her home medications which included Flexeril, Keppra, and citalopram. The patient was reportedly found at around 2:30 PM, somnolent with normal vital signs by EMS upon arrival. Narcan was not administered. CT brain in the emergency room was unremarkable with EKG showing sinus tachycardia at [address]/T-wave changes orders reviewed by me. Chest x-ray revealed mild interstitial prominence with a possible 1 mm right mid lung pulmonary nodule versus shadow. Laboratory evaluation was remarkable for hemoglobin of 10.6 and platelet count 478 with WBC count 10.8, AST 38, ALT 135. The case was discussed by the ED physician with poison control who recommended continued monitoring. The patient was also discussed with flash welder project control manager who recommended that the patient did not require intubation or ICU admission at this time. Review of systems: Pertinent positives and negatives as discussed in HPI, a complete review of systems was performed and all other systems are negative. Physical examination: General: Disheveled female, no distress, appears at stated age, normal weight Derm: no unusual rashes/lesions, warm Head: atraumatic, normocephalic, symmetric Eyes: Anicteric sclera, pupils equal round reactive to light ENT: Nose and ears atraumatic Neck: No cervical lymphadenopathy, trachea midline, supple Mouth: no lip lesion, mucus membranes dry Cardiovascular: S1S2 reg, no murmur, positive dorsalis pedis pulse bilateral, no edema Lungs: CTA bilateral, no rhonchi, no rales, no accessory muscle use Abdominal: soft, nontender to palpation, no guarding Ext: No gross muscle atrophy, no contractures, Neuro: Unable to assess, patient somnolent although moving all extremities Psych: Arousable with sternal rub, although not answering questions or following directions Assessment/plan Toxic metabolic encephalopathy suspected secondary to overdose -Continue monitoring for now -IV fluids -Psychiatry consulted -Follow-up Keppra levels Chronic conditions: Hypothyroidism, seizure disorder -Restart seizure meds after Keppra levels are resulted -Resume levothyroxine once patient able to tolerate by mouth meds DVT prophylaxis -Heparin subcu The patient is admitted with an anticipated greater than 2 midnight stay for evaluation of altered mental status. CODE STATUS: Full Code Anticipated discharge date: 03/[address]: Home Past Medical History Past Medical History: Asthma, GERD/Reflux, Thyroid Disorder Additional Past Medical History / Comment(s): Pt. reports she has a history of a heart murmur. duodenal ulcer, n/v, abdominal pain, hx hypothyroidism History of Any Multi-Drug Resistant Organisms: None Reported Past Surgical History: Bariatric Surgery, Tubal Ligation Additional Past Surgical History / Comment(s): breast reduction, gastric bypass. Past Anesthesia/Blood Transfusion Reactions: No Reported Reaction Past Psychological History: Anxiety, Depression Smoking Status: Current every day smoker Past Alcohol Use History: None Reported Past Drug Use History: Marijuana - Past Family History Daughter(s) Family Medical History: Blood Disorder Medications and Allergies Home Medications Medication Instructions Recorded Confirmed Type Pantoprazole [Protonix] 40 mg PO AC-BRKFST 30 Days #30 tab 05/21/21 03/25/22 Rx Citalopram Hydrobromide 20 mg PO DAILY 03/25/22 03/25/22 History [Citalopram HBr] Cyclobenzaprine [Flexeril] 5 mg PO TID PRN 03/25/22 03/25/22 History levETIRAcetam [Keppra] 500 mg PO Q12HR 03/25/22 03/25/22 History Allergies Allergy/AdvReac Type Severity Reaction Status Date / Time Penicillins Allergy Anaphylaxis Verified 03/25/22 16:07 Iodinated Contrast Media AdvReac seizure Verified 03/25/22 15:36 [Iodinated Contrast Media - Oral and] Physical Exam Vitals: Vital Signs Temp Pulse Resp BP Pulse Ox 03/25/22 21:42 86 12 123/84 100 03/25/22 19:11 94 16 116/82 96 03/25/22 18:10 96 18 104/79 100 03/25/22 16:56 96 16 94/70 100 03/25/22 16:26 97.6 F 98 18 100/73 100 03/25/22 15:52 105 H 26 H 118/90 96 03/25/22 15:30 118 H 30 H 118/82 95 Intake and Output 03/25/22 03/25/22 03/26/22 14:59 22:59 06:59 Other: Weight 58.967 kg Results CBC & Chem 7: 03/25/22 15:39 03/25/22 15:39 Labs: Abnormal Lab Results - Last 24 Hours (Table) 03/25/22 03/25/22 03/25/22 Range/Units 15:31 15:39 15:39 WBC 10.8 H (3.8-10.6) k/uL Hgb 10.6 L (11.4-16.0) gm/dL MCV 79.9 L (80.0-100.0) fL MCH 24.7 L (25.0-35.0) pg RDW 18.6 H (11.5-15.5) % Plt Count 478 H (150-450) k/uL Neutrophils # 8.9 H (1.3-7.7) k/uL ABG HCO3 (21-25) mmol/L ABG Total CO2 (19-24) mmol/L ABG O2 Saturation (94-97) % ABG Hematocrit (34.0-46.0) % Hemoglobin (11.4-16.0) gm/dL Glucose (74-99) mg/dL POC Glucose (mg/dL) 138 H (70-110) mg/dL AST (14-36) U/L ALT (4-34) U/L U Tricyclic Antidepress Detected H (NotDetected) U Benzodiazepines Scrn Detected H (NotDetected) U Marijuana (THC) Screen Detected H (NotDetected) 03/25/22 03/25/22 Range/Units 15:39 18:28 WBC (3.8-10.6) k/uL Hgb (11.4-16.0) gm/dL MCV (80.0-100.0) fL MCH (25.0-35.0) pg RDW (11.5-15.5) % Plt Count (150-450) k/uL Neutrophils # (1.3-7.7) k/uL ABG HCO3 27 H (21-25) mmol/L ABG Total CO2 28 H (19-24) mmol/L ABG O2 Saturation 97.7 H (94-97) % ABG Hematocrit 31 L (34.0-46.0) % Hemoglobin 10.1 L (11.4-16.0) gm/dL Glucose 137 H (74-99) mg/dL POC Glucose (mg/dL) (70-110) mg/dL AST 38 H (14-36) U/L ALT 135 H (4-34) U/L U Tricyclic Antidepress (NotDetected) U Benzodiazepines Scrn (NotDetected) U Marijuana (THC) Screen (NotDetected)
[2022-03-26] MEDS: SODIUM CHLORIDE 0.9% 1,000 ML IV SCH ×3 (03:04→22:13)
--- NOTE | 2022-03-26 14:30 | P.PN ---
Subjective Progress Note Date: 03/26/22 Principal diagnosis: Drug overdose According to the nursing staff patient is more responsive currently compared to when she came in. She is able to mumble some wards and move which she was not able to when she came in. She is still very sleepy and lethargic however. Objective - Vital Signs Vital signs: Vital Signs Temp 97.6 F 03/26/22 07:32 Pulse 80 03/26/22 14:00 Resp 18 03/26/22 14:00 BP 150/67 03/26/22 14:00 Pulse Ox 96 03/26/22 14:00 FiO2 Intake & Output 03/25/22 03/26/22 03/26/22 18:59 06:59 18:59 Weight 58.967 kg - Exam General: Disheveled female, no distress, appears at stated age, normal weight Derm: no unusual rashes/lesions, warm Head: atraumatic, normocephalic, symmetric Eyes: Anicteric sclera, pupils equal round reactive to light ENT: Nose and ears atraumatic Neck: No cervical lymphadenopathy, trachea midline, supple Mouth: no lip lesion, mucus membranes dry Cardiovascular: S1S2 reg, no murmur, positive dorsalis pedis pulse bilateral, no edema Lungs: CTA bilateral, no rhonchi, no rales, no accessory muscle use Abdominal: soft, nontender to palpation, no guarding Ext: No gross muscle atrophy, no contractures, Neuro: Arousable with sternal rub, although not answering questions or following directions. Moving extremities without purpose. Moaning at times. - Labs CBC & Chem 7: 03/25/22 15:39 03/25/22 15:39 Labs: Abnormal Lab Results - Last 24 Hours (Table) 03/25/22 03/25/22 03/25/22 Range/Units 15:31 15:39 15:39 WBC 10.8 H (3.8-10.6) k/uL Hgb 10.6 L (11.4-16.0) gm/dL MCV 79.9 L (80.0-100.0) fL MCH 24.7 L (25.0-35.0) pg RDW 18.6 H (11.5-15.5) % Plt Count 478 H (150-450) k/uL Neutrophils # 8.9 H (1.3-7.7) k/uL ABG HCO3 (21-25) mmol/L ABG Total CO2 (19-24) mmol/L ABG O2 Saturation (94-97) % ABG Hematocrit (34.0-46.0) % Hemoglobin (11.4-16.0) gm/dL Glucose (74-99) mg/dL POC Glucose (mg/dL) 138 H (70-110) mg/dL AST (14-36) U/L ALT (4-34) U/L U Tricyclic Antidepress Detected H (NotDetected) U Benzodiazepines Scrn Detected H (NotDetected) U Marijuana (THC) Screen Detected H (NotDetected) 03/25/22 03/25/22 Range/Units 15:39 18:28 WBC (3.8-10.6) k/uL Hgb (11.4-16.0) gm/dL MCV (80.0-100.0) fL MCH (25.0-35.0) pg RDW (11.5-15.5) % Plt Count (150-450) k/uL Neutrophils # (1.3-7.7) k/uL ABG HCO3 27 H (21-25) mmol/L ABG Total CO2 28 H (19-24) mmol/L ABG O2 Saturation 97.7 H (94-97) % ABG Hematocrit 31 L (34.0-46.0) % Hemoglobin 10.1 L (11.4-16.0) gm/dL Glucose 137 H (74-99) mg/dL POC Glucose (mg/dL) (70-110) mg/dL AST 38 H (14-36) U/L ALT 135 H (4-34) U/L U Tricyclic Antidepress (NotDetected) U Benzodiazepines Scrn (NotDetected) U Marijuana (THC) Screen (NotDetected) Assessment and Plan Plan: Toxic metabolic encephalopathy suspected secondary to overdose -Continue monitoring for now -IV fluids -Psychiatry consulted -Follow-up Keppra levels Chronic conditions: Hypothyroidism, seizure disorder -Restart seizure meds after Keppra levels are resulted -Resume levothyroxine once patient able to tolerate by mouth meds DVT prophylaxis -Heparin subcu Anticipated discharge date: 03/[address]: Home
--- NOTE | 2022-03-26 15:01 | P.CN ---
Psychiatric Consult - . Consult date: 03/26/22 Consult:: I attempted to evaluate patient today however she continues to be too drowsy with mumbled incoherent speech and is not able to participate in assessment. Continue sitter. Patient may not leave AMA. Please notify psychiatry when patient is able to maintain wakefulness to participate in her psychiatric evaluation. 03/26/22 11:40 03/26/22 14:57
[2022-03-27] MEDS: SODIUM CHLORIDE 0.9% 1,000 ML IV SCH (04:23)
[2022-03-27 07:30] LABS: ALT 122 U/L (4-34); AST 64 U/L (14-36); African American GFR (CKD) >90 (>60 ml/min/1.73 sqM); Albumin 4.1 g/dL (3.5-5.0); Alkaline Phosphatase 85 U/L (38-126); Anion Gap 11 mmol/L; Blood Urea Nitrogen 6 mg/dL (7-17); Calcium 9.4 mg/dL (8.4-10.2); Carbon Dioxide 23 mmol/L (22-30); Chloride 113 mmol/L (98-107); Glucose 82 mg/dL (74-99); Non-African American GFR(CKD) >90 (>60 ml/min/1.73 sqM); Potassium 4.3 mmol/L (3.5-5.1); Sodium 147 mmol/L (137-145); Total Bilirubin 0.5 mg/dL (0.2-1.3); Total Protein 6.7 g/dL (6.3-8.2)
[2022-03-27 07:43] LABS: Anisocytosis Slight; Basophils % (A) 0 %; Eosinophils # (A) 0.4 k/uL (0-0.7); Eosinophils % (A) 3 %; HCT 33.6 % (34.0-46.0); HGB 10.3 gm/dL (11.4-16.0); Hypochromasia Marked; Lymphocytes # (A) 1.4 k/uL (1.0-4.8); Lymphocytes % (A) 13 %; MCH 24.6 pg (25.0-35.0); MCHC 30.6 g/dL (31.0-37.0); MCV 80.4 fL (80.0-100.0); Mean Platelet Volume 7.9; Microcytosis Slight; Monocytes # (A) 0.7 k/uL (0-1.0); Monocytes % (A) 6 %; Neutrophils % (A) 76 %; Platelet Count 424 k/uL (150-450); RBC 4.18 m/uL (3.80-5.40); RDW 18.2 % (11.5-15.5); WBC 10.6 k/uL (3.8-10.6)
[2022-03-27] MEDS: DEXTROSE 5% IN WATER 1,000 ML IV SCH (08:30)
--- NOTE | 2022-03-27 11:55 | P.PN ---
Subjective Progress Note Date: 03/27/22 Principal diagnosis: Drug overdose Patient is currently more awake however still confused, mumbling some words that I could not understand. No fevers or chills. No overnight events. Objective - Vital Signs Vital signs: Vital Signs Temp 97.6 F 03/26/22 07:32 Pulse 79 03/27/22 10:44 Resp 18 03/27/22 10:44 BP 148/93 03/27/22 10:44 Pulse Ox 97 03/27/22 10:44 FiO2 Intake & Output 03/26/22 03/27/22 03/27/22 18:59 06:59 18:59 Output Total 1400 Balance -1400 Output: Urine 1400 Uretheral (Cabral) 1400 - Exam General: Disheveled female, no distress, appears at stated age, normal weight Derm: no unusual rashes/lesions, warm Head: atraumatic, normocephalic, symmetric Eyes: Anicteric sclera, pupils equal round reactive to light ENT: Nose and ears atraumatic Neck: No cervical lymphadenopathy, trachea midline, supple Mouth: no lip lesion, mucus membranes dry Cardiovascular: S1S2 reg, no murmur, positive dorsalis pedis pulse bilateral, no edema Lungs: CTA bilateral, no rhonchi, no rales, no accessory muscle use Abdominal: soft, nontender to palpation, no guarding Ext: No gross muscle atrophy, no contractures, Neuro: Arousable with sternal rub, although not answering questions or following directions. Moving extremities without purpose. Moaning at times. - Labs CBC & Chem 7: 03/27/22 06:40 03/27/22 06:40 Labs: Abnormal Lab Results - Last 24 Hours (Table) 03/27/22 03/27/22 Range/Units 06:40 06:40 Hgb 10.3 L (11.4-16.0) gm/dL Hct 33.6 L (34.0-46.0) % MCH 24.6 L (25.0-35.0) pg MCHC 30.6 L (31.0-37.0) g/dL RDW 18.2 H (11.5-15.5) % Neutrophils # 8.0 H (1.3-7.7) k/uL Sodium 147 H (137-145) mmol/L Chloride 113 H (98-107) mmol/L BUN 6 L (7-17) mg/dL AST 64 H (14-36) U/L ALT 122 H (4-34) U/L Assessment and Plan Plan: Toxic metabolic encephalopathy suspected secondary to overdose -Continue monitoring for now -Improving but very slowly -IV fluids -Psychiatry consulted -Follow-up Keppra levels Hypernatremia -Switch IV fluids to D5W Chronic conditions: Hypothyroidism, seizure disorder -Restart seizure meds after Keppra levels are resulted -Resume levothyroxine once patient able to tolerate by mouth meds DVT prophylaxis -Heparin subcu Anticipated discharge date: 03/[address]: Home vs inpatient psych
[2022-03-27] MEDS ORDERED: ACETAMINOPHEN TAB 325 MG TAB PO STA (23:21)
[2022-03-28] MEDS: DEXTROSE 5% IN WATER 1,000 ML IV SCH ×2 (01:23→15:35)
[2022-03-28] MEDS ORDERED: ACETAMINOPHEN TAB 325 MG TAB PO STA (04:31)
[2022-03-28 10:06] LABS: African American GFR (CKD) >90 (>60 ml/min/1.73 sqM); Anion Gap 11 mmol/L; Blood Urea Nitrogen 7 mg/dL (7-17); Carbon Dioxide 22 mmol/L (22-30); Chloride 104 mmol/L (98-107); Glucose 103 mg/dL (74-99); Non-African American GFR(CKD) >90 (>60 ml/min/1.73 sqM); Sodium 137 mmol/L (137-145)
[2022-03-28 10:07] LABS: Potassium 3.4 mmol/L (3.5-5.1)
[2022-03-28] MEDS: levETIRAcetam 500 MG TAB PO SCH ×2 (11:54→20:56)
[2022-03-28] MEDS: PANTOPRAZOLE 40 MG TABLET PO SCH (11:58)
[2022-03-28] MEDS ORDERED: ACETAMINOPHEN TAB 325 MG TAB PO PRN (12:25)
--- NOTE | 2022-03-28 13:23 | P.PN ---
Subjective Progress Note Date: 03/28/22 Principal diagnosis: overdose Hospital Course: 41-year-old female with history of substance abuse, hypothyroidism, seizure disorder presenting with acute encephalopathy secondary to suspected overdose. Psychiatry consulted, pending evaluation. Also had hypernatremia likely secondary to poor oral intake, was started on D5 water, now resolved. Subjective: Patient seen and examined at bedside. No acute events overnight. Patient currently with a sitter at bedside. She denies any chest pain, shortness of breath, abdominal pain, urinary or bowel complaints. Patient claims that she has a history of depression, generalized anxiety disorder, PTSD, and had prior suicidal attempts. She denies any suicidal ideations at the moment. She is not able to recall what happened prior to coming to the hospital. Pertinent positives and negatives as discussed above, a complete review of systems was performed and all other systems are negative. Vitals signs reviewed. General: nontoxic, no distress, appears at stated age Derm: warm, dry Head: atraumatic, normocephalic, symmetric Eyes: EOMI, no lid lag, anicteric sclera Mouth: no lip lesion, mucus membranes moist Cardiovascular: S1S2 reg, no murmur Lungs: CTA bilateral, no rhonchi, no rales , no accessory muscle use Abdominal: soft, nontender to palpation, no guarding, no appreciable organomegaly Ext: no gross muscle atrophy, no edema, no contractures Neuro: CN II-XI grossly intact, no focal neuro deficits Psych: Alert, oriented, appropriate affect Assessment and Plan: Toxic metabolic encephalopathy secondary to suspected overdose -Urine toxicology positive for benzodiazepine -Mental status improved -Pending psychiatry evaluation -Continue bedside sitter for now -Patient has an indwelling catheter, discontinue Hypernatremia -resolved -Discontinue IV fluids Hypothyroidism - restarted levothyroxine Severe disorder -low Keppra levels, restarted Keppra Possible pulmonary nodule -9 mm right mid lung -Needs follow-up F: Oral E: Replete as needed N: Regular A: As tolerated DVT ppx: Subcu heparin Code Status: Full code Dispo: Home versus inpatient psychiatry Objective - Vital Signs Vital signs: Vital Signs Temp 98.0 F 03/28/22 08:27 Pulse 80 03/28/22 08:27 Resp 18 03/28/22 08:27 BP 95/59 03/28/22 08:27 Pulse Ox 99 03/28/22 08:27 FiO2 Intake & Output 03/27/22 03/28/22 03/28/22 18:59 06:59 18:59 Intake Total 2220 118 Output Total 600 Balance 1620 118 Intake: Intake, IV Titration 900 Amount Dextrose 5% in Water 1, 900 000 ml @ 75 mls/hr IV . [id number] [facility] Rx#:[id number] Oral 1320 118 Output: Urine 600 Uretheral (Cabral) 225 Other: Voiding Method Indwelling Catheter Indwelling Catheter Indwelling Catheter - Labs CBC & Chem 7: 03/27/22 06:40 03/28/22 09:14 Labs: Abnormal Lab Results - Last 24 Hours (Table) 03/25/22 Range/Units 15:39 Levetiracetam 1.3 L (3.0-60.0) ug/mL
[2022-03-28] MEDS ORDERED: MORPHINE SULFATE 2 MG/ML SYRINGE IVP STA (21:52)
[2022-03-29] MEDS ORDERED: NICOTINE 7MG/24HR PATCH TRANSDERM ONE (00:15)
[2022-03-29] MEDS ORDERED: OLANZapine 5 MG TAB PO ONE (00:17)
[2022-03-29] MEDS: PANTOPRAZOLE 40 MG TABLET PO SCH (06:35)
[2022-03-29] MEDS: levETIRAcetam 500 MG TAB PO SCH (07:31)
[2022-03-29] MEDS: DICLOFENAC SODIUM GEL 100 GM TUBE TOPICAL SCH ×2 (09:24→12:16)
--- NOTE | 2022-03-29 11:44 | P.PN ---
Subjective Progress Note Date: 03/29/22 Principal diagnosis: overdose Hospital Course: 41-year-old female with history of substance abuse, hypothyroidism, seizure disorder presenting with acute encephalopathy secondary to suspected overdose. Psychiatry consulted, pending evaluation. Also had hypernatremia likely secondary to poor oral intake, was started on D5 water, now resolved. Subjective: Patient seen and examined at bedside. No acute events overnight. Patient currently with a sitter at bedside. She is complaining of bilateral middle to upper trap pain. She denies any chest pain, shortness of breath, abdominal pain, urinary or bowel complaints. Urinary catheter removed yesterday. Per nursing note, patient did state that she took valium, trazadone and flexeril intentionally prior to being admitted. She denies any suicidal ideations at the moment. Pertinent positives and negatives as discussed above, a complete review of systems was performed and all other systems are negative. Vitals signs reviewed. General: nontoxic, no distress, appears at stated age Derm: warm, dry Head: atraumatic, normocephalic, symmetric Eyes: EOMI, no lid lag, anicteric sclera Mouth: no lip lesion, mucus membranes moist Cardiovascular: S1S2 reg, no murmur Lungs: CTA bilateral, no rhonchi, no rales , no accessory muscle use Abdominal: soft, nontender to palpation, no guarding, no appreciable or ganomegaly Ext: no gross muscle atrophy, no edema, no contractures, tenderness to palpation in the right and left middle trapezius region Neuro: CN II-XI grossly intact, no focal neuro deficits Psych: Alert, oriented, appropriate affect Assessment and Plan: Toxic metabolic encephalopathy secondary to suspected overdose -Urine toxicology positive for benzodiazepine, patient admitted to taking valium per nursing note -Mental status improved -Pending psychiatry evaluation -Continue bedside sitter for now Back/shoulder pain - MSK pain - diclofenac topical Hypothyroidism - on levothyroxine Severe disorder -low Keppra levels, on Keppra Possible pulmonary nodule -9 mm right mid lung -Needs follow-up Hypernatremia -resolved F: Oral E: Replete as needed N: Regular A: As tolerated DVT ppx: lovenox Code Status: Full code Dispo: Home versus inpatient psychiatry Objective - Vital Signs Vital signs: Vital Signs Temp 97.3 F L 03/29/22 07:27 Pulse 65 03/29/22 07:27 Resp 18 03/29/22 07:27 BP 109/76 03/29/22 07:27 Pulse Ox 98 03/29/22 07:27 FiO2 Intake & Output 03/28/22 03/29/22 03/29/22 18:59 06:59 18:59 Intake Total 894 10 118 Output Total 700 Balance 194 10 118 Intake: IV 10 0.9 10 Oral 894 118 Output: Urine 700 Other: Voiding Method Indwelling Catheter Toilet # Voids 2 - Labs CBC & Chem 7: 03/27/22 06:40 03/28/22 09:14
[2022-03-29] MEDS ORDERED: ENOXAPARIN 40 MG/0.4 ML SYRINGE SQ SCH (11:45)
[2022-03-29] MEDS ORDERED: HYDROcodone/APAP 5-325MG 1 EACH TAB PO STA (12:26)
[2022-03-29 15:03] VITALS: BP 111/75; PULSE 92; RESP 16; TEMP 98.2
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
--- NOTE | 2022-03-29 16:12 | P.DS ---
Providers Date of admission: 03/25/22 18:48 Expected date of discharge: 03/29/22 Attending physician: Wallace Marie MD Consults: 03/25/22 18:47 Consult Physician Routine Consulting Provider: Sarabjit Ford Consult Reason/Comments: suicidal attempt Do you want consulting provider notified?: Already Contacted Primary care physician: Stated None Hospital Course: Discharge Diagnosis: Toxic metabolic encephalopathy secondary to suspected overdose Back/shoulder pain Hypothyroidism Seizure disorder Possible pulmonary nodule Hypernatremia Personality disorder Hospital Course: 41-year-old female with history of substance abuse, hypothyroidism, seizure disorder presenting with acute encephalopathy secondary to suspected overdose. Encephalopathy improved with IV fluids initially. Had hypernatremia likely secondary to poor oral intake, also resolved with fluids. Patient was evaluated by psychiatry. 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 She does not appear to be at risk for suicide at the time of discharge, and does not want to come to the psych unit. Patient would require an appointment with a therapist and psychiatrist as an outpatient. Unsure if patient is still taking citalopram, will hold for now. She should establish with a primary care doctor as well as psychiatry to further determine the need for antidepressants. Chest x-ray during admission did reveal a possible 9 mm right mid lung pulmonary nodule which needs a close follow-up as an outpatient. Patient seen and examined at bedside. Vital signs reviewed and stable. General: nontoxic, no distress, appears at stated age Derm: warm, dry Head: atraumatic, normocephalic, symmetric Eyes: EOMI, no lid lag, anicteric sclera Mouth: no lip lesion, mucus membranes moist Cardiovascular: S1S2 reg, no murmur Lungs: CTA bilateral, no rhonchi, no rales , no accessory muscle use Abdominal: soft, nontender to palpation, no guarding, no appreciable organomegaly Ext: no gross muscle atrophy, no edema, no contractures, tenderness to palpation in the right and left middle trapezius region Neuro: CN II-XI grossly intact, no focal neuro deficits Psych: Alert, oriented, appropriate affect A total of 34 minutes of time were spent preparing this complex discharge summary. Patient was discharged on 03/29/22 at 15:26. Patient Condition at Discharge: Serious Plan - Discharge Summary New Discharge Prescriptions: Continue Pantoprazole [Protonix] 40 mg PO AC-BRKFST 30 Days #30 tab levETIRAcetam [Keppra] 500 mg PO Q12HR Cyclobenzaprine [Flexeril] 5 mg PO TID PRN PRN Reason: Muscle Spasm Discontinued Citalopram Hydrobromide [Citalopram HBr] 20 mg PO DAILY Discharge Medication List Pantoprazole [Protonix] 40 mg PO AC-BRKFST 30 Days #30 tab 05/21/21 [Rx] Cyclobenzaprine [Flexeril] 5 mg PO TID PRN 03/25/22 [History] levETIRAcetam [Keppra] 500 mg PO Q12HR 03/25/22 [History] Follow up Appointment(s)/Referral(s): None,Stated [Primary Care Provider] - 1-2 days Patient Instructions/Handouts: Suicide Prevention (GEN) Activity/Diet/Wound Care/Special Instructions: Please see PCP in 1 week. Please see a psychiatrist within 1-2 weeks and therapist if possible. Discharge/Stand Alone Forms: Outpatient Counseling Discharge Disposition: HOME SELF-CARE
== END 2022-03-29 17:47 | disposition home or self-care (01) | DRG 917 ==
LOC: EC 15:24 → 3SCARD 18:48
PROVIDERS: ADMIT Internal Medicine; ATTEND Internal Medicine
DX: T42.4X2A Poisoning by benzodiazepines, intentional self-harm, initial encounter (principal); G92.8 Other toxic encephalopathy; E87.0 Hyperosmolality and hypernatremia; T48.1X2A Poisoning by skeletal muscle relaxants [neuromuscular blocking agents], intentional self-harm, initial encounter; F41.1 Generalized anxiety disorder; F43.10 Post-traumatic stress disorder, unspecified; F60.9 Personality disorder, unspecified; G40.909 Epilepsy, unspecified, not intractable, without status epilepticus; E03.9 Hypothyroidism, unspecified; F17.210 Nicotine dependence, cigarettes, uncomplicated; J45.909 Unspecified asthma, uncomplicated; K21.9 Gastro-esophageal reflux disease without esophagitis; R01.1 Cardiac murmur, unspecified; F32.A Depression, unspecified; F19.10 Other psychoactive substance abuse, uncomplicated; R91.1 Solitary pulmonary nodule; M54.9 Dorsalgia, unspecified; M25.519 Pain in unspecified shoulder; F60.3 Borderline personality disorder; F12.20 Cannabis dependence, uncomplicated; Z62.810 Personal history of physical and sexual abuse in childhood; Z79.899 Other long term (current) drug therapy; Z79.890 Hormone replacement therapy; Z91.51 Personal history of suicidal behavior; Z98.84 Bariatric surgery status; Z87.11 Personal history of peptic ulcer disease; Z88.0 Allergy status to penicillin; Z91.041 Radiographic dye allergy status; Z81.8 Family history of other mental and behavioral disorders
CPT/HCPCS: 36415; 36600; 70450; 71045; 80048; 80053; 80143; 80177; 80179; 80306; 80320; 81003; 82140; 82330; 82550; 82805; 83605; 83735; 83930; 85025; 93005; 96374; 99285

== ENCOUNTER 2022-05-12 22:32 | Inpatient (IN) | payer BC ==
--- NOTE | 2022-05-12 22:40 | ED ---
Psych HPI - General Chief Complaint: Psychiatric Symptoms Stated Complaint: Petition Time Seen by Provider: 05/12/22 22:40 Source: patient, police, RN notes reviewed, old records reviewed Mode of arrival: ambulatory Limitations: no limitations - History of Present Illness Initial Comments: This is a 41-year-old female to the emergency department for evaluation patient petition patient comes in for suicidal thoughts making suicidal thoughts to her significant other. Patient states this is due to alcohol drinking today. Patient denies suicidal thoughts currently MD Complaint: feels depressed -: unknown Associated Psychiatric Symptoms: racing thoughts History of same: No Quality: intermittent Improves With: none, medication Context: significant life stressor Associated Symptoms: denies other symptoms Treatments Prior to Arrival: placed on mental health hold If Self Harm: admits thoughts of self harm - Related Data Home Medications Medication Instructions Recorded Confirmed Cyclobenzaprine [Flexeril] 5 mg PO TID PRN 03/25/22 03/25/22 levETIRAcetam [Keppra] 500 mg PO Q12HR 03/25/22 03/25/22 Previous Rx's Medication Instructions Recorded Pantoprazole [Protonix] 40 mg PO AC-BRKFST 30 Days #30 tab 05/21/21 Allergies Allergy/AdvReac Type Severity Reaction Status Date / Time Penicillins Allergy Anaphylaxis Verified 03/25/22 16:07 Iodinated Contrast Media AdvReac seizure Verified 03/25/22 15:36 [Iodinated Contrast Media - Oral and] Review of Systems ROS Statement: Those systems with pertinent positive or pertinent negative responses have been documented in the HPI. ROS Other: All systems not noted in ROS Statement are negative. Past Medical History Past Medical History: Asthma, GERD/Reflux, Thyroid Disorder Additional Past Medical History / Comment(s): Pt. reports she has a history of a heart murmur. duodenal ulcer, n/v, abdominal pain, hx hypothyroidism History of Any Multi-Drug Resistant Organisms: None Reported Past Surgical History: Bariatric Surgery, Tubal Ligation Additional Past Surgical History / Comment(s): breast reduction, gastric bypass. Past Anesthesia/Blood Transfusion Reactions: No Reported Reaction Past Psychological History: Anxiety, Depression Smoking Status: Current every day smoker Past Alcohol Use History: None Reported Past Drug Use History: Marijuana - Past Family History Daughter(s) Family Medical History: Blood Disorder General Exam Limitations: no limitations General appearance: alert, in no apparent distress Head exam: Present: atraumatic, normocephalic, normal inspection Eye exam: Present: normal appearance, PERRL, EOMI. Absent: scleral icterus, conjunctival injection, periorbital swelling ENT exam: Present: normal exam, mucous membranes moist Neck exam: Present: normal inspection. Absent: tenderness, meningismus, lymphadenopathy Respiratory exam: Present: normal lung sounds bilaterally. Absent: respiratory distress, wheezes, rales, rhonchi, stridor Cardiovascular Exam: Present: regular rate, normal rhythm, normal heart sounds. Absent: systolic murmur, diastolic murmur, rubs, gallop, clicks GI/Abdominal exam: Present: soft, normal bowel sounds. Absent: distended, tende rness, guarding, rebound, rigid Extremities exam: Present: normal inspection, full ROM, normal capillary refill. Absent: tenderness, pedal edema, joint swelling, calf tenderness Back exam: Present: normal inspection Neurological exam: Present: alert, oriented X3, CN II-XII intact Psychiatric exam: Present: normal affect, normal mood Skin exam: Present: warm, dry, intact, normal color. Absent: rash Course - Reevaluation(s) Reevaluation #1: 05/13/22 03:30 Medical record is reviewed 05/13/22 03:30 Medical clear for psychiatric evaluation Reevaluation #2: 05/13/22 03:30 Patient informed results and questions answered Medical Decision Making - Medical Decision Making 41 female to the ER for evaluation patient is petition, patient was seen and evaluated by psychiatry here in the ER, will be admitted for psychiatric evaluation and treatment Disposition Clinical Impression: Depression, Major depressive disorder, recurrent severe without psychotic features, Suicidal behavior, Suicidal ideation Disposition: TRANSFER TO PSYCH HOSP/UNIT Condition: Fair Referrals: None,Stated [Primary Care Provider] - 1-2 days Time of Disposition: 03:25
[2022-05-13] MEDS ORDERED: MAG HYDROX/AL HYDROX/SIMETH 30 ML CUP PO PRN (04:58)
[2022-05-13] MEDS ORDERED: LORazepam 1 MG TAB PO PRN (04:58)
[2022-05-13] MEDS ORDERED: HALOPERIDOL LACTATE 5 MG/ML 1 ML VIAL IM PRN (04:58)
[2022-05-13] MEDS ORDERED: MAGNESIUM HYDROXIDE 2,400 MG/10 ML CUP PO PRN (04:58)
[2022-05-13] MEDS: MULTIVITAMINS, THERA 1 EACH TAB PO SCH (09:50)
[2022-05-13] MEDS: PANTOPRAZOLE 40 MG TABLET PO SCH (09:51)
[2022-05-13] MEDS: levETIRAcetam 500 MG TAB PO SCH ×2 (09:51→20:46)
[2022-05-13] MEDS: THIAMINE 100 MG TAB PO SCH (09:51)
[2022-05-13] MEDS: FOLIC ACID 1 MG TAB PO SCH (09:51)
[2022-05-13] MEDS: NICOTINE 14MG/24HR PATCH TRANSDERM SCH (09:52)
[2022-05-13] MEDS: chlordiazePOXIDE 25 MG CAP PO SCH ×3 (10:23→20:46)
[2022-05-13] MEDS ORDERED: DESVENLAFAXINE SUCCINATE 50 MG TAB.ER.24H PO STA (12:14)
[2022-05-13] MEDS: LORazepam 1 MG TAB PO PRN ×2 (12:59→18:31)
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
[2022-05-13] MEDS: ACETAMINOPHEN TAB 325 MG TAB PO PRN (14:50)
[2022-05-13] MEDS: CYCLOBENZAPRINE 5 MG TAB PO PRN (14:52)
--- NOTE | 2022-05-13 17:09 | P.CONS ---
History of Present Illness - Reason for Consult Consult date: 05/13/22 Medical management - Chief Complaint Suicidal ideation - History of Present Illness 41-year-old female to the emergency department for evaluation patient petition patient comes in for suicidal thoughts making suicidal thoughts to her significant other. Patient states this is due to alcohol drinking today. Patient denies suicidal thoughts currently Patient has been previously diagnosed with major depressive disorder, generalized anxiety disorder, and posttraumatic stress disorder. She recalls being peers he prescribed Lexapro, Abilify, Neurontin, trazodone, Wellbutrin, Seroquel, lithium, Prozac, and Zoloft. She describes Abilify, Wellbutrin, and Seroquel as medications that caused her more problems than any benefit. The patient reports 3 prior psychiatric admissions onto the [facility] psychiatric unit in 2017 and 3 other inpatient psychiatric admissions during her adolescent years. Patient denies any psychiatric outpatient follow-up. Patient reports cutting her wrist twice however states that her last suicide attempt was many years ago. Review of Systems REVIEW OF SYSTEMS: CONSTITUTIONAL: No fever, no malaise, no fatigue. HEENT: No recent visual problems or hearing problems. Denied any sore throat. CARDIOVASCULAR: No chest pain, orthopnea, PND, no palpitations, no syncope. PULMONARY: No shortness of breath, no cough, no hemoptysis. GASTROINTESTINAL: No diarrhea, no nausea, no vomiting, no abdominal pain. NEUROLOGICAL: No headaches, no weakness, no numbness. HEMATOLOGICAL: Denies any bleeding or petechiae. GENITOURINARY: Denies any burning micturition, frequency, or urgency. MUSCULOSKELETAL/RHEUMATOLOGICAL: Denies any joint pain, swelling, or any muscle pain. ENDOCRINE: Denies any polyuria or polydipsia. The rest of the 14-point review of systems is negative. Past Medical History Past Medical History: Asthma, GERD/Reflux, Thyroid Disorder Additional Past Medical History / Comment(s): Pt. reports she has a history of a heart murmur. duodenal ulcer, n/v, abdominal pain, hx hypothyroidism History of Any Multi-Drug Resistant Organisms: None Reported Past Surgical History: Bariatric Surgery, Tubal Ligation Additional Past Surgical History / Comment(s): breast reduction, gastric bypass. Past Anesthesia/Blood Transfusion Reactions: No Reported Reaction Past Psychological History: Anxiety, Depression Additional Psychological History / Comment(s): major depressive disorder Smoking Status: Current every day smoker Past Alcohol Use History: None Reported Additional Past Alcohol Use History / Comment(s): smoker for 24 years 1 ppd Past Drug Use History: Marijuana Additional Drug Use History / Comment(s): Pt. admits to daily marijuana use. - Past Family History Daughter(s) Family Medical History: Blood Disorder Medications and Allergies Home Medications Medication Instructions Recorded Confirmed Type Pantoprazole [Protonix] 40 mg PO AC-BRKFST 30 Days #30 tab 05/21/21 05/13/22 Rx Cyclobenzaprine [Flexeril] 5 mg PO TID PRN 03/25/22 05/13/22 History levETIRAcetam [Keppra] 500 mg PO Q12HR 03/25/22 05/13/22 History Allergies Allergy/AdvReac Type Severity Reaction Status Date / Time Penicillins Allergy Anaphylaxis Verified 05/13/22 07:24 Iodinated Contrast Media AdvReac seizure Verified 05/13/22 07:24 [Iodinated Contrast Media - Oral and] Physical Exam Vitals: Vital Signs Temp Pulse Pulse Resp BP BP Pulse Ox 05/13/22 05:01 97.6 F 94 18 121/65 96 05/13/22 04:55 98.9 F 83 15 99/62 97 Intake and Output 05/12/22 05/13/22 05/13/22 22:59 06:59 14:59 Other: Weight 49.895 kg 55.934 kg General appearance: alert, in no apparent distress Head exam: Present: atraumatic, normocephalic, normal inspection Eye exam: Present: normal appearance, PERRL, EOMI. Absent: scleral icterus, conjunctival injection, periorbital swelling ENT exam: Present: normal exam, mucous membranes moist Neck exam: Present: normal inspection. Absent: tenderness, meningismus, lymphadenopathy Respiratory exam: Present: normal lung sounds bilaterally. Absent: respiratory distress, wheezes, rales, rhonchi, stridor Cardiovascular Exam: Present: regular rate, normal rhythm, normal heart sounds. Absent: systolic murmur, diastolic murmur, rubs, gallop, clicks GI/Abdominal exam: Present: soft, normal bowel sounds. Absent: distended, tenderness, guarding, rebound, rigid Extremities exam: Present: normal inspection, full ROM, normal capillary refill. Absent: tenderness, pedal edema, joint swelling, calf tenderness Back exam: Present: normal inspection Neurological exam: Present: alert, oriented X3, CN II-XII intact Psychiatric exam: Present: normal affect, normal mood Skin exam: Present: warm, dry, intact, normal color. Absent: rash Assessment and Plan Assessment: 1. Suicidal ideation; your management 2. Left hip and knee pain; likely acute exacerbation DJD - We will obtain x-ray of the left hip and knee; start patient on ibuprofen 600 mg 3 times a day; Flexeril 5 mg by mouth 3 times a day 3. Seizure disorder; continue with home dose of Keppra 4. Gastroesophageal reflux disease; Protonix 40 mg daily 5. History of asthma; currently not on any inhaler therapy DVT prophylaxis; she ambulation CODE STATUS; full code
[2022-05-13] MEDS ORDERED: PRAZOSIN 1 MG CAP PO SCH (21:00)
[2022-05-13] MEDS: traZODone HCL 100 MG TAB PO PRN (22:11)
[2022-05-14] MEDS: LORazepam 1 MG TAB PO PRN ×2 (06:09→15:43)
[2022-05-14 06:43] VITALS: RESP 16
[2022-05-14] MEDS: FOLIC ACID 1 MG TAB PO SCH (08:07)
[2022-05-14] MEDS: NICOTINE 14MG/24HR PATCH TRANSDERM SCH (08:07)
[2022-05-14] MEDS: chlordiazePOXIDE 25 MG CAP PO SCH ×3 (08:07→22:26)
[2022-05-14] MEDS: PANTOPRAZOLE 40 MG TABLET PO SCH (08:07)
[2022-05-14] MEDS: THIAMINE 100 MG TAB PO SCH (08:07)
[2022-05-14] MEDS: levETIRAcetam 500 MG TAB PO SCH ×2 (08:07→20:17)
[2022-05-14] MEDS: DESVENLAFAXINE SUCCINATE 50 MG TAB.ER.24H PO SCH (08:08)
[2022-05-14] MEDS: MULTIVITAMINS, THERA 1 EACH TAB PO SCH (08:09)
[2022-05-14] MEDS ORDERED: MELOXICAM 7.5 MG TAB PO SCH (09:30)
[2022-05-14 12:39] LABS: Anisocytosis Moderate; Basophils # (A) 0.1 k/uL (0-0.2); Basophils % (A) 1 %; Eosinophils # (A) 0.2 k/uL (0-0.7); Eosinophils % (A) 3 %; HCT 32.5 % (34.0-46.0); HGB 9.8 gm/dL (11.4-16.0); Hypochromasia Marked; Lymphocytes # (A) 1.7 k/uL (1.0-4.8); Lymphocytes % (A) 24 %; MCH 24.1 pg (25.0-35.0); MCHC 30.2 g/dL (31.0-37.0); MCV 79.8 fL (80.0-100.0); Mean Platelet Volume 7.3; Microcytosis Slight; Monocytes # (A) 0.3 k/uL (0-1.0); Monocytes % (A) 4 %; Neutrophils # (A) 4.7 k/uL (1.3-7.7); Neutrophils % (A) 65 %; Platelet Count 480 k/uL (150-450); RBC 4.08 m/uL (3.80-5.40); RDW 20.4 % (11.5-15.5); WBC 7.2 k/uL (3.8-10.6)
[2022-05-14 12:54] LABS: ALT 20 U/L (4-34); AST 37 U/L (14-36); African American GFR (CKD) >90 (>60 ml/min/1.73 sqM); Albumin 4.4 g/dL (3.5-5.0); Alkaline Phosphatase 64 U/L (38-126); Anion Gap 9 mmol/L; Bilirubin, Delta 0.4 mg/dL (0.0-0.2); Bilirubin,Unconjugated 0.3 mg/dL (0.0-1.1); Blood Urea Nitrogen 10 mg/dL (7-17); Carbon Dioxide 25 mmol/L (22-30); Chloride 104 mmol/L (98-107); Glucose 85 mg/dL (74-99); Non-African American GFR(CKD) >90 (>60 ml/min/1.73 sqM); Potassium 4.8 mmol/L (3.5-5.1); Sodium 138 mmol/L (137-145); Total Bilirubin 0.7 mg/dL (0.2-1.3); Total Protein 7.1 g/dL (6.3-8.2)
--- NOTE | 2022-05-14 14:29 | XR ---
EXAMINATION TYPE: XR knee complete LT DATE OF EXAM: 05/14/2022 COMPARISON: None HISTORY: Fall, pain TECHNIQUE: Three-view left knee FINDINGS: Joint spaces are preserved. No joint effusion is evident. No acute fracture or dislocation is evident. Soft tissues appear normal. Follow-up exams can be performed 7-10 days from acute trauma for continued pain. IMPRESSION: 1. No acute osseous abnormality left knee.
--- NOTE | 2022-05-14 14:29 | XR ---
EXAMINATION TYPE: XR Hip Complete LT DATE OF EXAM: 05/14/2022 COMPARISON: None HISTORY: Fall, pain TECHNIQUE: Two-view left hip FINDINGS: Femoral head articulates with the acetabulum. No acute fracture or dislocation is evident. Joint spaces preserved. Follow up exams can be performed 7-10 days from acute trauma for continued pain. IMPRESSION: 1. No acute osseous abnormality left hip.
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
[2022-05-14] MEDS: CYCLOBENZAPRINE 5 MG TAB PO PRN (16:06)
[2022-05-14] MEDS: ACETAMINOPHEN TAB 325 MG TAB PO PRN (16:06)
[2022-05-14] MEDS: PRAZOSIN 1 MG CAP PO SCH (20:17)
[2022-05-14] MEDS: KETOROLAC 15 MG/ML 1 ML VIAL IM PRN (21:08)
[2022-05-14] MEDS: LORazepam 1 MG/0.5 ML VIAL IM PRN (22:46)
[2022-05-15 00:09] LABS: Chol/HDL Ratio 2.38 Ratio; LDL Cholesterol,Calculated 61.5 mg/dL (0.0-131.0)
[2022-05-15] MEDS: traZODone HCL 100 MG TAB PO PRN (03:39)
[2022-05-15] MEDS: NICOTINE 14MG/24HR PATCH TRANSDERM SCH (06:40)
[2022-05-15] MEDS: LORazepam 1 MG TAB PO PRN ×3 (06:42→18:48)
[2022-05-15] MEDS: chlordiazePOXIDE 25 MG CAP PO SCH ×3 (08:54→21:04)
[2022-05-15] MEDS: FOLIC ACID 1 MG TAB PO SCH (08:54)
[2022-05-15] MEDS: MULTIVITAMINS, THERA 1 EACH TAB PO SCH (08:54)
[2022-05-15] MEDS: THIAMINE 100 MG TAB PO SCH (08:55)
[2022-05-15] MEDS: levETIRAcetam 500 MG TAB PO SCH ×2 (08:55→21:04)
[2022-05-15] MEDS: PANTOPRAZOLE 40 MG TABLET PO SCH ×2 (08:55→08:57)
[2022-05-15] MEDS: KETOROLAC 15 MG/ML 1 ML VIAL IM PRN ×3 (08:56→19:50)
[2022-05-15] MEDS: DESVENLAFAXINE SUCCINATE 50 MG TAB.ER.24H PO SCH ×2 (08:57→09:00)
--- NOTE | 2022-05-15 10:59 | P.PN ---
Subjective Progress Note Date: 05/15/22 Principal diagnosis: Major depressive disorder, recurrent, severe Generalized anxiety disorder Posttraumatic stress disorder Cluster B personality traits Alcohol use disorder Cannabis use disorder Tobacco use disord IDENTIFYING DATA: Patient is a , employed, 41-year-old female with a signifciant history of depression and PTSD who presented to the hospital by police under petition for suicidal ideation. HPI: Patient presented to the hospital on 05/12/2022, brought in under petition by the patient's for suicidal ideation in the context of heavy alcohol and suspected inhalant abuse. . Subjective: Her main focus is ongoing anxiety she feels cold she is huddling inside of blanket She is however denying any history of impulsivity or grandiosity or other manic symptoma. She reports no history of auditory or visual hallucinations. She denies any history of paranoia or other delusions. Her big preoccupation is her anxiety. She says that she had been going to all the groups and, "I'm doing everything that I am expected to so that I can get discharged." The patient reports a significant history of PTSD symptoms including hypervigilance, reexperiencing phenomenon, and nightmares. She slept better because she got a shot of Ativan. mental status:she is out with the other patients but spends most of her time coloring so seems to be withdrawn while out with the others. However she did ask another patient to watch her things while she came. She is pressured and proccupied with the exact frequency that she may take her anxiety medications. She has Librium 25 TID plus ativan 2 mg TID and seems to only get minimal relief from. She is tiny but does not look unstable or lethargic. She has been started on pristiq 50 mg but that will not produce relief for weeks. She is logical but circles on her discomfort and getting the nursing staff to give her as much as possible. I did talk about the danger of too much benxodiazepine. She does say thet the trazodone works at night. I gave her tool to use in talking to the team about readiness for discharge. Rather than listening to the tool she kept going back to how terrible it is that she has not therefore her autistic daughters birthday today. Assessment: Some withdrawal and general anxiety which will hopefully be managed by the Pristiq although that will take some time she needs a good plan for post discharge Plan: no change in medication.. she says she holds to be discharged tomorrow and I told her she needed to write down insight into what got her here document what she is doing to deal with her problems in here and what her plan is for doing well after discharge. Objective - Vital Signs Vital signs: Vital Signs Temp 98.0 F 05/15/22 07:01 Pulse 78 05/15/22 07:01 Resp 16 05/15/22 07:01 BP 121/57 05/15/22 07:01 Pulse Ox 99 05/14/22 06:12 FiO2 - Labs CBC & Chem 7: 05/14/22 11:27 05/14/22 11:27 Labs: Abnormal Lab Results - Last 24 Hours (Table) 05/14/22 05/14/22 Range/Units 11:27 11:27 Hgb 9.8 L (11.4-16.0) gm/dL Hct 32.5 L (34.0-46.0) % MCV 79.8 L (80.0-100.0) fL MCH 24.1 L (25.0-35.0) pg MCHC 30.2 L (31.0-37.0) g/dL RDW 20.4 H (11.5-15.5) % Plt Count 480 H (150-450) k/uL Delta Bilirubin 0.4 H (0.0-0.2) mg/dL AST 37 H (14-36) U/L HDL Cholesterol 60.50 H (40.00-60.00) mg/dL
[2022-05-15] MEDS: CYCLOBENZAPRINE 5 MG TAB PO PRN (13:03)
[2022-05-15] MEDS: haloperidoL 5 MG TAB PO PRN ×2 (13:03→17:57)
[2022-05-15] MEDS: PRAZOSIN 1 MG CAP PO SCH (21:03)
[2022-05-15] MEDS: LORazepam 1 MG/0.5 ML VIAL IM PRN (22:38)
[2022-05-16] MEDS: PANTOPRAZOLE 40 MG TABLET PO SCH (08:17)
[2022-05-16] MEDS: LORazepam 1 MG TAB PO PRN (08:17)
[2022-05-16] MEDS: levETIRAcetam 500 MG TAB PO SCH (08:17)
[2022-05-16] MEDS: FOLIC ACID 1 MG TAB PO SCH (08:17)
[2022-05-16] MEDS: chlordiazePOXIDE 25 MG CAP PO SCH (08:17)
[2022-05-16] MEDS: THIAMINE 100 MG TAB PO SCH (08:17)
[2022-05-16] MEDS: NICOTINE 14MG/24HR PATCH TRANSDERM SCH (08:18)
[2022-05-16] MEDS: MULTIVITAMINS, THERA 1 EACH TAB PO SCH (08:18)
[2022-05-16] MEDS: DESVENLAFAXINE SUCCINATE 50 MG TAB.ER.24H PO SCH (08:19)
[2022-05-16] MEDS: KETOROLAC 15 MG/ML 1 ML VIAL IM PRN (09:35)
[2022-05-16 11:05] VITALS: BP 104/65; PULSE 89; TEMP 97.5
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
[2022-05-16] MEDS: haloperidoL 5 MG TAB PO PRN (12:18)
[2022-05-16] MEDS: CYCLOBENZAPRINE 5 MG TAB PO PRN (12:18)
[2022-05-16] MEDS ORDERED: chlordiazePOXIDE 25 MG CAP PO SCH (21:00)
== END 2022-05-16 13:43 | disposition home or self-care (01) | DRG 885 ==
LOC: EC 22:32 → 3MHU 05-13 04:52
PROVIDERS: ADMIT Psychiatry & Neurology Psychiatry; ATTEND Psychiatry & Neurology Psychiatry
DX: F33.2 Major depressive disorder, recurrent severe without psychotic features (principal); R45.851 Suicidal ideations; E03.9 Hypothyroidism, unspecified; F10.10 Alcohol abuse, uncomplicated; F12.10 Cannabis abuse, uncomplicated; F17.210 Nicotine dependence, cigarettes, uncomplicated; F41.1 Generalized anxiety disorder; F43.10 Post-traumatic stress disorder, unspecified; M17.12 Unilateral primary osteoarthritis, left knee; F60.89 Other specific personality disorders; M16.12 Unilateral primary osteoarthritis, left hip; G40.909 Epilepsy, unspecified, not intractable, without status epilepticus; G47.00 Insomnia, unspecified; J45.909 Unspecified asthma, uncomplicated; K21.9 Gastro-esophageal reflux disease without esophagitis; M19.90 Unspecified osteoarthritis, unspecified site; Z20.822 Contact with and (suspected) exposure to COVID-19; Z79.899 Other long term (current) drug therapy; Z87.11 Personal history of peptic ulcer disease; Z91.51 Personal history of suicidal behavior; Z98.84 Bariatric surgery status; Z88.0 Allergy status to penicillin; Z91.041 Radiographic dye allergy status
CPT/HCPCS: 73502; 80053; 80061; 82075; 82248; 83036; 84443; 85025; 87635; 99285

== ENCOUNTER 2023-03-15 14:50 | Emergency (ER) | payer BC ==
[2023-03-15] MEDS ORDERED: PANTOPRAZOLE 40 MG/10 ML VIAL IVP STA (15:03)
[2023-03-15] MEDS ORDERED: diphenhydrAMINE 50 MG/ML 1 ML VIAL IVP STA (15:04)
[2023-03-15] MEDS ORDERED: fentaNYL (PF) 50 MCG/ML 2 ML AMP IVP STA ×2 (15:04→17:35)
[2023-03-15] MEDS ORDERED: FAMOTIDINE 20 MG/2 ML VIAL IV STA (15:04)
[2023-03-15] MEDS ORDERED: methylPREDNISolone SOD SUCCI 125 MG/2 ML VIAL IV STA (15:04)
[2023-03-15 15:18] LABS: Anisocytosis Moderate; Basophils % (A) 0 %; Eosinophils # (A) 0.1 k/uL (0-0.7); Eosinophils % (A) 1 %; Hypochromasia Marked; Lymphocytes # (A) 2.9 k/uL (1.0-4.8); Lymphocytes % (A) 28 %; MCH 16.4 pg (25.0-35.0); MCHC 26.8 g/dL (31.0-37.0); MCV 61.4 fL (80.0-100.0); Mean Platelet Volume 7.3; Microcytosis Marked; Monocytes # (A) 0.4 k/uL (0-1.0); Monocytes % (A) 4 %; Neutrophils # (A) 6.9 k/uL (1.3-7.7); Neutrophils % (A) 65 %; Platelet Count 409 k/uL (150-450); Poikilocytosis Slight; RBC 2.31 m/uL (3.80-5.40); RDW 20.4 % (11.5-15.5); WBC 10.5 k/uL (3.8-10.6)
[2023-03-15 15:28] LABS: ALT 18 U/L (4-34); AST 26 U/L (14-36); African American GFR (CKD) >90 (>60 ml/min/1.73 sqM); Albumin 3.5 g/dL (3.5-5.0); Alkaline Phosphatase 44 U/L (38-126); Anion Gap 14 mmol/L; Blood Urea Nitrogen 29 mg/dL (7-17); Calcium 8.3 mg/dL (8.4-10.2); Carbon Dioxide 15 mmol/L (22-30); Chloride 106 mmol/L (98-107); Glucose 136 mg/dL (74-99); HCT 14.2 % (34.0-46.0); HGB 3.8 gm/dL (11.4-16.0); Magnesium 1.7 mg/dL (1.6-2.3); Non-African American GFR(CKD) >90 (>60 ml/min/1.73 sqM); Potassium 4.2 mmol/L (3.5-5.1); Sodium 135 mmol/L (137-145); Total Bilirubin 0.4 mg/dL (0.2-1.3); Total Protein 5.9 g/dL (6.3-8.2)
--- NOTE | 2023-03-15 16:11 | CT ---
EXAMINATION TYPE: CT abdomen pelvis w con CT DLP: 559.5 mGycm, Automated exposure control for dose reduction was used. DATE OF EXAM: 03/15/2023 4:03 PM COMPARISON: Multiple CT abdomen pelvis most recent 05/19/2021. CLINICAL INDICATION:Female, 42 years old with history of pain; TECHNIQUE: Standard CT of the abdomen and pelvis following the administration of 100 cc of Isovue 3 00 IV contrast material. Coronal and sagittal reformats were performed. FINDINGS: LOWER CHEST: Unremarkable ABDOMEN LIVER: Subcentimeter hypodense focus within the left hepatic lobe which is too small characterize. Li ebenezer is diffusely hypoattenuating. Noncirrhotic morphology. Hepatic veins and portal veins are patent. SMV and splenic veins are patent. GALLBLADDER AND BILE DUCTS: Unremarkable. No biliary duct dilatation. PANCREAS: Unremarkable. SPLEEN: Unremarkable. ADRENAL GLANDS: Stable calcification within the left adrenal gland. KIDNEYS AND URETERS: No evidence of hydronephrosis or renal calculus. The kidneys enhance symmetrical ly. Subcentimeter hypodense left cortical likely renal cysts. Contrast is demonstrated within both co llecting systems on the delayed phase. 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 PELVIS BLADDER: Unremarkable REPRODUCTIVE: Unremarkable. ABDOMEN & PELVIS STOMACH AND BOWEL: Postsurgical changes from Daniele-en-Y gastric bypass. Tiny hiatal hernia. No focal b owel wall thickening or surrounding inflammatory changes. The appendix is within normal limits. No ev idence of bowel obstruction. PERITONEUM: No evidence of pneumoperitoneum or free fluid. VASCULATURE: No evidence of aortic aneurysm. MUSCULOSKELETAL: No acute osseous abnormalities. Mild multilevel degenerative disc disease most prono unced at L2-L3 and L4-L5. LYMPH NODES: No gross evidence for lymphadenopathy. SOFT TISSUE/ABDOMINAL WALL: Unremarkable IMPRESSION: 1. No acute abdominal/pelvic process. 2. Postsurgical changes from Daniele-en-Y gastric bypass. 3. Hepatic steatosis.
--- NOTE | 2023-03-15 16:42 | ED ---
GI Bleed HPI - General Chief complaint: GI Bleed Stated complaint: blood in stool Time Seen by Provider: 03/15/23 15:02 Source: EMS Mode of arrival: EMS Limitations: no limitations - History of Present Illness Initial comments: 42-year-old female with past medical history of Daniele-en-Y gastric bypass presents emergency Department reporting abdominal pain and rectal bleeding. States that she has had a history of a Daniele-en-Y which was done at [facility] in the remote past. She has had history of duodenal ulcers since her procedure was done. She is supposed be on a PPI. Patient has been off of this medication for a month due to lack of refills. States 2 days ago she began having left lower abdominal pain. Last night the patient began having several episodes of melenic stool. She called EMS this morning because she felt weak and dizzy. Sh e ended up having an episode of hematemesis. Patient arrives with blood pressures of 90 systolic. She has had previous blood transfusions due to GI bleeding previously. Scope was performed in 2018 at our hospital but patient is unsure if this was the last time she was scoped. Did demonstrate a marginal ulcer at her gastrojejunostomy site. Denies NSAID use or alcohol use. No other alleviating, precipitating or modifying factors - Related Data Previous Rx's Medication Instructions Recorded Pantoprazole [Protonix] 40 mg PO AC-BRKFST 30 Days #30 tab 05/21/21 Cyclobenzaprine [Flexeril] 5 mg PO TID PRN 15 Days tab 05/16/22 Desvenlafaxine Succinate [Pristiq 50 mg PO DAILY 15 Days tab 05/16/22 ER] Prazosin [Minipress] 2 mg PO HS 15 Days cap 05/16/22 chlordiazePOXIDE HCl [Librium] 25 mg PO BID 3 Days cap 05/16/22 hydrOXYzine pamoate [Vistaril] 50 mg PO TID PRN 30 Days capsule 05/16/22 levETIRAcetam [Keppra] 500 mg PO Q12HR 15 Days tab 05/16/22 traZODone HCL [Desyrel] 200 mg PO HS PRN 15 Days tab 05/16/22 Allergies Allergy/AdvReac Type Severity Reaction Status Date / Time Penicillins Allergy Anaphylaxis Verified 03/15/23 14:57 Iodinated Contrast Media AdvReac seizure Verified 03/15/23 14:57 [Iodinated Contrast Media - Oral and] Review of Systems ROS Statement: Those systems with pertinent positive or pertinent negative responses have been documented in the HPI. ROS Other: All systems not noted in ROS Statement are negative. Past Medical History Past Medical History: Asthma, GERD/Reflux, Thyroid Disorder Additional Past Medical History / Comment(s): Pt. reports she has a history of a heart murmur. duodenal ulcer, n/v, abdominal pain, hx hypothyroidism History of Any Multi-Drug Resistant Organisms: None Reported Past Surgical History: Bariatric Surgery, Tubal Ligation Additional Past Surgical History / Comment(s): breast reduction, gastric bypass. Past Anesthesia/Blood Transfusion Reactions: No Reported Reaction Past Psychological History: Anxiety, Depression Smoking Status: Current every day smoker Past Alcohol Use History: None Reported Past Drug Use History: Marijuana - Past Family History Daughter(s) Family Medical History: Blood Disorder General Exam Limitations: no limitations General appearance: alert, other (Diaphoretic, pale) Head exam: Present: atraumatic, normocephalic, normal inspection Eye exam: Present: normal appearance, PERRL, EOMI. Absent: scleral icterus, conjunctival injection, periorbital swelling ENT exam: Present: normal exam, mucous membranes moist Neck exam: Present: normal inspection. Absent: tenderness, meningismus, lymphadenopathy Respiratory exam: Present: normal lung sounds bilaterally. Absent: respiratory distress, wheezes, rales, rhonchi, stridor Cardiovascular Exam: Present: regular rate, normal rhythm, normal heart sounds. Absent: systolic murmur, diastolic murmur, rubs, gallop, clicks GI/Abdominal exam: Present: soft, tenderness (Left upper quadrant, left lower quadrant), normal bowel sounds. Absent: distended, guarding, rebound, rigid Rectal exam: Present: heme (+) stool, bloody stool Extremities exam: Present: normal inspection, full ROM, normal capillary refill. Absent: tenderness, pedal edema, joint swelling, calf tenderness Back exam: Present: normal inspection Neurological exam: Present: alert, oriented X3, CN II-XII intact Psychiatric exam: Present: normal affect, normal mood Skin exam: Present: dry, intact, pallor. Absent: rash Course Vital Signs 03/15/23 03/15/23 03/15/23 14:52 16:46 16:56 Temperature 98.1 F 98.7 F Pulse Rate 104 H 97 98 Respiratory 20 18 20 Rate Blood Pressure 106/59 87/48 90/46 O2 Sat by Pulse 96 96 97 Oximetry 03/15/23 03/15/23 03/15/23 17:10 17:22 17:35 Temperature 99.0 F 98.6 F 99.2 F Pulse Rate 99 98 86 Respiratory 20 20 20 Rate Blood Pressure 95/50 104/56 120/75 O2 Sat by Pulse 97 99 98 Oximetry 03/15/23 03/15/23 17:46 17:47 Temperature 99.0 F 99.2 F Pulse Rate 98 89 Respiratory 18 20 Rate Blood Pressure 114/50 115/48 O2 Sat by Pulse 98 Oximetry - Reevaluation(s) Reevaluation #1: 03/15/23 16:42 Spoke with Jean Claude - will callback Procedures - [place] Protocol (Time Out) Nurse: Keiko Castellano Medical Decision Making - Medical Decision Making Was pt. sent in by a medical professional or institution (, PA, CHIROPRACTIC ASSISTANT, urgent care, hospital, or longterm...) When possible be specific @ -No Did you speak to anyone other than the patient for history (EMS, parent, family, police, friend...)? What history was obtained from this source @ -Spoke with EMS Did you review nursing and triage notes (agree or disagree)? Why? @ -I reviewed and agree with nursing and triage notes Were old charts reviewed (outside hosp., previous admission, EMS record, old EKG, old radiological studies, urgent care reports/EKG's, longterm records)? Report findings @ -I reviewed patient's previous endoscopy from 2018 which demonstrated that she had a marginal ulcer Differential Diagnosis (chest pain, altered mental status, abdominal pain women, abdominal pain men, vaginal bleeding, weakness, fever, dyspnea, syncope, headache, dizziness, GI bleed, back pain, seizure, CVA, palpatations, mental health, musculoskeletal)? @ -Differential GI Bleed: Esophageal varices, aortoenteric fistula, Jacqueline-Pascal, gastritis, peptic ulcer disease, diverticulosis, inflammatory bowel disease, hemorrhoids, fissure, colitis, malignancy, Meckels diverticulum, this is not meant to be an all-inclusive list. EKG interpreted by me (3pts min.). @ -Yes and demonstrates sinus rhythm rate 99. MD interval 137. QRS 81. QTC 440. no acute ST segment elevations or depressions X-rays interpreted by me (1pt min.). @ -None done CT interpreted by me (1pt min.). @ -Yes and demonstrates no acute intra-abdominal process U/S interpreted by me (1pt. min.). @ -None done What testing was considered but not performed or refused? (CT, X-rays, U/S, labs)? Why? @ -None What meds were considered but not given or refused? Why? @ -I was going to order a PPI drip however I called the pharmacy and they state that they do not administer PPI drips and have not since 2014 Did you discuss the management of the patient with other professionals (professionals i.e. , PA, CHIROPRACTIC ASSISTANT, lab, RT, psych nurse, social science manager, earth science laboratory technician, teacher, air force senior officer, case preparer and liner)? Give summary @ -Yes I spoke with the GI doctor, Dr. Acuña at [facility] as well as Dr. Godinez who is the ED doc Was smoking cessation discussed for >3mins.? @ -No Was critical care preformed (if so, how long)? @ -Yes, 40 minutes for transfusion of blood products Were there social determinants of health that impacted care today? How? (Homelessness, low income, unemployed, alcoholism, drug addiction, transportation, low edu. Level, literacy, decrease access to med. care, nursing home, rehab)? @ -No Was there de-escalation of care discussed even if they declined (Discuss DNR or withdrawal of care, Hospice)? DNR status @ -No What co-morbidities impacted this encounter? (DM, HTN, Smoking, COPD, CAD, Cancer, CVA, ARF, Chemo, Hep., AIDS, mental health diagnosis, sleep apnea, morbid obesity)? @ -Gastric bypass, previous GI bleed Was patient admitted / discharged? Hospital course, mention meds given and route, prescriptions, significant lab abnormalities, going to OR and other pertinent info. @ -Upon arrival patient was placed into room 1. A thorough history and physical exam was performed. Patient is extremely pale. Blood pressure is 90 systolic. I did perform a rectal exam which demonstrates bright red blood per rectum. Two 20-gauge IVs had been established and the patient was given 80 mg of Protonix. Laboratory studies are conducted which demonstrated hemoglobin of 3.8. She is sent for CT of her abdomen and pelvis after she was given iodine pretreatment medications including 50 of Benadryl, 20 of Pepcid and 125 of Solu- Medrol. CT fails to demonstrate any acute process. Patient does have antibodies in her blood and therefore we did do rapid release of 3 units. Patient was agreeable to receiving unmatched blood and was aware of the risks. These were transfused in the patient. Called and spoke with Dr. Acuña who is a GI surgeon over at [facility]. He recommends a Protonix drip. I did call her pharmacy and they are unable to do any PPI drips. He did accept the patient. I called and spoke with Dr. Godinez who is the ER doc who also accepts the patient. She is transferred in stable condition After the patient is transferred I do receive a call from blood Bank which states that the patient did have incompatibility with one of her units that she was given. Because of this I did call and speak with the resident at [facility] to update him in regards to this finding. They are aware and states that the patient is doing well Undiagnosed new problem with uncertain prognosis? @ -Yes Drug Therapy requiring intensive monitoring for toxicity (Heparin, Nitro, Insulin, Cardizem)? @ -Yes, blood products Were any procedures done? @ -No Diagnosis/symptom? @ -Acute GI bleed, acute blood loss anemia status post 3 units packed red blood cells, hypotension, history of Daniele-en-Y Acute, or Chronic, or Acute on Chronic? @ -Acute Uncomplicated (without systemic symptoms) or Complicated (systemic symptoms)? @ -Complicated Side effects of treatment? @ -Blood incompatibility Exacerbation, Progression, or Severe Exacerbation? @ -No Poses a threat to life or bodily function? How? (Chest pain, USA, SC, pneumonia, PE, COPD, DKA, ARF, appy, cholecystitis, CVA, Diverticulitis, Homicidal, Suicidal, threat to staff... and all critical care pts) @ -Yes patient has critically low hemoglobin with hemodynamic instability - Lab Data Result diagrams: 03/15/23 15:06 03/15/23 15:06 Lab Results 03/15/23 03/15/23 03/15/23 Range/Units 15:00 15:00 15:00 WBC (3.8-10.6) k/uL RBC (3.80-5.40) m/uL Hgb (11.4-16.0) gm/dL Hct (34.0-46.0) % MCV (80.0-100.0) fL MCH (25.0-35.0) pg MCHC (31.0-37.0) g/dL RDW (11.5-15.5) % Plt Count (150-450) k/uL MPV Neutrophils % % Lymphocytes % % Monocytes % % Eosinophils % % Basophils % % Neutrophils # (1.3-7.7) k/uL Lymphocytes # (1.0-4.8) k/uL Monocytes # (0-1.0) k/uL Eosinophils # (0-0.7) k/uL Basophils # (0-0.2) k/uL Hypochromasia Poikilocytosis Anisocytosis Microcytosis Sodium (137-145) mmol/L Potassium (3.5-5.1) mmol/L Chloride (98-107) mmol/L Carbon Dioxide (22-30) mmol/L Anion Gap mmol/L BUN (7-17) mg/dL Creatinine (0.52-1.04) mg/dL Est GFR (CKD-EPI)AfAm (>60 ml/min/1.73 sqM) Est GFR (CKD-EPI)NonAf (>60 ml/min/1.73 sqM) Glucose (74-99) mg/dL Lactic Ac Sepsis Rflx Plasma Lactic Acid Todd (0.7-2.0) mmol/L Calcium (8.4-10.2) mg/dL Magnesium (1.6-2.3) mg/dL Total Bilirubin (0.2-1.3) mg/dL AST (14-36) U/L ALT (4-34) U/L Alkaline Phosphatase (38-126) U/L Troponin I (0.000-0.034) ng/mL Total Protein (6.3-8.2) g/dL Albumin (3.5-5.0) g/dL Stool Occult Blood (Negative) Blood Type A Positive Blood Type Recheck A Pos Bld Type Recheck Status No Antibody Screen POSITIVE Direct Antiglob Test Negative Crossmatch See Detail See Detail See Detail Spec Expiration Date 03/18/2023229903/18/2023229903/18/2023229903/15/23 03/15/23 03/15/23 Range/Units 15:06 15:06 15:06 WBC 10.5 (3.8-10.6) k/uL RBC 2.31 L (3.80-5.40) m/uL Hgb 3.8 L* (11.4-16.0) gm/dL Hct 14.2 L* (34.0-46.0) % MCV 61.4 L (80.0-100.0) fL MCH 16.4 L (25.0-35.0) pg MCHC 26.8 L (31.0-37.0) g/dL RDW 20.4 H (11.5-15.5) % Plt Count 409 (150-450) k/uL MPV 7.3 Neutrophils % 65 % Lymphocytes % 28 % Monocytes % 4 % Eosinophils % 1 % Basophils % 0 % Neutrophils # 6.9 (1.3-7.7) k/uL Lymphocytes # 2.9 (1.0-4.8) k/uL Monocytes # 0.4 (0-1.0) k/uL Eosinophils # 0.1 (0-0.7) k/uL Basophils # 0.0 (0-0.2) k/uL Hypochromasia Marked Poikilocytosis Slight Anisocytosis Moderate Microcytosis Marked Sodium 135 L (137-145) mmol/L Potassium 4.2 (3.5-5.1) mmol/L Chloride 106 (98-107) mmol/L Carbon Dioxide 15 L (22-30) mmol/L Anion Gap 14 mmol/L BUN 29 H (7-17) mg/dL Creatinine 0.51 L (0.52-1.04) mg/dL Est GFR (CKD-EPI)AfAm >90 (>60 ml/min/1.73 sqM) Est GFR (CKD-EPI)NonAf >90 (>60 ml/min/1.73 sqM) Glucose 136 H (74-99) mg/dL Lactic Ac Sepsis Rflx Plasma Lactic Acid Todd (0.7-2.0) mmol/L Calcium 8.3 L (8.4-10.2) mg/dL Magnesium 1.7 (1.6-2.3) mg/dL Total Bilirubin 0.4 (0.2-1.3) mg/dL AST 26 (14-36) U/L ALT 18 (4-34) U/L Alkaline Phosphatase 44 (38-126) U/L Troponin I (0.000-0.034) ng/mL Total Protein 5.9 L (6.3-8.2) g/dL Albumin 3.5 (3.5-5.0) g/dL Stool Occult Blood Positive H (Negative) Blood Type Blood Type Recheck Bld Type Recheck Status Antibody Screen Direct Antiglob Test Crossmatch Spec Expiration Date 03/15/23 03/15/23 03/15/23 Range/Units 15:06 15:06 15:47 WBC (3.8-10.6) k/uL RBC (3.80-5.40) m/uL Hgb (11.4-16.0) gm/dL Hct (34.0-46.0) % MCV (80.0-100.0) fL MCH (25.0-35.0) pg MCHC (31.0-37.0) g/dL RDW (11.5-15.5) % Plt Count (150-450) k/uL MPV Neutrophils % % Lymphocytes % % Monocytes % % Eosinophils % % Basophils % % Neutrophils # (1.3-7.7) k/uL Lymphocytes # (1.0-4.8) k/uL Monocytes # (0-1.0) k/uL Eosinophils # (0-0.7) k/uL Basophils # (0-0.2) k/uL Hypochromasia Poikilocytosis Anisocytosis Microcytosis Sodium (137-145) mmol/L Potassium (3.5-5.1) mmol/L Chloride (98-107) mmol/L Carbon Dioxide (22-30) mmol/L Anion Gap mmol/L BUN (7-17) mg/dL Creatinine (0.52-1.04) mg/dL Est GFR (CKD-EPI)AfAm (>60 ml/min/1.73 sqM) Est GFR (CKD-EPI)NonAf (>60 ml/min/1.73 sqM) Glucose (74-99) mg/dL Lactic Ac Sepsis Rflx Y Plasma Lactic Acid Todd 4.8 H* (0.7-2.0) mmol/L Calcium (8.4-10.2) mg/dL Magnesium (1.6-2.3) mg/dL Total Bilirubin (0.2-1.3) mg/dL AST (14-36) U/L ALT (4-34) U/L Alkaline Phosphatase (38-126) U/L Troponin I <0.012 (0.000-0.034) ng/mL Total Protein (6.3-8.2) g/dL Albumin (3.5-5.0) g/dL Stool Occult Blood (Negative) Blood Type Blood Type Recheck Bld Type Recheck Status Antibody Screen Direct Antiglob Test Crossmatch Spec Expiration Date Disposition Clinical Impression: Hematochezia, Melena Disposition: OTHER INSTITUTION NOT DEFINED Condition: Serious Is patient prescribed a controlled substance at d/c from ED?: No Referrals: None,Stated [Primary Care Provider] - 1-2 days - Out of Hospital Transfer - Req. Specs Out of Hospital Transfer - Requested Specifics: Other Emergency Center ([facility])
[2023-03-15] MEDS ORDERED: ACETAMINOPHEN IV (For NPO) 1,000 MG in EMPTY BAG 1 BAG IVPB STA (17:02)
[2023-03-15 17:48] VITALS: BP 115/48; PULSE 89; RESP 20; TEMP 99.2
== END 2023-03-15 18:00 | disposition other institution (70) ==
LOC: EC 14:50
DX: K92.1 Melena (principal); D64.9 Anemia, unspecified; I95.9 Hypotension, unspecified; J45.909 Unspecified asthma, uncomplicated; Z88.0 Allergy status to penicillin; Z91.041 Radiographic dye allergy status; Z98.84 Bariatric surgery status
CPT/HCPCS: 36415; 93005; 86900; 86901; 86902; 80053; 83605; 83735; 84484; 85025; 86850; 86920; 86870; 86880; 82272; 74177; 99291; 36430; 96365; 96375 ×5; 96376; P9016; J1200; J2930; J3010; J3490; J0131; C9113; Q9967

== ENCOUNTER 2023-09-07 19:49 | Inpatient (IN) | payer BC ==
--- NOTE | 2023-09-07 20:47 | ED ---
General Adult HPI - General Chief complaint: Psychiatric Symptoms Stated complaint: Mental Health Time Seen by Provider: 09/07/23 19:56 Source: patient, EMS, RN notes reviewed Mode of arrival: EMS Limitations: no limitations - History of Present Illness Initial comments: 43-year-old female presents to the emergency department for mental health evaluation. Patient states that she got into an argument with her . He states that he was going to call the police on her to have her arrested. She does admit to drinking a few glasses of wine tonight. She states that at that time she left her house and started walking on the street barefoot. She reports that she called EMS to be picked up and brought in. Patient has a history of major depressive disorder. She takes Vistaril at this time. He does report prior hospitalization for her mental health. She admits to suicidal ideation but has no intent. Patient does admit to some abdominal discomfort which she states is chronic in nature. She has a history of gastric ulcers and states that this pain is what she typically experiences. Denies any vomiting, dark stools. - Related Data Home Medications Medication Instructions Recorded Confirmed Albuterol Inhaler [Ventolin Hfa 1 - 2 puff INHALATION RT-Q6H PRN 09/07/23 09/07/23 Inhaler] Albuterol Nebulized [Ventolin 2.5 mg INHALATION RT-Q4H PRN 09/07/23 09/07/23 Nebulized] Daily-Naveen 1 tab PO DAILY 09/07/23 09/07/23 Kratom 10 gm PO Q4H 09/07/23 09/07/23 Ondansetron Odt [Zofran Odt] 8 mg PO Q12HR PRN 09/07/23 09/07/23 Pantoprazole [Protonix] 40 mg PO BID 09/07/23 09/07/23 hydrOXYzine pamoate [Vistaril] 100 mg PO TID PRN 09/07/23 09/07/23 Previous Rx's Medication Instructions Recorded traZODone HCL [Desyrel] 200 mg PO HS PRN 15 Days tab 05/16/22 Allergies Allergy/AdvReac Type Severity Reaction Status Date / Time Penicillins Allergy Anaphylaxis Verified 09/07/23 21:58 Iodinated Contrast Media AdvReac seizure Verified 09/07/23 21:58 [Iodinated Contrast Media - Oral and] Review of Systems ROS Statement: Those systems with pertinent positive or pertinent negative responses have been documented in the HPI. ROS Other: All systems not noted in ROS Statement are negative. Past Medical History Past Medical History: Asthma, GERD/Reflux, Thyroid Disorder Additional Past Medical History / Comment(s): Pt. reports she has a history of a heart murmur. duodenal ulcer, n/v, abdominal pain, hx hypothyroidism History of Any Multi-Drug Resistant Organisms: None Reported Past Surgical History: Bariatric Surgery, Tubal Ligation Additional Past Surgical History / Comment(s): breast reduction, gastric bypass. Past Anesthesia/Blood Transfusion Reactions: No Reported Reaction Past Psychological History: Anxiety, Depression Smoking Status: Current every day smoker Past Alcohol Use History: None Reported Past Drug Use History: Marijuana - Past Family History Daughter(s) Family Medical History: Blood Disorder General Exam Limitations: no limitations General appearance: alert, in no apparent distress Head exam: Present: atraumatic, normocephalic, normal inspection Eye exam: Present: normal appearance, PERRL, EOMI. Absent: scleral icterus, conjunctival injection, periorbital swelling ENT exam: Present: normal exam, mucous membranes moist Neck exam: Present: normal inspection. Absent: tenderness, meningismus, lymphadenopathy Respiratory exam: Present: normal lung sounds bilaterally. Absent: respiratory distress, wheezes, rales, rhonchi, stridor Cardiovascular Exam: Present: regular rate, normal rhythm, normal heart sounds. Absent: systolic murmur, diastolic murmur, rubs, gallop, clicks GI/Abdominal exam: Present: soft, normal bowel sounds. Absent: distended, tenderness, guarding, rebound, rigid Neurological exam: Present: alert, oriented X3 Psychiatric exam: Present: depressed, flat affect Skin exam: Present: warm, dry, intact, normal color. Absent: rash Course Vital Signs 09/07/23 09/08/23 19:51 07:00 Temperature 98.0 F 98.0 F Pulse Rate 65 70 Respiratory 16 18 Rate Blood Pressure 107/73 91/53 O2 Sat by Pulse 97 97 Oximetry Medical Decision Making - Medical Decision Making Was pt. sent in by a medical professional or institution (, PA, COIL SPRING ASSEMBLER, urgent care, hospital, or fci...) When possible be specific @ -Addition by her Did you speak to anyone other than the patient for history (EMS, parent, family, police, friend...)? What history was obtained from this source @ -No Did you review nursing and triage notes (agree or disagree)? Why? @ -I reviewed and agree with nursing and triage notes Were old charts reviewed (outside hosp., previous admission, EMS record, old EKG, old radiological studies, urgent care reports/EKG's, fci records)? Report findings @ -No old charts were reviewed Differential Diagnosis (chest pain, altered mental status, abdominal pain women, abdominal pain men, vaginal bleeding, weakness, fever, dyspnea, syncope, headache, dizziness, GI bleed, back pain, seizure, CVA, palpatations, mental health, musculoskeletal)? @ -Differential Mental Health Depression, anxiety, bipolar, psychosis, schizophrenia, borderline personality, situational depression, adjustment disorder, behavioral disorder, brain tumor, malingering, substance abuse, encephalopathy, medication reaction, dementia, hypothyroidism, degenerative neurologic disorder, lupus.... This is not meant to be all-inclusive list EKG interpreted by me (3pts min.). @ -None X-rays interpreted by me (1pt min.). @ -None done CT interpreted by me (1pt min.). @ -None done U/S interpreted by me (1pt. min.). @ -None done What testing was considered but not performed or refused? (CT, X-rays, U/S, labs)? Why? @ -None What meds were considered but not given or refused? Why? @ -None Did you discuss the management of the patient with other professionals (professionals i.e. , PA, COIL SPRING ASSEMBLER, lab, RT, psych nurse, manager social work, cosmetic assembler, teacher, president and chief operating officer, foster care case manager)? Give summary @ -EPS recommending inpatient treatment Was smoking cessation discussed for >3mins.? @ -No Was critical care preformed (if so, how long)? @ -No Were there social determinants of health that impacted care today? How? (Homelessness, low income, unemployed, alcoholism, drug addiction, transportation, low edu. Level, literacy, decrease access to med. care, detention, rehab)? @ -No Was there de-escalation of care discussed even if they declined (Discuss DNR or withdrawal of care, Hospice)? DNR status @ -No What co-morbidities impacted this encounter? (DM, HTN, Smoking, COPD, CAD, Cancer, CVA, ARF, Chemo, Hep., AIDS, mental health diagnosis, sleep apnea, morbid obesity)? @ -Major depressive disorder Was patient admitted / discharged? Hospital course, mention meds given and route, prescriptions, significant lab abnormalities, going to OR and other pertinent info. @ -Patient presented to the emergency department for mental health evaluation. Patient reports that she has suicidal ideation which has been going on for a l nicolle time but she denies any intent. She reports taking Vistaril but no other medications. Patient does admit to alcohol consumption today. Patient cannot be evaluated by EPS until the AM. Patient evaluated by EPS, inpatient treatment recommended Undiagnosed new problem with uncertain prognosis? @ -No Drug Therapy requiring intensive monitoring for toxicity (Heparin, Nitro, Insulin, Cardizem)? @ -No Were any procedures done? @ -No Diagnosis/symptom? @ -Suicidal ideation Acute, or Chronic, or Acute on Chronic? @ -Acute Uncomplicated (without systemic symptoms) or Complicated (systemic symptoms)? @ -Uncomplicated Side effects of treatment? @ -No Exacerbation, Progression, or Severe Exacerbation? @ -exacerbation Poses a threat to life or bodily function? How? (Chest pain, [place], [place], pneumonia, PE, COPD, DKA, ARF, appy, cholecystitis, CVA, Diverticulitis, Homicidal, Suicidal, threat to staff... and all critical care pts) @ -yes suicidal - Lab Data Lab Results 09/07/23 Range/Units 20:58 Urine Opiates Screen Not Detected (NotDetected) Ur Oxycodone Screen Not Detected (NotDetected) Urine Methadone Screen Not Detected (NotDetected) Ur Barbiturates Screen Not Detected (NotDetected) U Tricyclic Antidepress Not Detected (NotDetected) Ur Phencyclidine Scrn Not Detected (NotDetected) Ur Amphetamines Screen Not Detected (NotDetected) U Methamphetamines Scrn Not Detected (NotDetected) U Benzodiazepines Scrn Not Detected (NotDetected) Urine Cocaine Screen Not Detected (NotDetected) U Marijuana (THC) Screen Detected H (NotDetected) Disposition Clinical Impression: Suicidal ideation, Depression Disposition: TRANSFER TO PSYCH HOSP/UNIT Condition: Stable Is patient prescribed a controlled substance at d/c from ED?: No Referrals: Nonstaff,Physician [Primary Care Provider] - 1-2 days
[2023-09-07 21:41] LABS: Amphetamine Screen,Urine Not Detected (NotDetected); Barbiturate Screen,Urine Not Detected (NotDetected); Benzodiazepines Screen,Urine Not Detected (NotDetected); Cocaine Screen,Urine Not Detected (NotDetected); Methadone Screen, Urine Not Detected (NotDetected); Opiate Screen,Urine Not Detected (NotDetected); Oxycodone Screen, Urine Not Detected (NotDetected); Phencyclidine Screen,Urine Not Detected (NotDetected); Tricyclic Antidepressant,Urine Not Detected (NotDetected); Urn Cannabinoid Scrn Detected (NotDetected)
[2023-09-08] MEDS: traZODone HCL 100 MG TAB PO STA (00:21)
[2023-09-08] MEDS: hydrOXYzine pamoate 25 MG CAP PO STA ×2 (02:57→16:19)
[2023-09-08 13:55] LABS: Anisocytosis Slight; Basophils # (A) 0.1 k/uL (0-0.2); Basophils % (A) 1 %; Eosinophils # (A) 0.2 k/uL (0-0.7); Eosinophils % (A) 3 %; HCT 33.3 % (34.0-46.0); HGB 10.3 gm/dL (11.4-16.0); Hypochromasia Moderate; Lymphocytes # (A) 1.7 k/uL (1.0-4.8); Lymphocytes % (A) 23 %; MCH 21.9 pg (25.0-35.0); MCV 70.5 fL (80.0-100.0); Mean Platelet Volume 6.9; Microcytosis Marked; Monocytes # (A) 0.5 k/uL (0-1.0); Monocytes % (A) 6 %; Neutrophils # (A) 4.8 k/uL (1.3-7.7); Neutrophils % (A) 65 %; Platelet Count 409 k/uL (150-450); RBC 4.73 m/uL (3.80-5.40); RDW 19.9 % (11.5-15.5); WBC 7.4 k/uL (3.8-10.6)
[2023-09-08 14:11] LABS: ALT 17 U/L (4-34); AST 33 U/L (14-36); African American GFR (CKD) >90 (>60 ml/min/1.73 sqM); Albumin 3.6 g/dL (3.5-5.0); Alkaline Phosphatase 68 U/L (38-126); Anion Gap 7 mmol/L; Blood Urea Nitrogen 14 mg/dL (7-17); Calcium 8.7 mg/dL (8.4-10.2); Carbon Dioxide 23 mmol/L (22-30); Chloride 111 mmol/L (98-107); Glucose 79 mg/dL (74-99); Non-African American GFR(CKD) >90 (>60 ml/min/1.73 sqM); Potassium 4.3 mmol/L (3.5-5.1); Sodium 141 mmol/L (137-145); Total Bilirubin 0.6 mg/dL (0.2-1.3); Total Protein 6.1 g/dL (6.3-8.2)
[2023-09-08 14:40] LABS: Appearance,Urine Clear (Clear); Bilirubin,Urine Negative (Negative); Blood,Urine Negative (Negative); Color,Urine Yellow; Glucose,Urine (UA) Negative (Negative); Ketones,Urine 2+ (Negative); Leukocyte Esterase,Urine Negative (Negative); Nitrite,Urine Negative (Negative); Protein,Urine Trace (Negative); Specific Gravity,Urine 1.021 (1.001-1.035)
[2023-09-08] MEDS: PANTOPRAZOLE 40 MG TABLET PO SCH ×2 (15:27→21:49)
[2023-09-08] MEDS ORDERED: MAGNESIUM HYDROXIDE 2,400 MG/30 ML CUP PO PRN (20:36)
[2023-09-08] MEDS ORDERED: ALBUTEROL NEBULIZED 2.5 MG/3 ML INHALATION PRN (20:36)
[2023-09-08] MEDS ORDERED: MAG HYDROX/AL HYDROX/SIMETH 30 ML CUP PO PRN (20:36)
[2023-09-08] MEDS ORDERED: IBUPROFEN 600 MG TAB PO PRN (20:36)
[2023-09-08] MEDS: traZODone HCL 100 MG TAB PO SCH (21:48)
[2023-09-08] MEDS: LORazepam 1 MG TAB PO PRN (21:48)
[2023-09-08] MEDS: ACETAMINOPHEN TAB 325 MG TAB PO PRN (21:48)
[2023-09-08] MEDS: ONDANSETRON 4 MG TAB PO PRN (21:48)
[2023-09-09] MEDS ORDERED: PANTOPRAZOLE 40 MG TABLET PO SCH (07:30)
[2023-09-09] MEDS: NICOTINE 21MG/24HR PATCH TRANSDERM SCH (08:18)
[2023-09-09] MEDS: MULTIVITAMINS, THERA 1 EACH TAB PO SCH (08:18)
[2023-09-09] MEDS: hydrOXYzine pamoate 25 MG CAP PO PRN (11:48)
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
[2023-09-09] MEDS: ONDANSETRON ODT 4 MG TAB PO PRN (14:26)
[2023-09-09] MEDS: LORazepam 1 MG TAB PO PRN (14:26)
[2023-09-09 15:01] LABS: Chol/HDL Ratio 2.97 Ratio
[2023-09-09] MEDS ORDERED: ALBUTEROL HFA INHALER INHALATION PRN (17:31)
[2023-09-09] MEDS ORDERED: ALBUTEROL INHALER 60 PUFF/8 GM INHALER (MHU) INHALATION PRN (17:33)
[2023-09-09] MEDS: PRAZOSIN 1 MG CAP PO SCH (20:25)
[2023-09-09] MEDS: traZODone HCL 100 MG TAB PO SCH (20:25)
[2023-09-09] MEDS: PARoxetine 10 MG TAB PO SCH (20:25)
--- NOTE | 2023-09-10 02:58 | P.MDCNMH ---
History of Present Illness H&P Date: 09/10/23 Chief Complaint: Medical eval 43-year-old female with asthma GERD Patient coming into the ER for evaluation of her mental health, she had an argument with her who was about to call the police to have her arrested she was intoxicated with alcohol she left the house and notified EMS to be picked up patient admits to depressed mood and suicidal ideation no plan she denies any fever, chills, cough, sore throat, chest pain , trouble breathing , nausea , vomiting, abd pain , changes in urinary or bowel habits. review of systems Pertinent positives as noted in HPI. All other systems were reviewed and are negative on exam Constitutional: No acute distress, conversant, pleasant Eyes: Anicteric sclerae, moist conjunctiva, Pupils equal round reactive to light Lungs: Clear to auscultation Clear to percussion Normal respiratory effort, no accessory muscle use Cardiovascular: Heart regular in rate and rhythm, No murmurs, gallops, or rubs No peripheral edema Abdominal: Soft Nontender, no guarding, rebound or rigidity Abdomen moving with respiration Normoactive bowel sounds Extremities: No digital cyanosis No clubbing Pedal pulses intact and symmetrical Radial pulses intact and symmetrical No calf tenderness Psychiatric: Alert and oriented to person, place and time Neuro Muscles Strength 5/5 in all 4 extremities Sensation to light touch grossly present throughout Cranial nerves II-XII grossly intact Past Medical History Past Medical History: Asthma, GERD/Reflux, Seizure Disorder, Thyroid Disorder Additional Past Medical History / Comment(s): Pt. reports she has a history of a heart murmur. duodenal ulcer, n/v, abdominal pain, hx hypothyroidism. Hx of seizures "but they don't know why." Last seizure 2 years ago. "I drive and everything." History of Any Multi-Drug Resistant Organisms: None Reported Past Surgical History: Bariatric Surgery, Tubal Ligation Additional Past Surgical History / Comment(s): breast reduction, gastric bypass. Past Anesthesia/Blood Transfusion Reactions: No Reported Reaction Past Psychological History: Anxiety, Depression, PTSD Additional Psychological History / Comment(s): major depressive disorder Smoking Status: Current every day smoker Past Alcohol Use History: None Reported Additional Past Alcohol Use History / Comment(s): Admits to a history of ETOH abuse after her daughter got killed but stopped on her own. Sober x 2 years unti l yesterday when she had some wine while making dinner thus leading to the argument with s.o. Past Drug Use History: Marijuana Additional Drug Use History / Comment(s): Pt admits to using Kratom "Every 3 hours for joint pain, anxiety and relaxes me. I think I'm withdrawing from it." Also use marijuana - Past Family History Daughter(s) Family Medical History: Blood Disorder Medications and Allergies Home Medications Medication Instructions Recorded Confirmed Type traZODone HCL [Desyrel] 200 mg PO HS PRN 15 Days tab 05/16/22 09/07/23 Rx Albuterol Inhaler [Ventolin Hfa 1 - 2 puff INHALATION RT-Q6H PRN 09/07/23 09/07/23 History Inhaler] Albuterol Nebulized [Ventolin 2.5 mg INHALATION RT-Q4H PRN 09/07/23 09/07/23 History Nebulized] Daily-Naveen 1 tab PO DAILY 09/07/23 09/07/23 History Kratom 10 gm PO Q4H 09/07/23 09/07/23 History Ondansetron Odt [Zofran Odt] 8 mg PO Q12HR PRN 09/07/23 09/07/23 History Pantoprazole [Protonix] 40 mg PO BID 09/07/23 09/07/23 History hydrOXYzine pamoate [Vistaril] 100 mg PO TID PRN 09/07/23 09/07/23 History Allergies Allergy/AdvReac Type Severity Reaction Status Date / Time Penicillins Allergy Anaphylaxis Verified 09/07/23 21:58 shellfish derived Allergy Unknown Verified 09/08/23 21:57 Iodinated Contrast Media AdvReac seizure Verified 09/07/23 21:58 [Iodinated Contrast Media - Oral and] Physical Exam Vitals: Vital Signs Temp Pulse Resp BP Pulse Ox 09/09/23 14:29 98 132/81 09/09/23 08:22 97.9 F 109 H 18 105/68 98 Cranial Nerve Examination - Cranial Nerves Cranial Nerve II- Optic: Intact Cranial Nerve III- Oculomotor: Intact Cranial Nerve IV- Trochlear: Intact Cranial Nerve V- Trigeminal: Intact Cranial Nerve - Abducens: Intact Cranial Nerve VII- Facial: Intact Cranial Nerve VIII- Auditory: Intact Cranial Nerve IX- Glossopharyngeal: Intact Cranial Nerve X- Vagus: Intact Cranial Nerve XI- Accessory: Intact Cranial Nerve XII- Hypoglossal: Intact Results CBC & Chem 7: 09/08/23 13:46 09/08/23 13:46 Labs: Abnormal Lab Results - Last 24 Hours (Table) 09/09/23 Range/Units 07:22 TSH 0.389 L (0.465-4.680) mIU/L Assessment and Plan Assessment: Depression suicidal ideation Management per psych Intermittent asthma, compensated Continue with albuterol inhaler as needed Microcytic anemia Patient denies any bleeding Hemoglobin 10.3 MCV 70.5 RDW elevated 19.9 Check iron studies Renal function unremarkable sodium 141 potassium 4.3 BUN 14 creatinine 0.48 Thank you for this consultation
--- NOTE | 2023-09-10 13:20 | P.PN ---
Progress Note - Text Progress Note Date: 09/10/23 Interval History: Patient was seen bedside this afternoon. She reports that her mood is "blah" but says that overall, she has noticed that her emotions are more under her control than they were yesterday and prior to hospitalization. She reports sleeping well and states she has not had any nightmares last night. She endorses tolerating the medications well without any dizziness headaches, or nausea. She says she was crying more yesterday but has noticed that she is able to better control her emotions and has not been feeling overwhelmed today. She was encouraged to practice coping skills that she has learned over the years to help with her mood and anxiety. She is future oriented and hopes to return home to see her dogs. She says she spoke with her over the phone and that he is hopeful that she is feeling better and is able to return home once stabilized. At this time patient denies any suicidal or homicidal ideations, intent or plan. Patient denies any auditory, visual hallucinations and denies any paranoia or delusions. Patient denies any side effects from the medications and has been compliant with meds. She received Ativan 2 mg this morning but given patient was not consistently using alcohol, will discontinue CIWA. Mental Status Exam: General Appearance: Patient appears to be stated age is alert, directable, and attempts to cooperate. Patient appears to have fair hygiene and grooming. Multiple tattoos. Behavior: Patient is seated without any agitated behavior. Eye contact is appropriate. Speech: Patient's speech is fluent and nonpressured. Mood/Affect: Patient reports their mood is "blah", affect is congruent Suicidality/Homicidality: Patient denies having any homicidal ideation intent or plan. Denies suicidal ideation, intent or plan Perceptions: Patient denies any visual hallucinations and denies any auditory hallucinations Though content/process: There is no evidence of any delusional thought content and thought process is linear and goal-directed. Memory and concentration: AOX3, grossly intact for the purposes of this session. Judgment and insight: Fair Assessment Major depressive disorder, recurrent, severe without psychotic features Generalized anxiety disorder Posttraumatic stress disorder Cluster B personality traits Alcohol use disorder Cannabis use disorder Tobacco use disorder PLAN: -Patient is admitted under voluntary status to [facility] for stabilization of psychiatric symptoms and safety. Patient signed adult voluntary form and medication consent and is placed in patient's chart. -Medications : - Prazosin 1 mg by mouth at bedtime for PTSD related nightmares - Trazodone 250 mg by mouth at bedtime when necessary for insomnia - Paxil 10 mg qHS for anxiety, depression, and sleep -[facility] protocol- will discontinue -Vistaril PRN for agitation/aggression -Patient was counselled on substance abuse and desired to cut back on use -Patient was informed of the risks, benefits and side effects of the medication and patient verbally consented to taking the medications. Patient signed med consent form and was placed in chart. -Internal Medicine consult to perform medical evaluation and physical. -NRT - nicotine patch -SW on board for discharge planning. Encourage patient to participate in groups to work on coping skills. Anticipate discharge early this week, provided patient continues to improve
[2023-09-10] MEDS ORDERED: LORazepam 2 MG/ML INJ IM PRN (13:42)
[2023-09-10] MEDS: cloNIDine HCL 0.1 MG TAB PO PRN (17:09)
[2023-09-10] MEDS: LORazepam 1 MG TAB PO PRN (18:42)
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
[2023-09-11] MEDS: busPIRone HCl 10 MG TAB PO SCH (12:39)
[2023-09-11] MEDS: PARoxetine 20 MG TAB PO SCH (20:41)
[2023-09-11] MEDS: traZODone HCL 100 MG TAB PO SCH (20:41)
[2023-09-12 07:02] VITALS: PULSE 86; TEMP 97.6
[2023-09-12 08:38] VITALS: BP 107/61; RESP 16
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
[2023-09-12] MEDS ORDERED: traZODone HCL 100 MG TAB PO SCH (21:00)
== END 2023-09-12 12:00 | disposition home or self-care (01) | DRG 885 ==
LOC: EC 19:49 → 3MHU 09-08 16:38
PROVIDERS: ADMIT Psychiatry & Neurology Psychiatry; ATTEND Psychiatry & Neurology Psychiatry
DX: F33.2 Major depressive disorder, recurrent severe without psychotic features (principal); R45.851 Suicidal ideations; D50.9 Iron deficiency anemia, unspecified; F60.89 Other specific personality disorders; J45.20 Mild intermittent asthma, uncomplicated; F12.10 Cannabis abuse, uncomplicated; F10.10 Alcohol abuse, uncomplicated; E03.9 Hypothyroidism, unspecified; Z11.52 Encounter for screening for COVID-19; Z28.310 Unvaccinated for COVID-19; F41.1 Generalized anxiety disorder; F43.10 Post-traumatic stress disorder, unspecified; G25.81 Restless legs syndrome; K21.9 Gastro-esophageal reflux disease without esophagitis; G47.00 Insomnia, unspecified; F17.210 Nicotine dependence, cigarettes, uncomplicated; Z91.410 Personal history of adult physical and sexual abuse; Z79.899 Other long term (current) drug therapy; Z91.51 Personal history of suicidal behavior; Z98.84 Bariatric surgery status; Z71.41 Alcohol abuse counseling and surveillance of alcoholic; Z71.51 Drug abuse counseling and surveillance of drug abuser; Z88.0 Allergy status to penicillin; Z91.041 Radiographic dye allergy status
CPT/HCPCS: 36415; 80053; 80061; 80306; 81003; 81025; 82075; 82728; 83036; 83540; 83550; 84439; 84443; 85025; 87635; 99285

== ENCOUNTER 2024-02-28 20:59 | Emergency (ER) | payer OTHER ==
[2024-02-28] MEDS ORDERED: diphenhydrAMINE 50 MG/ML 1 ML VIAL ONE (21:44)
[2024-02-28] MEDS ORDERED: methylPREDNISolone SOD SUCCI 125 MG/2 ML VIAL ONE (21:44)
[2024-02-28] MEDS ORDERED: ONDANSETRON 4 MG/2 ML VIAL ONE (21:44)
[2024-02-28] MEDS ORDERED: HYDROmorphone 1 MG/ML 1 ML SYRINGE ONE ×2 (21:45→23:31)
[2024-02-28] MEDS ORDERED: PANTOPRAZOLE 40 MG/10 ML VIAL ONE (21:45)
[2024-02-28] MEDS ORDERED: FAMOTIDINE 20 MG/2 ML VIAL ONE (21:45)
[2024-02-28] MEDS ORDERED: SODIUM CHLORIDE 0.9% 1,000 ML BAG ONE (21:50)
--- NOTE | 2024-03-26 13:31 | CT ---
EXAM: CT Abdomen and Pelvis With Intravenous Contrast CLINICAL HISTORY: vomiting blood. h/o ulcers. r/o gi bleed TECHNIQUE: Axial computed tomography images of the abdomen and pelvis with intravenous contrast. Delayed imaging is performed. CTDI is 11.37 mGy and DLP is 508.1 mGy-cm. This CT exam was performed using one or more of the following dose reduction techniques: automated exposure control, adjustment of the mA and/or kV according to patient size, and/or use of iterative reconstruction technique. COMPARISON: No relevant prior studies available. FINDINGS: Lung bases:Unremarkable. No mass. No consolidation. ABDOMEN: Liver:Unremarkable. No mass. Gallbladder and bile ducts:Unremarkable. No calcified stones. No ductal dilation. Pancreas:Unremarkable. No mass. No ductal dilation. Spleen:Unremarkable. No splenomegaly. Adrenals:Unremarkable. No mass. Kidneys and ureters: Symmetric renal enhancement. No hydronephrosis. Small simple right kidney lower pole cyst; no follow-up indicated. Stomach and bowel: Status post gastric bypass. No bowel obstruction. No active gastrointestinal beating identified on this exam. PELVIS: Appendix:Normal appendix. Bladder:Unremarkable. No mass. Reproductive:Unremarkable as visualized. ABDOMEN and PELVIS: Intraperitoneal space:Unremarkable. No free air, significant free fluid, or fluid collection. Bones/joints:No acute fracture. No dislocation. Disc degeneration L2-L3. Soft tissues:Unremarkable. Vasculature: Wall thickening within the bypassed stomach, potentially gastritis. No abdominal aortic aneurysm. Lymph nodes:Unremarkable. No enlarged lymph nodes. IMPRESSION: 1. No active gastrointestinal bleeding identified on this exam. 2. Wall thickening within the bypassed stomach, potentially gastritis. Radiologist: Claudy Valles M.D. Electronically Signed: 02/29/24 02:31 Study ready at 01:26 and initial results transmitted at 02:31 [facility]
== END 2024-02-29 00:17 | disposition other institution (70) ==
LOC: EC 20:59
DX: K92.2 Gastrointestinal hemorrhage, unspecified (principal)
CPT/HCPCS: 74177; 86850; 86900; 86901; 96374; 96375; 99285